=== PATIENT | female | born 1980 | race Caucasian/White ===

== ENCOUNTER 2016-10-17 08:41 | Inpatient (IN) | payer OTHER ==
[~2016-10-17] VITALS: Ht 154.9 cm; Wt 48.0 kg
[2016-10-17] VITALS (9 sets, daily range): BP systolic 113–135; BP diastolic 76–93; PULSE 79–102; RESP 18–24; TEMP 96.3–97.7; O2SAT 96–100
[2016-10-17] MEDS ORDERED: SODIUM CHLORIDE 0.9% FLUSH 10 ML FLUSH IVF PRN (09:15)
[2016-10-17] MEDS ORDERED: SODIUM CHLOR 0.9% 1000 ML INJ 1,000 ML IV ONE (09:15)
[2016-10-17] MEDS ORDERED: APIX5TAB PO (09:26)
[2016-10-17] MEDS ORDERED: DILA4TAB2 PO (09:33)
[2016-10-17 09:50] LABS: AUTOMATED NEUTROPHIL # 1.8 TH/MM3 (1.8-7.7); EOSINOPHIL # 0.1 TH/MM3 (0-0.4); EOSINOPHIL % 1.7 % (0.0-4.0); HEMATOCRIT 31.6 % (35.0-46.0); LYMPH % 35.1 % (9.0-44.0); LYMPHOCYTE # 1.2 TH/MM3 (1.0-4.8); MEAN CELL VOLUME 84.6 FL (80.0-100.0); MEAN CORPUSCULAR HEMOGLOBIN 26.7 PG (27.0-34.0); MEAN CORPUSCULAR HGB CONC 31.6 % (32.0-36.0); MONO % 10.7 % (0.0-8.0); NEUT % 51.5 % (16.0-70.0); PLATELET COUNT 128 TH/MM3 (150-450); RED BLOOD COUNT 3.73 MIL/MM3 (4.00-5.30); RED CELL DISTRIBUTION WIDTH 19.5 % (11.6-17.2); WHITE BLOOD COUNT 3.5 TH/MM3 (4.0-11.0)
[2016-10-17 09:52] LABS: HEMO FLAGS AUTO DIFF
[2016-10-17 10:00] LABS: APTT (PATIENT) 24.8 SEC (24.3-30.1); INTERNATIONAL NORMALIZED RATIO 1.1 RATIO; PROTHROMBIN TIME - PATIENT 12.2 SEC (9.8-11.6)
[2016-10-17 10:09] LABS: ANION GAP 7 MEQ/L (5-15); AST (GOT) 128 U/L (15-37); BICARBONATE 27.7 MEQ/L (21.0-32.0); BLOOD UREA NITROGEN 12 MG/DL (7-18); CHLORIDE 108 MEQ/L (98-107); GLOMERULAR FILTRATION RATE 97 ML/MIN (>89); MAGNESIUM 2.2 MG/DL (1.5-2.5); POTASSIUM 3.5 MEQ/L (3.5-5.1); SODIUM (NA) 143 MEQ/L (136-145)
[2016-10-17 10:13] LABS: ALKALINE PHOSPHATASE 472 U/L (45-117); ALT (GPT) 100 U/L (10-53); TOTAL BILIRUBIN ADULT 0.9 MG/DL (0.2-1.0)
[2016-10-17 10:25] LABS: CREATINE KINASE 28 U/L (26-192)
[2016-10-17 10:31] LABS: SCAN/DIFF AUTO DIFF CONFIRMED
--- NOTE | 2016-10-17 10:38 | RADRPT ---
EXAM DATE/TIME: 10/17/2016 09:51 [facility] COMPARISON: CHEST SINGLE AP, February 19, 2016, 4:44. INDICATIONS : Chest pain and body pain. MEDICAL HISTORY : Blood clots. SURGICAL HISTORY : Valve replacements. ENCOUNTER: Initial ACUITY: 4 - 6 months PAIN SCORE: 7/10 LOCATION: Bilateral chest FINDINGS: Valvular prosthesis is evident. Sternal wires from previous median sternotomy are noted. Minimal bi basilar parenchymal changes are noted. CONCLUSION: Minimal atelectactic changes in both bases, otherwise negative. Oseas Frederick MD FACR on October 17, 2016 at 10:28 Board Certified Radiologist. This report was verified electronically.
[2016-10-17] MEDS ORDERED: HYDROmorphone HCL PF 1 MG/ML VIAL IV PUSH ONE (11:00)
[2016-10-17] MEDS ORDERED: ACETAMINOPHEN/HYDROcodone 325 MG/5 MG TAB PO ONE (11:00)
--- NOTE | 2016-10-17 11:08 | PD ---
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 She was discharged from her extended stay rehabilitation facility 2 days prior. Evidently she has been in and out of hospitals since she was diagnosed with endocarditis including [facility] and [facility]. She reports compliance with Eliquis for a history of septic pulmonary embolism. She also mentioned that she has been compliant with oral Dilaudid. She denies any interim IV drug abuse to me however reports to the triage nurse that she used IV drugs today. She states the pain is constant and severe. She underwent mitral and tricuspid repairs with open chest procedure. PFSH Past Medical History Cardiovascular Problems: Yes (endocarditis) Tetanus Vaccination: < 5 Years Influenza Vaccination: Yes ?: Not LMP: 10/12/16 Past Surgical History Cardiac Surgery: Yes (2 valves placed in heart) Other Surgery: Yes Social History Alcohol Use: No Tobacco Use: No Substance Use: Yes (hx) Allergies-Medications (Allergen,Severity, Reaction): Coded Allergies: Morphine (Verified Allergy, Severe, hives, 10/17/16) Penicillin (Verified Allergy, Unknown, 02/14/16) Reported Meds & Prescriptions Reported Meds & Active Scripts Active Reported Dilaudid (Hydromorphone HCl) 4 Mg Tab 4 Mg PO Q6H PRN Eliquis (Apixaban) 5 Mg Tab 5 Mg PO BID Review of Systems Except as stated in HPI: all other systems reviewed are Neg Physical Exam Narrative GENERAL: 36-year-old female fairly thin pleasant SKIN: Warm and dry. There does appear to be a fresh linear track naresh along the dorsal aspect of the left DRUJ concerning for recent IV drug abuse. HEAD: Atraumatic. Normocephalic. EYES: Pupils equal and round. No scleral icterus. No injection or drainage. ENT: No nasal bleeding or discharge. Mucous membranes pink and moist. NECK: Trachea midline. No JVD. CARDIOVASCULAR: Tachycardia. Regular. RESPIRATORY: No accessory muscle use. Clear to auscultation. Breath sounds equal bilaterally. GASTROINTESTINAL: Abdomen soft, non-tender, nondistended. Hepatic and splenic margins not palpable. MUSCULOSKELETAL: Extremities without clubbing, cyanosis, or edema. No obvious deformities. NEUROLOGICAL: No asymmetry erythema induration about the lower extremities. There is no gross deformity. The patient is ambulatory in the ER with a normal gait. PSYCHIATRIC: Appropriate mood and affect; insight and judgment normal. Data Data Last Documented VS Vital Signs Date Time Temp Pulse Resp B/P Pulse Ox O2 Delivery O2 Flow Rate FiO2 10/17/16 09:25 83 10/17/16 09:21 21 135/93 97 Room Air 10/17/16 08:43 97.7 Vital signs reviewed Orders Electrocardiogram (10/17/16 ) Complete Blood Count With Diff (10/17/16:15) Comprehensive Metabolic Panel (10/17/16:15) B-Type Natriuretic Peptide (10/17/16:15) Act Partial Throm Time (Ptt) (10/17/16:15) Prothrombin Time / Inr (Pt) (10/17/16:15) Magnesium (Mg) (10/17/16:15) Ckmb (Isoenzyme) Profile (10/17/16:15) Troponin I (10/17/16:15) Urinalysis - C+S If Indicated (10/17/16:15) Blood Culture (10/17/16:15) Iv Access Insert/Monitor (10/17/16:15) Electrocardiogram (10/17/16:15) Ecg Monitoring (10/17/16:15) Oximetry (10/17/16:15) Oxygen Administration (10/17/16:15) Chest, Single Ap (10/17/16 09:15) Sodium Chloride 0.9% Flush (Ns Flush) (10/17/16 09:15) Sodium Chlor 0.9% 1000 Ml Inj (Ns 1000 M (10/17/16 09:15) Acetamin-Hydrocod 325-5 Mg ([place] 5-325 (10/17/16 11:00) Hydromorphone Pf Inj (Dilaudid Pf Inj) (10/17/16 11:00) Vancomycin Inj (Vancomycin Inj) (10/17/16 11:30) Rifampin Inj (Rifampin Inj) (10/17/16 11:30) Gentamicin 80 Mg Premix (Gentamicin 80 M (10/17/16 11:30) Labs Laboratory Tests Test 10/17/16 10/17/16 09:18 10:22 White Blood Count 3.5 TH/MM3 Red Blood Count 3.73 MIL/MM3 Hemoglobin 10.0 GM/DL Hematocrit 31.6 % Mean Corpuscular Volume 84.6 FL Mean Corpuscular Hemoglobin 26.7 PG Mean Corpuscular Hemoglobin 31.6 % Concent Red Cell Distribution Width 19.5 % Platelet Count 128 TH/MM3 Mean Platelet Volume 8.3 FL Neutrophils (%) (Auto) 51.5 % Lymphocytes (%) (Auto) 35.1 % Monocytes (%) (Auto) 10.7 % Eosinophils (%) (Auto) 1.7 % Basophils (%) (Auto) 1.0 % Neutrophils # (Auto) 1.8 TH/MM3 Lymphocytes # (Auto) 1.2 TH/MM3 Monocytes # (Auto) 0.4 TH/MM3 Eosinophils # (Auto) 0.1 TH/MM3 Basophils # (Auto) 0.0 TH/MM3 CBC Comment AUTO DIFF Differential Comment AUTO DIFF CONFIRMED Prothrombin Time 12.2 SEC Prothromb Time International 1.1 RATIO Ratio Activated Partial 24.8 SEC Thromboplast Time Sodium Level 143 MEQ/L Potassium Level 3.5 MEQ/L Chloride Level 108 MEQ/L Carbon Dioxide Level 27.7 MEQ/L Anion Gap 7 MEQ/L Blood Urea Nitrogen 12 MG/DL Creatinine 0.69 MG/DL Estimat Glomerular Filtration 97 ML/MIN Rate Random Glucose 95 MG/DL Calcium Level 8.8 MG/DL Magnesium Level 2.2 MG/DL Total Bilirubin 0.9 MG/DL Aspartate Amino Transf 128 U/L (AST/SGOT) Alanine Aminotransferase 100 U/L (ALT/SGPT) Alkaline Phosphatase 472 U/L Total Creatine Kinase 28 U/L Troponin I LESS THAN 0.02 NG/ML B-Type Natriuretic Peptide 144 PG/ML Total Protein 8.5 GM/DL Albumin 3.1 GM/DL Urine Color YELLOW Urine Turbidity HAZY Urine pH 6.5 Urine Specific [place] 1.015 Urine Protein TRACE mg/dL Urine Glucose (UA) NEG mg/dL Urine Ketones NEG mg/dL Urine Occult Blood NEG Urine Nitrite NEG Urine Bilirubin NEG Urine Urobilinogen LESS THAN 2.0 MG/DL Urine Leukocyte Esterase SMALL Urine RBC 2 /hpf Urine WBC 4 /hpf Urine Squamous Epithelial <1 /hpf Cells Urine Amorphous Sediment RARE Urine Mucus FEW /lpf Microscopic Urinalysis Comment CULT NOT INDICATED MDM Medical Decision Making Medical Screen Exam Complete: Yes Emergency Medical Condition: Yes Medical Record Reviewed: Yes Differential Diagnosis CBC & BMP Diagram 10/17/16 09:18 Narrative Course Chest x-ray reveals atelectasis at the bases EKG: Rate 89, sinus, incomplete right bundle branch block pattern CBC & BMP Diagram 10/17/16 09:18 AST 128 ALT 100 Alkaline phosphatase 272 Troponin less than 0.02 BNP 144 Unfortunately this patient carries risk factors for prosthetic valve endocarditis including current IV drug use and history of endocarditis. Empiric antibiotic started: Vancomycin, rifampin and gentamicin. Blood cultures drawn. Discussed with Dr Burger. Diagnosis Primary Impression: Chest pain Qualified Code: R07.9 - Chest pain, unspecified type Additional Impressions: IVDU (intravenous drug user) History of endocarditis Admitting Information Admitting Physician Requests: Admit Tung Daniel MD October 17, 2016 11:08
[2016-10-17 11:12] LABS: BLOOD, URINE NEG (NEG); COMMENT (UR) CULT NOT INDICATED; CULTURE IF INDICATED CULT NOT INDICATED; GLUCOSE,URINE NEG (NEG); KETONE, URINE NEG (NEG); MUCUS URINE FEW /lpf (OCC); NITRITE,URINE NEG (NEG); PH, URINE 6.5 (5.0-8.5); SQUAMOUS EPITHELIAL CELL URINE <1 /hpf (0-5); URINE COLOR YELLOW (YELLW/STRAW)
[2016-10-17] MEDS ORDERED: RIFAMPIN INJ 300 MG in SODIUM CHLORIDE 0.9% INJ 100 ML IV ONE (11:30)
[2016-10-17] MEDS ORDERED: GENTAMICIN 80 MG PREMIX 100 ML IV ONE (11:30)
[2016-10-17] MEDS ORDERED: VANCOMYCIN INJ 1,000 MG in SODIUM CHLOR 0.9% 250 ML INJ 250 ML IV ONE (11:30)
--- NOTE | 2016-10-17 11:54 | HHI.HP ---
HPI Service Family Medicine Primary Care Physician No Primary Care Physician Admission Diagnosis Chest Pain; Hx Endocarditis; Transaminitis; IVDA Diagnoses: International Travel<30 Days: No Contact w/Intl Traveler<30days: No Known Affected Area: No History of Present Illness Patient is a 36 year old female with a history of endocarditis and MV/TV replacement who presents with chest pain, shortness of breath, and right LE pain. Chest pain: started yesterday afternoon, felt sharp, throbbing. The pain is located across the entire upper left chest. She had numbness over the right chest since her surgeries. Non-radiating. It is pleuritic. This morning it worsened and she developed shortness of breath with short distances (e.g from ED room to bathroom). She had MV and TV replaced in May at [facility] in [place]. The shortness of breath is new since this morning. The right leg and foot always hurts. The leg pain is located anterior proximal thigh, 2/10 in severity. Lower down it is located in the ankle and top of foot mostly. 8/10 in severity. New symptoms yesterday was that she couldn't feel her right toes, lasting 10 minutes x 2. She has had difficult to locate pulses in the past in this foot. History: January or February 2016 - diagnosed with endocarditis; she AMA'd after 28 days. She was given IV antibiotics prior to AMA. She was told she needed 60 days of tx. May 2016 - had chest pain, fevers, "felt like I was dying". Went to [facility] then was diagnosed with endocarditis. She was given IV antibiotics and surgery on the valves, bovine valves. She had 60-72 days of IV antibiotics and for management of LE blood clots. Discharged on Coumadin. Discharge to SNF due to continued antibiotics. Two weeks later - chest pain again, bad tooth, resulted in blood infection. [facility], transferred to [facility] for IV antibiotics, had tachycardia and went into coma. Was in coma for 8 days. She was discharged . She was sent to [facility] for continued IV antibiotics. Left -Rocephin, Vancomycin, Cipro PO, Probiotics. Discharged on Eliquis 5mg BID and PO Dilaudid, 4mg q6hr PO PRN, taking them q8 (last dose 1mg IV in ED). PICC d/c'd 10/14/16 prior to discharge from SNF. She had blood clots in L femoral artery --> catheterized, blood clots distally went away with heparin. She still has five clots in the right leg, last US was a month ago at [facility]. She also had multiple complications from central lines while hospitalized, superficial clot in right arm, infection in left arm. Infectious Disease Doctor: Dr. Kelley in [facility] one week ago. Last echo September 2016. She said she had a work-up for coagulopathy in the past at [facility]. (Dennise Burger MD R1) Review of Systems Constitutional: DENIES: Fever, Chills, Change in appetite Eyes: DENIES: Blurred vision, Diplopia, Eye pain Ears, nose, mouth, throat: DENIES: Tinnitus, Hearing loss, Nasal discharge, Oral lesions, Throat pain, Running Nose, Toothache Respiratory: COMPLAINS OF: Shortness of breath, DENIES: Cough, Snoring, Wheezing, Hemoptysis, Sputum production Cardiovascular: COMPLAINS OF: Chest pain, Dyspnea on Exertion, DENIES: Palpitations, Syncope, Lower Extremity Edema Gastrointestinal: DENIES: Abdominal pain, Black stools, Bloody stools, Constipation, Diarrhea, Nausea, Vomiting Genitourinary: DENIES: Abnormal vaginal bleeding, Dysmenorrhea, Dyspareunia, Urinary frequency, Urgency, Hematuria, Dysuria Musculoskeletal: DENIES: Muscle aches, Joint Swelling, Back pain, Neck pain Integumentary: DENIES: Pruritus, Rash Hematologic/lymphatic: DENIES: Bruising Neurologic: DENIES: Localized weakness, Paresthesias, Seizures, Tremor Psychiatric: DENIES: Anxiety, Mood changes (Dennise Burger MD R1) Past Family Social History Past Medical History Artificial MV, 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, 2016 Endocarditis LMP one week ago Past Surgical History Valve surgery Left femoral vein catheterization Tooth infection complicated by bacteremia - extraction at [facility] Reported Medications Reported Meds & Active Scripts Active Reported Dilaudid (Hydromorphone HCl) 4 Mg Tab 4 Mg PO Q6H PRN Eliquis (Apixaban) 5 Mg Tab 5 Mg PO BID (Dennise Burger MD R1) Allergies: Coded Allergies: Morphine (Verified Allergy, Severe, hives, 10/17/16) Penicillin (Verified Allergy, Unknown, 02/14/16) Active Ordered Medications Inpatient Medications Acetaminophen/ Hydrocodone Bitart (Midnight 5-325 Mg) 2 tab ONCE ONCE PO ; Start 10/17/16 at 11:00; Stop 10/17/16 at 11:01; Status DC Gentamicin Sulfate/Sodium Chloride (Gentamicin 80 Mg Premix) 100 ml @ 200 mls/ hr ONCE ONCE IV ; Start 10/17/16 at 11:30; Stop 10/17/16 at 11:59 Hydromorphone HCl 0.5 mg 0.5 mg ONCE ONCE IV PUSH Last administered on 11:05; Start 10/17/16 at 11:00; Stop 10/17/16 at 11:01; Status DC Rifampin 300 mg/ Sodium Chloride 100 ml @ 100 mls/hr ONCE ONCE IV ; Start 05/24 at 11:30; Stop 10/17/16 at 12:29 Sodium Chloride (NS 1000 ml Inj) 1,000 ml @ 999 mls/hr BOLUS ONCE IV Last administered on 10/17/16 09:35; Start 10/17/16 at 09:15; Stop 10/17/16 at 10:15 ; Status DC Sodium Chloride 2 ml 2 ml UNSCH PRN IVF FLUSH AFTER USING IV ACCESS; Start 05/24 at 09:15 Vancomycin HCl 1000 mg/Sodium Chloride 250 ml @ 250 mls/hr ONCE ONCE IV ; Start 10/17/16 at 11:30; Stop 10/17/16 at 12:29 Family History Mother, father, siblings, children all healthy Children: 3; age 12, 7, 4 Social History Cigarettes: none now, occasional in the past Alcohol: denies Illicit: hx IVDU, denies today PCP: none (Dennise Burger MD R1) Physical Exam Vital Signs Vital Signs Date Time Temp Pulse Resp B/P Pulse Ox O2 Delivery O2 Flow Rate FiO2 10/17/16 09:25 83 10/17/16 09:21 86 21 135/93 97 Room Air 10/17/16 09:20 97 Room Air 10/17/16 08:43 97.7 92 24 134/84 96 Room Air Physical Exam GENERAL: Thin female lying in bed, tearful. Poor dentition SKIN: Warm and dry. No obvious rashes or track vidal HEAD: Atraumatic. Normocephalic. EYES: Pupils equal and round. No scleral icterus. No injection or drainage. ENT: No nasal bleeding or discharge. Mucous membranes pink and moist. NECK: Trachea midline. No JVD. CARDIOVASCULAR: Regular rate and rhythm. No obvious murmurs on exam RESPIRATORY: No accessory muscle use. Clear to auscultation. Breath sounds equal bilaterally. GASTROINTESTINAL: Abdomen soft, thin, non-tender, nondistended. Hepatic and splenic margins not palpable. MUSCULOSKELETAL: Extremities without clubbing, cyanosis, or edema. The lower extremities are tender to palpation distally with negative Homans. No obvious deformities. NEUROLOGICAL: Awake and alert. No obvious cranial nerve deficits. Motor grossly within normal limits. Five out of 5 muscle strength in the arms and legs. Normal speech. PSYCHIATRIC: Tearful, frustrated with history taking. States to "ask my mom" about details about medical history but does not offer number. Insight and judgment normal. Laboratory Laboratory Tests Test 10/17/16 10/17/16 09:18 10:22 White Blood Count 3.5 Red Blood Count 3.73 Hemoglobin 10.0 Hematocrit 31.6 Mean Corpuscular Volume 84.6 Mean Corpuscular Hemoglobin 26.7 Mean Corpuscular Hemoglobin 31.6 Concent Red Cell Distribution Width 19.5 Platelet Count 128 Mean Platelet Volume 8.3 Neutrophils (%) (Auto) 51.5 Lymphocytes (%) (Auto) 35.1 Monocytes (%) (Auto) 10.7 Eosinophils (%) (Auto) 1.7 Basophils (%) (Auto) 1.0 Neutrophils # (Auto) 1.8 Lymphocytes # (Auto) 1.2 Monocytes # (Auto) 0.4 Eosinophils # (Auto) 0.1 Basophils # (Auto) 0.0 CBC Comment AUTO DIFF Differential Comment AUTO DIFF CONFIRMED Prothrombin Time 12.2 Prothromb Time International 1.1 Ratio Activated Partial 24.8 Thromboplast Time Sodium Level 143 Potassium Level 3.5 Chloride Level 108 Carbon Dioxide Level 27.7 Anion Gap 7 Blood Urea Nitrogen 12 Creatinine 0.69 Estimat Glomerular Filtration 97 Rate Random Glucose 95 Calcium Level 8.8 Magnesium Level 2.2 Total Bilirubin 0.9 Aspartate Amino Transf 128 (AST/SGOT) Alanine Aminotransferase 100 (ALT/SGPT) Alkaline Phosphatase 472 Total Creatine Kinase 28 Troponin I LESS THAN 0.02 B-Type Natriuretic Peptide 144 Total Protein 8.5 Albumin 3.1 Urine Color YELLOW Urine Turbidity HAZY Urine pH 6.5 Urine Specific [place] 1.015 Urine Protein TRACE Urine Glucose (UA) NEG Urine Ketones NEG Urine Occult Blood NEG Urine Nitrite NEG Urine Bilirubin NEG Urine Urobilinogen LESS THAN 2.0 Urine Leukocyte Esterase SMALL Urine RBC 2 Urine WBC 4 Urine Squamous Epithelial <1 Cells Urine Amorphous Sediment RARE Urine Mucus FEW Microscopic Urinalysis Comment CULT NOT INDICATED Date/Time Procedure Status Source Growth 10/17/16 09:28 Aerobic Blood Culture Received Blood Peripheral Pending 10/17/16 09:28 Anaerobic Blood Culture Received Blood Peripheral Pending (Dennise Burger MD R1) Result Diagram: 10/17/1618 10/17/1618 Imaging Last Impressions Lower Extremity Ultrasound 10/17/16 0000 Signed Impressions: Service Date/Time: Monday, October 17, 2016 13:06 - CONCLUSION: Negative for DVT.. Oseas Frederick MD FACR Abdomen/Pelvis CT 10/17/16 0000 Signed Impressions: Service Date/Time: Monday, October 17, 2016 15:25 - CONCLUSION: 1. Enlarged heterogeneous liver 2. Splenomegaly. 3. Minimal bibasilar patchy densities. 4. No acute inflammatory process. Raad Carreon MD (Dennise Burger MD R1) Assessment and Plan Assessment and Plan 36-year-old female with a history of IVDU and extensive past history of endocarditis and bovine MV/TV replacements who presents with acute onset chest pain and shortness of breath. Code Status Full code Discussed Condition With Seen and discussed with Dr. Joceline Alex (Dennise Burger MD R1) Attending Attestation Patient seen and examined. Case reviewed and discussed with the resident team. Agree with plan of care as discussed with me and documented in the resident note. pt seen on admission in the ED (Akua Rice MD) Problem List: (1) Chest pain Status: Acute Plan: Patient presents with chest pain with shortness of breath. The differential diagnoses includes recurrence of infective endocarditis, PE, pneumonia, ACS, pericarditis, chest wall pain, pancreatitis Plan: * Treat empirically for endocarditis with IV Vanco with vancomycin consult, trough goal 1520, and cefepime 2 g IV every 8 hours per ID recs * Monitor symptoms, pain control with Dilaudid 0.5mg IV pain 15, Dilaudid 1mg IV pain 610, Dilaudid 1 mg IV breakthrough * Trend cardiac enzymes and EKG * We'll order CT angiogram given significant history of clots, reported immobility, and symptoms suggestive of PE * Add lipase to labs (2) 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 She presents with chest pain suggestive of acute pulmonary versus cardiac process. Not meeting septic criteria, however, patient was recently on antibiotics and CBC would not necessarily be indicative of infection/inflammatory response Plan: * Urgent echo * Blood cultures drawn and pending * Consult infectious disease * Dr. Busby consulted, recommended vancomycin and cefepime IV as above * Regular diet and pain control * CRP added to labs (3) IVDU (intravenous drug user) Status: Acute Plan: Patient with a history of IV drug use, denies on history today. Patient states she takes 4 mg Dilaudid PO every 6-8 hours Plan: * UDS ordered (4) DVT of lower extremity, bilateral Status: Acute Plan: Patient with reported persistent blood clots in the left extremity. She states she is on Eliquis 5 mg BID. Plan: * Ultrasound LE bilateral * PE workup as above * Pain management as above (5) Fluids/Electrolytes/Nutrition/Prophylaxis Status: Acute Plan: Fluids: tolerating PO Electrolytes: monitor and replete as needed Nutrition: heart-healthy diet DVT Prophylaxis: On Eliquis 5 mg twice a day GI Prophylaxis: Not indicated (Dennise Burger MD R1) Physician Certification 2 Midnight Certification Type: Admission for Inpatient Services Order for Inpatient Services The services are ordered in accordance with Medicare regulations or non- Medicare payer requirements, as applicable. In the case of services not specified as inpatient-only, they are appropriately provided as inpatient services in accordance with the 2-midnight benchmark. Estimated LOS (days): 3 days is the estimated time the patient will need to remain in the hospital, assuming treatment plan goals are met and no additional complications. Post-Hospital Plan: Not yet determined (Dennise Burger MD R1) Problem Qualifiers (1) Chest pain: Qualified Code: R07.9 - Chest pain, unspecified type (2) DVT of lower extremity, bilateral: Qualified Code: I82.493 - Deep vein thrombosis (DVT) of other vein of both lower extremities, unspecified chronicity Dennise Burger MD R1 October 17, 2016 11:54 Akua Rice MD October 18, 2016 13:56
--- NOTE | 2016-10-17 12:02 | EKG ---
Date Performed: 10/17/2016 Time Performed: 08:56:40 PTAGE: 36 years EKG: Sinus rhythm POSSIBLE LEFT ATRIAL ENLARGEMENT INCOMPLETE RIGHT BUNDLE BRANCH BLOCK POSSIBLE ANTERIOR MYOCARDIAL I NFARCTION ABNORMAL ECG COMPARED TO PRIOR ELECTROCARDIOGRAM, Rate has slowed and incomplete RIGHT bund le branch block is now present. PREVIOUS TRACING : 02/15/2016 07.54 DOCTOR: Duglas Payton Interpretating Date/Time 10/17/2016 12:01:27
[2016-10-17] MEDS ORDERED: VANCOMYCIN INJ 1,000 MG in SODIUM CHLOR 0.9% 250 ML INJ 250 ML IV SCH (12:30)
[2016-10-17] MEDS ORDERED: Vancomycin Consult Pharmacy 1 EA OTHER SCH (12:30)
--- NOTE | 2016-10-17 13:39 | RADRPT ---
EXAM DATE/TIME: 10/17/2016 13:06 [facility] COMPARISON: No previous studies available for comparison. INDICATIONS : Bilateral leg pain. MEDICAL HISTORY : Dyspnea. Endocarditis. Substance abuse. SURGICAL HISTORY : Heart valve replacement. Urethra surgery. ENCOUNTER: Initial ACUITY: 1 day PAIN SCORE: 7/10 LOCATION: Bilateral legs. TECHNIQUE: Venous ultrasound of the left and right leg was performed from the inguinal ligament to the proximal calf. Real-time, color Doppler and spectral tracing, compression and augmentation techniques were us ed. FINDINGS: RIGHT LEG: There is normal compressibility of the deep venous system from the inguinal region to the proximal ca lf. No echogenic clot is seen in the lumen of the common femoral, femoral, popliteal, and posterior tibial veins. There is a normal response of the venous system to proximal and distal augmentation an d respiration. LEFT LEG: There is normal compressibility of the deep venous system from the inguinal region to the proximal ca lf. No echogenic clot is seen in the lumen of the common femoral, femoral, popliteal, and posterior tibial veins. There is a normal response of the venous system to proximal and distal augmentation an d respiration. CONCLUSION: Negative for DVT.. Oseas Frederick MD FACR on October 17, 2016 at 13:36 Board Certified Radiologist. This report was verified electronically.
[2016-10-17] MEDS: DOCUSATE SODIUM 100 MG CAP PO SCH (14:00)
[2016-10-17] MEDS: CEFEPIME INJ 2,000 MG in SODIUM CHLORIDE 0.9% INJ 100 ML IV SCH ×2 (14:14→20:58)
[2016-10-17 15:07] LABS: CREATINE KINASE 26 U/L (26-192)
--- NOTE | 2016-10-17 15:34 | EC ---
Study Study Date:10/17/2016 STUDY CONCLUSIONS SUMMARY - Left ventricle: The cavity size was normal. Wall thickness was normal. Systolic function was normal. The estimated ejection fraction was in the range of 55% to 60%. Wall motion was normal; there were no regional wall motion abnormalities. - Aortic valve: Valve area: 1.94cm^2 (Vmax). - Mitral valve: A bioprosthesis was present. - Tricuspid valve: A bioprosthesis was present. - Pulmonic valve: Mild regurgitation. - Pulmonary arteries: PA peak pressure: 31mm Hg (S). If LV function is below 40, please consider prescribing an ACEI or ARB or document rationale for non-use. PROCEDURE DATA STUDY STATUS: Elective. Procedure: Transthoracic echocardiography. Image quality was good. Scanning was performed from the parasternal, apical, and subcostal acoustic windows. Study completion: The patient tolerated the procedure well. Transthoracic echocardiography. M-mode, complete 2D, complete spectral Doppler, and color Doppler. Height: Height: 61in. Weight: Weight: 104.8lb. Body mass index: BMI: 19.8kg/m^2. Body surface area: BSA: 1.44m^2. Patient status: Inpatient. CARDIAC ANATOMY LEFT VENTRICLE: The cavity size was normal. Wall thickness was normal. Systolic function was normal. The estimated ejection fraction was in the range of 55% to 60%. Wall motion was normal; there were no regional wall motion abnormalities. AORTIC VALVE: Trileaflet; normal thickness leaflets. Doppler: Transvalvular velocity was within the normal range. There was no stenosis. No regurgitation. Valve area: 1.94cm^2 (Vmax). Indexed valve area: 1.35cm^2/m^2 (Vmax). AORTA: Aortic root: The aortic root was normal in size. MITRAL VALVE: A bioprosthesis was present. Doppler: Transvalvular velocity was within the normal range. There was no evidence for stenosis. Trace regurgitation. Mean gradient: 6mm Hg (D). Peak gradient: 13mm Hg (D). LEFT ATRIUM: The atrium was normal in size. RIGHT VENTRICLE: The cavity size was normal. Wall thickness was normal. PULMONIC VALVE: Doppler: Transvalvular velocity was within the normal range. There was no evidence for stenosis. Mild regurgitation. TRICUSPID VALVE: A bioprosthesis was present. Doppler: Transvalvular velocity was within the normal range. Trace regurgitation. PULMONARY ARTERY: The main pulmonary artery was normal-sized. Systolic pressure was within the normal range. RIGHT ATRIUM: The atrium was normal in size. PERICARDIUM: There was no pericardial effusion. SYSTEMIC VEINS: Inferior vena cava: The vessel was normal in size. Patient weight: 104.8lb _Ejection fraction:_ 65-75% _Fractional shortening:_ 32% up to 5Kg 5-11.5Kg 11.6-22.9Kg 23-45Kg 45-57Kg Aortic Root 7-13 <17 13-22 17-27 17-27 LA diam 6-13 <23 24-38 33-47 37-40 RVID 10-17 7-15 7-15 7-18 8-17 LVIDd 12-22 <32 24-38 33-47 37-40 LVPW 2-4 3-6 5-7 6-8 7-8 IVS 2-4 3-6 5-7 6-8 7-8 BASIC MEASUREMENTS ADULT NORMAL Left ventricle LV internal dimension, ED, chordal *40.2 mm 43-52 level, PLAX LV internal dimension, ES, chordal 29.1 mm 23-38 level, PLAX Fractional shortening, chordal level, *28 % >29 PLAX LV posterior wall thickness, ED 9.76 mm IVS/LVPW ratio, ED 1.05 <1.3 Ventricular septum Septal thickness, ED 10.2 mm Aortic valve Leaflet separation 17 mm 15-26 Right ventricle RV internal dimension, ED, PLAX 23.4 mm 19-38 BASIC MEASUREMENTS ADULT NORMAL Aortic valve Leaflet separation 17 mm 15-26 Aorta Root diameter, ED 31 mm 20-37 Left atrium Anterior-posterior dimension, ES 25 mm 19-40 Anterior-posterior dimension index, ES 1.74 cm/m^2 <2.2 LA/aortic root ratio 0.81 DOPPLER MEASUREMENTS ADULT NORMAL Main pulmonary artery Pressure, S *31 mm Hg =30 Pressure, ED 19 mm Hg Aortic valve Peak velocity, S 138 cm/s VTI, S 46.1 cm Valve area, Vmax 1.94 cm^2 Valve area index, Vmax 1.35 cm^2/m^2 Mitral valve Peak E-wave velocity 174 cm/s Peak A-wave velocity 80.2 cm/s Mean velocity, D 113 cm/s Deceleration time 215 ms 150-230 Mean gradient, D 6 mm Hg Peak gradient, D 13 mm Hg Peak E/A ratio 2.2 Maximal regurgitant velocity 308 cm/s Tricuspid valve Regurgitant peak velocity 239 cm/s Peak RV-RA gradient, S 23 mm Hg Maximal regurgitant velocity 239 cm/s Systemic veins Estimated CVP 10 mm Hg Right ventricle RV pressure, S *33 mm Hg <30 Pulmonic valve Peak velocity, S 71.9 cm/s Regurgitant velocity, ED 149 cm/s LEGEND: Mean values are shown as u=mean value. Asterisk (*) vidal values outside specified normal range. Prepared and signed by Chava Huang [id number]
[2016-10-17] MEDS ORDERED: IOHEXOL 350 MG/ML 10 ML VIAL (for RAD DIAG) IV ONE (15:49)
--- NOTE | 2016-10-17 15:55 | RADRPT ---
EXAM DATE/TIME: 10/17/2016 15:25 [facility] COMPARISON: CT ABDOMEN & PELVIS W CONTRAST, February 15, 2016, 3:18. INDICATIONS : Evaluate for emboli to organs. IV CONTRAST: 60 cc Omnipaque 350 (iohexol) IV ORAL CONTRAST: Prescribed oral contrast ingested. RADIATION DOSE: 4.88 CTDIvol (mGy) MEDICAL HISTORY : Endocarditis. SURGICAL HISTORY : Heart valve replacement. ENCOUNTER: Subsequent ACUITY: 1 day PAIN SCALE: 4/10 LOCATION: Bilateral chest TECHNIQUE: Volumetric scanning of the abdomen and pelvis was performed. Using automated exposure control and ad justment of the mA and/or kV according to patient size, radiation dose was kept as low as reasonably achievable to obtain optimal diagnostic quality images. FINDINGS: LOWER LUNGS: Bibasilar patchy densities greater right lower lobe LIVER: Enlarged heterogeneous liver. There is no dilation of the biliary tree. No calcified gallstones. SPLEEN: Splenomegaly. There are some coils in the left upper quadrant. Splenic vein is prominent. There do ap pear to be some varices left upper quadrant. PANCREAS: Within normal limits. KIDNEYS: Normal in size and shape. There is no mass, stone or hydronephrosis. ADRENAL GLANDS: Within normal limits. VASCULAR: There is no aortic aneurysm. BOWEL/MESENTERY: The stomach, small bowel, and colon demonstrate no acute abnormality. There is no free intraperitone al air or fluid. ABDOMINAL WALL: Within normal limits. RETROPERITONEUM: There is no lymphadenopathy. BLADDER: No wall thickening or mass. REPRODUCTIVE: Within normal limits. INGUINAL: There is no lymphadenopathy or hernia. MUSCULOSKELETAL: Within normal limits for patient age. CONCLUSION: 1. Enlarged heterogeneous liver 2. Splenomegaly. 3. Minimal bibasilar patchy densities. 4. No acute inflammatory process. Raad Carreon MD on October 17, 2016 at 15:49 Board Certified Radiologist. This report was verified electronically.
--- NOTE | 2016-10-17 16:11 | RADRPT ---
EXAM DATE/TIME: 10/17/2016 15:25 [facility] COMPARISON: No previous studies available for comparison. INDICATIONS : Chest pain, evaluate embolism. IV CONTRAST: 50 cc Omnipaque 350 (iohexol) IV RADIATION DOSE: 9.96 CTDIvol (mGy) MEDICAL HISTORY : Endocarditis. SURGICAL HISTORY : Heart valve replacement. ENCOUNTER: Subsequent ACUITY: 1 day PAIN SCALE: 6/10 LOCATION: Bilateral chest TECHNIQUE: Volumetric scanning of the chest was performed using a pulmonary embolism protocol MIP images were re constructed. Using automated exposure control and adjustment of the mA and/or kV according to patien t size, radiation dose was kept as low as reasonably achievable to obtain optimal diagnostic quality images. FINDINGS: PULMONARY ARTERIES: No filling defects are seen in the pulmonary arteries through the segmental level. LUNGS: Bibasilar patchy infiltrates. Thin-walled cyst in the left apex is seen measuring 5.6 x 6.4 cm. Small er one in the right upper lobe measuring 2.7 cm. There is no pneumothorax . No concerning pulmonary nodule is visualized. PLEURAE: There is no pleural thickening or pleural effusion. MEDIASTINUM: There is good visualization of the great vessels of the middle mediastinum. No evidence of mediastin al or hilar adenopathy/mass. Mitral and tricuspid valve replacements. MUSCULOSKELETAL: Within normal limits for patient age. MISCELLANEOUS: The visualized upper abdominal organs demonstrate no acute abnormality. CONCLUSION: 1. No evidence for pulmonary embolism. 2. Bibasilar patchy infiltrates. 3. Thin-walled cysts in the upper lobes likely pneumatoceles from previous infection. 4. Status post mitral and tricuspid valve replacements. Raad Carreon MD on October 17, 2016 at 16:03 Board Certified Radiologist. This report was verified electronically.
--- NOTE | 2016-10-17 16:14 | OTSOAPIP ---
TIME SESSION COMPLETED: 1500 TREATMENT TIME: 0 MINS. CHART REVIEWED. ATTEMPTED TO SEE FOR OT EVALUATION, HOWEVER OFF FLOOR FOR PROCEDURE/ RADIOLOGY. WILL FOLLOW NEXT DAY. Therapist: JAZ MONK OT/L Signature on file
[2016-10-17] MEDS ORDERED: NALOXONE HCL 0.4 MG/ML AMP IV PRN (16:15)
[2016-10-17] MEDS ORDERED: ACETAMINOPHEN 325 MG TAB PO PRN (16:15)
[2016-10-17] MEDS ORDERED: HYDROmorphone HCL PF 1 MG/ML VIAL IV PRN ×2 (16:15)
[2016-10-17] MEDS: APIXABAN 5 MG TABLET PO SCH ×2 (16:28→20:57)
--- NOTE | 2016-10-17 17:25 | PD.ID.CON ---
History of Present Illness Service ID Consult Requested By Dr. Dennise Burger resident Reason for Consult Evaluation and management of possible endocarditis in a patient recently treated for prosthetic valve endocarditis. Primary Care Physician No Primary Care Physician Diagnoses: History of Present Illness Ms. 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 Upon inquiring about all the infection stated above she lists multiple facilities from [place] to [facility] this places of her diagnosis. She reports she has not been home until recently. She is an extremely unreliable historian as her story keeps changing as one discusses the case in detail with her. She reports her chest pain started the day prior to admission which she describes as sharp and throbbing. Pain is located entire left upper chest. Patient reports his pain to be nonpleuritic and not radiating. She had numbness of the right chest since her surgeries. She reports she developed shortness of breath at short distances. The only thing that she was consistent about was that her valve surgeries were at [facility] in [place]. Patient reports new onset shortness of breath as well as her right leg and foot pain. Review of resident medical records (pt did not report these consistently to me): February 2016 - diagnosed with MSSA endocarditis; she AMA'd after 28 days. May 2016 - had chest pain, fevers, ent to [facility] then was diagnosed with endocarditis. She was given IV antibiotics and surgery on the valves, bovine valves. She had 60-72 days of IV antibiotics and for management of LE blood clots. Discharged on Coumadin. Discharge to SNF due to continued antibiotics. Two weeks later - chest pain again, bad tooth, resulted in blood infection. Of note the organism was Strep according to her which could be related to IVDA as well. [facility], transferred to [facility] for IV antibiotics, had tachycardia and went into coma. Was in coma for 8 days. She was discharged . She was sent to [facility] for continued IV antibiotics. Left -Rocephin, Vancomycin, Cipro PO, Probiotics. Discharged on Eliquis 5mg BID and PO Dilaudid, 4mg q6hr PO PRN, taking them q8 (last dose 1mg IV in ED). PICC d/c'd 10/14/16 prior to discharge from SNF. She reports her Infectious Disease Doctor is Dr. Kelley in [place]. ID consulted for evaluation and mment of possible recurrent or new Prosthetic valve endocarditis. Review of Systems ROS Limitations: Poor Historian Constitutional: DENIES: Diaphoretic episodes, Fatigue, Fever, Weight gain, Weight loss, Chills, Dizziness, Change in appetite, Night Sweats Endocrine: DENIES: Abnorml menstrual pattern, Heat/cold intolerance, Polydipsia , Polyuria, Polyphagia Eyes: DENIES: Blurred vision, Diplopia, Eye inflammation, Eye pain, Vision loss , Photosensitivity, Double Vision Ears, nose, mouth, throat: DENIES: Tinnitus, Hearing loss, Vertigo, Nasal discharge, Oral lesions, Throat pain, Hoarseness, Ear Pain, Running Nose, Epistaxis, Sinus Pain, Toothache, Odynophagia Respiratory: COMPLAINS OF: Shortness of breath, DENIES: Apneas, Cough, Snoring , Wheezing, Hemoptysis, Sputum production Cardiovascular: COMPLAINS OF: Chest pain, DENIES: Palpitations, Syncope, Dyspnea on Exertion, PND, Lower Extremity Edema, Orthopnea, Claudication Gastrointestinal: DENIES: Abdominal pain, Black stools, Bloody stools, Constipation, Diarrhea, Nausea, Vomiting, Difficulty Swallowing, Anorexia Genitourinary: DENIES: Abnormal vaginal bleeding, Dysmenorrhea, Dyspareunia, Sexual dysfunction, Urinary frequency, Urinary incontinence, Urgency, Hematuria , Dysuria, Nocturia, Vaginal discharge Musculoskeletal: DENIES: Joint pain, Muscle aches, Stiffness, Joint Swelling, Back pain, Neck pain Integumentary: DENIES: Abnormal pigmentation, Pruritus, Rash, Nail changes, Breast masses, Breast skin changes, Nipple discharge Hematologic/lymphatic: DENIES: Bruising, Lymphadenopathy Immunologic/allergic: DENIES: Eczema, Urticaria Neurologic: DENIES: Abnormal gait, Headache, Localized weakness, Paresthesias, Seizures, Speech Problems, Tremor, Poor Balance Psychiatric: DENIES: Anxiety, Confusion, Mood changes, Depression, Hallucinations, Agitation, Suicidal Ideation, Homicidal Ideation, Delusions Except as stated in HPI: all other systems reviewed are Neg Past Family Social History Allergies: Coded Allergies: Morphine (Verified Allergy, Severe, hives, 10/17/16) Penicillin (Verified Allergy, Unknown, 02/14/16) Past Medical History Prosthetic (Bovine per patient) MV, 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, 2016 Endocarditis wainwright valve Endocarditis prosthetic valve Past Surgical History Bovine Prosthetic valve TV and MV Left femoral vein catheterization Tooth infection complicated by bacteremia - extraction at [facility] Reported Medications Reported Meds & Active Scripts Active Reported Dilaudid (Hydromorphone HCl) 4 Mg Tab 4 Mg PO Q6H PRN Eliquis (Apixaban) 5 Mg Tab 5 Mg PO BID Active Ordered Medications Current Medications Medications (Trade) Dose Ordered Sig/Solo Route Start Time Stop Time Status Last Admin (NS Flush) 2 ml UNSCH PRN IV FLUSH 10/17/16 12:15 (NS Flush) 2 ml BID IV FLUSH 10/17/16 21:00 (Zofran Inj) 4 mg Q6H PRN IVP 10/17/16 12:15 Docusate Sodium 100 mg 100 mg Q12H PO 10/17/16 14:00 Cefepime HCl 2000 mg/Sodium Chloride 100 ml @ 200 mls/hr Q8H IV 10/17/16 13:00 10/17/16 14:14 (Vancomycin Consult Pharmacy) 0 ml @ 0 mls/hr UNSCH OTHER 10/17/16 12:30 Apixaban 5 mg 5 mg BID PO 10/17/16 14:00 10/17/16 16:28 (Vancomycin Inj/ NS 250 ml Inj) 257.5 ml @ 250 mls/hr Q12H IV 10/18/16 01:00 Miscellaneous Information SPECIFIC LAB TO BE DRAWN:VANCO TROUGH DATE TO... ONCE ONCE .XX 10/19/16 00:45 10/19/16 00:46 (Dilaudid Pf Inj) 0.5 mg Q3H PRN IV 10/17/16 16:15 (Dilaudid Pf Inj) 1 mg Q3H PRN IV 10/17/16 16:15 10/17/16 17:39 (Dilaudid Pf Inj) 1 mg Q3H PRN IV 10/17/16 16:15 (Narcan Inj) 0.4 mg UNSCH PRN IV 10/17/16 16:15 Family History Mother, father, siblings, children all healthy Children: 3; age 12, 7, 4 Social History Cigarettes: none now, occasional in the past Alcohol: denies Illicit: hx IVDU, denies today Physical Exam Vital Signs Vital Signs Date Time Temp Pulse Resp B/P Pulse Ox O2 Delivery O2 Flow Rate FiO2 10/17/16 16:25 85 19 130/92 98 Room Air 10/17/16 12:20 79 21 128/91 100 Room Air 10/17/16 12:19 16 10/17/16 12:15 97 21 10/17/16 11:00 87 21 121/89 98 Room Air 10/17/16 09:25 83 10/17/16 09:21 86 21 135/93 97 Room Air 10/17/16 09:20 97 Room Air 10/17/16 08:43 97.7 92 24 134/84 96 Room Air Physical Exam GENERAL: This is a well-nourished, well-developed patient, in no apparent distress. SKIN: No rashes, ecchymoses or lesions. Cool and dry. HEAD: Atraumatic. Normocephalic. No temporal or scalp tenderness. EYES: Pupils equal round and reactive. Extraocular motions intact. No scleral icterus. No injection or drainage. ENT: Nose without bleeding, purulent drainage or septal hematoma. Throat without erythema, tonsillar hypertrophy or exudate. Uvula midline. Airway patent. NECK: Trachea midline. Supple, nontender, no meningeal signs. CARDIOVASCULAR: RRR, ? murmur. RESPIRATORY: Clear to auscultation. Breath sounds equal bilaterally. No wheezes , rales, or rhonchi. GASTROINTESTINAL: Abdomen soft, non-tender, nondistended. MUSCULOSKELETAL: Extremities without clubbing, cyanosis, or edema. No joint tenderness, effusion, or edema noted. No calf tenderness. Negative Homans sign bilaterally. NEUROLOGICAL: Awake and alert. Grossly non focal Psych: cooperative IV line sites with no e.o infection. Laboratory Laboratory Tests Test 10/17/16 10/17/16 10/17/16 10/17/16 09:18 10:22 13:34 14:17 White Blood Count 3.5 Red Blood Count 3.73 Hemoglobin 10.0 Hematocrit 31.6 Mean Corpuscular Volume 84.6 Mean Corpuscular Hemoglobin 26.7 Mean Corpuscular Hemoglobin 31.6 Concent Red Cell Distribution Width 19.5 Platelet Count 128 Mean Platelet Volume 8.3 Neutrophils (%) (Auto) 51.5 Lymphocytes (%) (Auto) 35.1 Monocytes (%) (Auto) 10.7 Eosinophils (%) (Auto) 1.7 Basophils (%) (Auto) 1.0 Neutrophils # (Auto) 1.8 Lymphocytes # (Auto) 1.2 Monocytes # (Auto) 0.4 Eosinophils # (Auto) 0.1 Basophils # (Auto) 0.0 CBC Comment AUTO DIFF Differential Comment AUTO DIFF CONFIRMED Prothrombin Time 12.2 Prothromb Time International 1.1 Ratio Activated Partial 24.8 Thromboplast Time Sodium Level 143 Potassium Level 3.5 Chloride Level 108 Carbon Dioxide Level 27.7 Anion Gap 7 Blood Urea Nitrogen 12 Creatinine 0.69 Estimat Glomerular Filtration 97 Rate Random Glucose 95 Calcium Level 8.8 Magnesium Level 2.2 Total Bilirubin 0.9 Aspartate Amino Transf 128 (AST/SGOT) Alanine Aminotransferase 100 (ALT/SGPT) Alkaline Phosphatase 472 Total Creatine Kinase 28 26 Troponin I LESS THAN 0.02 LESS THAN 0.02 B-Type Natriuretic Peptide 144 Total Protein 8.5 Albumin 3.1 Urine Color YELLOW Urine Turbidity HAZY Urine pH 6.5 Urine Specific [place] 1.015 Urine Protein TRACE Urine Glucose (UA) NEG Urine Ketones NEG Urine Occult Blood NEG Urine Nitrite NEG Urine Bilirubin NEG Urine Urobilinogen LESS THAN 2.0 Urine Leukocyte Esterase SMALL Urine RBC 2 Urine WBC 4 Urine Squamous Epithelial <1 Cells Urine Amorphous Sediment RARE Urine Mucus FEW Microscopic Urinalysis Comment CULT NOT INDICATED Lipase 160 Date/Time Procedure Status Source Growth 10/17/16 09:28 Aerobic Blood Culture Received Blood Peripheral Pending 10/17/16 09:28 Anaerobic Blood Culture Received Blood Peripheral Pending Result Diagram: 10/17/1691710/17/16917 Imaging Last Impressions Chest X-Ray 10/17/16914 Signed Impressions: Service Date/Time: Monday, October 17, 2016 09:51 - CONCLUSION: Minimal atelectactic changes in both bases, otherwise negative. Oseas Frederick MD FACR Lower Extremity Ultrasound 10/17/16 0000 Signed Impressions: Service Date/Time: Monday, October 17, 2016 13:06 - CONCLUSION: Negative for DVT.. Oseas Frederick MD FACR CT Angiography 10/17/16 0000 Signed Impressions: Service Date/Time: Monday, October 17, 2016 15:25 - CONCLUSION: 1. No evidence for pulmonary embolism. 2. Bibasilar patchy infiltrates. 3. Thin-walled cysts in the upper lobes likely pneumatoceles from previous infection. 4. Status post mitral and tricuspid valve replacements. Raad Carreon MD Abdomen/Pelvis CT 10/17/16 0000 Signed Impressions: Service Date/Time: Thursday, October 17, 2016 15:25 - CONCLUSION: 1. Enlarged heterogeneous liver 2. Splenomegaly. 3. Minimal bibasilar patchy densities. 4. No acute inflammatory process. Raad Carreon MD Assessment and Plan Assessment and Plan Chest pain in a patient with recent prosthetic valve endocarditis Leukopenia: ? Infection, HIV, recent antibiotic treatment for prosthetic valve endocarditis ? Medication induced Thrombocytopenia: Hepatitis C or recent antibiotic related as well Hepatitis C antibody positive Abnormal LFTs: Medication induced was on IV antibiotics prior to admission, hepatitis C IV drug abuse history Pain medicine seeking behavior Recs: Follow blood cultures Case discussed with Dr. Burger recommended CTA to rule out PE in view of her history of DVT, recent endocarditis Also recommended CT abdomen pelvis to rule out distant organ abscesses related to her recent history of endocarditis I would recommend very cautious use of narcotics especially given her pain medicine seeking behavior. If repeat blood cultures are positive she will need further workup as well as medical records from all the facilities that she states. If repeat blood cultures are negative and 2-D echo negative likely discharge her to follow up with her infectious disease physician Discussed with Dr. Burger to start cefepime IV as well as vancomycin IV with target trough of 15-20 for presumed endocarditis pending cultures. Dr. Ramos covering for me this weekend. Please call him sooner if any blood cultures positive or change in clinical condition. Aundrea Busby MD October 17, 2016 17:25
[2016-10-17] MEDS: HYDROmorphone HCL PF 1 MG/ML VIAL IV PRN ×2 (17:39→20:58)
[2016-10-17 20:13] LABS: AMPHETAMINE, URINE NEG (NEG); BARBITURATES, URINE NEG (NEG); COCAINE, URINE NEG (NEG)
[2016-10-17] MEDS: SODIUM CHLORIDE 0.9% FLUSH 10 ML FLUSH IV FLUSH SCH (20:58)
[2016-10-17 21:10] LABS: CREATINE KINASE 17 U/L (26-192)
[2016-10-18] VITALS (7 sets, daily range): BP systolic 99–119; BP diastolic 71–78; PULSE 78–100; RESP 16–20; TEMP 96.6–98.1; O2SAT 95–99
[2016-10-18] MEDS: HYDROmorphone HCL PF 1 MG/ML VIAL IV PRN ×8 (00:13→22:12)
[2016-10-18] MEDS: VANCOMYCIN INJ 750 MG in SODIUM CHLOR 0.9% 250 ML INJ 250 ML IV SCH ×2 (00:34→12:51)
[2016-10-18] MEDS: DOCUSATE SODIUM 100 MG CAP PO SCH ×2 (00:34→12:51)
[2016-10-18] MEDS: CEFEPIME INJ 2,000 MG in SODIUM CHLORIDE 0.9% INJ 100 ML IV SCH ×3 (04:29→21:01)
[2016-10-18 06:58] LABS: AUTOMATED NEUTROPHIL # 1.7 TH/MM3 (1.8-7.7); BASOPHIL % 1.4 % (0.0-2.0); EOSINOPHIL # 0.1 TH/MM3 (0-0.4); EOSINOPHIL % 2.5 % (0.0-4.0); HEMATOCRIT 29.2 % (35.0-46.0); HEMO FLAGS DIFF FINAL; LYMPH % 34.7 % (9.0-44.0); LYMPHOCYTE # 1.2 TH/MM3 (1.0-4.8); MEAN CELL VOLUME 84.9 FL (80.0-100.0); MEAN CORPUSCULAR HEMOGLOBIN 27.2 PG (27.0-34.0); MONO % 12.3 % (0.0-8.0); NEUT % 49.1 % (16.0-70.0); PLATELET COUNT 114 TH/MM3 (150-450); RED BLOOD COUNT 3.44 MIL/MM3 (4.00-5.30); RED CELL DISTRIBUTION WIDTH 19.6 % (11.6-17.2); WHITE BLOOD COUNT 3.4 TH/MM3 (4.0-11.0)
[2016-10-18 07:45] LABS: ALKALINE PHOSPHATASE 362 U/L (45-117); ALT (GPT) 74 U/L (10-53); ANION GAP 7 MEQ/L (5-15); AST (GOT) 93 U/L (15-37); BICARBONATE 25.3 MEQ/L (21.0-32.0); BLOOD UREA NITROGEN 13 MG/DL (7-18); CHLORIDE 109 MEQ/L (98-107); GLOMERULAR FILTRATION RATE 103 ML/MIN (>89); POTASSIUM 3.5 MEQ/L (3.5-5.1); SODIUM (NA) 141 MEQ/L (136-145); TOTAL BILIRUBIN ADULT 0.6 MG/DL (0.2-1.0)
[2016-10-18] MEDS: APIXABAN 5 MG TABLET PO SCH ×2 (08:15→21:02)
[2016-10-18] MEDS: SODIUM CHLORIDE 0.9% FLUSH 10 ML FLUSH IV FLUSH SCH ×2 (08:15→21:02)
[2016-10-18] MEDS: SODIUM CHLORIDE 0.9% FLUSH 10 ML FLUSH IV FLUSH PRN ×4 (09:38→18:45)
[2016-10-18] MEDS ORDERED: RESP: ALBUTEROL 2.5 MG/IPRATROPIUM 0.5 MG NEB (PRN) NEB (11:30)
--- NOTE | 2016-10-18 12:14 | HHI.HP ---
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 Chest pain: started yesterday afternoon, felt sharp, throbbing. The pain is located across the entire upper left chest. She had numbness over the right chest since her surgeries. Non-radiating. It is pleuritic. This morning it worsened and she developed shortness of breath with short distances (e.g from ED room to bathroom). She had MV and TV replaced in May at [facility] in [place]. The shortness of breath is new since this morning. The right leg and foot always hurts. The leg pain is located anterior proximal thigh, 2/10 in severity. Lower down it is located in the ankle and top of foot mostly. 8/10 in severity. New symptoms yesterday was that she couldn't feel her right toes, lasting 10 minutes x 2. She has had difficult to locate pulses in the past in this foot. She started gabapentin just a few days before this hospitalization and is unsure if it helps at this point. History: January or February 2016 - diagnosed with endocarditis; she left AMA after 28 days. She was given IV antibiotics prior to AMA. She was told she needed 60 days of tx but left for her own reasons May 2016 - had chest pain, fevers, "felt like I was dying". Went to [facility] then was diagnosed with endocarditis. She was given IV antibiotics and surgery on the valves, bovine valves. She had 60-72 days of IV antibiotics and for management of LE blood clots. Discharged on Coumadin. Discharge to SNF due to continued antibiotics. Two weeks later - chest pain again, bad tooth, resulted in blood infection. [facility], transferred to [facility] for IV antibiotics, had tachycardia and went into coma. Was in coma for 8 days. She was discharged . She was sent to [facility] for continued IV antibiotics. Left -Rocephin, Vancomycin, Cipro PO, Probiotics. Discharged on Eliquis 5mg BID and PO Dilaudid, 4mg q6hr PO PRN, taking them q8 (last dose 1mg IV in ED). PICC d/c'd 10/14/16 prior to discharge from SNF. She had blood clots in L femoral artery --> catheterized, blood clots distally went away with heparin. She still has five clots in the right leg per her report , last US was a month ago at [facility]. She also had multiple complications from central lines while hospitalized, superficial clot in right arm, infection in left arm. Infectious Disease Doctor: Dr. Kelley in [facility] one week ago. Last echo September 2016. She said she had a work-up for coagulopathy in the past at [facility]. Her hospital and other records are not available at this time. Review of Systems Other Constitutional: DENIES: Fever, Chills, Change in appetite Eyes: DENIES: Blurred vision, Diplopia, Eye pain Ears, nose, mouth, throat: DENIES: Tinnitus, Hearing loss, Nasal discharge, Oral lesions, Throat pain, Running Nose, Toothache Respiratory: COMPLAINS OF: Shortness of breath, DENIES: Cough, Snoring, Wheezing, Hemoptysis, Sputum production Cardiovascular: COMPLAINS OF: Chest pain, Dyspnea on Exertion, DENIES: Palpitations, Syncope, Lower Extremity Edema Gastrointestinal: DENIES: Abdominal pain, Black stools, Bloody stools, Constipation, Diarrhea, Nausea, Vomiting Genitourinary: DENIES: Abnormal vaginal bleeding, Dysmenorrhea, Dyspareunia, Urinary frequency, Urgency, Hematuria, Dysuria Musculoskeletal: DENIES: Muscle aches, Joint Swelling, Back pain, Neck pain Integumentary: DENIES: Pruritus, Rash Hematologic/lymphatic: DENIES: Bruising Neurologic: DENIES: Localized weakness, Paresthesias, Seizures, Tremor Psychiatric: DENIES: Anxiety, Mood changes Past Family Social History Past Medical History Artificial MV, 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, 2016 Endocarditis LMP one week ago Past Surgical History Valve surgery x mitral and tricuspid Left femoral vein catheterization Tooth infection complicated by bacteremia - extraction at [facility] Allergies: Coded Allergies: Morphine (Verified Allergy, Severe, hives, 10/17/16) Penicillin (Verified Allergy, Unknown, 02/14/16) Family History Mother, father, siblings, children all healthy Children: 3; age 12, 7, 4 Social History Cigarettes: none now, occasional in the past Alcohol: denies Illicit: hx IVDU, denies today PCP: none Physical Exam Vital Signs Vital Signs Date Time Temp Pulse Resp B/P Pulse Ox O2 Delivery O2 Flow Rate FiO2 10/18/16 12:00 97.8 86 16 116/78 98 10/18/16 08:00 98.1 82 16 109/74 95 10/18/16 04:00 97.6 79 20 99/71 97 10/18/16 01:24 97 10/18/16 00:00 96.6 93 20 111/74 98 10/17/16 20:00 99 10/17/16 20:00 97.7 100 20 113/82 96 10/17/16 16:25 85 19 130/92 98 Room Air 10/17/16 16:00 96.3 102 18 115/76 100 10/17/16 12:20 79 21 128/91 100 Room Air 10/17/16 12:19 16 10/17/16 12:15 97 21 Physical Exam GENERAL: Thin female lying in bed, tearful at times. Poor dentition. appears chronically ill and somewhat cachectic SKIN: Warm and dry. No obvious rashes or track vidal HEAD: Atraumatic. Normocephalic. EYES: Pupils equal and round. No scleral icterus. No injection or drainage. ENT: No nasal bleeding or discharge. Mucous membranes pink and moist. NECK: Trachea midline. No JVD. CARDIOVASCULAR: Regular rate and rhythm. No obvious murmurs on exam RESPIRATORY: No accessory muscle use. Clear to auscultation. Breath sounds equal bilaterally. GASTROINTESTINAL: Abdomen soft, thin, non-tender, nondistended. Hepatic and splenic margins not palpable. MUSCULOSKELETAL: Extremities without clubbing, cyanosis, or edema. The lower extremities are tender to palpation distally with negative Homans. No obvious deformities. NEUROLOGICAL: Awake and alert. No obvious cranial nerve deficits. Motor grossly within normal limits. Five out of 5 muscle strength in the arms and legs. Normal speech. PSYCHIATRIC: Tearful, frustrated with history taking. States to "ask my mom" about details about medical history but does not offer number. Insight and judgment normal. She reports problems with memory after her 2 near experiences and the resultant comas from severe endocarditis in the past Laboratory Laboratory Tests Test 10/17/16 10/17/16 10/17/16 10/18/16 13:34 14:17 20:30 04:25 Lipase 160 Total Creatine Kinase 26 17 Troponin I LESS THAN 0.02 LESS THAN 0.02 C-Reactive Protein 0.74 Procalcitonin 0.07 White Blood Count 3.4 Red Blood Count 3.44 Hemoglobin 9.3 Hematocrit 29.2 Mean Corpuscular Volume 84.9 Mean Corpuscular Hemoglobin 27.2 Mean Corpuscular Hemoglobin 32.0 Concent Red Cell Distribution Width 19.6 Platelet Count 114 Mean Platelet Volume 8.2 Neutrophils (%) (Auto) 49.1 Lymphocytes (%) (Auto) 34.7 Monocytes (%) (Auto) 12.3 Eosinophils (%) (Auto) 2.5 Basophils (%) (Auto) 1.4 Neutrophils # (Auto) 1.7 Lymphocytes # (Auto) 1.2 Monocytes # (Auto) 0.4 Eosinophils # (Auto) 0.1 Basophils # (Auto) 0.0 CBC Comment DIFF FINAL Differential Comment Sodium Level 141 Potassium Level 3.5 Chloride Level 109 Carbon Dioxide Level 25.3 Anion Gap 7 Blood Urea Nitrogen 13 Creatinine 0.66 Estimat Glomerular Filtration 103 Rate Random Glucose 77 Calcium Level 7.8 Total Bilirubin 0.6 Aspartate Amino Transf 93 (AST/SGOT) Alanine Aminotransferase 74 (ALT/SGPT) Alkaline Phosphatase 362 Total Protein 7.2 Albumin 2.5 Date/Time Procedure Status Source Growth 10/17/16 09:28 Aerobic Blood Culture - Preliminary Resulted Blood Peripheral NO GROWTH IN 1 DAY 10/17/16 09:28 Anaerobic Blood Culture - Preliminary Resulted Blood Peripheral NO GROWTH IN 1 DAY Result Diagram: 10/18/16 0425 10/18/16 0425 Imaging Last Impressions Lower Extremity Ultrasound 10/17/16 0000 Signed Impressions: Service Date/Time: Monday, October 17, 2016 13:06 - CONCLUSION: Negative for DVT.. Oseas Frederick MD FACR Abdomen/Pelvis CT 10/17/16 0000 Signed Impressions: Service Date/Time: Monday, October 17, 2016 15:25 - CONCLUSION: 1. Enlarged heterogeneous liver 2. Splenomegaly. 3. Minimal bibasilar patchy densities. 4. No acute inflammatory process. Raad Carreon MD Assessment and Plan Assessment and Plan 36-year-old female with a history of IVDU and extensive past history of endocarditis and bovine MV/TV replacements who presents with acute onset chest pain and shortness of breath. Problem List: (1) Chest pain Status: Acute Plan: Patient presents with chest pain with shortness of breath. The differential diagnoses includes recurrence of infective endocarditis, PE, pneumonia, ACS, pericarditis, chest wall pain, pancreatitis Plan: * Treat empirically for endocarditis with IV Vanco with vancomycin consult, trough goal 1520, and cefepime 2 g IV every 8 hours per ID recs * Monitor symptoms, pain control with Dilaudid 0.5mg IV pain 15, Dilaudid 1mg IV pain 610, Dilaudid 1 mg IV breakthrough * Trended cardiac enzymes and EKG * CT angiogram given significant history of clots, reported immobility, and symptoms suggestive of PE was fine with no clots and only evidence old septic emboli and some atelectasis * Added lipase to labs (2) 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 She presents with chest pain suggestive of acute pulmonary versus cardiac process. Not meeting septic criteria, however, patient was recently on antibiotics and CBC would not necessarily be indicative of infection/inflammatory response Plan: * Urgent echo done, thankfully no vegetation seen * Blood cultures drawn and pending so far negative * Consulted infectious disease * Dr. Busby consulted, recommended vancomycin and cefepime IV as above and abdominal CT * Regular diet and pain control * CRP added to labs (3) IVDU (intravenous drug user) Status: Acute Plan: Patient with a history of IV drug use, denies on history today. Patient states she takes 4 mg Dilaudid PO every 6-8 hours Plan: * UDS negative. She was tearful yesterday and reports being sorry for past poor decisions and drug use. (4) DVT of lower extremity, bilateral Status: Acute Plan: Patient with reported persistent blood clots in the left extremity. She states she is on Eliquis 5 mg BID. Plan: * Ultrasound LE bilateral was fine * PE workup as above was negative * Pain management as above (5) Fluids/Electrolytes/Nutrition/Prophylaxis Status: Acute Plan: Fluids: tolerating PO Electrolytes: monitor and replete as needed Nutrition: heart-healthy diet, declines ensure DVT Prophylaxis: On Eliquis 5 mg twice a day GI Prophylaxis: Not indicated Physician Certification 2 Midnight Certification Type: Admission for Inpatient Services Order for Inpatient Services The services are ordered in accordance with Medicare regulations or non- Medicare payer requirements, as applicable. In the case of services not specified as inpatient-only, they are appropriately provided as inpatient services in accordance with the 2-midnight benchmark. Estimated LOS (days): 3 3 days is the estimated time the patient will need to remain in the hospital, assuming treatment plan goals are met and no additional complications. Post-Hospital Plan: Home Problem Qualifiers (1) Chest pain: Qualified Code: R07.9 - Chest pain, unspecified type (2) DVT of lower extremity, bilateral: Qualified Code: I82.493 - Deep vein thrombosis (DVT) of other vein of both lower extremities, unspecified chronicity Akua Rice MD October 18, 2016 12:13
[2016-10-18] MEDS: GABAPENTIN 300 MG CAP PO SCH ×2 (12:50→18:44)
--- NOTE | 2016-10-18 13:40 | EKG ---
Date Performed: 10/17/2016 Time Performed: 20:17:44 PTAGE: 36 years EKG: Sinus rhythm INCOMPLETE RIGHT BUNDLE BRANCH BLOCK POSSIBLE ANTERIOR MYOCARDIAL INFARCTION , OF INDETERMINATE AGE Since previous tracing, no significant change noted ABNORMAL ECG PREVIOUS TRACING : 10/17/2016 14.24 DOCTOR: Tiara Short Interpretating Date/Time 10/18/2016 13:38:49
--- NOTE | 2016-10-18 14:00 | EKG ---
Date Performed: 10/17/2016 Time Performed: 14:24:27 PTAGE: 36 years EKG: Sinus rhythm INCOMPLETE RIGHT BUNDLE BRANCH BLOCK MODERATE T-WAVE ABNORMALITY, CONSIDER ANTERIOR ISCHEMIA POSSIBL E PRIOR ANTEROSEPTAL INFARCT OF INDETERMINATE AGE Compared to previous tracing, there has been no sig nificant serial change. ABNORMAL ECG PREVIOUS TRACING : 10/17/2016 08.56 DOCTOR: Tiara Short Interpretating Date/Time 10/18/2016 14:00:15
[2016-10-19] VITALS (8 sets, daily range): BP systolic 101–115; BP diastolic 69–76; PULSE 82–97; RESP 20–24; TEMP 97.2–98.1; O2SAT 95–99
[2016-10-19] MEDS ORDERED: PHARMACY ORDERED LAB ONE (00:45)
[2016-10-19] MEDS: HYDROmorphone HCL PF 1 MG/ML VIAL IV PRN ×8 (01:05→22:54)
[2016-10-19] MEDS: DOCUSATE SODIUM 100 MG CAP PO SCH ×2 (01:06→14:00)
[2016-10-19] MEDS: VANCOMYCIN INJ 750 MG in SODIUM CHLOR 0.9% 250 ML INJ 250 ML IV SCH (01:56)
[2016-10-19] MEDS: CEFEPIME INJ 2,000 MG in SODIUM CHLORIDE 0.9% INJ 100 ML IV SCH ×3 (04:17→20:29)
[2016-10-19] MEDS: APIXABAN 5 MG TABLET PO SCH ×2 (07:25→19:56)
[2016-10-19] MEDS: GABAPENTIN 300 MG CAP PO SCH ×3 (07:25→16:55)
[2016-10-19] MEDS: SODIUM CHLORIDE 0.9% FLUSH 10 ML FLUSH IV FLUSH SCH ×2 (07:28→20:30)
--- NOTE | 2016-10-19 07:35 | HHI.FPPN ---
Subjective Remarks Patient was seen and examined this morning. No overnight events reported. She continues to have chest pain and tightness with deep breathing and moving, only the chest wall. She asserts that only Dilaudid helps her pain. Cultures so far negative. Eating and voiding without difficulty. Denying fevers, chills, nausea , vomiting, diarrhea, chest pain, shortness of breath. She does not want to go home due to the chest pain. (Dennise Burger MD R1) Objective Vitals Vital Signs Date Time Temp Pulse Resp B/P Pulse Ox O2 Delivery O2 Flow Rate FiO2 10/19/16 04:00 97.6 82 20 107/74 96 10/19/16 00:00 97.3 97 20 115/76 96 10/18/16 20:00 97.1 100 20 102/72 96 10/18/16 16:00 97.8 78 18 119/78 99 10/18/16 12:00 97.8 86 16 116/78 98 10/18/16 08:00 98.1 82 16 109/74 95 I/O 10/18/16 10/18/16 10/18/16 10/19/16 10/19/16 10/19/16 07:00 15:00 23:00 07:00 15:00 23:00 Intake Total 482 ml 180 ml 240 ml 930 ml Balance 482 ml 180 ml 240 ml 930 ml Intake Oral 120 ml 180 ml 240 ml 480 ml IV Total 362 ml 0 ml 450 ml # Voids 1 3 2 3 # Bowel Movements 1 (Dennise Burger MD R1) Result Diagram: 10/18/16 0425 10/18/16 0425 Imaging Last Impressions Chest X-Ray 10/17/1615 Signed Impressions: Service Date/Time: Monday, October 17, 2016 09:51 - CONCLUSION: Minimal atelectactic changes in both bases, otherwise negative. Oseas Frederick MD FACR Lower Extremity Ultrasound 10/17/16 0000 Signed Impressions: Service Date/Time: Monday, October 17, 2016 13:06 - CONCLUSION: Negative for DVT.. Oseas Frederick MD FACR CT Angiography 10/17/16 0000 Signed Impressions: Service Date/Time: Monday, October 17, 2016 15:25 - CONCLUSION: 1. No evidence for pulmonary embolism. 2. Bibasilar patchy infiltrates. 3. Thin-walled cysts in the upper lobes likely pneumatoceles from previous infection. 4. Status post mitral and tricuspid valve replacements. Raad Carreon MD Abdomen/Pelvis CT 10/17/16 0000 Signed Impressions: Service Date/Time: Monday, October 17, 2016 15:25 - CONCLUSION: 1. Enlarged heterogeneous liver 2. Splenomegaly. 3. Minimal bibasilar patchy densities. 4. No acute inflammatory process. Raad Carreon MD Objective Remarks GENERAL: Thin female lying in bed in no apparent distress. Poor dentition. SKIN: Warm and dry. No obvious rashes or track vidal. HEAD: Atraumatic. Normocephalic. EYES: Pupils equal and round. No scleral icterus. No injection or drainage. ENT: No nasal bleeding or discharge. Mucous membranes pink and moist. NECK: Trachea midline. No JVD. CARDIOVASCULAR: Regular rate and rhythm. No obvious murmurs on exam. Reproducible chest wall tenderness across entire left chest, above and below breast. No breast tenderness RESPIRATORY: No accessory muscle use. Clear to auscultation. Breath sounds equal bilaterally. GASTROINTESTINAL: Abdomen soft, thin, non-tender, nondistended. Hepatic and splenic margins not palpable. MUSCULOSKELETAL: Extremities without clubbing, cyanosis, or edema. The lower extremities are tender to palpation distally with negative Homans. No obvious deformities. NEUROLOGICAL: Awake and alert. No obvious cranial nerve deficits. Motor grossly within normal limits. Five out of 5 muscle strength in the arms and legs. Normal speech. PSYCHIATRIC: Appropriate mood and affect; insight and judgment normal. Medications and IVs Inpatient Medications Acetaminophen (Tylenol) 650 mg ONCE ONCE PO Last administered on 10/19/16t 10: 29; Start 10/19/16 at 08:15; Stop 10/19/16 at 08:16; Status DC Acetaminophen/ Hydrocodone Bitart (Widen 5-325 Mg) 2 tab ONCE ONCE PO ; Start 10/17/16 at 11:00; Stop 10/17/16 at 11:01; Status DC Albuterol/ Ipratropium (Duoneb Neb) 1 ampule Q6HR NEB PRN NEB SOB/WHEEZING; Start 10/18/16 at 11:30 Albuterol/ Ipratropium 1 ampule 1 ampule ONCE ONCE NEB ; Start 10/19/16 at 08: 15; Stop 10/19/16 at 08:16; Status DC Apixaban (Eliquis) 5 mg BID PO Last administered on 10/19/16 07:25; Start 05/24 at 14:00 Cefepime HCl 2000 mg/Sodium Chloride 100 ml @ 200 mls/hr Q8H IV Last administered on 10/19/16 04:17; Start 10/17/16 at 13:00 Docusate Sodium 100 mg 100 mg Q12H PO ; Start 10/17/16 at 14:00 Gabapentin (Neurontin) 300 mg TID PO Last administered on 10/19/16 07:25; Start 10/18/16 at 13:00 Gentamicin Sulfate/Sodium Chloride (Gentamicin 80 Mg Premix) 100 ml @ 200 mls/ hr ONCE ONCE IV ; Start 10/17/16 at 11:30; Stop 10/17/16 at 11:59; Status DC Hydromorphone HCl (Dilaudid Pf Inj) 1 mg Q3H PRN IV BREAKTHROUGH PAIN; Start at 16:15 Hydromorphone HCl 0.5 mg 0.5 mg ONCE ONCE IV PUSH Last administered on 11:05; Start 10/17/16 at 11:00; Stop 10/17/16 at 11:01; Status DC Miscellaneous Information SPECIFIC LAB TO BE DRAWN:VANCOMYCIN TROUGH DATE TO... ONCE ONCE .XX ; Start 10/21/16 at 10:45; Stop 10/21/16 at 10:46 Naloxone HCl (Narcan Inj) 0.4 mg UNSCH PRN IV SEE LABEL COMMENTS; Start at 16:15 Ondansetron HCl (Zofran Inj) 4 mg Q6H PRN IVP NAUSEA OR VOMITING; Start at 12:15 Pharmacy Profile Note (Vancomycin Consult Pharmacy) 0 ml @ 0 mls/hr UNSCH OTHER ; Start 10/17/16 at 12:30 Rifampin 300 mg/ Sodium Chloride 100 ml @ 100 mls/hr ONCE ONCE IV ; Start 05/24 at 11:30; Stop 10/17/16 at 12:29; Status DC Sodium Chloride (NS 1000 ml Inj) 1,000 ml @ 999 mls/hr BOLUS ONCE IV Last administered on 10/17/16 09:35; Start 10/17/16 at 09:15; Stop 10/17/16 at 10:15 ; Status DC Sodium Chloride (NS Flush) 2 ml BID IV FLUSH Last administered on 10/19/16 07: 28; Start 10/17/16 at 21:00 Sodium Chloride 2 ml 2 ml UNSCH PRN IVF FLUSH AFTER USING IV ACCESS; Start 05/24 at 09:15; Stop 10/17/16 at 12:42; Status DC Vancomycin HCl 1000 mg/Sodium Chloride 250 ml @ 250 mls/hr ONCE ONCE IV Last administered on 10/17/16 12:33; Start 10/17/16 at 11:30; Stop 10/17/16 at 12:29 ; Status DC Vancomycin HCl/ Sodium Chloride (Vancomycin Inj/ NS 250 ml Inj) 250 ml @ 250 mls/hr Q12H IV Last administered on 10/19/16 10:40; Start 10/19/16 at 11:00 ( Dennise Burger MD R1) Urinary Catheter: No (Dennise Burger MD R1) Vascular Central Line Catheter: No (Dennise Burger MD R1) A/P Assessment and Plan 36-year-old female with a history of IVDU and extensive past history of endocarditis and bovine MV/TV replacements who presents with acute onset chest pain and shortness of breath. Differential diagnosis on admission included endocarditis, ACS, pneumonia, PE, costochondritis. Discharge Planning Discharge to home likely tomorrow, pending ID clearance and following blood cultures (Dennise Burger MD R1) Attending Attestation Patient seen and examined. Case reviewed and discussed with the resident team. Agree with plan of care as discussed with me and documented in the resident note. (Akua Rice MD) Problem List: (1) Chest pain Status: Acute Plan: Patient with persistent chest pain, reportedly pruritic but reproducible at the chest wall. Costochondritis most likely. On Eliquis so NSAIDs contraindicated. Will given Tylenol, scheduled x1, when necessary otherwise Continue Dilaudid Monitor VS Hospital course: * Patient presents with chest pain with shortness of breath. She presented with chest pain suggestive of acute pulmonary versus cardiac process. The differential diagnoses includes recurrence of infective endocarditis, PE, pneumonia, ACS, pericarditis, chest wall pain, pancreatitis * She has a significant history of endocarditis, completed long course of IV antibiotics 3 days ago. * Not meeting septic criteria, however, patient was recently on antibiotics and CBC would not necessarily be indicative of infection/inflammatory response * Dr. Busby consulted with ID consulted, recommended vancomycin and cefepime IV as above and abdominal CT * Treated empirically for endocarditis with IV Vanco with vancomycin consult, trough goal 1520, and cefepime 2 g IV every 8 hours per ID recs * Cardiac enzymes trended and normal; EKGs showing incomplete RBBB, unchanged on trending * BNP mildly elevated at 144 pg/ml * CT angiogram given significant history of clots, reported immobility, and symptoms suggestive of PE was fine with no clots and only evidence old septic emboli and some atelectasis * CT abdomen and pelvis showing only heterogeneous liver and splenomegaly as well as mild bibasilar patchy densities, not evident for acute disease. * Urgent echo done, no vegetation seen * Lipase wnl * CRP added to admission labs was mildly elevated at 0. 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 Patient states she takes 4 mg Dilaudid PO every 6-8 hours Plan: * UDS negative. She was tearful on admission and expressed remorse for past decisions * UDS was negative * Dilaudid given inpatient as above, will not continue discharge as patient states she has PO Dilaudid prescribed by an MD of unknown name (4) DVT of lower extremity, bilateral Status: Resolved Plan: Patient with reported persistent blood clots in the left extremity. She states she is on Eliquis 5 mg BID for these. Plan: * Ultrasound LE bilateral was showed no clots * PE workup as above was negative * Pain management as above * Continue Eliquis (5) Fluids/Electrolytes/Nutrition/Prophylaxis Status: Acute Plan: Fluids: tolerating PO Electrolytes: monitor and replete as needed Nutrition: heart-healthy diet, declines ensure DVT Prophylaxis: On Eliquis 5 mg twice a day GI Prophylaxis: Not indicated (Dennise Burger MD R1) Problem Qualifiers (1) Chest pain: Qualified Code: R07.9 - Chest pain, unspecified type (2) DVT of lower extremity, bilateral: Qualified Code: I82.493 - Deep vein thrombosis (DVT) of other vein of both lower extremities, unspecified chronicity Dennise Burger MD R1 October 19, 2016 07:35 Akua Rice MD October 22, 2016 14:12
[2016-10-19] MEDS ORDERED: ACETAMINOPHEN 325 MG TAB PO ONE (08:15)
[2016-10-19] MEDS ORDERED: ACETAMINOPHEN 325 MG TAB PO PRN (08:15)
[2016-10-19] MEDS ORDERED: RESP: ALBUTEROL 2.5 MG/IPRATROPIUM 0.5 MG NEB (SCH) NEB ONE (08:15)
[2016-10-19] MEDS: VANCOMYCIN 1,000 MG/NS 250 ML IV SCH ×4 (10:40→22:54)
[2016-10-19 14:00] LABS: BACTERIA, URINE RARE /hpf; BLOOD, URINE NEG (NEG); COMMENT (UR) CULT NOT INDICATED; CULTURE IF INDICATED CULT NOT INDICATED; GLUCOSE,URINE NEG (NEG); HYALINE CAST, URINE 1 /lpf (RARE); KETONE, URINE NEG (NEG); MUCUS URINE FEW /lpf (OCC); NITRITE,URINE NEG (NEG); PH, URINE 5.5 (5.0-8.5); SQUAMOUS EPITHELIAL CELL URINE 1 /hpf (0-5); URINE COLOR YELLOW (YELLW/STRAW)
[2016-10-19] MEDS: ONDANSETRON HCL 4 MG/2 ML VIAL IVP PRN (17:36)
[2016-10-20] VITALS: BP 110/68; PULSE 88; RESP 18; TEMP 97.2; O2SAT 95
[2016-10-20] MEDS: DOCUSATE SODIUM 100 MG CAP PO SCH ×2 (00:17→13:43)
[2016-10-20] MEDS: HYDROmorphone HCL PF 1 MG/ML VIAL IV PRN ×5 (02:11→14:58)
[2016-10-20] MEDS: ONDANSETRON HCL 4 MG/2 ML VIAL IVP PRN (02:18)
[2016-10-20 04:00] VITALS: BP 108/70; PULSE 89; RESP 20; TEMP 98; O2SAT 97
[2016-10-20] MEDS: CEFEPIME INJ 2,000 MG in SODIUM CHLORIDE 0.9% INJ 100 ML IV SCH (06:08)
[2016-10-20] MEDS: APIXABAN 5 MG TABLET PO SCH (07:52)
[2016-10-20] MEDS: SODIUM CHLORIDE 0.9% FLUSH 10 ML FLUSH IV FLUSH SCH (07:52)
[2016-10-20] MEDS: GABAPENTIN 300 MG CAP PO SCH ×2 (07:52→12:51)
[2016-10-20 08:00] VITALS: BP 110/57; PULSE 88; RESP 19; TEMP 98.2; O2SAT 96
[2016-10-20] MEDS: SODIUM CHLORIDE 0.9% FLUSH 10 ML FLUSH IV FLUSH PRN (09:04)
[2016-10-20 09:57] VITALS: O2SAT 94
--- NOTE | 2016-10-20 10:51 | HHI.FPPN ---
Subjective Remarks Patient is doing okay this morning. She continues to complain of foot pain which has been chronic. She does have mild cough and had a episode of sweating overnight. Otherwise, denies nausea, vomiting, headache, shortness of breath, fever. (Nitish Mckeon MD R2) Objective Vitals Vital Signs Date Time Temp Pulse Resp B/P Pulse Ox O2 Delivery O2 Flow Rate FiO2 10/20/16 09:29 18 10/20/16 08:00 98.2 88 19 110/57 96 10/20/16 04:00 98.0 89 20 108/70 97 10/20/16 00:00 97.2 88 18 110/68 95 10/19/16 20:28 96 21 10/19/16 20:00 97.7 92 20 105/73 96 10/19/16 18:00 97.2 87 20 107/76 96 10/19/16 12:00 98.1 95 20 104/72 95 I/O 10/19/16 10/19/16 10/19/16 10/20/16 10/20/16 10/20/16 07:00 15:00 23:00 07:00 15:00 23:00 Intake Total 930 ml 480 ml 640 ml 1090 ml 120 ml Output Total 750 ml 800 ml Balance 930 ml 480 ml -110 ml 290 ml 120 ml Intake Oral 480 ml 480 ml 640 ml 640 ml 120 ml IV Total 450 ml 0 ml 450 ml Output Urine Total 750 ml 800 ml # Voids 3 4 # Bowel Movements 1 0 0 (Nitish Mckeon MD R2) Result Diagram: 10/18/16 0425 10/20/16 0410 Objective Remarks GENERAL: Thin female lying in bed in no apparent distress. Poor dentition. SKIN: Warm and dry. No obvious rashes or track vidal. HEAD: Atraumatic. Normocephalic. EYES: Pupils equal and round. No scleral icterus. No injection or drainage. ENT: No nasal bleeding or discharge. Mucous membranes pink and moist. NECK: Trachea midline. No JVD. CARDIOVASCULAR: Regular rate and rhythm. No obvious murmurs on exam. Reproducible chest wall tenderness across entire left chest, above and below breast. No breast tenderness RESPIRATORY: No accessory muscle use. Clear to auscultation. Breath sounds equal bilaterally. GASTROINTESTINAL: Abdomen soft, thin, non-tender, nondistended. Hepatic and splenic margins not palpable. MUSCULOSKELETAL: Extremities without clubbing, cyanosis, or edema. The lower extremities are tender to palpation distally with negative Homans. No obvious deformities. NEUROLOGICAL: Awake and alert. No obvious cranial nerve deficits. Motor grossly within normal limits. Five out of 5 muscle strength in the arms and legs. Normal speech. PSYCHIATRIC: Appropriate mood and affect; insight and judgment normal. 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 Infectious disease consulted. Okay for discharge today without antibiotics. Discharge Planning Today. (Nitish Mckeon MD R2) Attending Attestation Patient seen and examined. Case reviewed and discussed with the resident team. Agree with plan of care as discussed with me and documented in the resident note. (Akua Rice MD) Problem List: (1) Chest pain Status: Acute Plan: Concern for endocarditis given IV drug abuse history and characterization of pain on admission. Infectious disease consult Blood cultures negative since 10/17/16. Empirically treated for endocarditis with IV vancomycin, cefepime. Started . Stopped 10/20 Per ID, okay for discharge. Patients states she takes 4 mg by mouth Dilaudid every 6 hours for pain as needed. We will supply one week's worth of pain medication until she can see her primary doctor. She does have an appointment in 1.5 weeks with her primary doctor. (2) IVDU (intravenous drug user) Status: Acute Plan: Patient with a history of IV drug use, denies on history today. Patient states she takes 4 mg Dilaudid PO every 6-8 hours (3) DVT of lower extremity, bilateral Status: Resolved Plan: Patient with reported persistent blood clots in the left extremity. She states she is on Eliquis 5 mg BID for these. Plan: * Ultrasound LE bilateral was showed no clots * PE workup as above was negative * Pain management as above * Continue Eliquis (4) Fluids/Electrolytes/Nutrition/Prophylaxis Status: Acute Plan: Fluids: tolerating PO Electrolytes: monitor and replete as needed Nutrition: heart-healthy diet, declines ensure DVT Prophylaxis: On Eliquis 5 mg twice a day GI Prophylaxis: Not indicated (Nitish Mckeon MD R2) Problem Qualifiers (1) Chest pain: Qualified Code: R07.9 - Chest pain, unspecified type (2) DVT of lower extremity, bilateral: Qualified Code: I82.493 - Deep vein thrombosis (DVT) of other vein of both lower extremities, unspecified chronicity Nitish Mckeon MD R2 October 20, 2016 10:51 Akua Rice MD October 22, 2016 14:12
[2016-10-20] MEDS ORDERED: DILA4TAB2 PO (10:52)
--- NOTE | 2016-10-20 10:53 | HHI.DCPOC ---
Discharge Care Plan Diagnosis: (1) Chest pain (2) IVDU (intravenous drug user) (3) Probable infective endocarditis Goals to Promote Your Health * To prevent worsening of your condition and complications * To maintain your health at the optimal level Directions to Meet Your Goals Take your medications as prescribed Follow your dietary instruction Follow activity as directed Keep your appointments as scheduled Take your immunizations and boosters as scheduled If your symptoms worsen call your PCP, if no PCP go to Urgent Care Center or Emergency Room Smoking is Dangerous to Your Health. Avoid second hand smoke Call the 24-hour hour crisis hotline for domestic abuse at Nitish Mckeon MD R2 October 20, 2016 10:53
--- NOTE | 2016-10-20 11:19 | HHI.PR ---
Addendum to Inpatient Note Addendum Reason: Additional Documentation Additional Information recd call from FM residents. Patient clinically doing well. Afebrile. BCX negative at 72 hrs ECHO negative WBC ok. DC IV antibiotics. Recommend follow up with patients primary ID doctor in [place]. Will sign off please call back if any change in clinical condition or questions. Aundrea Busby MD October 20, 2016 11:19
[2016-10-20 12:00] VITALS: BP 104/62; PULSE 92; RESP 18; TEMP 96.9; O2SAT 95
--- NOTE | 2016-10-20 12:17 | HHI.DS ---
Discharge Summary Admission Date October 17, 2016 at 11:30 Discharge Date: October 20, 2016 Admitting Diagnosis Chest Pain; Hx Endocarditis; Transaminitis; IVDA (1) Chest pain Diagnosis: Principal Plan: Concern for endocarditis given IV drug abuse history and characterization of pain on admission. Infectious disease consult Blood cultures negative since 10/17/16. Empirically treated for endocarditis with IV vancomycin, cefepime. Started . Stopped 10/20 Per ID, okay for discharge. Patients states she takes 4 mg by mouth Dilaudid every 6 hours for pain as needed. We will supply one week's worth of pain medication until she can see her primary doctor. She does have an appointment in 1.5 weeks with her primary doctor. (2) IVDU (intravenous drug user) Diagnosis: Principal Plan: Patient with a history of IV drug use, denies on history today. Patient states she takes 4 mg Dilaudid PO every 6-8 hours (3) DVT of lower extremity, bilateral Diagnosis: Secondary Plan: Patient with reported persistent blood clots in the left extremity. She states she is on Eliquis 5 mg BID for these. Plan: * Ultrasound LE bilateral was showed no clots * PE workup as above was negative * Pain management as above * Continue Eliquis (4) Fluids/Electrolytes/Nutrition/Prophylaxis Diagnosis: Secondary Plan: Fluids: tolerating PO Electrolytes: monitor and replete as needed Nutrition: heart-healthy diet, declines ensure DVT Prophylaxis: On Eliquis 5 mg twice a day GI Prophylaxis: Not indicated Consultants Infectious disease Procedures None Brief History Ms Romero is a 36 year old female with a history of endocarditis and MV/TV replacement who presents with chest pain, shortness of breath, and right LE pain. Chest pain: started yesterday afternoon, felt sharp, throbbing. The pain is located across the entire upper left chest. She had numbness over the right chest since her surgeries. Non-radiating. It is pleuritic. This morning it worsened and she developed shortness of breath with short distances (e.g from ED room to bathroom). She had MV and TV replaced in May at [facility] in [place]. The shortness of breath is new since this morning. The right leg and foot always hurts. The leg pain is located anterior proximal thigh, 2/10 in severity. Lower down it is located in the ankle and top of foot mostly. 8/10 in severity. New symptoms yesterday was that she couldn't feel her right toes, lasting 10 minutes x 2. She has had difficult to locate pulses in the past in this foot. She started gabapentin just a few days before this hospitalization and is unsure if it helps at this point. History: January or February 2016 - diagnosed with endocarditis; she left [facility] after 28 days. She was given IV antibiotics prior to [facility]. She was told she needed 60 days of tx but left for her own reasons May 2016 - had chest pain, fevers, "felt like I was dying". Went to [facility] then was diagnosed with endocarditis. She was given IV antibiotics and surgery on the valves, bovine valves. She had 60-72 days of IV antibiotics and for management of LE blood clots. Discharged on Coumadin. Discharge to SNF due to continued antibiotics. Two weeks later - chest pain again, bad tooth, resulted in blood infection. [facility], transferred to [facility] for IV antibiotics, had tachycardia and went into coma. Was in coma for 8 days. She was discharged . She was sent to [facility] for continued IV antibiotics. Left -Rocephin, Vancomycin, Cipro PO, Probiotics. Discharged on Eliquis 5mg BID and PO Dilaudid, 4mg q6hr PO PRN, taking them q8 (last dose 1mg IV in ED). PICC d/c'd 10/14/16 prior to discharge from SNF. She had blood clots in L femoral artery --> catheterized, blood clots distally went away with heparin. She still has five clots in the right leg per her report , last US was a month ago at [facility]. She also had multiple complications from central lines while hospitalized, superficial clot in right arm, infection in left arm. Infectious Disease Doctor: [facility] one week ago. Last echo September 2016. She said she had a work-up for coagulopathy in the past at [facility]. Her hospital and other records are not available at this time. CBC/BMP: 10/18/16 0425 10/20/16 0410 Significant Findings Laboratory Tests Test 10/17/16 10/17/16 10/17/16 10/18/16 13:34 14:17 20:30 04:25 Hepatitis C Antibody REACTIVE (NEGATIVE) Troponin I LESS THAN 0.02 LESS THAN 0.02 NG/ML NG/ML (0.02-0.05) (0.02-0.05) Total Creatine Kinase 17 U/L (26-192) C-Reactive Protein 0.74 MG/DL (0.00-0.30) White Blood Count 3.4 TH/MM3 (4.0-11.0) Red Blood Count 3.44 MIL/MM3 (4.00-5.30) Hemoglobin 9.3 GM/DL (11.6-15.3) Hematocrit 29.2 % (35.0-46.0) Red Cell Distribution Width 19.6 % (11.6-17.2) Platelet Count 114 TH/MM3 (150-450) Monocytes (%) (Auto) 12.3 % (0.0-8.0) Neutrophils # (Auto) 1.7 TH/MM3 (1.8-7.7) Chloride Level 109 MEQ/L (98-107) Calcium Level 7.8 MG/DL (8.5-10.1) Aspartate Amino Transf 93 U/L (15-37) (AST/SGOT) Alanine Aminotransferase 74 U/L (10-53) (ALT/SGPT) Alkaline Phosphatase 362 U/L (45-117) Albumin 2.5 GM/DL (3.4-5.0) Test 10/19/16 10/19/16 01:37 13:20 Vancomycin Level Trough 10.9 MCG/ML (5.0-10.0) Urine Bacteria RARE /hpf (NONE) Urine Mucus FEW /lpf (OCC) PE at Discharge GENERAL: Thin female lying in bed in no apparent distress. Poor dentition. SKIN: Warm and dry. No obvious rashes or track vidal. HEAD: Atraumatic. Normocephalic. EYES: Pupils equal and round. No scleral icterus. No injection or drainage. ENT: No nasal bleeding or discharge. Mucous membranes pink and moist. NECK: Trachea midline. No JVD. CARDIOVASCULAR: Regular rate and rhythm. No obvious murmurs on exam. Reproducible chest wall tenderness across entire left chest, above and below breast. No breast tenderness RESPIRATORY: No accessory muscle use. Clear to auscultation. Breath sounds equal bilaterally. GASTROINTESTINAL: Abdomen soft, thin, non-tender, nondistended. Hepatic and splenic margins not palpable. MUSCULOSKELETAL: Extremities without clubbing, cyanosis, or edema. The lower extremities are tender to palpation distally with negative Homans. No obvious deformities. NEUROLOGICAL: Awake and alert. No obvious cranial nerve deficits. Motor grossly within normal limits. Five out of 5 muscle strength in the arms and legs. Normal speech. PSYCHIATRIC: Appropriate mood and affect; insight and judgment normal. Hospital Course Patient was started on IV antibiotics, vancomycin and cefepime, prophylactically per infectious disease for possible endocarditis. Echocardiogram did not show endocarditis. Blood cultures showed no growth to date 3 days. Patient with infectious disease, it was determined the patient could be discharged with discontinuation of antibiotics. She was counseled to stop IV drug abuse. There is an element of pain seeking behavior. Her medication list includes Dilaudid 4 mg by mouth every 6 hours when necessary pain. We will give the patient one week's worth of Dilaudid as she states she has an appointment with her primary care physician in approximately 1-1-1/2 week. Pt Condition on Discharge: Stable Discharge Disposition: Discharge Home Discharge Instructions DIET: Follow Instructions for: As Tolerated, No Restrictions Activities you can perform: Regular-No Restrictions Follow up Referrals: PCP Follow-up - 1 Week New Medications: Hydromorphone (Dilaudid) 4 Mg Tab 4 MG PO Q6H PRN Pain Management #28 Ref 0 TAB Continued Medications: Apixaban (Eliquis) 5 Mg Tab 5 MG PO BID Blood Clot Prevention #60 Ref 0 TAB Hydromorphone (Dilaudid) 4 Mg Tab 4 MG PO Q6H PRN Pain Management Ref 0 TAB Nitish Mckeon MD R2 October 20, 2016 12:17
--- NOTE | 2016-10-20 15:36 | HHI.FPPN ---
Addendum to progress note ADDENDUM Reason for addendum: Additonal documentation Additional information Paged by RN stating the patient was complaining of chest pain. This was shortly after being notified she could be discharged today. Patient was seen and examined. Patient stated she had chest pain primarily in central chest upon awakening from a nap. She was given 1mg of IV Dilaudid and stated her pain improved and is currently at a 4/10. She had no shortness of breath, tachycardia , or fever. Her examination was unchanged from this morning and reassuring. Heart sounds were normal without any murmur. Lung sounds were clear and equal bilaterally. Her pain was reproducible with palpation consistent more with costochondritis. Patient was reassured that her workup including blood cultures, echocardiogram, and CTA during this hospitalization have all returned negative and she had no signs of an infection. She was informed that hospitalization was not medically indicated and transportation could be provided to her home. Patient stated that if she were to have any new symptoms that "a lawsuit would be filed." Patient was again reassured about her negative work-up and informed she could be discharged home with follow-up with her primary care physician. She told her RN that she would go right back to the ED if discharged. Patient was informed of symptoms that would prompt a return visit, however at this time patient is stable for discharge, antibiotics have been discontinued per Infectious Disease, and patient will be discharged. Byron Santana MD R1 October 20, 2016 15:35
[2016-10-20 16:17] VITALS: BP 126/85; PULSE 103; RESP 19; TEMP 97.6; O2SAT 95
[2016-10-21] MEDS ORDERED: PNEUMOCOCCAL POLYVALENT INJ 25 MCG/0.5 ML SYR IM ONE (10:00)
[2016-10-21] MEDS ORDERED: PHARMACY ORDERED LAB ONE (10:45)
== END 2016-10-20 17:19 | disposition home or self-care (01) | DRG 290 ==
LOC: NEPC 08:41 → NEDA 11:30 → N07A 17:00
PROVIDERS: ADMIT Family Medicine; ATTEND Family Medicine
DX: I33.0 Acute and subacute infective endocarditis (principal); D69.6 Thrombocytopenia, unspecified; M79.604 Pain in right leg; M79.605 Pain in left leg; Z95.2 Presence of prosthetic heart valve; B18.2 Chronic viral hepatitis C
CPT/HCPCS: 71010; 71275; 74177; 76937; 80053; 80074; 80202; 80307; 81001; 82550; 82565; 83690; 83735; 83880; 84145; 84484; 84703; 85025; 85610; 85730; 86140; 86703; 87040; 93005; 93306; 93970; 94150; 94664; 96374; 96375; J0692; J1170; J2405; J3370; J7030; J7050; Q9967

== ENCOUNTER 2016-12-15 21:24 | Inpatient (IN) | payer OTHER ==
[~2016-12-15] VITALS: Ht 162.6 cm; Wt 52.9 kg
[~2016-12-15 21:24] MED LIST: APIX5TAB PO; DILA4TAB2 PO
[2016-12-15 21:25] VITALS: BP 90/51; PULSE 130; RESP 18; TEMP 99.2; O2SAT 94
[2016-12-15 22:35] VITALS: BP 89/57; PULSE 121; RESP 18; TEMP 98.5; O2SAT 100
--- NOTE | 2016-12-15 22:39 | PD ---
HPI Chief Complaint: Chest Pain Time Seen by Provider: 22:31 Travel History International Travel<30 days: No Contact w/Intl Traveler<30days: No Traveled to known affect area: No History of Present Illness HPI The patient is a 36 year old female who presents to the [facility] emergency department with a history of reportedly last using IV drugs in May 2016. The patient reports that at that time she underwent mitral valve and tricuspid valve replacement at [facility] in [facility]. The patient reports that she has had problems with intermittent chest pain since then. Her most recent admission to [facility] was in October at which time she was evaluated for possible recurrent endocarditis. Her blood cultures were negative and the patient was discharged home after a three-day admission. The patient reports that she's recently had a change in her insurance and no longer has a primary care physician. She reports that she has been attempting to taper herself on her last month's supply of Dilaudid. The patient reports that on December 07 she began to have generalized weakness and started to have a fever. She's had a MAXIMUM TEMPERATURE at home of 102. 2 days ago she began to have severe chest pain in the center of her chest. She reports having dyspnea on exertion. She reports that she's had nausea and vomiting intermittently since December 07. She reports in the last 24 hours she's had 25 episodes of vomiting and innumerable episodes of diarrhea. She denies having any blood in her emesis or blood in her stool. Her stool is reportedly orange in color. She reports that yesterday she went to [facility], however no workup was done as no IV access was able to be obtained. On review of systems, the patient denies any new cough, congestion, neck pain, urinary symptoms, or neurologic symptoms. The patient reports that she has abdominal pain in the right upper quadrant of the abdomen LMP: 2 months ago, she reports her periods are irregular. [facility] Past Medical History Narrative Medical The patient's past medical history is significant for blood clots in her extremities, she took her last dose of Eliquis on December 07. She reports that she has a refill, however she has not picked it up. 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 The patient has a history of hepatitis C. Arthritis: No Autoimmune Disease: No Anxiety: Yes Depression: Yes Cancer: No (HX OF CXR GRANDMOTHER AND MOTHER ) Cardiovascular Problems: No Chemotherapy: No Cerebrovascular Accident: No Diminished Hearing: No Endocrine: No Genitourinary: No Immune Disorder: No Kidney Stones: Yes Musculoskeletal: No Neurologic: No Psychiatric: Yes Reproductive: No Respiratory: No Immunizations Current: Yes Migraines: No Radiation Therapy: No Seizures: No Sickle Cell Disease: No Tetanus Vaccination: < 5 Years Influenza Vaccination: Yes ?: Not LMP: 2 MONTHS AGO Past Surgical History Narrative Surgical The patient's past surgical history is significant for mitral valve, tricuspid valve replacement, left femoral vein catheterization. Abdominal Surgery: No AICD: No Arteriovenous Shunt: No Cardiac Surgery: Yes (VALVE REPLACEMENT) Ear Surgery: No Endocrine Surgery: No Eye Surgery: No Genitourinary Surgery: Yes Gynecologic Surgery: No Insulin Pump: No Joint Replacement: No Oral Surgery: No Pacemaker: No Thoracic Surgery: No Other Surgery: Yes (STENT PLACEMENT LEFT ) Social History Alcohol Use: No Tobacco Use: No Substance Use: No Allergies-Medications (Allergen,Severity, Reaction): Coded Allergies: Morphine (Verified Allergy, Severe, hives, 12/15/16) [place] (Verified Allergy, Unknown, 12/15/16) Penicillin (Verified Allergy, Unknown, 12/15/16) Reported Meds & Prescriptions Reported Meds & Active Scripts Active Reported Dilaudid (Hydromorphone HCl) 4 Mg Tab 4 Mg PO Q6H PRN Eliquis (Apixaban) 5 Mg Tab 5 Mg PO BID Review of Systems Except as stated in HPI: all other systems reviewed are Neg General / Constitutional: Positive: Fever, Chills Eyes: No: Visual changes HENT: No: Headaches Cardiovascular: Positive: Chest Pain or Discomfort, Dyspnea on exertion Respiratory: Positive: Shortness of Breath Gastrointestinal: Positive: Nausea, Vomiting, Diarrhea, Abdominal Pain, Changes in Bowel Habits, No: Hematemesis, Hematochezia, Constipation, Indigestion, Loss of Appetite Genitourinary: No: Dysuria Musculoskeletal: No: Pain Skin: No Rash Neurologic: Positive: Weakness (generalized weakness), No: Focal Abnormalities , Change in Mentation, Slurred Speech, Sensory Disturbance Psychiatric: No: Depression Endocrine: No: Polydipsia Hematologic/Lymphatic: No: Easy Bruising Physical Exam Narrative General: The patient is a well-developed thin appearing female in no acute distress. Head and Neck exam: Head is normocephalic atraumatic. Eyes: EOMI, pupils are equal round and reactive to light. Nose: Midline septum with pink mucous membranes Mouth: Dentition unremarkable. Moist mucus membranes. Posterior oropharynx is not erythematous. No tonsillar hypertrophy. Uvula midline. Airway patent. Neck: No palpable lymphadenopathy. No nuchal rigidity. No thyromegaly. Cardiovascular: Sinus tachycardia in the 1 teens without murmurs, gallops, or rubs. No pulse deficit to the extremities on simultaneous auscultation and palpation of her radial artery. Lungs: Clear to auscultation bilaterally. No wheezes, rhonchi, or rales. Abdomen: Soft, with tenderness reported in the right upper quadrant of the abdomen. No other tenderness on palpation of the other quadrants No guarding, rebound, or rigidity. Normal bowel sounds are audible. No tenderness on palpation of McBurney's point. Negative Bethany sign. Extremities: No clubbing, cyanosis, or edema. 2+ pulses in all 4 extremities. No calf tenderness on palpation. Back: No spinous process tenderness to palpation. The patient reports right-sided CVA tenderness on palpation. Neurologic Exam: Grossly nonfocal. Skin Exam: No rash noted. Intact skin that is warm and dry. Data Data Last Documented VS Vital Signs Date Time Temp Pulse Resp B/P Pulse Ox O2 Delivery O2 Flow Rate FiO2 12/16/16 02:04 104 15 97/55 98 Room Air 12/15/16 22:35 98.5 Orders Electrocardiogram (12/15/16 22:35) Complete Blood Count With Diff (12/15/16 22:35) Comprehensive Metabolic Panel (12/15/16 22:35) Creatine Kinase (Cpk) (12/15/16 22:35) Ckmb (Isoenzyme) Profile (12/15/16 22:35) Troponin I (12/15/16 22:35) B-Type Natriuretic Peptide (12/15/16 22:35) Prothrombin Time / Inr (Pt) (12/15/16 22:35) Act Partial Throm Time (Ptt) (12/15/16 22:35) Blood Culture (12/15/16 22:35) C-Reactive Protein (Crp) (12/15/16 22:35) Lipase (12/15/16 22:35) Urinalysis - C+S If Indicated (12/15/16 22:35) Westergren Sedimentation Rate (12/15/16 22:35) Magnesium (Mg) (12/15/16 22:35) Thyroid Stimulating Hormone (12/15/16 22:35) Chest, Single Ap (12/15/16 22:35) Iv Access Insert/Monitor (12/15/16 22:35) Ecg Monitoring (12/15/16 22:35) Oximetry (12/15/16 22:35) Ed Urine Pregnancytest Poc (12/15/16 22:35) Drug Screen, Random Urine (12/15/16 22:35) Lactic Acid Sepsis Protocol (12/15/16 22:35) Sodium Chlor 0.9% 1000 Ml Inj (Ns 1000 M (12/15/16 22:45) Cefepime Inj (Maxipime Inj) (12/15/16 22:45) Vancomycin Inj (Vancomycin Inj) (12/15/16 22:45) Sodium Chlor 0.9% 1000 Ml Inj (Ns 1000 M (12/16/16 01:00) Ketorolac Inj (Toradol Inj) (12/16/16 01:45) Vancomycin Consult Pharmacy (Vancomycin (12/16/16 02:45) Cefepime Inj (Maxipime Inj) (12/16/16 08:00) Admit Order (Ed Use Only) (12/16/16 02:46) Consult Infectious Disease (12/16/16 ) Echo 2d Comp With Doppler (12/16/16 ) Labs Laboratory Tests Test 12/15/16 23:30 Prothrombin Time 14.7 SEC Prothromb Time International 1.3 RATIO Ratio Activated Partial 30.8 SEC Thromboplast Time Sodium Level 124 MEQ/L Potassium Level 3.4 MEQ/L Chloride Level 92 MEQ/L Carbon Dioxide Level 21.7 MEQ/L Anion Gap 10 MEQ/L Blood Urea Nitrogen 21 MG/DL Creatinine 0.87 MG/DL Estimat Glomerular Filtration 75 ML/MIN Rate Random Glucose 88 MG/DL Lactic Acid Level 1.7 mmol/L Calcium Level 7.8 MG/DL Magnesium Level 1.8 MG/DL Total Bilirubin 1.7 MG/DL Aspartate Amino Transf 45 U/L (AST/SGOT) Alanine Aminotransferase 15 U/L (ALT/SGPT) Alkaline Phosphatase 115 U/L Total Creatine Kinase 36 U/L Troponin I 0.05 NG/ML C-Reactive Protein 13.60 MG/DL B-Type Natriuretic Peptide 112 PG/ML Total Protein 8.1 GM/DL Albumin 2.1 GM/DL Lipase 208 U/L Thyroid Stimulating Hormone 1.750 uIU/ML 3rd Gen [facility] Medical Decision Making Medical Screen Exam Complete: Yes Emergency Medical Condition: Yes Medical Record Reviewed: Yes Interpretation(s) Last Impressions Chest X-Ray 12/15/162234 Signed Impressions: Service Date/Time: Thursday, December 15, 2016 22:42 - CONCLUSION: Aortic valve with cardiomegaly and mild interstitial edema. There is no alveolar consolidation. Oseas Frederick MD FACR Differential Diagnosis Recurrent endocarditis, versus pyelonephritis, septic emboli, versus bacteremia Narrative Course During the course of the patients emergency department visit, the patients history, examination, and differential diagnosis were reviewed with the patient. The patient had IV access obtained and blood work sent for analysis. The patient was placed on a monitor technician with oximetry and blood pressure monitoring. The patient had an ECG on arrival that shows a sinus tachycardia, right bundle branch block. This is compared to a prior EKG done at this facility which showed an incomplete right bundle branch block at that time, similar in appearance. The patient's electronic medical record was reviewed. The patient was initially provided a 30 mL per KG IV fluid bolus. Cefepime 2 g IV, vancomycin 1 g IV. Toradol 15 mg IV for pain. The patients laboratory studies were reviewed and remarkable for a CMP that shows a sodium of 124, potassium 3.4, chloride 92, BUN 21, GFR 75, calcium 7.8, total bilirubin 1.7, AST 45, CPK 36, troponin I 0.05, BNP 112, CRP 13.6. Albumin 2.1, lipase 208, TSH 1.75, PT 14.7, INR 1.3, PTT 30.8 Radiology studies were reviewed and remarkable for a chest x-ray that shows an aortic valve with cardiomegaly and mild interstitial edema, no alveolar consolidation. The patients results were discussed with the patient, including the plan of care. I explained that further testing and/ or monitoring is indicated based on the patients history, examination, and/ or laboratory findings. Therefore, I recommended admission for additional evaluation. The patient expressed understanding and was agreeable with this plan. The patient was admitted to the hospital in guarded condition and sent to a bed under the care of the mental health practitioner service. Critical Care Narrative Aggregate critical care time was 40 minutes. Time to perform other separately billable procedures was not included in the critical care time. My time did not include minutes spent treating any other patients simultaneously or on activities that did not directly contribute to the patient's treatment. The services I provided to this patient were to treat and/or prevent clinically significant deterioration that could result in: Respiratory failure, versus cardiovascular collapse I provided critical care services requiring my management, as noted below: Chart data review, documentation time, medication orders and management, vital sign assessments/reviewing monitor data, ordering and reviewing lab tests, ordering and interpreting/reviewing x-rays and diagnostic studies, care of the patient and discussion of the patient with the admitting physicians. Sepsis Criteria SIRS Criteria (2 or more): Heart rate over 90 Physician Communication Physician Communication The patient's case is discussed with Dr. Koehler who did agree to admit the patient for further evaluation and treatment at this time. Diagnosis Primary Impression: Chest pain Qualified Code: R07.9 - Chest pain, unspecified type Additional Impressions: History of endocarditis Hypotension Qualified Code: I95.89 - Other specified hypotension Admitting Information Admitting Physician Requests: Patricia Perez MD Dec 15, 2016 22:39
[2016-12-15] MEDS ORDERED: SODIUM CHLOR 0.9% 1000 ML INJ 1,000 ML IV ONE (22:45)
[2016-12-15] MEDS ORDERED: CEFEPIME INJ 2,000 MG in SODIUM CHLORIDE 0.9% INJ 100 ML IV ONE (22:45)
[2016-12-15] MEDS ORDERED: VANCOMYCIN INJ 1,000 MG in SODIUM CHLOR 0.9% 250 ML INJ 250 ML IV ONE (22:45)
--- NOTE | 2016-12-15 22:54 | RADRPT ---
EXAM DATE/TIME: 12/15/2016 22:42 [facility] COMPARISON: CHEST SINGLE AP, October 17, 2016, 9:51. INDICATIONS : Cough, chest pain MEDICAL HISTORY : Cardiovascular disease. Blood clots. SURGICAL HISTORY : Valve replacements ENCOUNTER: Initial ACUITY: 3 days PAIN SCORE: 9/10 LOCATION: chest FINDINGS: Aortic valve prosthesis is evident. There is mild interstitial edema. The heart is minimally enlarg ed. There is no evident consolidation, pleural effusion or pneumothorax CONCLUSION: Aortic valve with cardiomegaly and mild interstitial edema. There is no alveolar consolidation. Oseas Frederick MD FACR on December 15, 2016 at 22:52 Board Certified Radiologist. This report was verified electronically.
[2016-12-15 23:53] LABS: APTT (PATIENT) 30.8 SEC (24.3-30.1); INTERNATIONAL NORMALIZED RATIO 1.3 RATIO; PROTHROMBIN TIME - PATIENT 14.7 SEC (9.8-11.6)
[2016-12-16] VITALS (15 sets, daily range): BP systolic 71–110; BP diastolic 47–79; PULSE 70–116; RESP 15–27; TEMP 97.7–98.7; O2SAT 96–99
[2016-12-16 00:12] LABS: ALKALINE PHOSPHATASE 115 U/L (45-117); ALT (GPT) 15 U/L (10-53); ANION GAP 10 MEQ/L (5-15); AST (GOT) 45 U/L (15-37); BICARBONATE 21.7 MEQ/L (21.0-32.0); BLOOD UREA NITROGEN 21 MG/DL (7-18); CHLORIDE 92 MEQ/L (98-107); GLOMERULAR FILTRATION RATE 75 ML/MIN (>89); MAGNESIUM 1.8 MG/DL (1.5-2.5); TOTAL BILIRUBIN ADULT 1.7 MG/DL (0.2-1.0)
[2016-12-16 00:13] LABS: CREATINE KINASE 36 U/L (26-192); POTASSIUM 3.4 MEQ/L (3.5-5.1)
[2016-12-16 00:15] LABS: SODIUM (NA) 124 MEQ/L (136-145)
[2016-12-16] MEDS ORDERED: SODIUM CHLOR 0.9% 1000 ML INJ 1,000 ML IV ONE ×3 (01:00→03:45)
[2016-12-16] MEDS ORDERED: KETOROLAC TROMETHAMINE 30 MG/ML (IVP) VIAL IV PUSH ONE (01:45)
[2016-12-16] MEDS ORDERED: Vancomycin Consult Pharmacy 1 EA OTHER SCH (02:45)
--- NOTE | 2016-12-16 02:55 | HHI.HP ---
HPI Service Critical Care Medicine Primary Care Physician No Primary Care Physician Admission Diagnosis Weakness, n/v/d, cp r/o endocarditis Diagnosis: (1) Sepsis Diagnosis: Principal (2) Rule out infective endocarditis Diagnosis: Principal (3) Chest pain Diagnosis: Principal (4) Hypotension Diagnosis: Principal (5) Hyponatremia Diagnosis: Principal (6) Hypokalemia Diagnosis: Principal (7) Endocarditis due to methicillin susceptible Staphylococcus aureus (MSSA) Diagnosis: Secondary (8) DVT of lower extremity, bilateral Diagnosis: Secondary Chief Complaint: Chest pain nausea vomiting diarrhea Travel History International Travel<30 Days: No Contact w/Intl Traveler <30 Da: No Traveled to Known Affected Are: No Sepsis Criteria SIRS Criteria (2 or more): Heart rate over 90, RR > 20 or PaCO2 < 32 Severe Sepsis (+one): Hypotension Criteria Outcome: Meets sepsis criteria History of Present Illness The patient is a 36 year old female with past medical history significant for endocarditis involving tricuspid and mitral valve status post valve replacement in May 2016, history of DVT bilateral lower extremity, history of IV drug use, history of hepatitis C who presented to the [facility] emergency department with a history of intermittent chest pain, nausea vomiting and diarrhea. Patient had a blood pressure 90/51 heart rate in the 130s and temperature 99.2. Patient was recently admitted to [facility] in October 17- for possible recurrent endocarditis, which was ruled out and patient was discharged home. On December 07 she began to have generalized weakness and started to have a fever. Tmax at home of 102. 2 days ago she began to have severe chest pain in the center of her chest. She also had dyspnea on exertion, also had nausea and vomiting intermittently since December 07. Since last 2 days innumerable episodes of vomiting and diarrhea but no blood in stools or hematemesis. A 2d echo done on 10/17/16 was negative for any vegetation I evaluated the patient in the emergency department. She remains tachycardic and borderline hypotensive. Complaints of chest pain to the right side of the rib, since December 07. She claims it is constant and 9 out of 10. Initial cardiac enzymes and EKG negative. I have ordered CT pulmonary angiogram to rule out PE and septic emboli given history of endocarditis and lower extremity DVT. Patient had also not been taking eliquis for the last few days. Patient also complained about nausea vomiting and diarrhea with diffuse abdominal pain for the last few days. I have also ordered CT abdomen pelvis to rule out any kind of colitis. Patient will be continued on vancomycin and cefepime which was started in the ED, I have added Flagyl Review of Systems ROS Limitations: Other (as per HPI) Past Family Social History Allergies: Coded Allergies: Morphine (Verified Allergy, Severe, hives, 12/15/16) [place] (Verified Allergy, Unknown, 12/15/16) Penicillin (Verified Allergy, Unknown, 12/15/16) Past Medical History Endocarditis Bilateral lower extremity DVT History of IV drug use Hepatitis C Chronic pain Past Surgical History MV, TV valves replacement at [facility] June 04, 2016 Left femoral vein catheterization Tooth infection complicated by bacteremia Reported Medications Eliquis 5 mg twice a day Dilaudid 4 mg every 6 hours when necessary Active Ordered Medications Reviewed Family History Parents and siblings are healthy Social History Quit smoking Past history of IV drug use denies now Physical Exam Vital Signs Vital Signs Date Time Temp Pulse Resp B/P Pulse Ox O2 Delivery O2 Flow Rate FiO2 12/16/16 02:04 104 15 97/55 98 Room Air 12/16/16 00:26 104 19 81/51 99 Room Air 12/15/16 22:35 98.5 121 18 89/57 100 Room Air 12/15/16 22:30 18 Room Air 12/15/16 21:25 99.2 130 18 90/51 94 Room Air Physical Exam GENERAL: Patient is 36 yo critically ill female who appears in moderate distress SKIN: Warm and dry. HEAD: Normocephalic. EYES: No scleral icterus. No injection or drainage. NECK: Supple, trachea midline. No JVD or lymphadenopathy. CARDIOVASCULAR: Tachycardic rate and rhythm, Grade 2 systolic murmur left sternal border, gallops, or rubs. Well-healed sternotomy scar from valve surgeries RESPIRATORY: Breath sounds equal bilaterally. No accessory muscle use. GASTROINTESTINAL: Abdomen soft, non-tender, nondistended. MUSCULOSKELETAL: No cyanosis, edema. BACK: Nontender without obvious deformity. No CVA tenderness. Neuro: Awake oriented, no focal deficits. Laboratory Laboratory Tests Test 12/15/16 23:30 Prothrombin Time 14.7 Prothromb Time International 1.3 Ratio Activated Partial 30.8 Thromboplast Time Sodium Level 124 Potassium Level 3.4 Chloride Level 92 Carbon Dioxide Level 21.7 Anion Gap 10 Blood Urea Nitrogen 21 Creatinine 0.87 Estimat Glomerular Filtration 75 Rate Random Glucose 88 Lactic Acid Level 1.7 Calcium Level 7.8 Magnesium Level 1.8 Total Bilirubin 1.7 Aspartate Amino Transf 45 (AST/SGOT) Alanine Aminotransferase 15 (ALT/SGPT) Alkaline Phosphatase 115 Total Creatine Kinase 36 Troponin I 0.05 C-Reactive Protein 13.60 B-Type Natriuretic Peptide 112 Total Protein 8.1 Albumin 2.1 Lipase 208 Thyroid Stimulating Hormone 1.750 3rd Gen Date/Time Procedure Status Source Growth 12/15/16 23:25 Aerobic Blood Culture Received Blood Peripheral Pending 12/15/16 23:25 Anaerobic Blood Culture Received Blood Peripheral Pending Result Diagram: 12/15/16 1420 Imaging Chest x-ray mild interstitial edema Septic Shock Reassessment Heart: Other (tachycardic) Lungs: Clear Skin: Warm, Dry Peripheral Pulses: Weak Right Radial Weak Left Radial Capillary Refill: Sluggish Assessment and Plan Assessment and Plan Assessment and Plan: NEURO: History of IV drug use - Denies any current illicit IV drug use. On Prescribed Dilaudid for pain - Supplement multivitamin, thiamine RESP: History of septic pulmonary emboli - DuoNeb every 6 hours and when necessary - Aggressive pulmonary toilet - CT pulmonary angiogram to rule out PE and septic pulmonary emboli - Bilateral lower extremity venous Doppler CV: Atypical chest pain Hypotension tachycardia History of tricuspid and mitral valve replacement History of infective endocarditis - Received total 2 L normal saline boluses in the ED. Continue IV fluid at 150 ML per hour - Repeat 2-D echo to rule out infective endocarditis - Serial troponin - If persistent chest pain consult cardiology - Echo 10/17: Setting mitral and tricuspid valve no regurgitation GI: Abdominal pain with nausea and vomiting History of hepatitis C - Nothing by mouth until clinically improved - IV Protonix - Check CT abdomen pelvis /Endo: Dehydration Hyponatremia - Monitor renal function, I/O's, electrolytes replacement per protocol. - Hyponatremia correction 6-8 meq in 24 hours ID: Sepsis, Rule out infective endocarditis History of MSSA endocarditis - Continue cefepime and vancomycin, Add Flagyl - ID service is consulted. F/U On cultures - Check C Diff, stool studies ordered (ova and parasites, leukocytes, Giardia, cryptosporidium) HEME: Anemia History of bilateral lower extremity DVT -Monitor CBC, CMP, INR -Continue Eliquis PROPH: -Bilateral lower extremity SCDs, continue Eloquis 5 mg BID. IV Protonix 40 mg IV daily LINES: -Place central line if needed CCT 55 Code Status Full Discussed Condition With Dr. Huang Problem Qualifiers (1) Sepsis: Qualified Code: O85 - Puerperal sepsis (2) Chest pain: Qualified Code: R07.9 - Chest pain, unspecified type (3) Hypotension: Qualified Code: I95.89 - Other specified hypotension Luis Koehler MD Dec 16, 2016 02:55
[2016-12-16] MEDS ORDERED: SENNOSIDES 8.6 MG TAB PO PRN (03:00)
[2016-12-16] MEDS ORDERED: BISACODYL 10 MG SUPP RECTAL PRN (03:00)
[2016-12-16] MEDS ORDERED: LACTULOSE SYRUP 20 GM/30 ML CUP PO PRN (03:00)
[2016-12-16] MEDS ORDERED: MISCELLANEOUS NURSING INFORMATION XX SCH (03:00)
[2016-12-16] MEDS ORDERED: MAGNESIUM HYDROXIDE SUSP 30 ML CUP PO PRN (03:00)
[2016-12-16] MEDS ORDERED: RESP: ALBUTEROL 2.5 MG/IPRATROPIUM 0.5 MG NEB (PRN) INH (03:00)
[2016-12-16] MEDS ORDERED: CHLORHEXIDINE GLUCONATE 2 % 1 PACK (2 CLOTHS) TOP PRN (03:00)
[2016-12-16] MEDS: SODIUM CHLOR 0.9% 1000 ML INJ 1,000 ML IV SCH ×2 (03:03→09:27)
[2016-12-16] MEDS ORDERED: POTASSIUM CHLOR 20 MEQ PREMIX 100 ML IV PRN (03:45)
[2016-12-16] MEDS ORDERED: MAGNESIUM SULFATE INJ 4 GM in SODIUM CHLORIDE 0.9% INJ 92 ML IV PRN (03:45)
[2016-12-16] MEDS ORDERED: POTASSIUM PHOSPHATE MONOBASIC 500 MG TAB PO PRN (03:45)
[2016-12-16] MEDS ORDERED: MAGNESIUM SULFATE INJ 2 GM in SODIUM CHLORIDE 0.9% INJ 96 ML IV PRN (03:45)
[2016-12-16] MEDS ORDERED: POTASSIUM PHOSPHATE INJ 30 MMOL in SODIUM CHLOR 0.9% 250 ML INJ 250 ML IV PRN (03:45)
[2016-12-16] MEDS ORDERED: SODIUM PHOSPHATE INJ 30 MMOL in SODIUM CHLOR 0.9% 250 ML INJ 240 ML IV PRN (03:45)
[2016-12-16] MEDS ORDERED: POTASSIUM CHLORIDE 25 MEQ EFFERVESCENT TAB PO PRN (03:45)
[2016-12-16] MEDS ORDERED: MAGNESIUM OXIDE 400 MG TAB PO PRN (03:45)
[2016-12-16] MEDS ORDERED: POTASSIUM CHLOR 40 MEQ PREMIX 100 ML IV PRN (03:45)
[2016-12-16] MEDS ORDERED: POTASSIUM PHOSPHATE MONOBASIC 500 MG TAB PO/TUBE PRN (03:45)
[2016-12-16] MEDS: CHLORHEXIDINE GLUCONATE 2 % 1 PACK (2 CLOTHS) TOP SCH (04:00)
[2016-12-16] MEDS: metroNIDAZOLE 500 MG INJ 100 ML IV SCH ×2 (04:52→13:23)
[2016-12-16] MEDS: POTASSIUM CHLOR 20 MEQ PREMIX 100 ML IV PRN ×2 (04:53→09:39)
[2016-12-16] MEDS: HYDROmorphone HCL 4 MG TAB PO PRN ×2 (04:54→21:19)
--- NOTE | 2016-12-16 04:56 | RADRPT ---
EXAM DATE/TIME: 12/16/2016 03:56 [facility] COMPARISON: US LEG BILATERAL VENOUS DOPPLER, October 17, 2016, 13:06. INDICATIONS : Leg pain. MEDICAL HISTORY : Renal calculi. Leg pain. SURGICAL HISTORY : IVC Filter placement. Valve replacement. ENCOUNTER: Initial ACUITY: 2 weeks PAIN SCORE: 5/10 LOCATION: Bilateral legs. TECHNIQUE: Venous ultrasound of the left and right leg was performed from the inguinal ligament to the proximal calf. Real-time, color Doppler and spectral tracing, compression and augmentation techniques were us ed. FINDINGS: RIGHT LEG: There is normal compressibility of the deep venous system from the inguinal region to the proximal ca lf. No echogenic clot is seen in the lumen of the common femoral, femoral, popliteal, and posterior tibial veins. There is a normal response of the venous system to proximal and distal augmentation an d respiration. LEFT LEG: There is normal compressibility of the deep venous system from the inguinal region to the proximal ca lf. No echogenic clot is seen in the lumen of the common femoral, femoral, popliteal, and posterior tibial veins. There is a normal response of the venous system to proximal and distal augmentation an d respiration. CONCLUSION: No DVT of either lower extremity. Rodo Hart MD on December 16, 2016 at 4:54 Board Certified Radiologist. This report was verified electronically.
[2016-12-16 05:43] LABS: C. DIFF EPI 027 PRESUMPTIVE NEGATIVE (NEGATIVE)
[2016-12-16] MEDS ORDERED: IOHEXOL 350 MG/ML 10 ML VIAL (for RAD DIAG) IV ONE (05:51)
--- NOTE | 2016-12-16 06:07 | RADRPT ---
EXAM DATE/TIME: 12/16/2016 05:40 [facility] COMPARISON: CT PULMONARY ANGIOGRAM, October 17, 2016, 15:25. INDICATIONS : Chest pain with nausea, vomiting, and diarrhea. IV CONTRAST: 80 cc Omnipaque 350 (iohexol) IV ; Cumulative dose for multiple exams. RADIATION DOSE: 21.57 CTDIvol (mGy) MEDICAL HISTORY : Cardiovascular disease. Hepatitis C. Deep venous thrombosis.iv drug abuse SURGICAL HISTORY : valve replacement ENCOUNTER: Initial ACUITY: 1 day PAIN SCALE: 7/10 LOCATION: chest TECHNIQUE: Volumetric scanning of the chest was performed using a pulmonary embolism protocol MIP images were re constructed. Using automated exposure control and adjustment of the mA and/or kV according to patien t size, radiation dose was kept as low as reasonably achievable to obtain optimal diagnostic quality images. DICOM format image data is available electronically for review and comparison. FINDINGS: PULMONARY ARTERIES: No filling defects are seen in the pulmonary arteries through the segmental level. LUNGS: Large bleb again seen left apex. Patchy consolidation seen in the right lung, mostly the base. There is mild patchy consolidation of the left lung base as well. PLEURAE: There is no pleural thickening or pleural effusion. MEDIASTINUM: There is good visualization of the great vessels of the middle mediastinum. No evidence of mediastin al or hilar adenopathy/mass. Heart size within normal limits. Patient has had previous median sternot ayaka and mitral valve replacement. MUSCULOSKELETAL: Within normal limits for patient age. MISCELLANEOUS: The visualized upper abdominal organs demonstrate no acute abnormality. CONCLUSION: 1. No pulmonary embolus. 2. Patchy bilateral air space disease, right more so than left and both sides basilar predominant. Rodo Hart MD on December 16, 2016 at 6:01 Board Certified Radiologist. This report was verified electronically.
--- NOTE | 2016-12-16 06:14 | RADRPT ---
EXAM DATE/TIME: 12/16/2016 05:40 [place] COMPARISON: CT ABDOMEN & PELVIS W CONTRAST, October 17, 2016, 15:25. INDICATIONS : Chest pain with nausea, vomiting and diarrhea. IV CONTRAST: 80 cc Omnipaque 350 (iohexol) IV ; Cumulative dose for multiple exams. ORAL CONTRAST: No oral contrast ingested. RADIATION DOSE: 4.64 CTDIvol (mGy) MEDICAL HISTORY : Hepatitis C. Deep venous thrombosis. Cardiovascular diseaseiv drug abuse, renal disease SURGICAL HISTORY : valve replacement ENCOUNTER: Initial ACUITY: 1 day PAIN SCALE: 7/10 LOCATION: abdomen TECHNIQUE: Volumetric scanning of the abdomen and pelvis was performed. Using automated exposure control and ad justment of the mA and/or kV according to patient size, radiation dose was kept as low as reasonably achievable to obtain optimal diagnostic quality images. DICOM format image data is available electro nically for review and comparison. FINDINGS: Enlarged spleen again noted and there is some scarring or potential infarcts inferiorly. Liver measur es 24 cm craniocaudal, otherwise within normal limits. Vascular coils are again seen in the splenic h ilum. Tortuous splenic vessels are again noted. Pancreas, adrenal glands and kidneys are normal. No obstruction or acute inflammatory changes seen in the gastrointestinal tract. There is no lymphade nopathy or free fluid. CONCLUSION: 1. Enlargement and scarring of the spleen. Collateral vessels in the splenic hilum are again noted. 2. Nonspecific hepatomegaly. No focal hepatic lesion. 3. No obstruction or acute inflammatory changes are demonstrated of the gastrointestinal tract. Rodo Hart MD on December 16, 2016 at 6:08 Board Certified Radiologist. This report was verified electronically.
[2016-12-16 07:26] LABS: C. DIFF TOXIN PCR POSITIVE (NEGATIVE)
[2016-12-16] MEDS ORDERED: APIXABAN 5 MG TABLET PO SCH (09:00)
[2016-12-16] MEDS: PANTOPRAZOLE SODIUM 40 MG VIAL IV SCH (09:40)
[2016-12-16] MEDS: DOCUSATE SODIUM 50 MG/SENNA 8.6 MG TAB PO SCH (09:40)
--- NOTE | 2016-12-16 09:53 | EKG ---
Date Performed: 12/15/2016 Time Performed: 22:33:25 PTAGE: 36 years EKG: SINUS TACHYCARDIA RIGHT BUNDLE BRANCH BLOCK POSSIBLE ANTERIOR MYOCARDIAL INFARCTION ABNORMA L ECG Compared to prior tracing no significant change PREVIOUS TRACING : 10/17/2016 20.17 DOCTOR: Chava Huang Interpretating Date/Time 12/16/2016 09:49:23
[2016-12-16] MEDS: CEFEPIME INJ 2,000 MG in SODIUM CHLORIDE 0.9% INJ 100 ML IV SCH ×2 (10:12→16:00)
--- NOTE | 2016-12-16 10:29 | PD.ID.CON ---
History of Present Illness Service ID Consult Requested By Dr.Sinoj Koehler Reason for Consult Evaluation and Mment of Primary Care Physician No Primary Care Physician Diagnoses: History of Present Illness Ms. 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 Upon inquiring about all the infection stated above she lists multiple facilities from [place] to [facility] as places of her diagnosis. She is an extremely unreliable historian as her story keeps changing as one discusses the case in detail with her. She presented to the [facility] emergency department with a history of intermittent chest pain, nausea, vomiting and diarrhea. Patient had a blood pressure 90/51 heart rate in the 130s and temperature 99.2. Patient was recently admitted to [facility] in October 17- for possible recurrent endocarditis, which was ruled out and patient was discharged home. On December 07 she began to have generalized weakness and started to have a fever. Tmax at home of 102. 2 days ago she began to have severe chest pain in the center of her chest. She also had dyspnea on exertion, also had nausea and vomiting intermittently since December 07. For 2 days [employer] patient reports innumerable episodes of vomiting and diarrhea but no blood in stools or hematemesis. A 2D echo done on 10/17/16 was negative for any vegetation. Patient was evaluated by inside outside sales representative and was found to be tachycardic and hypotensive. Due to her chest pain she underwent evaluation for PE and it was ruled out. CT Angiogram with right basilar infiltrate but negative for PE. Doppler LE negative. She reports she has been unable to take her Eliquis and pain meds due to nausea and vomiting. Patient also complained about nausea vomiting and diarrhea with diffuse abdominal pain for the last few days. Stool Cdiff was ordered and patient was positive. CT A/P is negative for embolic lesions in vital organs and negative for Colitis. Patient was empirically started on Cefepime, Vanco IV and Flagyl IV. Per review of my prior note from 10/2016: January/February 2016 - diagnosed with MSSA endocarditis; she AMA'd after 28 days. May 2016 - had chest pain, fevers, went to [facility] then was diagnosed with endocarditis. She was given IV antibiotics and surgery on the valves, bovine valves. She had 60-72 days of IV antibiotics and for management of LE blood clots. Discharged on Coumadin. Discharge to SNF due to continued antibiotics. Two weeks later - chest pain again, bad tooth, resulted in blood infection. Of note the organism was Strep according to her which could be related to IVDA as well. [facility], transferred to [facility] for IV antibiotics, had tachycardia and went into coma. Was in coma for 8 days. She was discharged . She was sent to [facility] for continued IV antibiotics. Left -Rocephin, Vancomycin, Cipro PO, Probiotics. Discharged on Eliquis 5mg BID and PO Dilaudid, 4mg q6hr PO PRN, taking them q8 (last dose 1mg IV in ED). PICC d/c'd 10/14/16 prior to discharge from [facility]. She reports her Infectious Disease Doctor is Dr. Kelley in [place]. ID consulted for evaluation and mment of possible recurrent or new Prosthetic valve endocarditis. Past Family Social History Allergies: Coded Allergies: Morphine (Verified Allergy, Severe, hives, 12/15/16) [place] (Verified Allergy, Unknown, 12/15/16) Penicillin (Verified Allergy, Unknown, 12/15/16) Past Medical History Prosthetic (Bovine per patient) MV, 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, 2016 Endocarditis levelock valve Endocarditis prosthetic valve Past Surgical History Bovine Prosthetic valve TV and MV Left femoral vein catheterization Tooth infection complicated by bacteremia - extraction at [facility] Reported Medications Reported Meds & Active Scripts Active Reported Dilaudid (Hydromorphone HCl) 4 Mg Tab 4 Mg PO Q6H PRN Eliquis (Apixaban) 5 Mg Tab 5 Mg PO BID Active Ordered Medications Current Medications Medications (Trade) Dose Ordered Sig/Solo Route Start Time Stop Time Status Last Admin Pharmacy Profile Note 0 ml @ 0 mls/hr UNSCH OTHER 12/16/16 02:45 Cefepime HCl 2000 mg/Sodium Chloride 100 ml @ 200 mls/hr Q8H IV 12/16/16 08:00 12/16/16 10:12 (NS 1000 ml Inj) 1,000 ml @ 150 mls/hr Q6H40M IV 12/16/16 02:47 12/16/16 03:03 (Tylenol) 650 mg Q6H PRN PO 12/16/16 03:00 (Protonix Inj) 40 mg DAILY IV 12/16/16 09:00 12/16/16 09:40 Miscellaneous Information 1 Q361D XX 12/16/16 03:00 (Chlorhexidine 2% Cloth) 3 pack Taper DAILY@04 TOP 12/16/16 04:00 12/12/17 03:59 (Chlorhexidine 2% Cloth) 3 pack UNSCH PRN TOP 12/16/16 03:00 (Sandy-Colace) 1 tab BID PO 12/16/16 09:00 12/16/16 09:40 (Milk Of Magnesia Liq) 30 ml Q12H PRN PO 12/16/16 03:00 (Senokot) 17.2 mg Q12H PRN PO 12/16/16 03:00 (Dulcolax Supp) 10 mg DAILY PRN RECTAL 12/16/16 03:00 (Lactulose Liq) 30 ml DAILY PRN PO 12/16/16 03:00 (Eliquis) 5 mg BID PO 12/16/16 09:00 12/16/16 09:40 Hydromorphone HCl 4 mg 4 mg Q6H PRN PO 12/16/16 03:00 12/16/16 04:54 Metronidazole 100 ml @ 100 mls/hr Q8H IV 12/16/16 04:00 12/16/16 04:52 Potassium Chloride 100 ml @ 50 mls/hr Q2H PRN IV 12/16/16 03:45 (KCl 20 Meq Premix Inj) 100 ml @ 50 mls/hr Q2H PRN IV 12/16/16 03:45 Potassium Bicarb/ Potassium Chloride 50 meq 50 meq UNSCH PRN PO 12/16/16 03:45 Potassium Chloride 100 ml @ 25 mls/hr UNSCH PRN IV 12/16/16 03:45 Potassium Chloride 100 ml @ 50 mls/hr Q2H PRN IV 12/16/16 03:45 12/16/16 09:39 (Magnesium Sulfate Inj/NS Inj) 100 ml @ 50 mls/hr UNSCH PRN IV 12/16/16 03:45 Magnesium Oxide 800 mg 800 mg UNSCH PRN PO 12/16/16 03:45 (Magnesium Sulfate Inj/NS Inj) 100 ml @ 50 mls/hr UNSCH PRN IV 12/16/16 03:45 Potassium Phosphate 2000 mg 2,000 mg Q4H PRN PO 12/16/16 03:45 (Sodium Phosphate Inj/NS 250 ml Inj) 250 ml @ 42 mls/hr UNSCH PRN IV 12/16/16 03:45 Potassium Phosphate 2000 mg 2,000 mg UNSCH PRN PO/TUBE 12/16/16 03:45 Potassium Phosphate 30 mmol/ Sodium Chloride 260 ml @ 42 mls/hr UNSCH PRN IV 12/16/16 03:45 (Vancomycin Inj/ NS 250 ml Inj) 250 ml @ 250 mls/hr Q12H IV 12/16/16 11:00 Miscellaneous Information SPECIFIC LAB TO BE DRAWN:VANCOMYCIN TROUGH DATE TO... ONCE ONCE .XX 12/17/16 10:45 12/17/16 10:46 Family History Mother, father, siblings, children all healthy Children: 3; age 12, 7, 4 Social History Cigarettes: none now, occasional in the past Alcohol: denies Illicit: hx IVDU, denies today Physical Exam Vital Signs Vital Signs Date Time Temp Pulse Resp B/P Pulse Ox O2 Delivery O2 Flow Rate FiO2 12/16/16 10:00 84 12/16/16 08:00 84 12/16/16 06:10 97.7 85 16 71/47 96 12/16/16 04:51 94 18 88/51 97 Room Air 12/16/16 03:11 111 17 91/53 98 Room Air 12/16/16 02:04 104 15 97/55 98 Room Air 12/16/16 00:26 104 19 81/51 99 Room Air 12/15/16 22:35 98.5 121 18 89/57 100 Room Air 12/15/16 22:30 18 Room Air 12/15/16 21:25 99.2 130 18 90/51 94 Room Air Physical Exam GENERAL: This is a well-nourished, well-developed patient, in no apparent distress. SKIN: No rashes, ecchymoses or lesions. Cool and dry. HEAD: Atraumatic. Normocephalic. No temporal or scalp tenderness. EYES: Pupils equal round and reactive. Extraocular motions intact. No scleral icterus. No injection or drainage. ENT: Nose without bleeding, purulent drainage or septal hematoma. Throat without erythema, tonsillar hypertrophy or exudate. Uvula midline. Airway patent. NECK: Trachea midline. Supple, nontender, no meningeal signs. CARDIOVASCULAR: RRR. RESPIRATORY: Clear to auscultation. Breath sounds equal bilaterally. No wheezes , rales, or rhonchi. GASTROINTESTINAL: Abdomen soft, Mild diffuse tenderness with no rebound or rigidity with a midline reducible hernia. MUSCULOSKELETAL: Extremities without clubbing, cyanosis, or edema. No joint tenderness, effusion, or edema noted. No calf tenderness. Negative Homans sign bilaterally. NEUROLOGICAL: Awake and alert. Grossly non focal Psych: cooperative IV line sites with no e.o infection. Laboratory Laboratory Tests Test 12/15/16 12/16/16 23:30 04:35 Prothrombin Time 14.7 Prothromb Time International 1.3 Ratio Activated Partial 30.8 Thromboplast Time Sodium Level 124 Potassium Level 3.4 Chloride Level 92 Carbon Dioxide Level 21.7 Anion Gap 10 Blood Urea Nitrogen 21 Creatinine 0.87 Estimat Glomerular Filtration 75 Rate Random Glucose 88 Lactic Acid Level 1.7 Calcium Level 7.8 Magnesium Level 1.8 Total Bilirubin 1.7 Aspartate Amino Transf 45 (AST/SGOT) Alanine Aminotransferase 15 (ALT/SGPT) Alkaline Phosphatase 115 Total Creatine Kinase 36 Troponin I 0.05 C-Reactive Protein 13.60 B-Type Natriuretic Peptide 112 Total Protein 8.1 Albumin 2.1 Lipase 208 Thyroid Stimulating Hormone 1.750 3rd Gen Stool C. difficile Toxin (PCR) POSITIVE Stl C. difficile Toxin PRESUMPTIVE Epiderm 027 NEGATIVE Date/Time Procedure Status Source Growth 12/16/16 04:35 Rotavirus Antigen - Final Complete Stool Stool NEGATIVE - ROTAVIRUS ANTIGEN IS ABSEN... 12/16/16 04:35 Cryptosporidium Exam Resulted Stool Stool Pending 12/16/16 04:35 Stool Pus (PREET) - Final Resulted Stool Stool NO WBC'S SEEN 12/16/16 04:35 Giardia Antigen (PREET) Resulted Stool Stool Pending 12/15/16 23:25 Aerobic Blood Culture Received Blood Peripheral Pending 12/15/16 23:25 Anaerobic Blood Culture Received Blood Peripheral Pending Result Diagram: 12/15/16 2950 Imaging Last Impressions Lower Extremity Ultrasound 12/16/16 0000 Signed Impressions: Service Date/Time: Friday, December 16, 2016 03:56 - CONCLUSION: No DVT of either lower extremity. Rodo Hart MD CT Angiography 12/16/16 0000 Signed Impressions: Service Date/Time: Friday, December 16, 2016 05:40 - CONCLUSION: 1. No pulmonary embolus. 2. Patchy bilateral air space disease, right more so than left and both sides basilar predominant. Rodo Hart MD Abdomen/Pelvis CT 12/16/16 0000 Signed Impressions: Service Date/Time: Friday, December 16, 2016 05:40 - CONCLUSION: 1. Enlargement and scarring of the spleen. Collateral vessels in the splenic hilum are again noted. 2. Nonspecific hepatomegaly. No focal hepatic lesion. 3. No obstruction or acute inflammatory changes are demonstrated of the gastrointestinal tract. Rodo Hart MD Chest X-Ray 12/15/162234 Signed Impressions: Service Date/Time: Thursday, December 15, 2016 22:42 - CONCLUSION: Aortic valve with cardiomegaly and mild interstitial edema. There is no alveolar consolidation. Oseas Frederick MD FACR Assessment and Plan Assessment and Plan Sepsis with borderline BP on admission. Aspiration Pneumonia Cdiff colitis. Rule out Endocarditis plus ? prosthetic valve endocarditis. TV and MV bovine valve replacement H/o endocarditis. H/o multiple admissions to hospital with prolonged exposure to antibiotics (at risk for Cdiff for a long time prior to admission) H/o IVDA Hepatitis C Elevated CRP: ongoing new infections vs new or recurrent endocarditis. Pancytopenia Severe leucopenia Severe Thrombocytopenia Recs Continue Cefepime IV (At risk for GNR bacteremia, IVDA history) Continue Vanco IV (h/o Strep infections at risk for GP infections particularly resistant strep; target 15-20 for bacteremia pending r/o endocarditis/bacteremia ) Continue Flagyl IV (anaerobes and Cdiff coverage) Start oral Vanco (Cdiff, at risk for flagyl resistant Cdiff, BNAP negative strain) Follow cultures Follow clinically Follow 2 D ECHO (at risk for prosthetic valve infections due to multiple hospitalizations and h/o IVDA) Chest pain likely from nausea/vomiting related gastritis. Consult GI: it is vital this issue be resolved and source addressed so Eliquis is not interrupted) Consider Cardiology consult for MICHELE if any abnormal findings on MICHELE. Check HIV antibody screen. Patient counseled extensively re: avoiding IVDA, reasons for CDiff and recurrence factors. Patient thankful of care provided. Request records from [facility] and [facility] where patient was admitted in the past. Severe Pancytopenia: ? sepsis ? other etiologies On Eliquis. d/w and RN for patient. Reviewed ECHO: d/w Moderate pericardial effusion: platelets low. Recommend Cardiology evaluation for MICHELE. Aundrea Busby MD Dec 16, 2016 10:29
[2016-12-16] MEDS ORDERED: NOREPINEPHRINE-DEXTROSE DRIP 250 ML IV ONE (11:12)
[2016-12-16 11:48] LABS: HEMATOCRIT 23.4 % (35.0-46.0); MEAN CELL VOLUME 83.6 FL (80.0-100.0); MEAN CORPUSCULAR HEMOGLOBIN 26.5 PG (27.0-34.0); MEAN CORPUSCULAR HGB CONC 31.7 % (32.0-36.0); RED CELL DISTRIBUTION WIDTH 15.9 % (11.6-17.2); WHITE BLOOD COUNT 1.9 TH/MM3 (4.0-11.0)
[2016-12-16 12:02] LABS: HEMO FLAGS AUTO DIFF; PLATELET COUNT 10 TH/MM3 (150-450)
--- NOTE | 2016-12-16 12:20 | ECHRPT ---
Indication: Endocarditis and heart valve disorders in diseases classified elsewhere CONCLUSIONS Normal left ventricular size. Wall thickness is normal. The left ventricular systolic function is normal with an estimated ejection fraction in the range of 60-65%. Normally functioning mitral valve bioprosthesis. The estimated pulmonary arterial pressure is 12 mmHg. A bioprosthesis was present.Mild pulmonary valve regurgitation. A moderate left sided pleural effusion is noted. BP: / HR: Rhythm: Sinus MEASUREMENTS (Male / Female) Normal Values Technical Quality:Good 2D ECHO LV Diastolic Diameter PLAX 3.8 cm 4.2 - 5.9 / 3.9 - 5.3 cm LV Systolic Diameter PLAX 2.5 cm IVS Diastolic Thickness 0.9 cm 0.6 - 1.0 / 0.6 - 0.9 cm LVPW Diastolic Thickness 0.7 cm 0.6 - 1.0 / 0.6 - 0.9 cm LV Relative Wall Thickness 0.4 RV Internal Dim ED PLAX 2.7 cm M-MODE Aortic Root Diameter MM 2.6 cm AV Cusp Separation MM 1.9 cm DOPPLER AV Peak Velocity 176.0 cm/s AV Peak Gradient 12.4 mmHg LVOT Peak Velocity 147.0 cm/s LVOT Peak Gradient 8.6 mmHg MV Peak Velocity 203.0 cm/s MV Peak Gradient 16.5 mmHg MV Mean Velocity 116.0 cm/s MV Mean Gradient 7.0 mmHg Mitral E Point Velocity 111.0 cm/s Mitral A Point Velocity 89.3 cm/s Mitral E to A Ratio 1.2 TR Peak Velocity 133.0 cm/s TR Peak Gradient 7.1 mmHg FINDINGS LEFT VENTRICLE Normal left ventricular size. Wall thickness is normal. The left ventricular systolic function is normal with an estimated ejection fraction in the range of 60-65%. RIGHT VENTRICLE Normal right ventricular size and systolic function. LEFT ATRIUM The left atrial size is normal. RIGHT ATRIUM The right atrial size is normal. ATRIAL SEPTUM Normal atrial septal thickness without atrial level shunting by limited color doppler interrogation. AORTA The aortic root and proximal ascending aorta are normal in size on limited imaging. MITRAL VALVE Normally functioning mitral valve bioprosthesis. AORTIC VALVE Trileaflet aortic valve. No aortic valve stenosis or regurgitation. TRICUSPID VALVE The estimated pulmonary arterial pressure is 12 mmHg. A bioprosthesis was present. PULMONARY VALVE Mild pulmonary valve regurgitation. VESSELS The inferior vena cava is normal in size. PERICARDIUM A moderate left sided pleural effusion is noted. Geo Small-Zuleika MD (Electronically Signed) Final Date:16 December 2016 12:19
[2016-12-16 12:33] LABS: BANDS 7 % (0-6); EOSINOPHILS 1 % (0-4); NEUTROPHIL # MANUAL DIFF 1.6 TH/MM3 (1.8-7.7); POLYS (SEG NEUTROPHILS) 79 % (16-70); WBC DIFF SAMPLE 100
[2016-12-16 12:34] LABS: OVALOCYTES 1+ (NORMAL); PLATELET ESTIMATE SMEAR LOW (NORMAL); PLATELET MORPHOLOGY ENLARGED (NORMAL); SCAN/DIFF FINAL DIFF MANUAL; TOXIC GRANULATION 1+ (NORMAL)
[2016-12-16] MEDS: VANCOMYCIN 1,000 MG/NS 250 ML IV SCH ×2 (13:23)
[2016-12-16] MEDS: VANCOMYCIN 500 MG VIAL (FOR ORAL USE ONLY) PO SCH ×2 (13:26→17:21)
--- NOTE | 2016-12-16 16:08 | PD.CONS ---
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 In the ER she was found to have a low blood pressure with a heart rate in the 130s and a low- grade temp of 99.2. The patient reports that her symptoms began on December 07- with intermittent chest pain which she describes as a sharp intermittent pain across her anterior chest. She denies any relation to food intake. However she does also complain of intermittent nausea and vomiting with bilious material but no hematemesis, diffuse abdominal cramping, and frequent diarrhea consisting of liquid stool whenever she eats or drinks anything. She has not seen any melena or hematochezia. Of note she has had multiple courses of antibiotics over the past several months. She also complained of a fever of 102 at home. She has a history of hepatitis C and is treatment anel. She does not know when she was diagnosed with this. She is on chronic anticoagulation with liquids for bilateral lower extremity DVTs. She last had this today. PFSH Past Medical History History of IV drug abuse History of septic pulmonary emboli History of endocarditis Chronic pain Bilateral lower extremity DVT Past Surgical History MV, TV valves replacement at [facility] June 04, 2016 Left femoral vein catheterization Tooth extraction for tooth infection complicated by bacteremia Coded Allergies: Morphine (Verified Allergy, Severe, hives, 12/15/16) [place] (Verified Allergy, Unknown, 12/15/16) Penicillin (Verified Allergy, Unknown, 12/15/16) Medications Allergies Coded Allergies Type Severity Reaction Last Updated Verified Morphine Allergy Severe hives 12/15/16 Yes [place] Allergy Unknown 12/15/16 Yes Penicillin Allergy Unknown 12/15/16 Yes Active Scripts Medications Dose Route/Sig Days Date Category Dilaudid (Hydromorphone HCl) 4 Mg Tab 4 Mg PO Q6H PRN 10/17/16 Reported Eliquis (Apixaban) 5 Mg Tab 5 Mg PO BID 10/17/16 Reported Family History Denies any pertinent family history Social History Denies any use of tobacco, alcohol, illicit drug use. She does take Dilantin by prescription She does have a history of IV drug abuse but denies any current IV drug abuse Review of Systems Constitutional: COMPLAINS OF: Fatigue, Fever, Chills, Change in appetite Respiratory: COMPLAINS OF: Shortness of breath Cardiovascular: COMPLAINS OF: Chest pain Gastrointestinal: COMPLAINS OF: Abdominal pain, Diarrhea, Nausea, Vomiting, Swelling of Abdomen, DENIES: Black stools, Bloody stools, Constipation, Heartburn, Hematemesis Musculoskeletal: COMPLAINS OF: Back pain Integumentary: DENIES: Rash Neurologic: DENIES: Headache Psychiatric: DENIES: Confusion ROS Poor historian GI Exam Vitals I&O Vital Signs Date Time Temp Pulse Resp B/P Pulse Ox O2 Delivery O2 Flow Rate FiO2 12/16/16 14:00 70 12/16/16 12:00 70 12/16/16 12:00 98.1 85 16 110/79 96 12/16/16 10:00 84 12/16/16 08:00 84 12/16/16 08:00 98.0 108 18 72/49 97 12/16/16 06:10 97.7 85 16 71/47 96 12/16/16 04:51 94 18 88/51 97 Room Air 12/16/16 03:11 111 17 91/53 98 Room Air 12/16/16 02:04 104 15 97/55 98 Room Air 12/16/16 00:26 104 19 81/51 99 Room Air 12/15/16 22:35 98.5 121 18 89/57 100 Room Air 12/15/16 22:30 18 Room Air 12/15/16 21:25 99.2 130 18 90/51 94 Room Air I/O 12/15/16 12/15/16 12/15/16 12/16/16 12/16/16 12/16/16 07:00 15:00 23:00 07:00 15:00 23:00 Intake Total 2885 ml Output Total 850 ml Balance 2035 ml Intake Oral 240 ml IV Total 2645 ml Output Urine Total 850 ml Stool Total 0 ml # Voids 2 Imaging Last Impressions Lower Extremity Ultrasound 12/16/16 0000 Signed Impressions: Service Date/Time: Friday, December 16, 2016 03:56 - CONCLUSION: No DVT of either lower extremity. Rodo Hart MD CT Angiography 12/16/16 0000 Signed Impressions: Service Date/Time: Friday, December 16, 2016 05:40 - CONCLUSION: 1. No pulmonary embolus. 2. Patchy bilateral air space disease, right more so than left and both sides basilar predominant. Rodo Hart MD Abdomen/Pelvis CT 12/16/16 0000 Signed Impressions: Service Date/Time: Friday, December 16, 2016 05:40 - CONCLUSION: 1. Enlargement and scarring of the spleen. Collateral vessels in the splenic hilum are again noted. 2. Nonspecific hepatomegaly. No focal hepatic lesion. 3. No obstruction or acute inflammatory changes are demonstrated of the gastrointestinal tract. Rodo Hart MD Chest X-Ray 12/15/16 2235 Signed Impressions: Service Date/Time: Thursday, December 15, 2016 22:42 - CONCLUSION: Aortic valve with cardiomegaly and mild interstitial edema. There is no alveolar consolidation. Oseas Frederick MD FACR Laboratory Test 12/15/16 12/16/16 12/16/16 12/16/16 23:30 04:35 06:19 06:54 Prothrombin Time 14.7 SEC Prothromb Time International 1.3 RATIO Ratio Activated Partial 30.8 SEC Thromboplast Time Sodium Level 124 MEQ/L Potassium Level 3.4 MEQ/L Chloride Level 92 MEQ/L Carbon Dioxide Level 21.7 MEQ/L Anion Gap 10 MEQ/L Blood Urea Nitrogen 21 MG/DL Creatinine 0.87 MG/DL Estimat Glomerular Filtration 75 ML/MIN Rate Random Glucose 88 MG/DL Lactic Acid Level 1.7 mmol/L Calcium Level 7.8 MG/DL Magnesium Level 1.8 MG/DL Total Bilirubin 1.7 MG/DL Aspartate Amino Transf 45 U/L (AST/SGOT) Alanine Aminotransferase 15 U/L (ALT/SGPT) Alkaline Phosphatase 115 U/L Total Creatine Kinase 36 U/L Troponin I 0.05 NG/ML 0.03 NG/ML C-Reactive Protein 13.60 MG/DL B-Type Natriuretic Peptide 112 PG/ML Total Protein 8.1 GM/DL Albumin 2.1 GM/DL Lipase 208 U/L Thyroid Stimulating Hormone 1.750 uIU/ML 3rd Gen Stool C. difficile Toxin (PCR) POSITIVE Stl C. difficile Toxin PRESUMPTIVE Epiderm 027 NEGATIVE Nasal Screen MRSA (PCR) MRSA NOT DETECTED Phosphorus Level 2.6 MG/DL Test 12/16/16 12/16/16 10:54 12:33 White Blood Count 1.9 TH/MM3 Red Blood Count 2.80 MIL/MM3 Hemoglobin 7.4 GM/DL Hematocrit 23.4 % Mean Corpuscular Volume 83.6 FL Mean Corpuscular Hemoglobin 26.5 PG Mean Corpuscular Hemoglobin 31.7 % Concent Red Cell Distribution Width 15.9 % Platelet Count 10 TH/MM3 Mean Platelet Volume 10.6 FL Neutrophils (%) (Auto) % Lymphocytes (%) (Auto) % Monocytes (%) (Auto) % Eosinophils (%) (Auto) % Basophils (%) (Auto) % Neutrophils # (Auto) TH/MM3 Lymphocytes # (Auto) TH/MM3 Monocytes # (Auto) TH/MM3 Eosinophils # (Auto) TH/MM3 Basophils # (Auto) TH/MM3 CBC Comment AUTO DIFF Differential Total Cells 100 Counted Neutrophils % (Manual) 79 % Band Neutrophils % 7 % Lymphocytes % 11 % Monocytes % 2 % Eosinophils % 1 % Neutrophils # (Manual) 1.6 TH/MM3 Differential Comment FINAL DIFF MANUAL Toxic Granulation 1+ Platelet Estimate LOW Platelet Morphology Comment ENLARGED Ovalocytes 1+ Erythrocyte Sedimentation Rate 55 mm/hr HIV (1&2) Antibody NEGATIVE Date/Time Procedure Status Source Growth 12/16/16 04:35 Rotavirus Antigen - Final Complete Stool Stool NEGATIVE - ROTAVIRUS ANTIGEN IS ABSEN... 12/16/16 04:35 Cryptosporidium Exam Resulted Stool Stool Pending 12/16/16 04:35 Stool Pus (PREET) - Final Resulted Stool Stool NO WBC'S SEEN 12/16/16 04:35 Giardia Antigen (PREET) Resulted Stool Stool Pending 12/15/16 23:25 Aerobic Blood Culture - Preliminary Resulted Blood Peripheral Gram Negative Dominick Gram Positive Cocci 12/15/16 23:25 Anaerobic Blood Culture - Preliminary Resulted Gram Negative Dominick Gram Positive Cocci Physical Examination HEENT: Normocephalic; atraumatic CHEST: Resp even/tachypneic CARDIAC: ST ABDOMEN: Soft, mildly bloated, mild diffuse tenderness; no hepatosplenomegaly; bowel sounds are present in all four quadrants. EXTREMITIES: No clubbing, cyanosis, or edema. SKIN: Generalized pallor TREATMENT SPECIALIST: No focal deficits; alert and oriented times three. Poor historian Assessment and Plan Plan ASSESSMENT: - N/V, Abdominal pain since 7/2. Abdomen/Pelvis CT (12/16/16)----> 1. Enlargement and scarring of the spleen. Collateral vessels in the splenic hilum are again noted. 2. Nonspecific hepatomegaly. No focal hepatic lesion. 3. No obstruction or acute inflammatory changes are demonstrated of the gastrointestinal tract. GI consulted to rule out gastritis/hh. Cont. PPI. Unable to have EGD at this time given severe thrombocytopenia. Will follow and consider once this has improved. 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 Multiple courses of abx over past year. Per patient, 1st episode of Cdiff. Flagyl, Oral Vanco. - Atypical chest pain. CT Angiography (12/16/16)----> 1. No pulmonary embolus. 2. Patchy bilateral air space disease, right more so than left and both sides basilar predominant. Pt with hx of endocarditis, now with sepsis and bacteremia, ? endocarditis. - Severe pancytopenia. WBC 1.9, AST 7.4, ALT 23.4, Plt 10.0. Hematology consulted. - Sepsis, Bacteremia, ? endocarditis. BCx GNR, GPC. 2D echo moderate left sided pleural effusion, ID following, Vanoc, Oral Vanco, Flagyl, Cefepime. - Mild elevation of LFTs. T. Bili 1.7, AST 45, ALT 15, ALk Phopsh 115. CT as above. ? Sepsis. - Hyponatremia, Hypokalemia. Per primary. - Hx BLE DVT, has been on Eliquis. Last dose today. - Hx endocarditis. - Hx HCV, Tx naive. PLAN: - Clear liquids - Cont. Flagyl - Cont. Oral Vanco - Cont. PPI - Monitor CBC, CMP - Abx per ID - Consider EGD once thrombocytopenia improves - Hematology consulted - CCM following - ID following - Supportive care - Further recommendations to follow based on results of above - Pt seen and examined by Dr. Reyes and myself and this note is written on his behalf Rose Echevarria Dec 16, 2016 16:08
[2016-12-16] MEDS ORDERED: SODIUM CHLOR 0.9% 250 ML INJ 250 ML IV ONE (17:15)
--- NOTE | 2016-12-16 17:52 | PD.CONS ---
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 She has been found to be septic. Cardiology evalaution for IE. TTE no evidence of vegetation. Past Family Social History Allergies: Coded Allergies: Morphine (Verified Allergy, Severe, hives, 12/15/16) [place] (Verified Allergy, Unknown, 12/15/16) Penicillin (Verified Allergy, Unknown, 12/15/16) Past Medical History History of IV drug abuse History of septic pulmonary emboli History of endocarditis Chronic pain Bilateral lower extremity DVT Past Surgical History MV, TV valves replacement at [facility] June 04, 2016 Left femoral vein catheterization Tooth extraction for tooth infection complicated by bacteremia Reported Medications Reported Meds & Active Scripts Active Reported Dilaudid (Hydromorphone HCl) 4 Mg Tab 4 Mg PO Q6H PRN Eliquis (Apixaban) 5 Mg Tab 5 Mg PO BID Active Ordered Medications Current Medications Medications (Trade) Dose Ordered Sig/Solo Route Start Time Stop Time Status Last Admin Pharmacy Profile Note 0 ml @ 0 mls/hr UNSCH OTHER 12/16/16 02:45 Cefepime HCl 2000 mg/Sodium Chloride 100 ml @ 200 mls/hr Q8H IV 12/16/16 08:00 12/16/16 16:00 (NS 1000 ml Inj) 1,000 ml @ 150 mls/hr Q6H40M IV 12/16/16 02:47 12/16/16 09:27 (Tylenol) 650 mg Q6H PRN PO 12/16/16 03:00 (Protonix Inj) 40 mg DAILY IV 12/16/16 09:00 12/16/16 09:40 Miscellaneous Information 1 Q361D XX 12/16/16 03:00 (Chlorhexidine 2% Cloth) 3 pack Taper DAILY@04 TOP 12/16/16 04:00 12/12/17 03:59 (Chlorhexidine 2% Cloth) 3 pack UNSCH PRN TOP 12/16/16 03:00 (Sandy-Colace) 1 tab BID PO 12/16/16 09:00 12/16/16 09:40 (Milk Of Magnesia Liq) 30 ml Q12H PRN PO 12/16/16 03:00 (Senokot) 17.2 mg Q12H PRN PO 12/16/16 03:00 (Dulcolax Supp) 10 mg DAILY PRN RECTAL 12/16/16 03:00 (Lactulose Liq) 30 ml DAILY PRN PO 12/16/16 03:00 Hydromorphone HCl 4 mg 4 mg Q6H PRN PO 12/16/16 03:00 12/16/16 04:54 Metronidazole 100 ml @ 100 mls/hr Q8H IV 12/16/16 04:00 12/16/16 13:23 Potassium Chloride 100 ml @ 50 mls/hr Q2H PRN IV 12/16/16 03:45 (KCl 20 Meq Premix Inj) 100 ml @ 50 mls/hr Q2H PRN IV 12/16/16 03:45 Potassium Bicarb/ Potassium Chloride 50 meq 50 meq UNSCH PRN PO 12/16/16 03:45 Potassium Chloride 100 ml @ 25 mls/hr UNSCH PRN IV 12/16/16 03:45 Potassium Chloride 100 ml @ 50 mls/hr Q2H PRN IV 12/16/16 03:45 12/16/16 09:39 (Magnesium Sulfate Inj/NS Inj) 100 ml @ 50 mls/hr UNSCH PRN IV 12/16/16 03:45 Magnesium Oxide 800 mg 800 mg UNSCH PRN PO 12/16/16 03:45 (Magnesium Sulfate Inj/NS Inj) 100 ml @ 50 mls/hr UNSCH PRN IV 12/16/16 03:45 Potassium Phosphate 2000 mg 2,000 mg Q4H PRN PO 12/16/16 03:45 (Sodium Phosphate Inj/NS 250 ml Inj) 250 ml @ 42 mls/hr UNSCH PRN IV 12/16/16 03:45 Potassium Phosphate 2000 mg 2,000 mg UNSCH PRN PO/TUBE 12/16/16 03:45 Potassium Phosphate 30 mmol/ Sodium Chloride 260 ml @ 42 mls/hr UNSCH PRN IV 12/16/16 03:45 (Vancomycin Inj/ NS 250 ml Inj) 250 ml @ 250 mls/hr Q12H IV 12/16/16 11:00 12/16/16 13:23 Miscellaneous Information SPECIFIC LAB TO BE DRAWN:VANCOMYCIN TROUGH DATE TO... ONCE ONCE .XX 12/17/16 10:45 12/17/16 10:46 Vancomycin HCl 125 mg 125 mg QID PO 12/16/16 13:00 12/16/16 17:21 (NS 250 ml Inj) 250 ml @ 15 mls/hr ONCE ONCE IV 12/16/16 17:15 12/17/16 09:54 Physical Exam Vital Signs Vital Signs Date Time Temp Pulse Resp B/P Pulse Ox O2 Delivery O2 Flow Rate FiO2 12/16/16 16:00 98.3 85 16 100/63 96 12/16/16 16:00 74 12/16/16 14:00 70 12/16/16 12:00 70 12/16/16 12:00 98.1 85 16 110/79 96 12/16/16 10:00 84 12/16/16 08:00 84 12/16/16 08:00 98.0 108 18 72/49 97 12/16/16 06:10 97.7 85 16 71/47 96 12/16/16 04:51 94 18 88/51 97 Room Air 12/16/16 03:11 111 17 91/53 98 Room Air 12/16/16 02:04 104 15 97/55 98 Room Air 12/16/16 00:26 104 19 81/51 99 Room Air 12/15/16 22:35 98.5 121 18 89/57 100 Room Air 12/15/16 22:30 18 Room Air 12/15/16 21:25 99.2 130 18 90/51 94 Room Air Laboratory Laboratory Tests Test 12/15/16 12/16/16 12/16/16 12/16/16 23:30 04:35 06:19 06:54 Prothrombin Time 14.7 Prothromb Time International 1.3 Ratio Activated Partial 30.8 Thromboplast Time Sodium Level 124 Potassium Level 3.4 Chloride Level 92 Carbon Dioxide Level 21.7 Anion Gap 10 Blood Urea Nitrogen 21 Creatinine 0.87 Estimat Glomerular Filtration 75 Rate Random Glucose 88 Lactic Acid Level 1.7 Calcium Level 7.8 Magnesium Level 1.8 Total Bilirubin 1.7 Aspartate Amino Transf 45 (AST/SGOT) Alanine Aminotransferase 15 (ALT/SGPT) Alkaline Phosphatase 115 Total Creatine Kinase 36 Troponin I 0.05 0.03 C-Reactive Protein 13.60 B-Type Natriuretic Peptide 112 Total Protein 8.1 Albumin 2.1 Lipase 208 Thyroid Stimulating Hormone 1.750 3rd Gen Stool C. difficile Toxin (PCR) POSITIVE Stl C. difficile Toxin PRESUMPTIVE Epiderm 027 NEGATIVE Nasal Screen MRSA (PCR) MRSA NOT DETECTED Phosphorus Level 2.6 Test 12/16/16 12/16/16 12/16/16 10:54 12:33 17:04 White Blood Count 1.9 Red Blood Count 2.80 Hemoglobin 7.4 Hematocrit 23.4 Mean Corpuscular Volume 83.6 Mean Corpuscular Hemoglobin 26.5 Mean Corpuscular Hemoglobin 31.7 Concent Red Cell Distribution Width 15.9 Platelet Count 10 Mean Platelet Volume 10.6 Neutrophils (%) (Auto) Lymphocytes (%) (Auto) Monocytes (%) (Auto) Eosinophils (%) (Auto) Basophils (%) (Auto) Neutrophils # (Auto) Lymphocytes # (Auto) Monocytes # (Auto) Eosinophils # (Auto) Basophils # (Auto) CBC Comment AUTO DIFF Differential Total Cells 100 Counted Neutrophils % (Manual) 79 Band Neutrophils % 7 Lymphocytes % 11 Monocytes % 2 Eosinophils % 1 Neutrophils # (Manual) 1.6 Differential Comment FINAL DIFF MANUAL Toxic Granulation 1+ Platelet Estimate LOW Platelet Morphology Comment ENLARGED Ovalocytes 1+ Erythrocyte Sedimentation Rate 55 HIV (1&2) Antibody NEGATIVE Blood Bank Comment Date/Time Procedure Status Source Growth 12/16/16 04:35 Rotavirus Antigen - Final Complete Stool Stool NEGATIVE - ROTAVIRUS ANTIGEN IS ABSEN... 12/16/16 04:35 Cryptosporidium Exam Resulted Stool Stool Pending 12/16/16 04:35 Stool Pus (PREET) - Final Resulted Stool Stool NO WBC'S SEEN 12/16/16 04:35 Giardia Antigen (PREET) Resulted Stool Stool Pending 12/15/16 23:25 Aerobic Blood Culture - Preliminary Resulted Blood Peripheral Gram Negative Dominick Gram Positive Cocci 12/15/16 23:25 Anaerobic Blood Culture - Preliminary Resulted Gram Negative Dominick Gram Positive Cocci Result Diagram: 12/16/16 1054 12/15/16 2330 Imaging Last Impressions Lower Extremity Ultrasound 12/16/16 0000 Signed Impressions: Service Date/Time: Friday, December 16, 2016 03:56 - CONCLUSION: No DVT of either lower extremity. Rodo Hart MD CT Angiography 12/16/16 0000 Signed Impressions: Service Date/Time: Friday, December 16, 2016 05:40 - CONCLUSION: 1. No pulmonary embolus. 2. Patchy bilateral air space disease, right more so than left and both sides basilar predominant. Rodo Hart MD Abdomen/Pelvis CT 12/16/16 0000 Signed Impressions: Service Date/Time: Friday, December 16, 2016 05:40 - CONCLUSION: 1. Enlargement and scarring of the spleen. Collateral vessels in the splenic hilum are again noted. 2. Nonspecific hepatomegaly. No focal hepatic lesion. 3. No obstruction or acute inflammatory changes are demonstrated of the gastrointestinal tract. Rodo Hart MD Chest X-Ray 12/15/16 2235 Signed Impressions: Service Date/Time: Thursday, December 15, 2016 22:42 - CONCLUSION: Aortic valve with cardiomegaly and mild interstitial edema. There is no alveolar consolidation. Oseas Frederick MD FACR Assessment and Plan Problem List: (1) Rule out infective endocarditis Assessment and Plan: 36 y/o F with septic shock, anemia, thrombocytopenia and hx of MVR. Unable to determined IE on TTE. Agree with need for MICHELE to better assess TV and MV. Per Dr. Miller no signs of active bleeding. Patient would need to be intubated and given PLT before MICHELE. Recommendations: 1. Keep NPO aftermidnight for MICHELE in AM Case has been discussed with Dr. Miller and Angel. (2) Septic shock (3) Anemia (4) Bloody sputum (5) Elevated LFTs (6) Septic pulmonary embolism (7) DVT of lower extremity, bilateral [place]o To MD Dec 16, 2016 17:52
--- NOTE | 2016-12-16 20:42 | MB ---
cc: JUAN FISHMAN M.D., TANUJA MD DATE OF CONSULTATION: 12/16/[address] Moreira REASON FOR CONSULTATION Hematology consulted to render opinion regarding patient with severe pancytopenia. HISTORY OF PRESENT ILLNESS The patient is a 36-year-old female with very complicated medical history admitted with complaint of nausea, vomiting, chest pain since December 07. She has history of endocarditis, status post tricuspid valve and mitral valve replacement. She was admitted to the hospital in October. At that time recurrent endocarditis was ruled out. She has been having fevers since December 07. The temperature went up to 102. She has increased weakness, increased shortness of breath. Denies cough, denies any melena, hematochezia. Denies any dysuria, hematuria. When she presented her white blood cell count was 1.9, ANC 1.6, hemoglobin down to 7.4. In October her hemoglobin was 9.3, platelet count down to 10,000. In October her platelet count was 114,000. PAST MEDICAL HISTORY: 1. MSSA endocarditis, January 2016. 2. Bilateral lower extremity DVT multiple times. She was on Coumadin for a while and switched to Eliquis. 3. Hepatitis C. 4. History of IV drug use. 5. Chronic pain. PAST SURGICAL HISTORY: 1. Tricuspid valve and mitral valve replacement. 2. Tooth infection. 3. Left femoral vein catheterization. FAMILY HISTORY: Noncontributory. SOCIAL HISTORY: She quit tobacco. History of IV drug use. ALLERGIES: MORPHINE. NORCO PENICILLIN CURRENT MEDICATIONS: 1. Vancomycin. 2. Pantoprazole. 3. Sandy-Colace 4. Cefepime. 5. Metronidazole REVIEW OF SYSTEMS Constitutional: As above. Eyes: Denies any blurry vision, double vision. ENT: No sore or voice changes. Cardiovascular: As above. Respiratory: As above. GI: As above. : Denies dysuria, hematuria. Musculoskeletal: Has chronic pain. Hematology: As above. Endocrine: Negative. Dermatology: Negative. Psychiatric: Negative. Neurologic: Negative. PHYSICAL EXAMINATION VITAL SIGNS: Temperature 98.3, blood pressure 100/63, O2 saturation 96% on room air. General: She is alert and oriented x3. Looks weak and pale. HEENT: Atraumatic, normocephalic. Pupils equal, round, reactive to light. Extraocular muscles intact. No scleral icterus. Oropharynx: Dry mucosa. No lesion. Neck: No thyromegaly. No palpable mass. Lymphatics: No palpable cervical, clavicular, axillary lymph node. Cardiovascular: Regular S1-S2. No murmur. Lungs: Clear to auscultation anteriorly. Abdomen: Soft. No significant tenderness. No rebound, no rigidity. Difficult to palpate her liver and spleen. Extremities: No cyanosis, no clubbing, no edema, no calf tenderness. Back: No paravertebral tenderness. Skin: No significant petechiae. LABORATORY DATA: Reviewed. ASSESSMENT: 1. Severe pancytopenia. I think she likely has pancytopenia due to liver disease and splenomegaly. Her recent CT showed enlarged liver and spleen. I measured her spleen size, and it is about 20 cm craniocaudally. The further drop in blood count is likely a combination of sepsis and consumptive process. Her white blood cell count trended down to 1.9 but her ANC is 1.6. She does not need Neupogen at this time. Hemoglobin had dropped down to 7.4 from 9.3 in October. She possibly had occult bleed. She has been evaluated by gastroenterology. Her platelet count dropped down to 10,000, likely consumptive process and sequestration. Peripheral smear did not show any platelet clumping. I am going to check her iron and vitamin study. Will also check fibrinogen and coagulation study. With her platelet count down to 10,000, I am going to give her platelet transfusion. She has no evidence of TTP noted on peripheral smear. 2. Sepsis/bacteremia. She has a history of endocarditis, status post tricuspid valve and mitral valve replacement. She has had febrile illness. Blood culture grew Gram negative rods and Gram-positive cocci. She is on multiple antibiotics per Infectious Disease. 3. History of endocarditis. 4. Bilateral lower extremity DVT. She has had multiple DVT. She was on Coumadin. 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 She has been on Eliquis. She has not been taking the Eliquis because she is not able to keep her food or medication down. She has no evidence of recurrent clot at this time. I do not appreciate any lower extremity edema. We need to monitor her closely. She cannot start anticoagulation right now due to her severe thrombocytopenia and possibility of GI bleed. 5. History of Hepatitis C. RECOMMENDATIONS 1. Proceed with laboratory evaluation outlined as above. 2. Review peripheral smear. 3. Transfuse one unit of platelets. 4. Monitor for sign of bleeding. 5. Can consider Neupogen if she developed significant neutropenia. Thank you Dr. Busby and Dr. Moreira for asking me to see this patient. MD NORM Webb/PABLO /5:15 PM /8:23 PM KAYCEE
[2016-12-16] MEDS ORDERED: TERBUTALINE INJ 1 MG/ML AMP SQ PRN (21:00)
[2016-12-16 21:13] LABS: RETIC % 0.2 % (0.4-3.0)
[2016-12-16 21:15] LABS: REVIEW FLAG FINAL
[2016-12-16 21:18] LABS: APTT (PATIENT) 36.1 SEC (24.3-30.1); INTERNATIONAL NORMALIZED RATIO 1.3 RATIO; PROTHROMBIN TIME - PATIENT 14.2 SEC (9.8-11.6)
[2016-12-16 21:34] LABS: LDH SERUM 130 U/L (84-246); TRANSFERRIN IRON PROFILE 139 MG/DL (200-360)
[2016-12-16 21:59] LABS: FERRITIN 1487 NG/ML (8-252)
--- NOTE | 2016-12-16 22:03 | PD.PROCEDR ---
Procedure Note Procedure Central Line Procedure Note Right axillary triple lumen catheter Diagnosis: Septic shock Indications: Need for highly potent vasoactive substances Consent: Written consent was obtained Anesthesia: Lidocaine locally Description of the Procedure: The patient was placed in the supine, mild- Trendelenburg position. The area was prepped and draped sterilely. A 4 Swiss micropuncture kit was used for this procedure. A 25g needle was inserted under negative pressure aspiration and dark venous blood was obtained. A guidewire was inserted easily without resistance. A small incision was made using a #11 blade. Using a modified Seldinger technique, the dilator and 7 Swiss, 20 cm catheter were advanced over the guidewire without resistance. All ports were aspirated and flushed, and had brisk blood return. The line was secured at the skin using 2-0 silk interrupted sutures. A Biopatch and Transparent sterile dressing were applied. There were no immediate complications noted. There was minimal EBL. The patient tolerated the procedure well. Ultrasound Guidance: Ultrasound guidance was used to identify the right axillary vein. The vascular anatomy of the right axilla was normal. The vessel was cannulated under direct, real-time ultrasound visualization. After placement of the guidewire, confirmation of the guidewire in the lumen of the vessel was made using ultrasound visualization, before dilation of the tract. A Chest x-ray has been ordered. I personally performed the procedure. Andreas Moreira MD Dec 16, 2016 22:03
--- NOTE | 2016-12-16 22:32 | RADRPT ---
EXAM DATE/TIME: 12/16/2016 21:51 [facility] COMPARISON: CHEST SINGLE AP, December 15, 2016, 22:42. INDICATIONS : Central line placement. MEDICAL HISTORY : Cardiovascular disease. Blood clots. SURGICAL HISTORY : Valve replacements ENCOUNTER: Subsequent ACUITY: 4 - 6 days PAIN SCORE: 0/10 LOCATION: Bilateral chest FINDINGS: A single portable frontal view of the chest shows hypoinflation with bibasilar atelectasis. Heart has a left ventricular prominence. Prosthetic heart valve. Median sternotomy wires. Right subclavian tim tral line with the tip in the innominate vein. No pneumothorax. CONCLUSION: 1. Hypoinflation with bibasilar atelectasis. 2. Right subclavian central line without pneumothorax. Mode Miller Jr., MD on December 16, 2016 at 22:30 Board Certified Radiologist. This report was verified electronically.
[2016-12-16 23:19] LABS: AMPHETAMINE, URINE NEG (NEG); BARBITURATES, URINE NEG (NEG); COCAINE, URINE NEG (NEG)
[2016-12-16 23:20] LABS: BLOOD, URINE MOD (NEG); GLUCOSE,URINE NEG (NEG); KETONE, URINE NEG (NEG); MUCUS URINE FEW /lpf (OCC); NITRITE,URINE NEG (NEG); SQUAMOUS EPITHELIAL CELL URINE 1 /hpf (0-5); URINE COLOR YELLOW (YELLW/STRAW)
[2016-12-16 23:26] LABS: COMMENT (UR) CATH-CULT NOT IND; CULTURE IF INDICATED CATH CULTURE NOT IND
[2016-12-17] VITALS (39 sets, daily range): BP systolic 78–125; BP diastolic 50–88; PULSE 100–142; RESP 0–53; TEMP 97.8–99.8; O2SAT 81–100
[2016-12-17] MEDS: SODIUM CHLOR 0.9% 1000 ML INJ 1,000 ML IV SCH ×2 (00:07→23:38)
[2016-12-17] MEDS: metroNIDAZOLE 500 MG INJ 100 ML IV SCH ×4 (00:08→21:08)
[2016-12-17] MEDS: DOCUSATE SODIUM 50 MG/SENNA 8.6 MG TAB PO SCH ×3 (00:08→21:08)
[2016-12-17] MEDS: VANCOMYCIN 500 MG VIAL (FOR ORAL USE ONLY) PO SCH ×5 (00:09→21:08)
[2016-12-17] MEDS: VANCOMYCIN 1,000 MG/NS 250 ML IV SCH ×6 (00:10→23:40)
[2016-12-17] MEDS: CEFEPIME INJ 2,000 MG in SODIUM CHLORIDE 0.9% INJ 100 ML IV SCH ×4 (02:26→23:44)
[2016-12-17] MEDS: HYDROmorphone HCL 4 MG TAB PO PRN ×4 (03:03→23:57)
[2016-12-17] MEDS: CHLORHEXIDINE GLUCONATE 2 % 1 PACK (2 CLOTHS) TOP SCH (04:00)
[2016-12-17 05:47] LABS: AUTOMATED NEUTROPHIL # 5.3 TH/MM3 (1.8-7.7); BASOPHIL % 0.1 % (0.0-2.0); EOSINOPHIL % 0.4 % (0.0-4.0); HEMATOCRIT 25.5 % (35.0-46.0); LYMPH % 9.7 % (9.0-44.0); LYMPHOCYTE # 0.7 TH/MM3 (1.0-4.8); MEAN CORPUSCULAR HEMOGLOBIN 26.9 PG (27.0-34.0); MONO % 10.6 % (0.0-8.0); NEUT % 79.2 % (16.0-70.0); PLATELET COUNT 31 TH/MM3 (150-450); RED BLOOD COUNT 3.03 MIL/MM3 (4.00-5.30); WHITE BLOOD COUNT 6.7 TH/MM3 (4.0-11.0)
--- NOTE | 2016-12-17 05:49 | RADRPT ---
EXAM DATE/TIME: 12/17/2016 04:55 [facility] COMPARISON: CHEST SINGLE AP, December 16, 2016, 21:51. INDICATIONS : Shortness of breath. MEDICAL HISTORY : Cardiovascular disease. Blood clots. SURGICAL HISTORY : Valve replacements. ENCOUNTER: Subsequent ACUITY: 4 - 6 days PAIN SCORE: 0/10 LOCATION: Bilateral chest FINDINGS: Decreasing bibasilar atelectasis, now very mild on both sides. No effusion demonstrated. No pneumotho rax. Heart size stable, then normal limits. Patient has had previous median sternotomy. Right subclavian central venous catheter again seen, tip in the superior vena cava. CONCLUSION: Decreasing bibasilar atelectasis. Rodo Hart MD on December 17, 2016 at 5:47 Board Certified Radiologist. This report was verified electronically.
[2016-12-17 05:57] LABS: HEMO FLAGS AUTO DIFF
[2016-12-17] MEDS: NOREPINEPHRINE 4 MG/D5W 250 ML IV SCH ×2 (05:57→21:12)
[2016-12-17 06:17] LABS: BICARBONATE 18.4 MEQ/L (21.0-32.0)
[2016-12-17 06:19] LABS: POTASSIUM 2.8 MEQ/L (3.5-5.1)
[2016-12-17 06:23] LABS: CALCIUM-PROTEIN CORRECTED 7.6 MG/DL (8.5-10.1); TOTAL BILIRUBIN ADULT 0.9 MG/DL (0.2-1.0)
[2016-12-17] MEDS: POTASSIUM CHLOR 40 MEQ PREMIX 100 ML IV PRN ×2 (06:24→08:41)
[2016-12-17 06:51] LABS: APTT (PATIENT) 33.2 SEC (24.3-30.1); INTERNATIONAL NORMALIZED RATIO 1.2 RATIO; PROTHROMBIN TIME - PATIENT 13.6 SEC (9.8-11.6)
[2016-12-17 07:47] LABS: PLATELET ESTIMATE SMEAR LOW (NORMAL); PLATELET MORPHOLOGY NORMAL (NORMAL); SCAN/DIFF AUTO DIFF CONFIRMED
--- NOTE | 2016-12-17 08:01 | HHI.CCPN ---
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 Patient had a blood pressure 90/51 heart rate in the 130s and temperature 99.2. [facility] for possible recurrent endocarditis, which was ruled out and patient was discharged home. On December 07 she began to have generalized weakness and started to have a fever. Tmax at home of 102. 2 days ago she began to have severe chest pain in the center of her chest. She also had dyspnea on exertion, also had nausea and vomiting intermittently since December 07. Since last 2 days innumerable episodes of vomiting and diarrhea but no blood in stools or hematemesis. A 2d echo done on 10/17/16 was negative for any vegetation I evaluated the patient in the emergency department. She remains tachycardic and borderline hypotensive. Complaints of chest pain to the right side of the rib, since December 07. She claims it is constant and 9 out of 10. Initial cardiac enzymes and EKG negative. I have ordered CT pulmonary angiogram to rule out PE and septic emboli given history of endocarditis and lower extremity DVT. Patient had also not been taking eliquis for the last few days. Patient also complained about nausea vomiting and diarrhea with diffuse abdominal pain for the last few days. I have also ordered CT abdomen pelvis to rule out any kind of colitis. Patient will be continued on vancomycin and cefepime which was started in the ED, I have added Flagyl subjective: 12/17: remains on levophed for vasopressor support. remains in septic shock. complains of being hungry this morning. NPO for MICHELE today. thrombocytopenia improved slightly after platelet transfusion. no signs of active bleeding. wbc improving. blood cultures / growing both GNRs and GPCs. Objective Vital Signs Date Time Temp Pulse Resp B/P Pulse Ox O2 Delivery O2 Flow Rate FiO2 12/17/16 07:45 100 12/17/16 06:00 111 12/17/16 04:00 99.8 12 88/53 12/16/16 19:54 21 12/16/16 04:51 Room Air Intake and Output 12/16/16 12/16/16 12/17/16 08:00 16:00 00:00 Intake Total 2885 ml 1286 ml Output Total 850 ml 375 ml Balance 2035 ml 911 ml Result Diagram: 12/17/16 0400 12/17/16 0400 Other Results Microbiology Date/Time Procedure Status Source Growth 12/16/16 04:35 Rotavirus Antigen - Final Complete Stool Stool NEGATIVE - ROTAVIRUS ANTIGEN IS ABSEN... Imaging Chest x-ray mild interstitial edema Objective Remarks GENERAL: Patient is 36 yo critically ill female who appears in mild distress SKIN: Warm and dry. HEAD: Normocephalic. EYES: No scleral icterus. No injection or drainage. NECK: trachea midline. No JVD CARDIOVASCULAR: Tachycardic rate and rhythm, Grade 2 systolic murmur left sternal border, gallops, or rubs. Well-healed sternotomy scar from valve surgeries RESPIRATORY: Breath sounds equal bilaterally. No accessory muscle use. GASTROINTESTINAL: Abdomen soft, non-tender, nondistended. MUSCULOSKELETAL: No cyanosis, edema. right axillary CVL site clean dry intact, no evidence of bleeding or hematoma. Neuro: Awake oriented, no focal deficits. 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 remains on vasopressors. although some end-organs are improving, she is still in distributive shock and not improving on pathway. remains critically ill. Plan for MICHELE today to confirm endocarditis. continue antibiotics. appreciate subspecialty assistance. NEURO: History of IV drug use - Denies any current illicit IV drug use. On Prescribed Dilaudid for pain - Supplement multivitamin, thiamine RESP: History of septic pulmonary emboli - DuoNeb every 6 hours and when necessary - Aggressive pulmonary toilet - Bilateral lower extremity venous Doppler CV: Atypical chest pain Hypotension tachycardia History of tricuspid and mitral valve replacement History of infective endocarditis - slivf. - MICHELE today to eval for endocarditis. - Echo 10/17: Setting mitral and tricuspid valve no regurgitation GI: Abdominal pain with nausea and vomiting - improving. History of hepatitis C - slowly advance diet. - IV Protonix - Check CT abdomen pelvis /Endo: Dehydration- resolved. Hyponatremia- improving. - Monitor renal function, I/O's, electrolytes replacement per protocol. - Hyponatremia correction 6-8 meq in 24 hours ID: Sepsis, Rule out infective endocarditis History of MSSA endocarditis C. Difficile Colitis - Continue abx per ID. - ID service is consulted. F/U On cultures - C. Diff + HEME: Anemia History of bilateral lower extremity DVT Pancytopenia Thrombocytopenia -Monitor CBC, CMP, INR -hold eliquis - heme consulted. PROPH: -Bilateral lower extremity SCDs, hold therapeutic anticoagulation given coagulopathy. IV Protonix 40 mg IV daily LINES: -12/16 right axillary CVL Andreas Moreira MD Dec 17, 2016 08:01 Andreas Moreira MD Dec 17, 2016 08:01
[2016-12-17] MEDS: PANTOPRAZOLE SODIUM 40 MG VIAL IV SCH (08:43)
[2016-12-17] MEDS ORDERED: PROPOFOL 500 MG/50 ML BTL IV ONE ×2 (09:43)
[2016-12-17] MEDS ORDERED: PROPOFOL 500 MG/50 ML INJ 50 ML ONE (09:43)
[2016-12-17] MEDS ORDERED: MIDAZOLAM HCL 5 MG/ML VIAL (1 ML) ONE (09:50)
[2016-12-17] MEDS ORDERED: MIDAZOLAM HCL 5 MG/ML VIAL (1 ML) IV ONE (09:50)
[2016-12-17] MEDS ORDERED: ESMOLOL 2500 MG/NS 250 ML PREMIX DRIP IV ONE (09:55)
[2016-12-17] MEDS ORDERED: PHARMACY ORDERED LAB ONE (10:45)
--- NOTE | 2016-12-17 13:24 | HHI.IDPN ---
Subjective Subjective Remarks X cover for Dr Busby chart reviwed 36 F IVDU sp mitral and tricuspid valve replacement She is growing GNBs (x 2? ) in the blood and a GPC in pairs MICHELE today showed large veg's on both prosthetic valves she also has C>diff no diarrhea today afebrile Antibiotics cefepime flagyl vanco iv vanco po Allergies: Coded Allergies: Morphine (Verified Allergy, Severe, hives, 12/15/16) [place] (Verified Allergy, Unknown, 12/15/16) Penicillin (Verified Allergy, Unknown, 12/15/16) Objective . Vital Signs Date Time Temp Pulse Resp B/P Pulse Ox O2 Delivery O2 Flow Rate FiO2 12/17/16 12:06 99.0 120 18 101/67 97 12/17/16 12:00 125 12/17/16 10:20 99 15.00 100 12/17/16 10:00 118 12/17/16 08:00 118 12/17/16 08:00 99.0 118 18 98/56 97 12/17/16 07:45 100 12/17/16 06:00 111 12/17/16 04:00 99.8 109 12 88/53 96 12/17/16 04:00 109 12/17/16 02:00 109 12/17/16 00:00 118 12/17/16 00:00 98.8 118 23 92/54 95 12/16/16 22:00 116 12/16/16 20:00 98.7 109 27 103/66 99 12/16/16 20:00 109 12/16/16 19:54 97 21 12/16/16 18:45 98.1 75 18 100/62 97 12/16/16 18:00 74 12/16/16 16:00 98.3 85 16 100/63 96 12/16/16 16:00 74 12/16/16 14:00 70 12/16/16 12/16/16 12/17/16 15:00 23:00 07:00 Intake Total 2885 ml 1286 ml 1053 ml Output Total 850 ml 375 ml 450 ml Balance 2035 ml 911 ml 603 ml Intake Oral 240 ml 480 ml 240 ml IV Total 2645 ml 806 ml 813 ml Output Urine Total 850 ml 375 ml 450 ml Stool Total 0 ml 0 ml # Voids 2 # Bowel Movements 0 . Laboratory Tests Test 12/16/16 12/16/16 12/17/16 10:54 20:47 04:00 White Blood Count 1.9 TH/MM3 6.7 TH/MM3 Red Blood Count 2.80 MIL/MM3 3.03 MIL/MM3 Hemoglobin 7.4 GM/DL 8.2 GM/DL Hematocrit 23.4 % 25.5 % Mean Corpuscular Volume 83.6 FL 84.0 FL Mean Corpuscular Hemoglobin 26.5 PG 26.9 PG Mean Corpuscular Hemoglobin 31.7 % 32.0 % Concent Red Cell Distribution Width 15.9 % 16.0 % Platelet Count 10 TH/MM3 31 TH/MM3 Mean Platelet Volume 10.6 FL 11.2 FL Neutrophils (%) (Auto) % 79.2 % Lymphocytes (%) (Auto) % 9.7 % Monocytes (%) (Auto) % 10.6 % Eosinophils (%) (Auto) % 0.4 % Basophils (%) (Auto) % 0.1 % Neutrophils # (Auto) TH/MM3 5.3 TH/MM3 Lymphocytes # (Auto) TH/MM3 0.7 TH/MM3 Monocytes # (Auto) TH/MM3 0.7 TH/MM3 Eosinophils # (Auto) TH/MM3 0.0 TH/MM3 Basophils # (Auto) TH/MM3 0.0 TH/MM3 CBC Comment AUTO DIFF AUTO DIFF Differential Total Cells 100 Counted Neutrophils % (Manual) 79 % Band Neutrophils % 7 % Lymphocytes % 11 % Monocytes % 2 % Eosinophils % 1 % Neutrophils # (Manual) 1.6 TH/MM3 Differential Comment FINAL DIFF AUTO DIFF MANUAL CONFIRMED Toxic Granulation 1+ Platelet Estimate LOW LOW Platelet Morphology Comment ENLARGED NORMAL Ovalocytes 1+ Erythrocyte Sedimentation Rate 55 mm/hr Blood Smear Pathologist Review Reticulocyte Count 0.2 % Absolute Reticulocyte Count 5.2 MIL/L Laboratory Tests Test 12/15/16 12/16/16 12/16/16 12/17/16 23:30 06:54 20:49 04:00 Sodium Level 124 MEQ/L 132 MEQ/L Potassium Level 3.4 MEQ/L 2.8 MEQ/L Chloride Level 92 MEQ/L 102 MEQ/L Carbon Dioxide Level 21.7 MEQ/L 18.4 MEQ/L Anion Gap 10 MEQ/L 12 MEQ/L Blood Urea Nitrogen 21 MG/DL 18 MG/DL Creatinine 0.87 MG/DL 0.82 MG/DL Estimat Glomerular Filtration 75 ML/MIN 80 ML/MIN Rate Random Glucose 88 MG/DL 140 MG/DL Lactic Acid Level 1.7 mmol/L Calcium Level 7.8 MG/DL 7.1 MG/DL Magnesium Level 1.8 MG/DL Total Bilirubin 1.7 MG/DL 0.9 MG/DL Aspartate Amino Transf 45 U/L 18 U/L (AST/SGOT) Alanine Aminotransferase 15 U/L 12 U/L (ALT/SGPT) Alkaline Phosphatase 115 U/L 96 U/L Total Creatine Kinase 36 U/L Troponin I 0.05 NG/ML 0.03 NG/ML C-Reactive Protein 13.60 MG/DL B-Type Natriuretic Peptide 112 PG/ML Total Protein 8.1 GM/DL 6.1 GM/DL Albumin 2.1 GM/DL 1.7 GM/DL Lipase 208 U/L Thyroid Stimulating Hormone 1.750 uIU/ML 3rd Gen Phosphorus Level 2.6 MG/DL Iron Level 44 MCG/DL Total Iron Binding Capacity 195 MCG/DL Percent Iron Saturation 22.6 % Ferritin 1487 NG/ML Lactate Dehydrogenase 130 U/L Vitamin B12 Level 346 PG/ML Folate 11.2 NG/ML Protein Corrected Calcium 7.6 MG/DL Microbiology Date/Time Procedure Status Source Growth 12/15/16 22:30 Aerobic Blood Culture - Preliminary Resulted Blood Peripheral Gram Negative Dominick 12/15/16 22:30 Anaerobic Blood Culture - Preliminary Resulted Gram Negative Dominick Gram Positive Cocci 12/15/16 23:25 Aerobic Blood Culture - Preliminary Resulted Blood Peripheral Gram Negative Dominick Gram Positive Cocci 12/15/16 23:25 Anaerobic Blood Culture - Preliminary Resulted Gram Negative Dominick Gram Positive Cocci 12/16/16 04:35 Rotavirus Antigen - Final Complete Stool Stool NEGATIVE - ROTAVIRUS ANTIGEN IS ABSEN... 12/16/16 04:35 Cryptosporidium Exam Resulted Stool Stool Pending 12/16/16 04:35 Stool Pus (PREET) - Final Resulted Stool Stool NO WBC'S SEEN 12/16/16 04:35 Giardia Antigen (PREET) Resulted Stool Stool Pending 12/16/16 22:10 Urine Culture - Preliminary Resulted Urine Catheterized Urine RESULTS PENDING Imaging Last Impressions Chest X-Ray 12/17/16 0000 Signed Impressions: Service Date/Time: Saturday, December 17, 2016 04:55 - CONCLUSION: Decreasing bibasilar atelectasis. Rodo Hart MD Lower Extremity Ultrasound 12/16/16 Signed Impressions: Service Date/Time: Friday, December 16, 2016 03:56 - CONCLUSION: No DVT of either lower extremity. Rodo Hart MD CT Angiography 12/16/16 Signed Impressions: Service Date/Time: Friday, December 16, 2016 05:40 - CONCLUSION: 1. No pulmonary embolus. 2. Patchy bilateral air space disease, right more so than left and both sides basilar predominant. Rodo Hart MD Abdomen/Pelvis CT 12/16/16 Signed Impressions: Service Date/Time: Friday, December 16, 2016 05:40 - CONCLUSION: 1. Enlargement and scarring of the spleen. Collateral vessels in the splenic hilum are again noted. 2. Nonspecific hepatomegaly. No focal hepatic lesion. 3. No obstruction or acute inflammatory changes are demonstrated of the gastrointestinal tract. Rodo Hart MD Physical Exam GENERAL: This is a well-nourished, well-developed patient, in no apparent distress. SKIN: No rashes, ecchymoses or lesions. Cool and dry. EYES: Pupils equal round and reactive. Extraocular motions intact. No scleral icterus. No injection or drainage. ENT: Nose without bleeding, purulent drainage or septal hematoma. Throat without erythema, tonsillar hypertrophy or exudate. Uvula midline. Airway patent. NECK: Trachea midline. Supple, No JVD CARDIOVASCULAR: regular, no murmur s rubs gallops medial sternotopmy scar well healed well perfused perifery RESPIRATORY: Clear to auscultation. Breath sounds equal bilaterally. No wheezes , rales, or rhonchi. GASTROINTESTINAL: Abdomen soft, Mild diffuse tenderness with no rebound or rigidity with a midline reducible hernia. MUSCULOSKELETAL: Extremities without clubbing, cyanosis, or edema. No joint tenderness, effusion, or edema noted. No calf tenderness. Negative Homans sign bilaterally. NEUROLOGICAL: Very lethargic just right after MICHELE at the time I saw the pt. Grossly non focal PSYCH: unable to assess IV line sites with no e.o infection. Assessment & Plan Remarks Aspiration Pneumonia Cdiff colitis. non hypervirulent strain COnfirmen prosthetic valve Endocarditis both mitral and tricuspid valves involveed - large 1.5 cm vegetaiona - I dont think she is a candidatge for surgery given her IVDU - Enterococcal ? - dw microlab, GDent suspected - and also GNB high grade bactermia - h/o TV and MV bovine valve replacement H/o endocarditis. H/o IVDA, opiate + on drug screen, denies active use sepsis remains on levophed Hepatitis C Pancytopenia Severe leucopenia: improved Severe Thrombocytopenia, improved p transfusion Recs Continue Cefepime IV (At risk for GNR bacteremia, IVDA history) Continue Vanco IV ( ; target 15-20 for bacteremia pending r/o endocarditis/ bacteremia) add gentamycin Continue Flagyl IV (anaerobes and Cdiff coverage) cont oral Vanco (Cdiff, BNAP negative strain) Follow cultures untill finl Follow clinically blanca RN d/w DrsCox and Mavis Hart MD Dec 17, 2016 13:24
[2016-12-17] MEDS ORDERED: Gentamicin Consult Pharmacy 1 EA OTHER SCH (13:30)
--- NOTE | 2016-12-17 13:39 | PD.ONC.PN ---
Subjective Subjective Remarks Afebrile overnight. s/p MICHELE at bedside this morning. Patient feeling hot. Tolerated platelet transfusion this morning. Objective Data Date Time Temp Pulse Resp B/P Pulse Ox O2 Delivery O2 Flow Rate FiO2 12/17/16 13:15 124 10 125/75 90 12/17/16 13:00 126 24 109/72 99 12/17/16 12:45 126 4 106/70 98 12/17/16 12:32 128 47 98/81 98 12/17/16 12:30 128 33 81 12/17/16 12:10 99.0 124 16 125/75 97 12/17/16 12:06 99.0 120 18 101/67 97 12/17/16 12:00 125 12/17/16 10:27 123 27 89/54 100 12/17/16 10:24 113 43 78/50 99 12/17/16 10:21 108 43 81/51 100 12/17/16 10:20 99 15.00 100 12/17/16 10:18 100 42 80/53 100 12/17/16 10:15 103 46 83/52 99 12/17/16 10:12 115 48 104/69 100 12/17/16 10:09 135 12 103/64 100 12/17/16 10:06 137 15 103/59 98 12/17/16 10:03 135 0 88/54 97 12/17/16 10:00 135 0 91/57 97 12/17/16 10:00 118 12/17/16 09:57 135 0 97/61 98 12/17/16 09:56 138 0 114/67 97 12/17/16 09:54 138 15 104/56 88 12/17/16 09:51 142 46 96/51 96 12/17/16 09:48 140 43 98/57 95 12/17/16 09:45 136 49 106/58 95 12/17/16 09:30 132 29 95/52 96 12/17/16 09:15 130 48 97/52 96 12/17/16 09:00 133 53 96/54 97 12/17/16 08:00 118 12/17/16 08:00 99.0 118 18 98/56 97 12/17/16 07:45 100 12/17/16 06:00 111 12/17/16 04:00 99.8 109 12 88/53 96 12/17/16 04:00 109 12/17/16 02:00 109 12/17/16 00:00 118 12/17/16 00:00 98.8 118 23 92/54 95 12/16/16 22:00 116 12/16/16 20:00 98.7 109 27 103/66 99 12/16/16 20:00 109 12/16/16 19:54 97 21 12/16/16 18:45 98.1 75 18 100/62 97 12/16/16 18:00 74 12/16/16 16:00 98.3 85 16 100/63 96 12/16/16 16:00 74 12/16/16 14:00 70 12/17/16 12/17/16 12/17/16 07:00 15:00 23:00 Intake Total 1053 ml Output Total 450 ml Balance 603 ml Result Diagram: 12/17/16 0400 12/17/16 0400 Laboratory Results Laboratory Tests Test 12/16/16 12/16/16 12/16/16 12/16/16 17:04 20:47 20:49 22:10 Blood Bank Comment Blood Smear Pathologist Review Reticulocyte Count 0.2 % Absolute Reticulocyte Count 5.2 MIL/L Prothrombin Time 14.2 SEC Prothromb Time International 1.3 RATIO Ratio Activated Partial 36.1 SEC Thromboplast Time Fibrinogen 242 mg/dL Iron Level 44 MCG/DL Total Iron Binding Capacity 195 MCG/DL Percent Iron Saturation 22.6 % Ferritin 1487 NG/ML Lactate Dehydrogenase 130 U/L Vitamin B12 Level 346 PG/ML Folate 11.2 NG/ML Urine Color YELLOW Urine Turbidity HAZY Urine pH 6.0 Urine Specific [place] 1.036 Urine Protein 30 mg/dL Urine Glucose (UA) NEG mg/dL Urine Ketones NEG mg/dL Urine Occult Blood MOD Urine Nitrite NEG Urine Bilirubin NEG Urine Urobilinogen 2.0 MG/DL Urine Leukocyte Esterase NEG Urine RBC 7 /hpf Urine WBC 4 /hpf Urine Squamous Epithelial 1 /hpf Cells Urine Mucus FEW /lpf Microscopic Urinalysis Comment CATH-CULT NOT IND Urine Opiates Screen POS Urine Barbiturates Screen NEG Urine Amphetamines Screen NEG Urine Benzodiazepines Screen NEG Urine Cocaine Screen NEG Urine Cannabinoids Screen NEG Test 12/17/16 12/17/16 12/17/16 04:00 06:00 08:47 White Blood Count 6.7 TH/MM3 Red Blood Count 3.03 MIL/MM3 Hemoglobin 8.2 GM/DL Hematocrit 25.5 % Mean Corpuscular Volume 84.0 FL Mean Corpuscular Hemoglobin 26.9 PG Mean Corpuscular Hemoglobin 32.0 % Concent Red Cell Distribution Width 16.0 % Platelet Count 31 TH/MM3 Mean Platelet Volume 11.2 FL Neutrophils (%) (Auto) 79.2 % Lymphocytes (%) (Auto) 9.7 % Monocytes (%) (Auto) 10.6 % Eosinophils (%) (Auto) 0.4 % Basophils (%) (Auto) 0.1 % Neutrophils # (Auto) 5.3 TH/MM3 Lymphocytes # (Auto) 0.7 TH/MM3 Monocytes # (Auto) 0.7 TH/MM3 Eosinophils # (Auto) 0.0 TH/MM3 Basophils # (Auto) 0.0 TH/MM3 CBC Comment AUTO DIFF Differential Comment AUTO DIFF CONFIRMED Platelet Estimate LOW Platelet Morphology Comment NORMAL Sodium Level 132 MEQ/L Potassium Level 2.8 MEQ/L Chloride Level 102 MEQ/L Carbon Dioxide Level 18.4 MEQ/L Anion Gap 12 MEQ/L Blood Urea Nitrogen 18 MG/DL Creatinine 0.82 MG/DL Estimat Glomerular Filtration 80 ML/MIN Rate Random Glucose 140 MG/DL Calcium Level 7.1 MG/DL Protein Corrected Calcium 7.6 MG/DL Total Bilirubin 0.9 MG/DL Aspartate Amino Transf 18 U/L (AST/SGOT) Alanine Aminotransferase 12 U/L (ALT/SGPT) Alkaline Phosphatase 96 U/L Total Protein 6.1 GM/DL Albumin 1.7 GM/DL Prothrombin Time 13.6 SEC Prothromb Time International 1.2 RATIO Ratio Activated Partial 33.2 SEC Thromboplast Time Blood Bank Comment Culture Results Microbiology Date/Time Procedure Status Source Growth 12/15/16 22:30 Aerobic Blood Culture - Preliminary Resulted Blood Peripheral Gram Negative Dominick 12/15/16 22:30 Anaerobic Blood Culture - Preliminary Resulted Gram Negative Dominick Gram Positive Cocci 12/15/16 23:25 Aerobic Blood Culture - Preliminary Resulted Blood Peripheral Gram Negative Dominick Gram Positive Cocci 12/15/16 23:25 Anaerobic Blood Culture - Preliminary Resulted Gram Negative Dominick Gram Positive Cocci 12/16/16 04:35 Rotavirus Antigen - Final Complete Stool Stool NEGATIVE - ROTAVIRUS ANTIGEN IS ABSEN... 12/16/16 04:35 Cryptosporidium Exam Resulted Stool Stool Pending 12/16/16 04:35 Stool Pus (PREET) - Final Resulted Stool Stool NO WBC'S SEEN 12/16/16 04:35 Giardia Antigen (PREET) Resulted Stool Stool Pending 12/16/16 22:10 Urine Culture - Preliminary Resulted Urine Catheterized Urine RESULTS PENDING Imaging Studies Last 24 hours Impressions Chest X-Ray 12/17/16 0000 Signed Impressions: Service Date/Time: Saturday, December 17, 2016 04:55 - CONCLUSION: Decreasing bibasilar atelectasis. Rodo Hart MD Administered Medications Medications (Trade) Dose Ordered Sig/Solo Route PRN Reason Start Time Stop Time Status Last Admin Dose Admin Cefepime HCl 2000 mg/Sodium Chloride 100 ml @ 200 mls/hr Q8H IV 12/16/16 08:00 12/17/16 08:42 Sodium Chloride (NS 1000 ml Inj) 1,000 ml @ 150 mls/hr Q6H40M IV 12/16/16 02:47 12/17/16 00:07 Pantoprazole Sodium (Protonix Inj) 40 mg DAILY IV 12/16/16 09:00 12/17/16 08:43 Chlorhexidine Gluconate (Chlorhexidine 2% Cloth) 3 pack Taper DAILY@04 TOP 12/16/16 04:00 12/12/17 03:59 12/17/16 04:00 Senna/Docusate Sodium (Sandy-Colace) 1 tab BID PO 12/16/16 09:00 12/17/16 08:43 Hydromorphone HCl 4 mg 4 mg Q6H PRN PO Pain Management 12/16/16 03:00 12/17/16 11:56 Metronidazole 100 ml @ 100 mls/hr Q8H IV 12/16/16 04:00 12/17/16 04:01 Potassium Chloride 100 ml @ 50 mls/hr Q2H PRN IV For Potassium 2.8 - 3.2 mEq/L 12/16/16 03:45 12/17/16 08:41 Potassium Chloride 100 ml @ 50 mls/hr Q2H PRN IV For Potassium 3.3 - 3.5 mEq/L 12/16/16 03:45 12/16/16 09:39 Vancomycin HCl/ Sodium Chloride (Vancomycin Inj/ NS 250 ml Inj) 250 ml @ 250 mls/hr Q12H IV 12/16/16 11:00 12/17/16 00:10 Vancomycin HCl 125 mg 125 mg QID PO 12/16/16 13:00 12/17/16 08:43 Norepinephrine Bitartrate (Levophed-Dextrose Drip) 250 ml @ 0 mls/hr TITRATE IV 12/16/16 21:00 12/17/16 05:57 Terbutaline Sulfate (Brethine Inj) 1 mg UNSCH PRN SQ FOR EXTRAVASATION PROTOCOL 12/16/16 21:00 12/16/16 21:09 Objective Remarks GENERAL: Chronically ill female supine in bed. SKIN: Warm and dry. HEAD: Normocephalic. EYES: No injection or drainage. NECK: Supple, trachea midline. CARDIOVASCULAR: +S1/S2 RESPIRATORY: anterior lerner clear. GASTROINTESTINAL: Abdomen soft, non-tender, nondistended. EXTREMITIES: No cyanosis NEUROLOGICAL: awake and alert, normal speech. Assessment/Plan Problem List: (1) Pancytopenia Status: Acute Plan: --due to liver disease and splenomegaly + sepsis/DIC --CT showed enlarged liver and spleen. spleen is about 20 cm craniocaudally. -- further drop in blood count is likely a combination of sepsis and consumptive process. --no evidence of TTP noted on peripheral smear. --iron studies show high ferritin, no iron deficiency --B12/folate WNL --transfuse platelets/pRBC as needed --will give neupogen if patient has severe neutropenia (2) Sepsis Status: Acute Plan: --Sepsis/bacteremia. --has a history of endocarditis, status post tricuspid valve and mitral valve replacement. She has had febrile illness. --BC +GNR and GPC --on multiple antibiotics per Infectious Disease. (3) DVT of lower extremity, bilateral Status: Resolved Plan: --monitor closely cannot start anticoagulation right now due to her severe thrombocytopenia and possibility of GI bleed. -- has had multiple DVT. --was on Coumadin. --one point she was found to have splenic infarction. --has been on Eliquis. has not been taking the Eliquis because she is not able to keep her food or medication down. --no evidence of recurrent clot at this time. Assessment 36y/[place] [facility] [facility] [place] Hematology consulted for pancytopenia. h/o MSSA endocarditis, January 2016. Bilateral lower extremity DVT multiple times. She was on Coumadin for a while and switched to Eliquis. Hepatitis C. History of IV drug use. Chronic pain. Tricuspid valve and mitral valve replacement. Left femoral vein catheterization Plan 1. monitor CBC, coags 2. hold anticoagulation 3. continue antibiotics 4. continue supportive care Attending Statement The exam, history, and the medical decision-making described in the above note were completed with the assistance of the mid-level provider. I reviewed and agree with the findings presented. I attest that I had a [id number] encounter with the patient on the same day, and personally performed and documented my assessment and findings in the medical record. No report of bleeding. Platelet up to 31K with transfusion. Hgb stable. WBC trended back to normal. Monitor CBC and consider restarting Eliquis when platelet >50K. Problem Qualifiers (1) Sepsis: Qualified Code: O85 - Puerperal sepsis Mel Warren Dec 17, 2016 13:39 Ger Alexander MD Dec 17, 2016 14:16
[2016-12-17 15:29] LABS: POTASSIUM 3.3 MEQ/L (3.5-5.1); VANCOMYCIN TROUGH 8.3 MCG/ML (5.0-10.0)
--- NOTE | 2016-12-17 15:57 | PD.PROCEDR ---
Procedure Note Procedure Endotracheal Intubation Diagnosis: Septic shock Indications: Need for transesophageal echocardiogram the patient with active nausea and vomiting. Patient needs secure airway for sedation during echocardiogram Consent: I consented the patient for the intubation as well as the conscious sedation for the planned echocardiogram. I discussed the risks of bleeding, including a higher risk of bleeding given her coagulopathy, dental injury, temporary or permanent respiratory failure. Patient agreed to proceed Anesthesia: Propofol 120 mg IV, succinylcholine 100 mg IV Description of the Procedure: The patient was positioned in the sniffing position. Pre-oxygenation was performed using a valve mask. Anesthesia was induced via rapid sequence. A Szymanski #2 was used for laryngoscopy and a Grade I view was obtained. A 7.0 cuffed endotracheal tube was inserted atraumatically through the vocal cords. Confirmation of correct endotracheal tube placement was made by equal and bilateral breath sounds and colorimetric CO2 detection. The endotracheal tube was secured at 22 cm at the teeth. There were no immediate complications noted. The patient remained hemodynamically stable throughout the procedure. I personally performed the procedure. Andreas Moreira MD Dec 17, 2016 15:57
--- NOTE | 2016-12-17 16:01 | HHI.GIFU ---
Subjective Remarks Continues to have chest discomfort. Denies n/v at this time. Denies abdominal pain. Had MICHELE earlier today. Objective Vitals I&O Vital Signs Date Time Temp Pulse Resp B/P Pulse Ox O2 Delivery O2 Flow Rate FiO2 12/17/16 14:00 125 12/17/16 13:15 124 10 125/75 90 12/17/16 13:00 126 24 109/72 99 12/17/16 12:45 126 4 106/70 98 12/17/16 12:32 128 47 98/81 98 12/17/16 12:30 128 33 81 12/17/16 12:10 99.0 124 16 125/75 97 12/17/16 12:06 99.0 120 18 101/67 97 12/17/16 12:00 125 12/17/16 10:27 123 27 89/54 100 12/17/16 10:24 113 43 78/50 99 12/17/16 10:21 108 43 81/51 100 12/17/16 10:20 99 15.00 100 12/17/16 10:18 100 42 80/53 100 12/17/16 10:15 103 46 83/52 99 12/17/16 10:12 115 48 104/69 100 12/17/16 10:09 135 12 103/64 100 12/17/16 10:06 137 15 103/59 98 12/17/16 10:03 135 0 88/54 97 12/17/16 10:00 135 0 91/57 97 12/17/16 10:00 118 12/17/16 09:57 135 0 97/61 98 12/17/16 09:56 138 0 114/67 97 12/17/16 09:54 138 15 104/56 88 12/17/16 09:51 142 46 96/51 96 12/17/16 09:48 140 43 98/57 95 12/17/16 09:45 136 49 106/58 95 12/17/16 09:30 132 29 95/52 96 12/17/16 09:15 130 48 97/52 96 12/17/16 09:00 133 53 96/54 97 12/17/16 08:00 118 12/17/16 08:00 99.0 118 18 98/56 97 12/17/16 07:45 100 12/17/16 06:00 111 12/17/16 04:00 99.8 109 12 88/53 96 12/17/16 04:00 109 12/17/16 02:00 109 12/17/16 00:00 118 12/17/16 00:00 98.8 118 23 92/54 95 12/16/16 22:00 116 12/16/16 20:00 98.7 109 27 103/66 99 12/16/16 20:00 109 12/16/16 19:54 97 21 12/16/16 18:45 98.1 75 18 100/62 97 12/16/16 18:00 74 12/16/16 16:00 98.3 85 16 100/63 96 12/16/16 16:00 74 I/O 12/16/16 12/16/16 12/16/16 12/17/16 12/17/16 12/17/16 07:00 15:00 23:00 07:00 15:00 23:00 Intake Total 2885 ml 1286 ml 1053 ml 930 ml Output Total 850 ml 375 ml 450 ml 550 ml Balance 2035 ml 911 ml 603 ml 380 ml Intake Oral 240 ml 480 ml 240 ml 380 ml IV Total 2645 ml 806 ml 813 ml 550 ml TPN/PPN 0 ml Output Urine Total 850 ml 375 ml 450 ml 550 ml Stool Total 0 ml 0 ml # Voids 2 2 # Bowel Movements 0 0 Laboratory Laboratory Tests Test 12/16/16 12/16/16 12/16/16 12/16/16 17:04 20:47 20:49 22:10 Blood Bank Comment Blood Smear Pathologist Review Reticulocyte Count 0.2 Absolute Reticulocyte Count 5.2 Prothrombin Time 14.2 Prothromb Time International 1.3 Ratio Activated Partial 36.1 Thromboplast Time Fibrinogen 242 Iron Level 44 Total Iron Binding Capacity 195 Percent Iron Saturation 22.6 Ferritin 1487 Lactate Dehydrogenase 130 Vitamin B12 Level 346 Folate 11.2 Urine Color YELLOW Urine Turbidity HAZY Urine pH 6.0 Urine Specific [place] 1.036 Urine Protein 30 Urine Glucose (UA) NEG Urine Ketones NEG Urine Occult Blood MOD Urine Nitrite NEG Urine Bilirubin NEG Urine Urobilinogen 2.0 Urine Leukocyte Esterase NEG Urine RBC 7 Urine WBC 4 Urine Squamous Epithelial 1 Cells Urine Mucus FEW Microscopic Urinalysis Comment CATH-CULT NOT IND Urine Opiates Screen POS Urine Barbiturates Screen NEG Urine Amphetamines Screen NEG Urine Benzodiazepines Screen NEG Urine Cocaine Screen NEG Urine Cannabinoids Screen NEG Test 12/17/16 12/17/16 12/17/16 12/17/16 04:00 06:00 08:47 14:30 White Blood Count 6.7 Red Blood Count 3.03 Hemoglobin 8.2 Hematocrit 25.5 Mean Corpuscular Volume 84.0 Mean Corpuscular Hemoglobin 26.9 Mean Corpuscular Hemoglobin 32.0 Concent Red Cell Distribution Width 16.0 Platelet Count 31 Mean Platelet Volume 11.2 Neutrophils (%) (Auto) 79.2 Lymphocytes (%) (Auto) 9.7 Monocytes (%) (Auto) 10.6 Eosinophils (%) (Auto) 0.4 Basophils (%) (Auto) 0.1 Neutrophils # (Auto) 5.3 Lymphocytes # (Auto) 0.7 Monocytes # (Auto) 0.7 Eosinophils # (Auto) 0.0 Basophils # (Auto) 0.0 CBC Comment AUTO DIFF Differential Comment AUTO DIFF CONFIRMED Platelet Estimate LOW Platelet Morphology Comment NORMAL Sodium Level 132 Potassium Level 2.8 3.3 Chloride Level 102 Carbon Dioxide Level 18.4 Anion Gap 12 Blood Urea Nitrogen 18 Creatinine 0.82 Estimat Glomerular Filtration 80 Rate Random Glucose 140 Calcium Level 7.1 Protein Corrected Calcium 7.6 Total Bilirubin 0.9 Aspartate Amino Transf 18 (AST/SGOT) Alanine Aminotransferase 12 (ALT/SGPT) Alkaline Phosphatase 96 Total Protein 6.1 Albumin 1.7 Prothrombin Time 13.6 Prothromb Time International 1.2 Ratio Activated Partial 33.2 Thromboplast Time Blood Bank Comment Vancomycin Level Trough 8.3 Date/Time Procedure Status Source Growth 12/17/16 14:34 Aerobic Blood Culture Received Blood Peripheral Pending 12/17/16 14:34 Anaerobic Blood Culture Received Blood Peripheral Pending 12/16/16 22:10 Urine Culture - Preliminary Resulted Urine Catheterized Urine RESULTS PENDING 12/16/16 04:35 Rotavirus Antigen - Final Complete Stool Stool NEGATIVE - ROTAVIRUS ANTIGEN IS ABSEN... 12/16/16 04:35 Cryptosporidium Exam Resulted Stool Stool Pending 12/16/16 04:35 Stool Pus (PREET) - Final Resulted Stool Stool NO WBC'S SEEN 12/16/16 04:35 Giardia Antigen (PREET) Resulted Stool Stool Pending 12/15/16 23:25 Aerobic Blood Culture - Preliminary Resulted Blood Peripheral Gram Negative Dominick Gram Positive Cocci 12/15/16 23:25 Anaerobic Blood Culture - Preliminary Resulted Gram Negative Dominick Gram Positive Cocci Imaging Last Impressions Chest X-Ray 12/17/16 0000 Signed Impressions: Service Date/Time: Saturday, December 17, 2016 04:55 - CONCLUSION: Decreasing bibasilar atelectasis. Rodo Hart MD Lower Extremity Ultrasound 12/16/16 0000 Signed Impressions: Service Date/Time: Friday, December 16, 2016 03:56 - CONCLUSION: No DVT of either lower extremity. Rodo Hart MD CT Angiography 12/16/16 0000 Signed Impressions: Service Date/Time: Friday, December 16, 2016 05:40 - CONCLUSION: 1. No pulmonary embolus. 2. Patchy bilateral air space disease, right more so than left and both sides basilar predominant. Rodo Hart MD Abdomen/Pelvis CT 12/16/16 0000 Signed Impressions: Service Date/Time: Friday, December 16, 2016 05:40 - CONCLUSION: 1. Enlargement and scarring of the spleen. Collateral vessels in the splenic hilum are again noted. 2. Nonspecific hepatomegaly. No focal hepatic lesion. 3. No obstruction or acute inflammatory changes are demonstrated of the gastrointestinal tract. Rodo Hart MD Physical Exam HEENT: Normocephalic; atraumatic; no jaundice. CHEST: Resp even/unlabored, mildly tachypneic/shallow CARDIAC: ST, hypotensive on vasopressor ABDOMEN: Soft, distended with ascites, nontender; no hepatosplenomegaly; bowel sounds are present in all four quadrants. EXTREMITIES: No clubbing, cyanosis, or edema. SKIN: Generalized pallor COMMUNITY RELATIONS LIAISON: Lethargic oriented times three. Assessment and Plan Plan ASSESSMENT: - N/V, Abdominal pain since 12/07. Abdomen/Pelvis CT (12/16/16)----> 1. Enlargement and scarring of the spleen. Collateral vessels in the splenic hilum are again noted. 2. Nonspecific hepatomegaly. No focal hepatic lesion. 3. No obstruction or acute inflammatory changes are demonstrated of the gastrointestinal tract. GI consulted to rule out gastritis/hh. PPI. She is not having any n/v/abdominal pain at this time. Does continue to have chest pain, but this is most likely related to her endocarditis. She has pancytopenia. Will consider EGD once condition/thrombocytopenia improves. 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 Multiple courses of abx over past year. Per patient, 1st episode of Cdiff. Flagyl, Oral Vanco. 2 bm today. - Atypical chest pain. CT Angiography (12/16/16)----> 1. No pulmonary embolus. 2. Patchy bilateral air space disease, right more so than left and both sides basilar predominant. Likely related to endocarditis. - Severe pancytopenia. Improved, but still with significant thrombocytopenia. WBC 6.7, AST 8.2, ALT 25.5, Plt 31.0. Hematology consulted. - Sepsis, Bacteremia, Endocarditis. BCx GNR, GPC. 2D echo moderate left sided pleural effusion, mild pulmonary valve regurgitation. 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 Abx per ID. - Mild elevation of LFTs. Improved. CT as above. T> BIli 0.9, AST 18, ALT 12 , ALk Phosph 96. - Hyponatremia, Hypokalemia. Per primary. - Hx BLE DVT, has been on Eliquis. Last dose 12/16 - Hx HCV, Tx naive. PLAN: - Okay for MARIELENA per GI standpoint - Cont. Flagyl/Oral Vanco - Cont. PPI - Abx per ID - Hematology consulted - CCM following - ID following - Supportive care - Consider EGD depending on clinical status/once thrombocytopenia improves. - Further recommendations to follow based on results of above - Pt seen and examined by Dr. Reyes and myself and this note is written on his behalf Rose Echevarria Dec 17, 2016 16:01
--- NOTE | 2016-12-17 16:10 | PD.PROCEDR ---
Procedure Note Procedure Moderate Sedation Diagnosis: Septic shock Indications: Septic shock with probable recurrent endocarditis. Patient requires MICHELE to confirm endocarditis. Patient was recently nauseated and vomited 1, unsafe for conscious sedation without secured a rate. Patient was intubated by rapid sequence for the procedure, please see separate procedure note for details. Consent: Written consent was obtained Planned Procedure: Transesophageal echocardiogram Airway Exam: Very poor dentition. Oropharyngeal class I. Normal neck flexion and extension. Reassuring airway. Sedation plan: Propofol IV Total sedation time: 48 minutes Please see sedation record scanned into medical record. The patient's past medical history, allergies, medications, and prior airway records were reviewed. A time-out procedure was performed. The patient underwent the above planned procedure and tolerated it well. They remained hemodynamically stable throughout. At the conclusion of the case, the patient was back to neurologic baseline and their care was turned over to the bedside RN. No immediate complications noted. At the conclusion of procedure an orogastric tube was dropped and the stomach was suctioned. The patient was extubated at the end of the procedure. Patient was back to neurologic baseline on nasal cannula oxygen. I personally performed the sedation. Andreas Moreira MD Dec 17, 2016 16:10
[2016-12-17] MEDS: GENTAMICIN INJ 60 MG in SODIUM CHLORIDE 0.9% INJ 100 ML IV SCH ×2 (17:15→23:48)
[2016-12-18] VITALS (13 sets, daily range): BP systolic 78–111; BP diastolic 47–83; PULSE 101–123; RESP 5–33; TEMP 97.8–98.5; O2SAT 93–100
[2016-12-18] MEDS: SODIUM CHLOR 0.9% 1000 ML INJ 1,000 ML IV SCH ×2 (01:12→10:18)
[2016-12-18] MEDS: CHLORHEXIDINE GLUCONATE 2 % 1 PACK (2 CLOTHS) TOP SCH (04:00)
[2016-12-18] MEDS: metroNIDAZOLE 500 MG INJ 100 ML IV SCH ×2 (04:10→11:58)
[2016-12-18 05:13] LABS: APTT (PATIENT) 32.6 SEC (24.3-30.1); INTERNATIONAL NORMALIZED RATIO 1.3 RATIO
[2016-12-18] MEDS: HYDROmorphone HCL 4 MG TAB PO PRN ×3 (06:14→18:08)
[2016-12-18] MEDS: DOCUSATE SODIUM 50 MG/SENNA 8.6 MG TAB PO SCH ×2 (09:00→20:13)
[2016-12-18 09:51] LABS: AUTOMATED NEUTROPHIL # 6.3 TH/MM3 (1.8-7.7); BASOPHIL % 0.3 % (0.0-2.0); EOSINOPHIL # 0.1 TH/MM3 (0-0.4); EOSINOPHIL % 0.6 % (0.0-4.0); HEMATOCRIT 24.5 % (35.0-46.0); LYMPH % 12.1 % (9.0-44.0); MEAN CELL VOLUME 83.2 FL (80.0-100.0); MEAN CORPUSCULAR HEMOGLOBIN 26.5 PG (27.0-34.0); MEAN CORPUSCULAR HGB CONC 31.8 % (32.0-36.0); MONO % 9.6 % (0.0-8.0); NEUT % 77.4 % (16.0-70.0); PLATELET COUNT 29 TH/MM3 (150-450); RED BLOOD COUNT 2.94 MIL/MM3 (4.00-5.30); WHITE BLOOD COUNT 8.1 TH/MM3 (4.0-11.0)
[2016-12-18 09:54] LABS: HEMO FLAGS AUTO DIFF
[2016-12-18] MEDS: CEFEPIME INJ 2,000 MG in SODIUM CHLORIDE 0.9% INJ 100 ML IV SCH ×2 (10:16→15:55)
[2016-12-18] MEDS: GENTAMICIN INJ 60 MG in SODIUM CHLORIDE 0.9% INJ 100 ML IV SCH ×2 (10:16→15:55)
[2016-12-18] MEDS: PANTOPRAZOLE SODIUM 40 MG VIAL IV SCH (10:17)
[2016-12-18] MEDS: VANCOMYCIN 500 MG VIAL (FOR ORAL USE ONLY) PO SCH ×2 (10:17→11:59)
[2016-12-18 10:35] LABS: TOXIC GRANULATION 1+ (NORMAL); TOXIC VACUOLATION PRESENT (NONE SEEN)
[2016-12-18 10:36] LABS: PLATELET ESTIMATE SMEAR LOW (NORMAL); PLATELET MORPHOLOGY ENLARGED (NORMAL); SCAN/DIFF AUTO DIFF CONFIRMED
--- NOTE | 2016-12-18 10:44 | PD.ONC.PN ---
Subjective Subjective Remarks Afebrile overnight. Patient feeling much better today. She is ambulatory in room. Objective Data Date Time Temp Pulse Resp B/P Pulse Ox O2 Delivery O2 Flow Rate FiO2 12/18/16 08:00 98.3 109 19 89/62 98 12/18/16 08:00 109 12/18/16 06:00 119 12/18/16 04:00 123 12/18/16 04:00 97.9 123 33 105/75 99 12/18/16 02:00 114 12/18/16 00:00 97.8 108 28 110/73 100 12/18/16 00:00 108 12/17/16 22:00 101 12/17/16 20:00 97.8 101 22 99/61 97 12/17/16 20:00 101 12/17/16 18:00 125 12/17/16 16:00 99.1 103 18 124/88 99 12/17/16 16:00 125 12/17/16 14:00 125 12/17/16 13:15 124 10 125/75 90 12/17/16 13:00 126 24 109/72 99 12/17/16 12:45 126 4 106/70 98 12/17/16 12:32 128 47 98/81 98 12/17/16 12:30 128 33 81 12/17/16 12:10 99.0 124 16 125/75 97 12/17/16 12:06 99.0 120 18 101/67 97 12/17/16 12:00 125 12/18/16 12/18/16 12/18/16 07:00 15:00 23:00 Intake Total 1564 ml Output Total 450 ml Balance 1114 ml Result Diagram: 12/18/16 0750 12/18/16 0420 Laboratory Results Laboratory Tests Test 12/17/16 12/18/16 12/18/16 14:30 04:20 07:50 Potassium Level 3.3 MEQ/L Vancomycin Level Trough 8.3 MCG/ML Prothrombin Time 14.0 SEC Prothromb Time International 1.3 RATIO Ratio Activated Partial 32.6 SEC Thromboplast Time Creatinine 0.51 MG/DL Estimat Glomerular Filtration 138 ML/MIN Rate White Blood Count 8.1 TH/MM3 Red Blood Count 2.94 MIL/MM3 Hemoglobin 7.8 GM/DL Hematocrit 24.5 % Mean Corpuscular Volume 83.2 FL Mean Corpuscular Hemoglobin 26.5 PG Mean Corpuscular Hemoglobin 31.8 % Concent Red Cell Distribution Width 16.0 % Platelet Count 29 TH/MM3 Mean Platelet Volume 10.4 FL Neutrophils (%) (Auto) 77.4 % Lymphocytes (%) (Auto) 12.1 % Monocytes (%) (Auto) 9.6 % Eosinophils (%) (Auto) 0.6 % Basophils (%) (Auto) 0.3 % Neutrophils # (Auto) 6.3 TH/MM3 Lymphocytes # (Auto) 1.0 TH/MM3 Monocytes # (Auto) 0.8 TH/MM3 Eosinophils # (Auto) 0.1 TH/MM3 Basophils # (Auto) 0.0 TH/MM3 CBC Comment AUTO DIFF Culture Results Microbiology Date/Time Procedure Status Source Growth 12/15/16 22:30 Aerobic Blood Culture - Preliminary Resulted Blood Peripheral Gram Negative Dominick Group D Enterococcus 12/15/16 22:30 Anaerobic Blood Culture - Preliminary Resulted Gram Negative Dominick Group D Enterococcus 12/15/16 23:25 Aerobic Blood Culture - Preliminary Resulted Blood Peripheral Gram Negative Dominick Gram Positive Cocci 12/15/16 23:25 Anaerobic Blood Culture - Preliminary Resulted Gram Negative Dominick Gram Positive Cocci 12/16/16 04:35 Rotavirus Antigen - Final Complete Stool Stool NEGATIVE - ROTAVIRUS ANTIGEN IS ABSEN... 12/16/16 04:35 Cryptosporidium Exam Resulted Stool Stool Pending 12/16/16 04:35 Stool Pus (PREET) - Final Resulted Stool Stool NO WBC'S SEEN 12/16/16 04:35 Giardia Antigen (PREET) Resulted Stool Stool Pending 12/16/16 22:10 Urine Culture - Final Complete Urine Catheterized Urine NO GROWTH IN 48 HOURS. 12/17/16 14:30 Aerobic Blood Culture Received Blood Peripheral Pending 12/17/16 14:30 Anaerobic Blood Culture Received Blood Peripheral Pending 12/17/16 14:34 Aerobic Blood Culture Received Blood Peripheral Pending 12/17/16 14:34 Anaerobic Blood Culture Received Blood Peripheral Pending Administered Medications Medications (Trade) Dose Ordered Sig/Solo Route PRN Reason Start Time Stop Time Status Last Admin Dose Admin Cefepime HCl 2000 mg/Sodium Chloride 100 ml @ 200 mls/hr Q8H IV 12/16/16 08:00 12/18/16 10:16 Sodium Chloride (NS 1000 ml Inj) 1,000 ml @ 150 mls/hr Q6H40M IV 12/16/16 02:47 12/18/16 10:18 Pantoprazole Sodium (Protonix Inj) 40 mg DAILY IV 12/16/16 09:00 12/18/16 10:17 Chlorhexidine Gluconate (Chlorhexidine 2% Cloth) 3 pack Taper DAILY@04 TOP 12/16/16 04:00 12/12/17 03:59 12/18/16 04:00 Senna/Docusate Sodium (Sandy-Colace) 1 tab BID PO 12/16/16 09:00 12/17/16 21:08 Hydromorphone HCl 4 mg 4 mg Q6H PRN PO Pain Management 12/16/16 03:00 12/18/16 06:14 Metronidazole 100 ml @ 100 mls/hr Q8H IV 12/16/16 04:00 12/18/16 04:10 Potassium Chloride 100 ml @ 50 mls/hr Q2H PRN IV For Potassium 2.8 - 3.2 mEq/L 12/16/16 03:45 12/17/16 08:41 Potassium Chloride 100 ml @ 50 mls/hr Q2H PRN IV For Potassium 3.3 - 3.5 mEq/L 12/16/16 03:45 12/16/16 09:39 Vancomycin HCl/ Sodium Chloride (Vancomycin Inj/ NS 250 ml Inj) 250 ml @ 250 mls/hr Q12H IV 12/16/16 11:00 12/17/16 23:40 Vancomycin HCl 125 mg 125 mg QID PO 12/16/16 13:00 12/18/16 10:17 Norepinephrine Bitartrate (Levophed-Dextrose Drip) 250 ml @ 0 mls/hr TITRATE IV 12/16/16 21:00 12/17/16 21:12 Terbutaline Sulfate 1 mg 1 mg UNSCH PRN SQ FOR EXTRAVASATION PROTOCOL 12/16/16 21:00 12/16/16 21:09 Gentamicin Sulfate/Sodium Chloride (Gentamicin Inj/ NS Inj) 101.5 ml @ 200 mls/hr Q8H IV 12/17/16 16:00 12/18/16 10:16 Objective Remarks GENERAL: Chronically ill female upright in room in [facility]. SKIN: Warm and dry. HEAD: Normocephalic. EYES: No injection or drainage. NECK: Supple, trachea midline. CARDIOVASCULAR: +S1/S2 RESPIRATORY: diminished at bases, anterior lerner clear. GASTROINTESTINAL: Abdomen soft, non-tender, nondistended. EXTREMITIES: No cyanosis NEUROLOGICAL: awake and alert, normal speech. independently ambulatory Assessment/Plan Problem List: (1) Pancytopenia Status: Acute Plan: --due to liver disease and splenomegaly + sepsis/DIC --CT showed enlarged liver and spleen. spleen is about 20 cm cranio-caudally. -- further drop in blood count is likely a combination of sepsis and consumptive process. --no evidence of TTP noted on peripheral smear. --iron studies show high ferritin, no iron deficiency --B12/folate WNL --transfuse platelets/pRBC as needed --will give Neupogen if patient has severe neutropenia (2) Sepsis Status: Acute Plan: --Sepsis/bacteremia. --has a history of endocarditis, status post tricuspid valve and mitral valve replacement. She has had febrile illness. --most recent blood cultures with no growth. --BC +GNR and GPC --on multiple antibiotics per Infectious Disease. (3) DVT of lower extremity, bilateral Status: Resolved Plan: --monitor closely cannot start anticoagulation right now due to her severe thrombocytopenia and possibility of GI bleed. -- has had multiple DVT. --was on Coumadin. --one point she was found to have splenic infarction. --has been on Eliquis. has not been taking the Eliquis because she is not able to keep her food or medication down. --no evidence of recurrent clot at this time. Assessment 36y/o female critically ill [place] [facility] [place] Hematology consulted for pancytopenia. h/o MSSA endocarditis, January 2016. Bilateral lower extremity DVT multiple times. She was on Coumadin for a while and switched to Eliquis. Hepatitis C. History of IV drug use. Chronic pain. Tricuspid valve and mitral valve replacement. Left femoral vein catheterization Plan 1. monitor CBC, coags 2. continue antibiotics. Attending Statement The exam, history, and the medical decision-making described in the above note were completed with the assistance of the mid-level provider. I reviewed and agree with the findings presented. I attest that I had a [id number] encounter with the patient on the same day, and personally performed and documented my assessment and findings in the medical record. Feeling better. Now afebrile. No bleeding noted. Hgb stable. Platelet stable at 29K. Still not able to restart anticoagulation due to severe thrombocytopenia. Continue to monitor CBC. Problem Qualifiers (1) Sepsis: Qualified Code: O85 - Puerperal sepsis Mel Warren Dec 18, 2016 10:44 Ger Alexander MD Dec 18, 2016 10:52
[2016-12-18] MEDS ORDERED: PHARMACY ORDERED LAB ONE ×3 (10:45→17:30)
--- NOTE | 2016-12-18 10:49 | HHI.GIFU ---
Subjective Remarks Sitting on edge of bed eating breakfast- eggs, rodriguez, biscuit with butter. States she continues to have chest pain, but denies any n/v, no abdominal pain. One bm today. Objective Vitals I&O Vital Signs Date Time Temp Pulse Resp B/P Pulse Ox O2 Delivery O2 Flow Rate FiO2 12/18/16 08:00 98.3 109 19 89/62 98 12/18/16 08:00 109 12/18/16 06:00 119 12/18/16 04:00 123 12/18/16 04:00 97.9 123 33 105/75 99 12/18/16 02:00 114 12/18/16 00:00 97.8 108 28 110/73 100 12/18/16 00:00 108 12/17/16 22:00 101 12/17/16 20:00 97.8 101 22 99/61 97 12/17/16 20:00 101 12/17/16 18:00 125 12/17/16 16:00 99.1 103 18 124/88 99 12/17/16 16:00 125 12/17/16 14:00 125 12/17/16 13:15 124 10 125/75 90 12/17/16 13:00 126 24 109/72 99 12/17/16 12:45 126 4 106/70 98 12/17/16 12:32 128 47 98/81 98 12/17/16 12:30 128 33 81 12/17/16 12:10 99.0 124 16 125/75 97 12/17/16 12:06 99.0 120 18 101/67 97 12/17/16 12:00 125 I/O 12/17/16 12/17/16 12/17/16 12/18/16 12/18/16 12/18/16 07:00 15:00 23:00 07:00 15:00 23:00 Intake Total 1053 ml 930 ml 1519 ml 1564 ml Output Total 450 ml 550 ml 350 ml 450 ml Balance 603 ml 380 ml 1169 ml 1114 ml Intake Oral 240 ml 380 ml 480 ml 480 ml IV Total 813 ml 550 ml 1039 ml 1084 ml TPN/PPN 0 ml Output Urine Total 450 ml 550 ml 350 ml 450 ml # Voids 2 # Bowel Movements 0 0 Laboratory Laboratory Tests Test 12/17/16 12/18/1612/18/17 14:30 04:20 07:50 Potassium Level 3.3 Vancomycin Level Trough 8.3 Prothrombin Time 14.0 Prothromb Time International 1.3 Ratio Activated Partial 32.6 Thromboplast Time Creatinine 0.51 Estimat Glomerular Filtration 138 Rate White Blood Count 8.1 Red Blood Count 2.94 Hemoglobin 7.8 Hematocrit 24.5 Mean Corpuscular Volume 83.2 Mean Corpuscular Hemoglobin 26.5 Mean Corpuscular Hemoglobin 31.8 Concent Red Cell Distribution Width 16.0 Platelet Count 29 Mean Platelet Volume 10.4 Neutrophils (%) (Auto) 77.4 Lymphocytes (%) (Auto) 12.1 Monocytes (%) (Auto) 9.6 Eosinophils (%) (Auto) 0.6 Basophils (%) (Auto) 0.3 Neutrophils # (Auto) 6.3 Lymphocytes # (Auto) 1.0 Monocytes # (Auto) 0.8 Eosinophils # (Auto) 0.1 Basophils # (Auto) 0.0 CBC Comment AUTO DIFF Differential Comment AUTO DIFF CONFIRMED Toxic Granulation 1+ Toxic Vacuolation PRESENT Platelet Estimate LOW Platelet Morphology Comment ENLARGED Date/Time Procedure Status Source Growth 12/17/16 14:34 Aerobic Blood Culture Received Blood Peripheral Pending 12/17/16 14:34 Anaerobic Blood Culture Received Blood Peripheral Pending 12/17/16 14:30 Aerobic Blood Culture - Preliminary Resulted Blood Peripheral Gram Positive Cocci 12/17/16 14:30 Anaerobic Blood Culture Resulted Blood Peripheral Pending 12/16/16 22:10 Urine Culture - Final Complete Urine Catheterized Urine NO GROWTH IN 48 HOURS. 12/16/16 04:35 Rotavirus Antigen - Final Complete Stool Stool NEGATIVE - ROTAVIRUS ANTIGEN IS ABSEN... 12/16/16 04:35 Cryptosporidium Exam Resulted Stool Stool Pending 12/16/16 04:35 Stool Pus (PREET) - Final Resulted Stool Stool NO WBC'S SEEN 12/16/16 04:35 Giardia Antigen (PREET) Resulted Stool Stool Pending Imaging Last Impressions Chest X-Ray 12/17/16 0000 Signed Impressions: Service Date/Time: Saturday, December 17, 2016 04:55 - CONCLUSION: Decreasing bibasilar atelectasis. Rodo Hart MD Lower Extremity Ultrasound 12/16/16 0000 Signed Impressions: Service Date/Time: Friday, December 16, 2016 03:56 - CONCLUSION: No DVT of either lower extremity. Rodo Hart MD CT Angiography 12/16/16 0000 Signed Impressions: Service Date/Time: Friday, December 16, 2016 05:40 - CONCLUSION: 1. No pulmonary embolus. 2. Patchy bilateral air space disease, right more so than left and both sides basilar predominant. Rodo Hart MD Abdomen/Pelvis CT 12/16/16 0000 Signed Impressions: Service Date/Time: Friday, December 16, 2016 05:40 - CONCLUSION: 1. Enlargement and scarring of the spleen. Collateral vessels in the splenic hilum are again noted. 2. Nonspecific hepatomegaly. No focal hepatic lesion. 3. No obstruction or acute inflammatory changes are demonstrated of the gastrointestinal tract. Rodo Hart MD Physical Exam HEENT: Normocephalic; atraumatic; no jaundice. CHEST: Resp even/unlabored, shallow, tachypneic CARDIAC: ST, on vasopressors ABDOMEN: Soft, distended with ascites, nontender; no hepatosplenomegaly; bowel sounds are present in all four quadrants. EXTREMITIES: No clubbing, cyanosis, or edema. 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 Assessment and Plan Plan ASSESSMENT: - N/V, Abdominal pain since 12/07. Abdomen/Pelvis CT (12/16/16)----> 1. Enlargement and scarring of the spleen. Collateral vessels in the splenic hilum are again noted. 2. Nonspecific hepatomegaly. No focal hepatic lesion. 3. No obstruction or acute inflammatory changes are demonstrated of the gastrointestinal tract. GI consulted to rule out gastritis/hh. PPI. She is not having any n/v/abdominal pain at this time. Does continue to have chest pain, but this is most likely related to her endocarditis. She has pancytopenia. Will hold on EGD at this time, as she is not longer having any nausea, vomiting, abdominal pain and her chest pain is most likely related to endocarditis. 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 Multiple courses of abx over past year. Per patient, 1st episode of Cdiff. Flagyl, Oral Vanco. 1 bm today. - Atypical chest pain. CT Angiography (12/16/16)----> 1. No pulmonary embolus. 2. Patchy bilateral air space disease, right more so than left and both sides basilar predominant. Likely related to endocarditis. - Severe pancytopenia. Improved, but still with thrombocytopenia. WBC 8.1, AST 7.8, ALT 24.5, Plt 29. Hematology consulted. - Sepsis, Bacteremia, Endocarditis. BCx GNR, GPC. 2D echo moderate left sided pleural effusion, mild pulmonary valve regurgitation. 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 Abx per ID. - Mild elevation of LFTs. Improved. CT as above. T. BIli 0.9, AST 18, ALT 12 , ALk Phosph 96. - Hyponatremia, Hypokalemia. Per primary. - Hx BLE DVT, has been on Eliquis. Last dose 12/16 - Hx HCV, Tx naive. PLAN: - Heart healthy diet - Cont. Flagyl/Oral Vanco - Cont. PPI - Abx per ID - Monitor stool output - Hematology following - CCM following - ID following - Supportive care - Will hold on EGD at this time, as her n/v/abdominal pain has resolved and her chest pain is likely related to endocarditis - Further recommendations to follow based on results of above - Pt seen and examined by Dr. Reyes and myself and this note is written on his behalf Rose Echevarria Dec 18, 2016 10:49
[2016-12-18] MEDS: VANCOMYCIN 1,000 MG/NS 250 ML IV SCH ×4 (11:59→20:12)
--- NOTE | 2016-12-18 13:33 | HHI.IDPN ---
Subjective Subjective Remarks is a 36 F IVDU sp mitral and tricuspid valve replacement, prior h/o Prosthetic endocarditis, Hepatitis C. 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 Overnight events reviewed. No fevers No rash No diarrhea On very low does levophed. UO fair. She is growing GNBs (x 2 types) in the blood and a GPC in pairs MICHELE today showed large veg's on both prosthetic valves per verbal report to me by . Official report pending. Upon questioning about IVDA: Today she admitted to IV drugs after her discharge from [facility] in October 2016. She thinks when she was inebriated she was injected with drugs at a [facility]. Antibiotics cefepime IV Genta IV flagyl oral vanco iv vanco po Lines Line sites with no e/o infections. Past Medical History reviewed Allergies: Coded Allergies: Morphine (Verified Allergy, Severe, hives, 12/15/16) [place] (Verified Allergy, Unknown, 12/15/16) Penicillin (Verified Allergy, Unknown, 12/15/16) Objective . Vital Signs Date Time Temp Pulse Resp B/P Pulse Ox O2 Delivery O2 Flow Rate FiO2 12/18/16 12:00 98.5 101 5 111/83 99 12/18/16 12:00 101 12/18/16 10:00 103 12/18/16 08:00 98.3 109 19 89/62 98 12/18/16 08:00 109 12/18/16 07:00 95 21 12/18/16 06:00 119 12/18/16 04:00 123 12/18/16 04:00 97.9 123 33 105/75 99 12/18/16 02:00 114 12/18/16 00:00 97.8 108 28 110/73 100 12/18/16 00:00 108 12/17/16 22:00 101 12/17/16 20:00 97.8 101 22 99/61 97 12/17/16 20:00 101 12/17/16 18:00 125 12/17/16 16:00 99.1 103 18 124/88 99 12/17/16 16:00 125 12/17/16 14:00 125 12/17/16 12/17/16 12/18/16 15:00 23:00 07:00 Intake Total 930 ml 1519 ml 1564 ml Output Total 550 ml 350 ml 450 ml Balance 380 ml 1169 ml 1114 ml Intake Oral 380 ml 480 ml 480 ml IV Total 550 ml 1039 ml 1084 ml TPN/PPN 0 ml Output Urine Total 550 ml 350 ml 450 ml # Voids 2 # Bowel Movements 0 . Laboratory Tests Test 12/16/16 12/17/16 12/18/16 20:47 04:00 07:50 Blood Smear Pathologist Review Reticulocyte Count 0.2 % Absolute Reticulocyte Count 5.2 MIL/L White Blood Count 6.7 TH/MM3 8.1 TH/MM3 Red Blood Count 3.03 MIL/MM3 2.94 MIL/MM3 Hemoglobin 8.2 GM/DL 7.8 GM/DL Hematocrit 25.5 % 24.5 % Mean Corpuscular Volume 84.0 FL 83.2 FL Mean Corpuscular Hemoglobin 26.9 PG 26.5 PG Mean Corpuscular Hemoglobin 32.0 % 31.8 % Concent Red Cell Distribution Width 16.0 % 16.0 % Platelet Count 31 TH/MM3 29 TH/MM3 Mean Platelet Volume 11.2 FL 10.4 FL Neutrophils (%) (Auto) 79.2 % 77.4 % Lymphocytes (%) (Auto) 9.7 % 12.1 % Monocytes (%) (Auto) 10.6 % 9.6 % Eosinophils (%) (Auto) 0.4 % 0.6 % Basophils (%) (Auto) 0.1 % 0.3 % Neutrophils # (Auto) 5.3 TH/MM3 6.3 TH/MM3 Lymphocytes # (Auto) 0.7 TH/MM3 1.0 TH/MM3 Monocytes # (Auto) 0.7 TH/MM3 0.8 TH/MM3 Eosinophils # (Auto) 0.0 TH/MM3 0.1 TH/MM3 Basophils # (Auto) 0.0 TH/MM3 0.0 TH/MM3 CBC Comment AUTO DIFF AUTO DIFF Differential Comment AUTO DIFF AUTO DIFF CONFIRMED CONFIRMED Platelet Estimate LOW LOW Platelet Morphology Comment NORMAL ENLARGED Toxic Granulation 1+ Toxic Vacuolation PRESENT Laboratory Tests Test 12/16/16 12/17/16 12/17/16 12/18/16 20:49 04:00 14:30 04:20 Iron Level 44 MCG/DL Total Iron Binding Capacity 195 MCG/DL Percent Iron Saturation 22.6 % Ferritin 1487 NG/ML Lactate Dehydrogenase 130 U/L Vitamin B12 Level 346 PG/ML Folate 11.2 NG/ML Sodium Level 132 MEQ/L Potassium Level 2.8 MEQ/L 3.3 MEQ/L Chloride Level 102 MEQ/L Carbon Dioxide Level 18.4 MEQ/L Anion Gap 12 MEQ/L Blood Urea Nitrogen 18 MG/DL Creatinine 0.82 MG/DL 0.51 MG/DL Estimat Glomerular Filtration 80 ML/MIN 138 ML/MIN Rate Random Glucose 140 MG/DL Calcium Level 7.1 MG/DL Protein Corrected Calcium 7.6 MG/DL Total Bilirubin 0.9 MG/DL Aspartate Amino Transf 18 U/L (AST/SGOT) Alanine Aminotransferase 12 U/L (ALT/SGPT) Alkaline Phosphatase 96 U/L Total Protein 6.1 GM/DL Albumin 1.7 GM/DL Microbiology Date/Time Procedure Status Source Growth 12/15/16 22:30 Aerobic Blood Culture - Preliminary Resulted Blood Peripheral Gram Negative Dominick Group D Enterococcus 12/15/16 22:30 Anaerobic Blood Culture - Preliminary Resulted Gram Negative Dominick Group D Enterococcus 12/15/16 23:25 Aerobic Blood Culture - Preliminary Resulted Blood Peripheral Gram Negative Dominick Group D Enterococcus 12/15/16 23:25 Anaerobic Blood Culture - Preliminary Resulted Gram Negative Dominick Group D Enterococcus 12/16/16 04:35 Rotavirus Antigen - Final Complete Stool Stool NEGATIVE - ROTAVIRUS ANTIGEN IS ABSEN... 12/16/16 04:35 Cryptosporidium Exam Resulted Stool Stool Pending 12/16/16 04:35 Stool Pus (PREET) - Final Resulted Stool Stool NO WBC'S SEEN 12/16/16 04:35 Giardia Antigen (PREET) Resulted Stool Stool Pending 12/16/16 22:10 Urine Culture - Final Complete Urine Catheterized Urine NO GROWTH IN 48 HOURS. 12/17/16 14:30 Aerobic Blood Culture - Preliminary Resulted Blood Peripheral Gram Positive Cocci 12/17/16 14:30 Anaerobic Blood Culture - Preliminary Resulted Blood Peripheral NO GROWTH IN 1 DAY 12/17/16 14:34 Aerobic Blood Culture - Preliminary Resulted Blood Peripheral Gram Positive Cocci 12/17/16 14:34 Anaerobic Blood Culture - Preliminary Resulted Blood Peripheral NO GROWTH IN 1 DAY Imaging Last Impressions Chest X-Ray 12/17/16 0000 Signed Impressions: Service Date/Time: Saturday, December 17, 2016 04:55 - CONCLUSION: Decreasing bibasilar atelectasis. Rodo Hart MD Lower Extremity Ultrasound 12/16/16 Signed Impressions: Service Date/Time: Friday, December 16, 2016 03:56 - CONCLUSION: No DVT of either lower extremity. Rodo Hart MD CT Angiography 12/16/16 Signed Impressions: Service Date/Time: Friday, December 16, 2016 05:40 - CONCLUSION: 1. No pulmonary embolus. 2. Patchy bilateral air space disease, right more so than left and both sides basilar predominant. Rodo Hart MD Abdomen/Pelvis CT 12/16/16 Signed Impressions: Service Date/Time: Friday, December 16, 2016 05:40 - CONCLUSION: 1. Enlargement and scarring of the spleen. Collateral vessels in the splenic hilum are again noted. 2. Nonspecific hepatomegaly. No focal hepatic lesion. 3. No obstruction or acute inflammatory changes are demonstrated of the gastrointestinal tract. Rodo Hart MD Physical Exam GENERAL: Thin built, well-developed patient, in no apparent distress. SKIN: No rashes, ecchymoses or lesions. Cool and dry. EYES: Pupils equal round and reactive. Extraocular motions intact. No scleral icterus. No injection or drainage. ENT: Nose without bleeding, purulent drainage or septal hematoma. Throat without erythema, tonsillar hypertrophy or exudate. Uvula midline. Airway patent. NECK: Trachea midline. Supple, No JVD CARDIOVASCULAR: regular, no murmur s rubs gallops medial sternotopmy scar well healed well perfused perifery RESPIRATORY: Clear to auscultation. Breath sounds equal bilaterally. No wheezes , rales, or rhonchi. GASTROINTESTINAL: Abdomen soft, Mild diffuse tenderness with no rebound or rigidity with a midline reducible hernia. MUSCULOSKELETAL: Extremities without clubbing, cyanosis, or edema. No joint tenderness, effusion, or edema noted. No calf tenderness. Negative Homans sign bilaterally. NEUROLOGICAL: Very lethargic just right after MICHELE at the time I saw the pt. Grossly non focal PSYCH: unable to assess IV line sites with no e.o infection. Assessment & Plan Remarks Sepsis with septic shock Bioprosthetic valve acute endocarditis (based on verbal report, MICHELE official report pending, BCX positive) both mitral and tricuspid valves involved - large 1.5 cm vegetaion - and also GNB high grade bacteremia - h/o TV and MV bovine valve replacement Group D Enterococcus bacteremia persistent Gram negative bacteremia H/o endocarditis. Aspiration Pneumonia/septic emboli Cdiff colitis. non hypervirulent strain H/o IVDA, opiate + on drug screen, denies active use sepsis remains on levophed Hepatitis C Pancytopenia Severe leucopenia: improved Severe Thrombocytopenia, improved p transfusion Recs Continue Cefepime IV (At risk for GNR bacteremia, IVDA history) Continue Vanco IV (target 15-20 for endocarditis/bacteremia) Continue Gentamicin (Double GNR coverage pending ID of organisms and endocarditis Rx plan) Continue Flagyl change to oral (anaerobes and Cdiff coverage) DC oral Vanco Follow cultures Repeat blood cultures today. Follow clinically Consult CTS after MICHELE official report in chart: likely wont be selected as a candidate as patient admits to drugs, 2nd episode of PV endocarditis. Consider Palliative Care consult on Thursday after CTS opines. Important to address future goals of therapy given recurrent 2nd episode of PV endocarditis. She is at high risk of further infections and deterioration important to have advance directive in place. blanca RN hectorw patient the ID plan and findings to date. She was thankful of care provided. I will be OOT from 12/19/2016 to 12/28/2016. to cover for me. Aundrea Busby MD Dec 18, 2016 13:33
[2016-12-18] MEDS ORDERED: metroNIDAZOLE 500 MG TAB PO SCH (14:00)
--- NOTE | 2016-12-18 14:09 | HHI.CCPN ---
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 emergency department with a history of intermittent chest pain, nausea vomiting and diarrhea. Patient had a blood pressure 90/51 heart rate in the 130s and temperature 99.2. Patient was recently admitted to [facility] in October 17- for possible recurrent endocarditis, which was ruled out and patient was discharged home. On December 07 she began to have generalized weakness and started to have a fever. Tmax at home of 102. 2 days ago she began to have severe chest pain in the center of her chest. She also had dyspnea on exertion, also had nausea and vomiting intermittently since December 07. Since last 2 days innumerable episodes of vomiting and diarrhea but no blood in stools or hematemesis. A 2d echo done on 10/17/16 was negative for any vegetation I evaluated the patient in the emergency department. She remains tachycardic and borderline hypotensive. Complaints of chest pain to the right side of the rib, since December 07. She claims it is constant and 9 out of 10. Initial cardiac enzymes and EKG negative. I have ordered CT pulmonary angiogram to rule out PE and septic emboli given history of endocarditis and lower extremity DVT. Patient had also not been taking eliquis for the last few days. Patient also complained about nausea vomiting and diarrhea with diffuse abdominal pain for the last few days. I have also ordered CT abdomen pelvis to rule out any kind of colitis. Patient will be continued on vancomycin and cefepime which was started in the ED, I have added Flagyl 12/17: remains on levophed for vasopressor support. remains in septic shock. complains of being hungry this morning. NPO for MICHELE today. thrombocytopenia improved slightly after platelet transfusion. no signs of active bleeding. wbc improving. blood cultures / growing both GNRs and GPCs. subjective: 12/18: vasopressors persist. tolerating diet. repeat blood cultures still growing GPCs. patient without complaints. MICHELE with mitral and tricuspid valve endocarditis. Objective Vital Signs Date Time Temp Pulse Resp B/P Pulse Ox O2 Delivery O2 Flow Rate FiO2 12/18/16 12:00 98.5 101 5 111/83 99 12/18/16 07:00 21 12/17/16 10:20 15.00 12/16/16 04:51 Room Air Intake and Output 12/17/16 12/17/16 12/18/16 08:00 16:00 00:00 Intake Total 1053 ml 930 ml 1519 ml Output Total 450 ml 550 ml 350 ml Balance 603 ml 380 ml 1169 ml Result Diagram: 12/18/16 0750 12/18/16 0420 Other Results Microbiology Date/Time Procedure Status Source Growth 12/16/16 04:35 Rotavirus Antigen - Final Complete Stool Stool NEGATIVE - ROTAVIRUS ANTIGEN IS ABSEN... 12/16/16 22:10 Urine Culture - Final Complete Urine Catheterized Urine NO GROWTH IN 48 HOURS. Imaging Chest x-ray mild interstitial edema Objective Remarks GENERAL: Patient is 36 yo critically ill female who appears in mild distress SKIN: Warm and dry. HEAD: Normocephalic. EYES: No scleral icterus. No injection or drainage. NECK: trachea midline. No JVD CARDIOVASCULAR: Tachycardic rate and rhythm, Grade 2 systolic murmur left sternal border, gallops, or rubs. Well-healed sternotomy scar from valve surgeries RESPIRATORY: Breath sounds equal bilaterally. No accessory muscle use. GASTROINTESTINAL: Abdomen soft, non-tender, nondistended. MUSCULOSKELETAL: No cyanosis, edema. right axillary CVL site clean dry intact, no evidence of bleeding or hematoma. Neuro: Awake oriented, no focal deficits. A/P Assessment and Plan Assessment and Plan: 36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 Difficile Colitis, septic shock. remains on vasopressors. although some end-organs are improving, she is still in distributive shock and not improving on pathway. remains critically ill. continue antibiotics. will start empiric stress dose steroids. appreciate subspecialty assistance. NEURO: History of IV drug use - Denies any current illicit IV drug use. On Prescribed Dilaudid for pain - Supplement multivitamin, thiamine RESP: History of septic pulmonary emboli - DuoNeb every 6 hours and when necessary - Aggressive pulmonary toilet - Bilateral lower extremity venous Doppler CV: Atypical chest pain Septic Shock History of tricuspid and mitral valve replacement History of infective endocarditis Recurrent bioprosthetic tricuspid and mitral valve endocarditis - slivf. - MICHELE 12/17 with evidence of recurrent endocarditis, EF 40%, mild RV dysfunction - Echo 10/17: mitral and tricuspid valve no regurgitation GI: Abdominal pain with nausea and vomiting - resolved Acute protein calorie malnutrition- severe. History of hepatitis C - regular diet as tolerated. - IV Protonix /Endo: Dehydration- resolved. Hyponatremia- improving. - Monitor renal function, I/O's, electrolytes replacement per protocol. - Hyponatremia correction 6-8 meq in 24 hours ID: Septic Shock Enterococcus Bacteremia Recurrent bioprosthetic tricuspid and mitral valve endocarditis Gram positive bacteremia History of MSSA endocarditis C. Difficile Colitis - Continue abx per ID. - ID service is consulted. F/U On cultures - C. Diff + HEME: Anemia History of bilateral lower extremity DVT Pancytopenia Thrombocytopenia -Monitor CBC, CMP, INR -hold eliquis - heme consulted. PROPH: -Bilateral lower extremity SCDs, hold therapeutic anticoagulation given coagulopathy. IV Protonix 40 mg IV daily LINES: -12/16 right axillary CVL Dispo: remain in ICU. remains critically ill in shock on vasopressors. Andreas Moreira MD Dec 18, 2016 14:09
[2016-12-18] MEDS: HYDROCORTISONE SOD SUCCINATE 100 MG VIAL IV PUSH SCH ×2 (15:47→20:13)
[2016-12-18] MEDS: ONDANSETRON HCL 4 MG/2 ML VIAL IV PUSH PRN (15:47)
[2016-12-18 16:38] LABS: CALCIUM-PROTEIN CORRECTED 7.7 MG/DL (8.5-10.1)
[2016-12-18] MEDS: metroNIDAZOLE 500 MG TAB PO SCH (20:13)
[2016-12-18] MEDS ORDERED: metroNIDAZOLE 500 MG INJ 100 ML IV SCH (21:00)
[2016-12-19] VITALS (12 sets, daily range): BP systolic 86–120; BP diastolic 58–80; PULSE 81–100; RESP 20–22; TEMP 97.7–98.3; O2SAT 93–97
[2016-12-19] MEDS: CEFEPIME INJ 2,000 MG in SODIUM CHLORIDE 0.9% INJ 100 ML IV SCH ×3 (00:02→17:04)
[2016-12-19] MEDS: HYDROmorphone HCL 4 MG TAB PO PRN ×4 (00:12→18:24)
[2016-12-19] MEDS: HYDROCORTISONE SOD SUCCINATE 100 MG VIAL IV PUSH SCH ×4 (03:00→21:11)
[2016-12-19] MEDS: metroNIDAZOLE 500 MG TAB PO SCH ×3 (03:19→21:09)
[2016-12-19] MEDS: VANCOMYCIN 1,000 MG/NS 250 ML IV SCH ×4 (03:19→12:19)
[2016-12-19] MEDS: CHLORHEXIDINE GLUCONATE 2 % 1 PACK (2 CLOTHS) TOP SCH (03:19)
[2016-12-19] MEDS: GENTAMICIN INJ 60 MG in SODIUM CHLORIDE 0.9% INJ 100 ML IV SCH ×2 (04:14→17:04)
[2016-12-19 05:32] LABS: AUTOMATED NEUTROPHIL # 7.5 TH/MM3 (1.8-7.7); BASOPHIL % 0.3 % (0.0-2.0); EOSINOPHIL % 0.3 % (0.0-4.0); HEMATOCRIT 23.6 % (35.0-46.0); LYMPHOCYTE # 0.6 TH/MM3 (1.0-4.8); MEAN CELL VOLUME 82.5 FL (80.0-100.0); MEAN CORPUSCULAR HEMOGLOBIN 27.7 PG (27.0-34.0); MEAN CORPUSCULAR HGB CONC 33.5 % (32.0-36.0); MONO % 7.7 % (0.0-8.0); NEUT % 84.7 % (16.0-70.0); PLATELET COUNT 31 TH/MM3 (150-450); RED BLOOD COUNT 2.86 MIL/MM3 (4.00-5.30); RED CELL DISTRIBUTION WIDTH 15.9 % (11.6-17.2); WHITE BLOOD COUNT 8.9 TH/MM3 (4.0-11.0)
[2016-12-19 05:34] LABS: INTERNATIONAL NORMALIZED RATIO 1.3 RATIO; PROTHROMBIN TIME - PATIENT 14.8 SEC (9.8-11.6)
[2016-12-19 05:58] LABS: HEMO FLAGS AUTO DIFF
[2016-12-19 06:17] LABS: POTASSIUM 3.2 MEQ/L (3.5-5.1)
[2016-12-19 06:33] LABS: CALCIUM-PROTEIN CORRECTED 7.6 MG/DL (8.5-10.1)
[2016-12-19 08:48] LABS: PLATELET ESTIMATE SMEAR LOW (NORMAL); PLATELET MORPHOLOGY NORMAL (NORMAL); SCAN/DIFF AUTO DIFF CONFIRMED; TOXIC GRANULATION 1+ (NORMAL); TOXIC VACUOLATION PRESENT (NONE SEEN)
[2016-12-19] MEDS: HEPARIN SODIUM - SQ 10,000 UNITS/ML VIAL SQ SCH ×2 (08:56→21:00)
[2016-12-19] MEDS: DOCUSATE SODIUM 50 MG/SENNA 8.6 MG TAB PO SCH ×2 (08:56→21:11)
[2016-12-19] MEDS: PANTOPRAZOLE SODIUM 40 MG VIAL IV SCH (08:56)
--- NOTE | 2016-12-19 11:40 | PD.ONC.PN ---
Subjective Subjective Remarks Afebrile overnight. patient resting in bed in nad. "I feel hot." she states her room is very hot, making it hard to sleep at night. Objective Data Date Time Temp Pulse Resp B/P Pulse Ox O2 Delivery O2 Flow Rate FiO2 12/19/16 10:22 93 12/19/16 06:00 94 12/19/16 04:00 98.0 94 20 106/68 95 12/19/16 04:00 94 12/19/16 02:00 97 12/19/16 00:00 100 12/19/16 00:00 98.3 100 20 108/67 97 12/18/16 22:00 106 12/18/16 20:00 106 12/18/16 20:00 98.2 106 24 78/47 93 12/18/16 18:00 117 12/18/16 16:00 118 12/18/16 16:00 117 12/18/16 16:00 98.5 120 26 89/59 98 12/18/16 14:00 105 12/18/16 12:00 98.5 101 5 111/83 99 12/18/16 12:00 101 12/19/16 12/19/16 12/19/16 07:00 15:00 23:00 Intake Total 664 ml Output Total 600 ml Balance 64 ml Result Diagram: 12/19/16 0415 12/19/16 0415 Laboratory Results Laboratory Tests Test 12/18/16 12/18/16 12/18/16 12/18/16 14:20 15:45 17:40 19:37 Sodium Level 135 MEQ/L Potassium Level 3.0 MEQ/L Chloride Level 106 MEQ/L Carbon Dioxide Level 22.0 MEQ/L Anion Gap 7 MEQ/L Blood Urea Nitrogen 9 MG/DL Creatinine 0.51 MG/DL Estimat Glomerular Filtration 138 ML/MIN Rate Random Glucose 103 MG/DL Calcium Level 7.2 MG/DL Protein Corrected Calcium 7.7 MG/DL Total Protein 6.1 GM/DL Gentamicin Level Peak 1.2 MCG/ML Gentamicin Level Trough 3.1 MCG/ML Random Cortisol 57.2 MCG/DL Test 12/19/16 04:15 White Blood Count 8.9 TH/MM3 Red Blood Count 2.86 MIL/MM3 Hemoglobin 7.9 GM/DL Hematocrit 23.6 % Mean Corpuscular Volume 82.5 FL Mean Corpuscular Hemoglobin 27.7 PG Mean Corpuscular Hemoglobin 33.5 % Concent Red Cell Distribution Width 15.9 % Platelet Count 31 TH/MM3 Mean Platelet Volume 10.8 FL Neutrophils (%) (Auto) 84.7 % Lymphocytes (%) (Auto) 7.0 % Monocytes (%) (Auto) 7.7 % Eosinophils (%) (Auto) 0.3 % Basophils (%) (Auto) 0.3 % Neutrophils # (Auto) 7.5 TH/MM3 Lymphocytes # (Auto) 0.6 TH/MM3 Monocytes # (Auto) 0.7 TH/MM3 Eosinophils # (Auto) 0.0 TH/MM3 Basophils # (Auto) 0.0 TH/MM3 CBC Comment AUTO DIFF Differential Comment AUTO DIFF CONFIRMED Toxic Granulation 1+ Toxic Vacuolation PRESENT Platelet Estimate LOW Platelet Morphology Comment NORMAL Prothrombin Time 14.8 SEC Prothromb Time International 1.3 RATIO Ratio Activated Partial 35.0 SEC Thromboplast Time Sodium Level 136 MEQ/L Potassium Level 3.2 MEQ/L Chloride Level 105 MEQ/L Carbon Dioxide Level 21.0 MEQ/L Anion Gap 10 MEQ/L Blood Urea Nitrogen 12 MG/DL Creatinine 0.76 MG/DL Estimat Glomerular Filtration 87 ML/MIN Rate Random Glucose 163 MG/DL Calcium Level 7.3 MG/DL Protein Corrected Calcium 7.6 MG/DL Total Protein 6.5 GM/DL Culture Results Microbiology Date/Time Procedure Status Source Growth 12/16/16 22:10 Urine Culture - Final Complete Urine Catheterized Urine NO GROWTH IN 48 HOURS. 12/17/16 14:30 Aerobic Blood Culture - Preliminary Resulted Blood Peripheral Group D Enterococcus 12/17/16 14:30 Anaerobic Blood Culture - Preliminary Resulted Gram Positive Cocci 12/17/16 14:34 Aerobic Blood Culture - Preliminary Resulted Blood Peripheral Group D Enterococcus 12/17/16 14:34 Anaerobic Blood Culture - Preliminary Resulted Blood Peripheral NO GROWTH IN 2 DAYS 12/18/16 15:27 Aerobic Blood Culture - Preliminary Resulted Blood Peripheral NO GROWTH IN 1 DAY 12/18/16 15:27 Anaerobic Blood Culture - Final Resulted Blood Peripheral ONLY AEROBIC CULTURE ORDERED 12/18/16 19:37 Aerobic Blood Culture - Preliminary Resulted Blood Peripheral NO GROWTH IN 1 DAY 12/18/16 19:37 Anaerobic Blood Culture - Preliminary Resulted Blood Peripheral NO GROWTH IN 1 DAY Administered Medications Medications (Trade) Dose Ordered Sig/Solo Route PRN Reason Start Time Stop Time Status Last Admin Dose Admin Cefepime HCl/ Sodium Chloride (Maxipime Inj/NS Inj) 100 ml @ 200 mls/hr Q8H IV 12/16/16 08:00 12/19/16 08:54 Pantoprazole Sodium (Protonix Inj) 40 mg DAILY IV 12/16/16 09:00 12/19/16 08:56 Chlorhexidine Gluconate (Chlorhexidine 2% Cloth) 3 pack Taper DAILY@04 TOP 12/16/16 04:00 12/12/17 03:59 12/19/16 03:19 Senna/Docusate Sodium (Sandy-Colace) 1 tab BID PO 12/16/16 09:00 12/18/16 20:13 Hydromorphone HCl 4 mg 4 mg Q6H PRN PO Pain Management 12/16/16 03:00 12/19/16 06:15 Potassium Chloride 100 ml @ 50 mls/hr Q2H PRN IV For Potassium 2.8 - 3.2 mEq/L 12/16/16 03:45 12/17/16 08:41 Potassium Chloride 100 ml @ 50 mls/hr Q2H PRN IV For Potassium 3.3 - 3.5 mEq/L 12/16/16 03:45 12/16/16 09:39 Norepinephrine Bitartrate (Levophed-Dextrose Drip) 250 ml @ 0 mls/hr TITRATE IV 12/16/16 21:00 12/17/16 21:12 Terbutaline Sulfate 1 mg 1 mg UNSCH PRN SQ FOR EXTRAVASATION PROTOCOL 12/16/16 21:00 12/16/16 21:09 Vancomycin HCl/ Sodium Chloride (Vancomycin Inj/ NS 250 ml Inj) 250 ml @ 250 mls/hr Q8H IV 12/18/16 20:00 12/19/16 03:19 Metronidazole (Flagyl) 500 mg Q8H PO 12/18/16 20:00 12/19/16 03:19 Hydrocortisone Sodium Succinate (SoluCORTEF INJ) 50 mg Q6H IV PUSH 12/18/16 15:00 12/19/16 08:55 Ondansetron HCl 4 mg 4 mg Q6H PRN IV PUSH NAUSEA/VOMITING 12/18/16 15:30 12/18/16 15:47 Gentamicin Sulfate/Sodium Chloride (Gentamicin Inj/ NS Inj) 101.5 ml @ 200 mls/hr Q12H IV 12/19/16 04:00 12/19/16 04:14 Heparin Sodium (Porcine) (Heparin Inj) 5,000 units Q12HR SQ 12/19/16 09:00 12/19/16 08:56 Objective Remarks GENERAL: Fatigued female supine in bed, sweating. SKIN: Warm and dry. HEAD: Normocephalic. EYES: No injection or drainage. NECK: Supple, trachea midline. CARDIOVASCULAR: +S1/S2 RESPIRATORY: diminished at bases, anterior lerner clear. GASTROINTESTINAL: Abdomen soft, non-tender, nondistended. EXTREMITIES: No cyanosis NEUROLOGICAL: aox3. normal speech Assessment/Plan Problem List: (1) Pancytopenia Status: Acute Plan: --due to liver disease and splenomegaly + sepsis/DIC --CT showed enlarged liver and spleen. spleen is about 20 cm cranio-caudally. -- further drop in blood count is likely a combination of sepsis and consumptive process. --no evidence of TTP noted on peripheral smear. --iron studies show high ferritin, no iron deficiency --B12/folate WNL --transfuse platelets/pRBC as needed --will give Neupogen if patient has severe neutropenia (2) Sepsis Status: Acute Plan: --Sepsis/bacteremia. --has a history of endocarditis, status post tricuspid valve and mitral valve replacement. She has had febrile illness. --most recent blood cultures with no growth. --BC +GNR and GPC --on multiple antibiotics per Infectious Disease. (3) DVT of lower extremity, bilateral Status: Resolved Plan: --started on prophylactic dose heparin on 12/19 -- has had multiple DVT. --was on Coumadin. --one point she was found to have splenic infarction. --has been on Eliquis. has not been taking the Eliquis because she is not able to keep her food or medication down. --no evidence of recurrent clot at this time. Assessment 36y/o female critically ill in [facility] [place], [place]. Hematology consulted for pancytopenia. h/o MSSA endocarditis, January 2016. Bilateral lower extremity DVT multiple times. She was on Coumadin for a while and switched to Eliquis. Hepatitis C. History of IV drug use. Chronic pain. Tricuspid valve and mitral valve replacement. Left femoral vein catheterization Plan 1. monitor CBC, coags 2. start prophylactic heparin 3. continue supportive care Attending Statement The exam, history, and the medical decision-making described in the above note were completed with the assistance of the mid-level provider. I reviewed and agree with the findings presented. I attest that I had a [id number] encounter with the patient on the same day, and personally performed and documented my assessment and findings in the medical record. Improving everyday. No bleeding noted. Hgb stable. Platelet up to 31K. Start subQ heparin. When platelet >70K, can start Eliquis. Monitor CBC. Problem Qualifiers (1) Sepsis: Qualified Code: O85 - Puerperal sepsis Mel Warren Dec 19, 2016 11:40 Ger Alexander MD Dec 19, 2016 14:19
[2016-12-19 14:09] LABS: VANCOMYCIN TROUGH 19.5 MCG/ML (5.0-10.0)
[2016-12-19] MEDS ORDERED: FUROSEMIDE 40 MG/4 ML VIAL IV PUSH ONE (14:45)
--- NOTE | 2016-12-19 15:09 | HHI.CCPN ---
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 Patient had a blood pressure 90/51 heart rate in the 130s and temperature 99.2. Patient was recently admitted to [facility] in October 17- for possible recurrent endocarditis, which was ruled out and patient was discharged home. On December 07 she began to have generalized weakness and started to have a fever. Tmax at home of 102. 2 days ago she began to have severe chest pain in the center of her chest. She also had dyspnea on exertion, also had nausea and vomiting intermittently since December 07. Since last 2 days innumerable episodes of vomiting and diarrhea but no blood in stools or hematemesis. A 2d echo done on 10/17/16 was negative for any vegetation I evaluated the patient in the emergency department. She remains tachycardic and borderline hypotensive. Complaints of chest pain to the right side of the rib, since December 07. She claims it is constant and 9 out of 10. Initial cardiac enzymes and EKG negative. I have ordered CT pulmonary angiogram to rule out PE and septic emboli given history of endocarditis and lower extremity DVT. Patient had also not been taking eliquis for the last few days. Patient also complained about nausea vomiting and diarrhea with diffuse abdominal pain for the last few days. I have also ordered CT abdomen pelvis to rule out any kind of colitis. Patient will be continued on vancomycin and cefepime which was started in the ED, I have added Flagyl 12/17: remains on levophed for vasopressor support. remains in septic shock. complains of being hungry this morning. NPO for MICHELE today. thrombocytopenia improved slightly after platelet transfusion. no signs of active bleeding. wbc improving. blood cultures 09/09 growing both GNRs and GPCs. 12/18: vasopressors persist. tolerating diet. repeat blood cultures still growing GPCs. patient without complaints. MICHELE with mitral and tricuspid valve endocarditis. subjective: 12/19: remains on norepinephrine support for low-grade shock. still with persistently positive blood cultures. patient otherwise without complaints. does appear more volume overloaded clinically. Objective Vital Signs Date Time Temp Pulse Resp B/P Pulse Ox O2 Delivery O2 Flow Rate FiO2 12/19/16 10:22 93 12/19/16 06:00 94 12/19/16 04:00 98.0 20 106/68 12/18/16 07:00 21 12/17/16 10:20 15.00 12/16/16 04:51 Room Air Intake and Output 12/18/16 12/18/16 12/18/16 07:59 15:59 23:59 Intake Total 1564 ml 950 ml 606 ml Output Total 450 ml 350 ml 800 ml Balance 1114 ml 600 ml -194 ml Result Diagram: 12/19/16 0415 12/19/16 0415 Other Results Microbiology Date/Time Procedure Status Source Growth 12/16/16 22:10 Urine Culture - Final Complete Urine Catheterized Urine NO GROWTH IN 48 HOURS. Imaging Chest x-ray mild interstitial edema Objective Remarks GENERAL: Patient is 36 yo critically ill female who appears in mild distress SKIN: Warm and dry. HEAD: Normocephalic. EYES: No scleral icterus. No injection or drainage. NECK: trachea midline. + JVD CARDIOVASCULAR: Tachycardic rate and rhythm, Grade 2 systolic murmur left sternal border, gallops, or rubs. Well-healed sternotomy scar from valve surgeries RESPIRATORY: Breath sounds equal bilaterally. No accessory muscle use. GASTROINTESTINAL: Abdomen soft, non-tender, nondistended. MUSCULOSKELETAL: No cyanosis, edema. right axillary CVL site clean dry intact, no evidence of bleeding or hematoma. Neuro: Awake oriented, no focal deficits. A/P Assessment and Plan Assessment and Plan: 36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 Difficile Colitis, septic shock. remains on vasopressors. although some end-organs are improving, she is still in distributive shock and not improving on pathway. remains critically ill. continue antibiotic per ID. random cortisol very high and appropriate. unlikely to be adrenally insufficient. will stop steroids as risk/benefit is in favor of discontinuing. appreciate subspecialty assistance. Also agree with palliative consult. NEURO: History of IV drug use - Denies any current illicit IV drug use. On Prescribed Dilaudid for pain - Supplement multivitamin, thiamine RESP: History of septic pulmonary emboli - DuoNeb every 6 hours and when necessary - Aggressive pulmonary toilet - Bilateral lower extremity venous Doppler CV: Atypical chest pain Septic Shock History of tricuspid and mitral valve replacement History of infective endocarditis Recurrent bioprosthetic tricuspid and mitral valve endocarditis - slivf. - MICHELE 12/17 with evidence of recurrent endocarditis, EF 40%, mild RV dysfunction - Echo 10/17: mitral and tricuspid valve no regurgitation GI: Abdominal pain with nausea and vomiting - resolved Acute protein calorie malnutrition- severe. History of hepatitis C - regular diet as tolerated. - IV Protonix /Endo: Dehydration- resolved. Hyponatremia- improving. - Monitor renal function, I/O's, electrolytes replacement per protocol. - Hyponatremia correction 6-8 meq in 24 hours ID: Septic Shock Bacteremia: Enterococcus faecalis, Enterobacter Cloacae (2 strains), Group D enterococcus, additional Gram negative rods Recurrent bioprosthetic tricuspid and mitral valve endocarditis Gram positive bacteremia History of MSSA endocarditis C. Difficile Colitis - Continue abx per ID. - ID service is consulted. F/U On cultures - C. Diff + Culture data: 12/15 blood cx: 09/09: Enterococcus faecalis, Enterobacter Cloacae (2 strains), Group D enterococcus, additional Gram negative rods 12/15 c. diff pcr + 12/17 blood cx: Group D enterococcus 2/4, GPCs 1/4. 12/18 blood cx: GPCs 06/11 bottles HEME: Anemia History of bilateral lower extremity DVT Pancytopenia Thrombocytopenia -Monitor CBC, CMP, INR -hold eliquis - heme consulted. PROPH: -Bilateral lower extremity SCDs, hold therapeutic anticoagulation given coagulopathy. IV Protonix 40 mg IV daily LINES: -12/16 right axillary CVL Dispo: remain in ICU. remains critically ill in shock on vasopressors. Andreas Moreira MD Dec 19, 2016 15:09
--- NOTE | 2016-12-19 15:23 | PD.CAR.PN ---
CVT Progress Note Subjective/Hospital Course: Pt with known h/o IVDA and endocarditis who is s/p MVR & TVR, now presenting with septic shock necessitating pressor support. MICHELE demonstrating bioprosthetic valve endocarditis. Given her significant h/o IVDA with continued use, she is not a candidate for repeat surgical intervention. Would continue with medical therapy as already doing. Objective: Vital Signs Date Time Temp Pulse Resp B/P Pulse Ox O2 Delivery O2 Flow Rate FiO2 12/19/16 10:22 93 12/19/16 06:00 94 12/19/16 04:00 98.0 94 20 106/68 95 12/19/16 04:00 94 12/19/16 02:00 97 12/19/16 00:00 100 12/19/16 00:00 98.3 100 20 108/67 97 12/18/16 22:00 106 12/18/16 20:00 106 12/18/16 20:00 98.2 106 24 78/47 93 12/18/16 18:00 117 12/18/16 16:00 118 12/18/16 16:00 117 12/18/16 16:00 98.5 120 26 89/59 98 Labs: Laboratory Tests Test 12/19/16 12/19/16 04:15 12:15 White Blood Count 8.9 TH/MM3 (4.0-11.0) Red Blood Count 2.86 MIL/MM3 (4.00-5.30) Hemoglobin 7.9 GM/DL (11.6-15.3) Hematocrit 23.6 % (35.0-46.0) Mean Corpuscular Volume 82.5 FL (80.0-100.0) Mean Corpuscular Hemoglobin 27.7 PG (27.0-34.0) Mean Corpuscular Hemoglobin 33.5 % Concent (32.0-36.0) Red Cell Distribution Width 15.9 % (11.6-17.2) Platelet Count 31 TH/MM3 (150-450) Mean Platelet Volume 10.8 FL (7.0-11.0) Neutrophils (%) (Auto) 84.7 % (16.0-70.0) Lymphocytes (%) (Auto) 7.0 % (9.0-44.0) Monocytes (%) (Auto) 7.7 % (0.0-8.0) Eosinophils (%) (Auto) 0.3 % (0.0-4.0) Basophils (%) (Auto) 0.3 % (0.0-2.0) Neutrophils # (Auto) 7.5 TH/MM3 (1.8-7.7) Lymphocytes # (Auto) 0.6 TH/MM3 (1.0-4.8) Monocytes # (Auto) 0.7 TH/MM3 (0-0.9) Eosinophils # (Auto) 0.0 TH/MM3 (0-0.4) Basophils # (Auto) 0.0 TH/MM3 (0-0.2) CBC Comment AUTO DIFF Differential Comment AUTO DIFF CONFIRMED Toxic Granulation 1+ (NORMAL) Toxic Vacuolation PRESENT (NONE SEEN) Platelet Estimate LOW (NORMAL) Platelet Morphology Comment NORMAL (NORMAL) Prothrombin Time 14.8 SEC (9.8-11.6) Prothromb Time International 1.3 RATIO Ratio Activated Partial 35.0 SEC Thromboplast Time (24.3-30.1) Sodium Level 136 MEQ/L (136-145) Potassium Level 3.2 MEQ/L (3.5-5.1) Chloride Level 105 MEQ/L (98-107) Carbon Dioxide Level 21.0 MEQ/L (21.0-32.0) Anion Gap 10 MEQ/L (5-15) Blood Urea Nitrogen 12 MG/DL (7-18) Creatinine 0.76 MG/DL (0.50-1.00) Estimat Glomerular Filtration 87 ML/MIN (>89) Rate Random Glucose 163 MG/DL (74-106) Calcium Level 7.3 MG/DL (8.5-10.1) Protein Corrected Calcium 7.6 MG/DL (8.5-10.1) Total Protein 6.5 GM/DL (6.4-8.2) Gentamicin Level Trough 1.0 MCG/ML (0.0-2.0) Vancomycin Level Trough 19.5 MCG/ML (5.0-10.0) Result Diagram: 12/19/16 0415 12/19/16 041 (1) Rule out infective endocarditis Plan: 36 y/o F with septic shock, anemia, thrombocytopenia and hx of MVR. Unable to determined IE on TTE. Agree with need for MICHELE to better assess TV and MV. Per Dr. Miller no signs of active bleeding. Patient would need to be intubated and given PLT before MICHELE. Recommendations: 1. Keep NPO aftermidnight for MICHELE in AM Case has been discussed with Dr. Miller and Angel. (2) Septic shock (3) Anemia (4) Bloody sputum (5) Elevated LFTs (6) Septic pulmonary embolism (7) DVT of lower extremity, bilateral Praveen Champion MD Dec 19, 2016 15:23
[2016-12-19] MEDS ORDERED: PHARMACY ORDERED LAB ONE (15:45)
--- NOTE | 2016-12-19 16:16 | HHI.GIFU ---
Subjective Remarks Resting in bed. No n/v. No abdominal pain. Tolerating diet. Objective Vitals I&O Vital Signs Date Time Temp Pulse Resp B/P Pulse Ox O2 Delivery O2 Flow Rate FiO2 12/19/16 14:00 94 12/19/16 12:00 100 12/19/16 10:22 93 12/19/16 08:00 82 12/19/16 06:00 94 12/19/16 04:00 98.0 94 20 106/68 95 12/19/16 04:00 94 12/19/16 02:00 97 12/19/16 00:00 100 12/19/16 00:00 98.3 100 20 108/67 97 12/18/16 22:00 106 12/18/16 20:00 106 12/18/16 20:00 98.2 106 24 78/47 93 12/18/16 18:00 117 12/18/16 16:00 118 12/18/16 16:00 117 12/18/16 16:00 98.5 120 26 89/59 98 I/O 12/18/16 12/18/16 12/18/16 12/19/16 12/19/16 12/19/16 06:59 14:59 22:59 06:59 14:59 22:59 Intake Total 1564 ml 950 ml 606 ml 664 ml Output Total 450 ml 350 ml 800 ml 600 ml Balance 1114 ml 600 ml -194 ml 64 ml Intake Oral 480 ml 500 ml 200 ml 200 ml IV Total 1084 ml 450 ml 406 ml 464 ml Output Urine Total 450 ml 350 ml 800 ml 600 ml # Bowel Movements 0 0 Laboratory Laboratory Tests Test 12/18/16 12/18/16 12/19/16 12/19/16 17:40 19:37 04:15 12:15 Gentamicin Level Trough 3.1 1.0 Random Cortisol 57.2 White Blood Count 8.9 Red Blood Count 2.86 Hemoglobin 7.9 Hematocrit 23.6 Mean Corpuscular Volume 82.5 Mean Corpuscular Hemoglobin 27.7 Mean Corpuscular Hemoglobin 33.5 Concent Red Cell Distribution Width 15.9 Platelet Count 31 Mean Platelet Volume 10.8 Neutrophils (%) (Auto) 84.7 Lymphocytes (%) (Auto) 7.0 Monocytes (%) (Auto) 7.7 Eosinophils (%) (Auto) 0.3 Basophils (%) (Auto) 0.3 Neutrophils # (Auto) 7.5 Lymphocytes # (Auto) 0.6 Monocytes # (Auto) 0.7 Eosinophils # (Auto) 0.0 Basophils # (Auto) 0.0 CBC Comment AUTO DIFF Differential Comment AUTO DIFF CONFIRMED Toxic Granulation 1+ Toxic Vacuolation PRESENT Platelet Estimate LOW Platelet Morphology Comment NORMAL Prothrombin Time 14.8 Prothromb Time International 1.3 Ratio Activated Partial 35.0 Thromboplast Time Sodium Level 136 Potassium Level 3.2 Chloride Level 105 Carbon Dioxide Level 21.0 Anion Gap 10 Blood Urea Nitrogen 12 Creatinine 0.76 Estimat Glomerular Filtration 87 Rate Random Glucose 163 Calcium Level 7.3 Protein Corrected Calcium 7.6 Total Protein 6.5 Vancomycin Level Trough 19.5 Date/Time Procedure Status Source Growth 12/18/16 19:37 Aerobic Blood Culture - Preliminary Resulted Blood Peripheral NO GROWTH IN 1 DAY 12/18/16 19:37 Anaerobic Blood Culture - Preliminary Resulted Blood Peripheral NO GROWTH IN 1 DAY 12/16/16 22:10 Urine Culture - Final Complete Urine Catheterized Urine NO GROWTH IN 48 HOURS. 12/16/16 04:35 Rotavirus Antigen - Final Complete Stool Stool NEGATIVE - ROTAVIRUS ANTIGEN IS ABSEN... 12/16/16 04:35 Cryptosporidium Exam - Final Complete Stool Stool NEGATIVE - NO CRYPTOSPORIDIUM ANTIGEN... 12/16/16 04:35 Stool Pus (PREET) - Final Complete Stool Stool NO WBC'S SEEN 12/16/16 04:35 Giardia Antigen (PREET) - Final Complete Stool Stool NEGATIVE - NO GIARDIA ANTIGEN DETECTE... Imaging Last Impressions Chest X-Ray 12/17/16 0000 Signed Impressions: Service Date/Time: Saturday, December 17, 2016 04:55 - CONCLUSION: Decreasing bibasilar atelectasis. Rodo Hart MD Lower Extremity Ultrasound 12/16/16 0000 Signed Impressions: Service Date/Time: Friday, December 16, 2016 03:56 - CONCLUSION: No DVT of either lower extremity. Rodo Hart MD CT Angiography 12/16/16 0000 Signed Impressions: Service Date/Time: Friday, December 16, 2016 05:40 - CONCLUSION: 1. No pulmonary embolus. 2. Patchy bilateral air space disease, right more so than left and both sides basilar predominant. Rodo Hart MD Abdomen/Pelvis CT 12/16/16 0000 Signed Impressions: Service Date/Time: Friday, December 16, 2016 05:40 - CONCLUSION: 1. Enlargement and scarring of the spleen. Collateral vessels in the splenic hilum are again noted. 2. Nonspecific hepatomegaly. No focal hepatic lesion. 3. No obstruction or acute inflammatory changes are demonstrated of the gastrointestinal tract. Rodo Hart MD Physical Exam HEENT: Normocephalic; atraumatic; no jaundice. CHEST: Resp even/unlabored, shallow, tachypneic CARDIAC: ST, on vasopressors ABDOMEN: Soft, distended with ascites, nontender; no hepatosplenomegaly; bowel sounds are present in all four quadrants. EXTREMITIES: No clubbing, cyanosis, or edema. SKIN: Generalized pallor PETROGRAPHER: Lethargic oriented times three. Assessment and Plan Plan ASSESSMENT: - N/V, Abdominal pain since 12/07. Abdomen/Pelvis CT (12/16/16)----> 1. Enlargement and scarring of the spleen. Collateral vessels in the splenic hilum are again noted. 2. Nonspecific hepatomegaly. No focal hepatic lesion. 3. No obstruction or acute inflammatory changes are demonstrated of the gastrointestinal tract. GI consulted to rule out gastritis/hh. PPI. She is not having any n/v/abdominal pain at this time. Does continue to have chest pain, but this is most likely related to her endocarditis. She has pancytopenia. Will hold on EGD at this time, as she is not longer having any nausea, vomiting, abdominal pain and her chest pain is most likely related to endocarditis. Tolerating diet. 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 Multiple courses of abx over past year. Per patient, 1st episode of Cdiff. Flagyl, Oral Vanco. No BM - Atypical chest pain. CT Angiography (12/16/16)----> 1. No pulmonary embolus. 2. Patchy bilateral air space disease, right more so than left and both sides basilar predominant. Likely related to endocarditis. - Severe pancytopenia. Improved, but still with thrombocytopenia. WBC 8.9, AST 7.9, ALT 23.6, Plt 31. Hematology consulted. - Sepsis, Bacteremia, Endocarditis. BCx GNR, GPC. 2D echo moderate left sided pleural effusion, mild pulmonary valve regurgitation. 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 Abx per ID. - Mild elevation of LFTs. Improved. CT as above. - Hyponatremia, Hypokalemia. Per primary. - Hx BLE DVT, has been on Eliquis. Last dose 12/16 - Hx HCV, Tx naive. PLAN: - Heart healthy diet - Cont. Flagyl/Oral Vanco - Cont. PPI - Abx per ID - Monitor stool output - Hematology following - CCM following - ID following - Supportive care - Will hold on EGD at this time, as her n/v/abdominal pain has resolved and her chest pain is likely related to endocarditis - Further recommendations to follow based on results of above - Pt seen and examined by Dr. Reyes and myself and this note is written on his behalf Rose Echevarria Dec 19, 2016 16:16
--- NOTE | 2016-12-19 16:16 | HHI.HCPN ---
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 Amenable for palliative care to wait and see pt on Thursday. Carlos Pinto MD Dec 19, 2016 16:16
--- NOTE | 2016-12-19 18:41 | PD.CONS ---
Consult Service Palliative Care . Consult Requested By Dr. Moreira . Primary Care Physician No Primary Care Physician . Reason for Consultation a. To assist with evaluation and management of symptoms including: pain, weakness. b. To assist medical decision maker(s) with: better understanding of current medical conditions; weighing benefits/burdens of medical treatment options; making medical treatment decisions. . HPI History of Present Illness Ms. 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 Patient was recently admitted to [facility] in October 17- for possible recurrent endocarditis, which was ruled out and patient was discharged home. Additional pertinent history per ID notes from 10/2016: February 2016 - diagnosed with MSSA endocarditis; she AMA'd after 28 days. May 2016 - had chest pain, fevers, went to [facility] then was diagnosed with endocarditis. She was given IV antibiotics and surgery on the valves, bovine valves. She had 60-72 days of IV antibiotics and for management of LE blood clots. Discharged on Coumadin. Discharge to SNF due to continued antibiotics. Two weeks later - chest pain again, bad tooth, resulted in blood infection. Of note the organism was Strep according to her which could be related to IVDA as well. Located Within [facility], transferred to [facility] for IV antibiotics, had tachycardia and went into coma. Was in coma for 8 days. She was discharged . She was sent to [facility] for continued IV antibiotics. Left -Rocephin, Vancomycin, Cipro PO, Probiotics. Discharged on Eliquis 5mg BID and PO Dilaudid, 4mg q6hr PO PRN, taking them q8 (last dose 1mg IV in ED). PICC d/c'd 10/14/16 prior to discharge from SNF. She reports her Infectious Disease Doctor is Dr. Kelley in [place]. Patient presented to [facility] on 12/16/16 with intermittent chest pain, shortness of breath, nausea, vomiting and diarrhea. Patient had a blood pressure 90/51 heart rate in the 130s and temperature 99.2. On December 07 she began to have generalized weakness and started to have a fever. Tmax at home of 102. A few days prior to presentation she had severe central chest pain in the center. She also had dyspnea on exertion, also had nausea and vomiting intermittently since December 07. She had innumerable episodes of vomiting and diarrhea but no blood in stools or hematemesis. A 2D echo done on 10/17/16 was negative for any vegetation. Patient was evaluated by travel consultant and was found to be tachycardic and hypotensive. Due to her chest pain she underwent evaluation for PE, it was ruled out. CT Angiogram with right basilar infiltrate but negative for PE. Doppler LE negative. She reports she has been unable to take her Eliquis and pain meds due to nausea and vomiting. Patient also complained about nausea vomiting and diarrhea with diffuse abdominal pain for the last few days. Stool for C. diff was positive. CT abdomen and pelvis was negative for embolic lesions in vital organs and negative for Colitis. Patient was empirically started on Cefepime, Vanco IV and Flagyl IV. MICHELE with mitral and tricuspid valve endocarditis. Cardiothoracic surgery, Dr. Ehsan Champion was consulted and deemed not a candidate for surgical intervention and recommendation to continue medical management. Dr. Alexander, hematology was consulted for pancytopenia due to liver disease and splenomegaly. Patient remains in ICU. She developed low grade shock requiring pressor support. At the time of my visit pressors have been weaned off. Afebrile. WBC 8.9. Persistently positive blood cultures. 12/18/16 blood cultures gram + cocci. Hemoglobin 7.9. Platelets 31. She is awake and alert, appears capacitate to make her own decisions. She denies pain or shortness of breath. She is able to get up to BSC independently, reports generalized weakness. Palliative care was consulted to assist with symptom management, support and clarification of treatment goals as needed. . Function/Cognitive Trajectory Recent hospitalization. She is able to get up to [facility]SC independently, reports generalized weakness. . Review of Systems Constitutional: COMPLAINS OF: Fatigue, Change in appetite (decreased), Pain, Generalized weakness Respiratory: COMPLAINS OF: Shortness of breath Cardiovascular: COMPLAINS OF: Chest pain Gastrointestinal: COMPLAINS OF: Abdominal pain, Diarrhea, Nausea, Vomiting Hematologic/Lymphatics: COMPLAINS OF: Bruising Psychiatric: COMPLAINS OF: Anxiety, Depression Past Family Social History Coded Allergies: Morphine (Verified Allergy, Severe, hives, 12/15/16) Energy (Verified Allergy, Unknown, 12/15/16) Penicillin (Verified Allergy, Unknown, 12/15/16) Past Medical History History of IV drug abuse History of septic pulmonary and splenic emboli History of endocarditis Chronic pain Bilateral lower extremity DVT . Past Surgical History Mitral and Tricuspid valve replacements at [facility] June 04, 2016 Left femoral vein catheterization Tooth extraction for tooth infection complicated by bacteremia . Reported Medications Reported Meds & Active Scripts Active Reported Dilaudid (Hydromorphone HCl) 4 Mg Tab 4 Mg PO Q6H PRN Eliquis (Apixaban) 5 Mg Tab 5 Mg PO BID . Current Medications Medications (Trade) Dose Ordered Sig/Solo Route Start Time Stop Time Status Last Admin Pharmacy Profile Note 0 ml @ 0 mls/hr UNSCH OTHER 12/16/16 02:45 (Maxipime Inj/NS Inj) 100 ml @ 200 mls/hr Q8H IV 12/16/16 08:00 12/19/16 17:04 (Tylenol) 650 mg Q6H PRN PO 12/16/16 03:00 (Protonix Inj) 40 mg DAILY IV 12/16/16 09:00 12/19/16 08:56 Miscellaneous Information 1 Q361D XX 12/16/16 03:00 (Chlorhexidine 2% Cloth) 3 pack Taper DAILY@04 TOP 12/16/16 04:00 12/12/17 03:59 12/19/16 03:19 (Chlorhexidine 2% Cloth) 3 pack UNSCH PRN TOP 12/16/16 03:00 (Sandy-Colace) 1 tab BID PO 12/16/16 09:00 12/18/16 20:13 (Milk Of Magnesia Liq) 30 ml Q12H PRN PO 12/16/16 03:00 (Senokot) 17.2 mg Q12H PRN PO 12/16/16 03:00 (Dulcolax Supp) 10 mg DAILY PRN RECTAL 12/16/16 03:00 (Lactulose Liq) 30 ml DAILY PRN PO 12/16/16 03:00 Hydromorphone HCl 4 mg 4 mg Q6H PRN PO 12/16/16 03:00 12/19/16 12:19 Potassium Chloride 100 ml @ 50 mls/hr Q2H PRN IV 12/16/16 03:45 12/17/16 08:41 (KCl 20 Meq Premix Inj) 100 ml @ 50 mls/hr Q2H PRN IV 12/16/16 03:45 Potassium Bicarb/ Potassium Chloride 50 meq 50 meq UNSCH PRN PO 12/16/16 03:45 Potassium Chloride 100 ml @ 25 mls/hr UNSCH PRN IV 12/16/16 03:45 Potassium Chloride 100 ml @ 50 mls/hr Q2H PRN IV 12/16/16 03:45 12/16/16 09:39 (Magnesium Sulfate Inj/NS Inj) 100 ml @ 50 mls/hr UNSCH PRN IV 12/16/16 03:45 Magnesium Oxide 800 mg 800 mg UNSCH PRN PO 12/16/16 03:45 (Magnesium Sulfate Inj/NS Inj) 100 ml @ 50 mls/hr UNSCH PRN IV 12/16/16 03:45 Potassium Phosphate 2000 mg 2,000 mg Q4H PRN PO 12/16/16 03:45 (Sodium Phosphate Inj/NS 250 ml Inj) 250 ml @ 42 mls/hr UNSCH PRN IV 12/16/16 03:45 Potassium Phosphate 2000 mg 2,000 mg UNSCH PRN PO/TUBE 12/16/16 03:45 Potassium Phosphate 30 mmol/ Sodium Chloride 260 ml @ 42 mls/hr UNSCH PRN IV 12/16/16 03:45 (Levophed-Dextrose Drip) 250 ml @ 0 mls/hr TITRATE IV 12/16/16 21:00 12/17/16 21:12 Terbutaline Sulfate 1 mg 1 mg UNSCH PRN SQ 12/16/16 21:00 12/16/16 21:09 (Gentamicin Consult Pharmacy) 0 ml @ 0 mls/hr UNSCH OTHER 12/17/16 13:30 (Flagyl) 500 mg Q8H PO 12/18/16 20:00 12/19/16 12:19 (SoluCORTEF INJ) 50 mg Q6H IV PUSH 12/18/16 15:00 12/19/16 16:57 Ondansetron HCl 4 mg 4 mg Q6H PRN IV PUSH 12/18/16 15:30 12/18/16 15:47 (Gentamicin Inj/ NS Inj) 101.5 ml @ 200 mls/hr Q12H IV 12/19/16 04:00 12/19/16 17:04 Heparin Sodium (Porcine) 5000 units 5,000 units Q12HR SQ 12/19/16 09:00 12/19/16 08:56 (Vancomycin Inj/ NS 250 ml Inj) 257.5 ml @ 257.5 mls/ hr Q8H IV 12/19/16 20:00 Miscellaneous Information SPECIFIC LAB TO BE ... ONCE ONCE .XX 12/20/16 11:45 12/20/16 11:46 . Family History Mother alive with Fibromyalgia and Rheumatoid arthritis. . Substance Use Tobacco: Non current. Occasional tobacco use in past. Alcohol: Denies. Prescription med abuse: Prior Percocet 30 abuse. Illicits: History of IVDU. . Psychosocial History Single. Has 3 children ages 12 (daughter), 7 (son) and 4 (son). They are currently on vacation with their father's expected to return next week. She is supported by her parents and 3 siblings. . Spiritual/Cultural Factors She believes in God, declines hand inserter operator support at this time. . Living Will: Never completed Health Care Surrogate: Never completed Durable Power of Machine Greaser: Never completed Health Care Surrogate(s): Patient is currently capacitated. If patient loses capacity, according to [place] statutes, health care proxy decision making falls to a parent. She indicates she would want her mother to serve as decision maker. She indicates she trusts her mother to make decisions regarding end of life care and wants her to make those decisions as her mother would be the one who would have to care for her 3 children. . Today's verbally stated goals: Goals remain aggressive at this time including FULL CODE. . Family/friends goals: No family at bedside. . Ethical and Legal Issues Patient is currently capacitated. If patient loses capacity, according to [place] statutes, health care proxy decision making falls to a parent. She indicates she would want her mother to serve as decision maker. She indicates she trusts her mother to make decisions regarding end of life care and wants her to make those decisions as her mother would be the one who would have to care for her 3 children. . Physical Exam Vital Signs Date Time Temp Pulse Resp B/P Pulse Ox O2 Delivery O2 Flow Rate FiO2 12/19/16 16:00 100 12/19/16 16:00 98.0 94 20 106/68 95 12/19/16 14:00 94 12/19/16 12:00 100 12/19/16 12:00 98.0 87 20 120/80 95 12/19/16 10:22 93 12/19/16 08:00 82 12/19/16 08:00 98.0 82 20 94/58 95 12/19/16 06:00 94 12/19/16 04:00 98.0 94 20 106/68 95 12/19/16 04:00 94 12/19/16 02:00 97 12/19/16 00:00 100 12/19/16 00:00 98.3 100 20 108/67 97 12/18/16 22:00 106 12/18/16 20:00 106 12/18/16 20:00 98.2 106 24 78/47 93 12/18/16 18:00 117 12/18/16 12/19/16 19:00 07:00 Intake Total 950 ml 1270 ml Output Total 350 ml 1400 ml Balance 600 ml -130 ml Intake Oral 500 ml 400 ml IV Total 450 ml 870 ml Output Urine Total 350 ml 1400 ml # Bowel Movements 0 Exam CONSTITUTIONAL/GENERAL: This is a critically ill patient, in no apparent distress. TUBES/LINES/DRAINS: PIV SKIN: No jaundice, rashes, or lesions. Ecchymoses on upper extremities. No wounds seen anteriorly. Skin temperature appropriate. Not diaphoretic. HEAD: Atraumatic. Normocephalic. EYES: Pupils equal and round and reactive. Extraocular motions intact. No scleral icterus. No injection or drainage. Fundi not examined. ENT: Hearing grossly normal. Nose without bleeding or purulent drainage. Throat without visible erythema, exudates, masses, or lesions. NECK: Trachea midline. Supple, nontender. No palpable thyroid enlargement or nodularity. CARDIOVASCULAR: Tachycardic rate and rhythm, Grade 2 systolic murmur left sternal border, gallops, or rubs. Well-healed sternotomy scar noted. RESPIRATORY/CHEST: Symmetric, unlabored respirations. Clear to auscultation. Breath sounds equal bilaterally. No wheezes, rales, or rhonchi. GASTROINTESTINAL: Abdomen soft, non-tender, nondistended. No guarding. Bowel sounds present. GENITOURINARY: Without palpable bladder distension. MUSCULOSKELETAL: Extremities without clubbing, cyanosis, or edema. No mottling or clubbing. LYMPHATICS: No palpable cervical or supraclavicular adenopathy. NEUROLOGICAL: Awake and alert. Follows commands. Cognitively sharp. Moves all extremities. PSYCHIATRIC: No obvious anxiety/depression. no apparent hallucinations or other psychotic thought process. . Diagnostic Tests Laboratory Laboratory Tests Test 12/16/16 12/16/16 12/16/16 12/17/16 20:47 20:49 22:10 04:00 Blood Smear Pathologist Review Reticulocyte Count 0.2 % (0.4-3.0) Absolute Reticulocyte Count 5.2 MIL/L (20.0-150.0) Prothrombin Time 14.2 SEC (9.8-11.6) Prothromb Time International 1.3 RATIO Ratio Activated Partial 36.1 SEC Thromboplast Time (24.3-30.1) Fibrinogen 242 mg/dL (227-377) Iron Level 44 MCG/DL (50-170) Total Iron Binding Capacity 195 MCG/DL (250-450) Percent Iron Saturation 22.6 % (20-50) Ferritin 1487 NG/ML (8-252) Lactate Dehydrogenase 130 U/L (84-246) Vitamin B12 Level 346 PG/ML (193-986) Folate 11.2 NG/ML (3.1-17.5) Urine Color YELLOW (YELLW/STRAW) Urine Turbidity HAZY (CLEAR) Urine pH 6.0 (5.0-8.5) Urine Specific [place] 1.036 (1.002-1.035) Urine Protein 30 mg/dL (NEG-TRACE) Urine Glucose (UA) NEG mg/dL (NEG) Urine Ketones NEG mg/dL (NEG) Urine Occult Blood MOD (NEG) Urine Nitrite NEG (NEG) Urine Bilirubin NEG (NEG) Urine Urobilinogen 2.0 MG/DL (LESS THAN 2.0) Urine Leukocyte Esterase NEG (NEG) Urine RBC 7 /hpf (0-3) Urine WBC 4 /hpf (0-5) Urine Squamous Epithelial 1 /hpf (0-5) Cells Urine Mucus FEW /lpf (OCC) Microscopic Urinalysis Comment CATH-CULT NOT IND Urine Opiates Screen POS (NEG) Urine Barbiturates Screen NEG (NEG) Urine Amphetamines Screen NEG (NEG) Urine Benzodiazepines Screen NEG (NEG) Urine Cocaine Screen NEG (NEG) Urine Cannabinoids Screen NEG (NEG) White Blood Count 6.7 TH/MM3 (4.0-11.0) Red Blood Count 3.03 MIL/MM3 (4.00-5.30) Hemoglobin 8.2 GM/DL (11.6-15.3) Hematocrit 25.5 % (35.0-46.0) Mean Corpuscular Volume 84.0 FL (80.0-100.0) Mean Corpuscular Hemoglobin 26.9 PG (27.0-34.0) Mean Corpuscular Hemoglobin 32.0 % Concent (32.0-36.0) Red Cell Distribution Width 16.0 % (11.6-17.2) Platelet Count 31 TH/MM3 (150-450) Mean Platelet Volume 11.2 FL (7.0-11.0) Neutrophils (%) (Auto) 79.2 % (16.0-70.0) Lymphocytes (%) (Auto) 9.7 % (9.0-44.0) Monocytes (%) (Auto) 10.6 % (0.0-8.0) Eosinophils (%) (Auto) 0.4 % (0.0-4.0) Basophils (%) (Auto) 0.1 % (0.0-2.0) Neutrophils # (Auto) 5.3 TH/MM3 (1.8-7.7) Lymphocytes # (Auto) 0.7 TH/MM3 (1.0-4.8) Monocytes # (Auto) 0.7 TH/MM3 (0-0.9) Eosinophils # (Auto) 0.0 TH/MM3 (0-0.4) Basophils # (Auto) 0.0 TH/MM3 (0-0.2) CBC Comment AUTO DIFF Differential Comment AUTO DIFF CONFIRMED Platelet Estimate LOW (NORMAL) Platelet Morphology Comment NORMAL (NORMAL) Sodium Level 132 MEQ/L (136-145) Potassium Level 2.8 MEQ/L (3.5-5.1) Chloride Level 102 MEQ/L (98-107) Carbon Dioxide Level 18.4 MEQ/L (21.0-32.0) Anion Gap 12 MEQ/L (5-15) Blood Urea Nitrogen 18 MG/DL (7-18) Creatinine 0.82 MG/DL (0.50-1.00) Estimat Glomerular Filtration 80 ML/MIN (>89) Rate Random Glucose 140 MG/DL (74-106) Calcium Level 7.1 MG/DL (8.5-10.1) Protein Corrected Calcium 7.6 MG/DL (8.5-10.1) Total Bilirubin 0.9 MG/DL (0.2-1.0) Aspartate Amino Transf 18 U/L (15-37) (AST/SGOT) Alanine Aminotransferase 12 U/L (10-53) (ALT/SGPT) Alkaline Phosphatase 96 U/L (45-117) Total Protein 6.1 GM/DL (6.4-8.2) Albumin 1.7 GM/DL (3.4-5.0) Test 12/17/16 12/17/16 12/17/16 12/18/16 06:00 08:47 14:30 04:20 Prothrombin Time 13.6 SEC 14.0 SEC (9.8-11.6) (9.8-11.6) Prothromb Time International 1.2 RATIO 1.3 RATIO Ratio Activated Partial 33.2 SEC 32.6 SEC Thromboplast Time (24.3-30.1) (24.3-30.1) Blood Bank Comment Potassium Level 3.3 MEQ/L (3.5-5.1) Vancomycin Level Trough 8.3 MCG/ML (5.0-10.0) Creatinine 0.51 MG/DL (0.50-1.00) Estimat Glomerular Filtration 138 ML/MIN Rate (>89) Test 12/18/16 12/18/16 12/18/16 12/18/16 07:50 10:45 14:20 15:45 White Blood Count 8.1 TH/MM3 (4.0-11.0) Red Blood Count 2.94 MIL/MM3 (4.00-5.30) Hemoglobin 7.8 GM/DL (11.6-15.3) Hematocrit 24.5 % (35.0-46.0) Mean Corpuscular Volume 83.2 FL (80.0-100.0) Mean Corpuscular Hemoglobin 26.5 PG (27.0-34.0) Mean Corpuscular Hemoglobin 31.8 % Concent (32.0-36.0) Red Cell Distribution Width 16.0 % (11.6-17.2) Platelet Count 29 TH/MM3 (150-450) Mean Platelet Volume 10.4 FL (7.0-11.0) Neutrophils (%) (Auto) 77.4 % (16.0-70.0) Lymphocytes (%) (Auto) 12.1 % (9.0-44.0) Monocytes (%) (Auto) 9.6 % (0.0-8.0) Eosinophils (%) (Auto) 0.6 % (0.0-4.0) Basophils (%) (Auto) 0.3 % (0.0-2.0) Neutrophils # (Auto) 6.3 TH/MM3 (1.8-7.7) Lymphocytes # (Auto) 1.0 TH/MM3 (1.0-4.8) Monocytes # (Auto) 0.8 TH/MM3 (0-0.9) Eosinophils # (Auto) 0.1 TH/MM3 (0-0.4) Basophils # (Auto) 0.0 TH/MM3 (0-0.2) CBC Comment AUTO DIFF Differential Comment AUTO DIFF CONFIRMED Toxic Granulation 1+ (NORMAL) Toxic Vacuolation PRESENT (NONE SEEN) Platelet Estimate LOW (NORMAL) Platelet Morphology Comment ENLARGED (NORMAL) Vancomycin Level Trough 9.3 MCG/ML (5.0-10.0) Sodium Level 135 MEQ/L (136-145) Potassium Level 3.0 MEQ/L (3.5-5.1) Chloride Level 106 MEQ/L (98-107) Carbon Dioxide Level 22.0 MEQ/L (21.0-32.0) Anion Gap 7 MEQ/L (5-15) Blood Urea Nitrogen 9 MG/DL (7-18) Creatinine 0.51 MG/DL (0.50-1.00) Estimat Glomerular Filtration 138 ML/MIN Rate (>89) Random Glucose 103 MG/DL (74-106) Calcium Level 7.2 MG/DL (8.5-10.1) Protein Corrected Calcium 7.7 MG/DL (8.5-10.1) Total Protein 6.1 GM/DL (6.4-8.2) Gentamicin Level Peak 1.2 MCG/ML (4.0-8.0) Test 12/18/16 12/18/16 12/19/16 12/19/16 17:40 19:37 04:15 12:15 Gentamicin Level Trough 3.1 MCG/ML 1.0 MCG/ML (0.0-2.0) (0.0-2.0) Random Cortisol 57.2 MCG/DL White Blood Count 8.9 TH/MM3 (4.0-11.0) Red Blood Count 2.86 MIL/MM3 (4.00-5.30) Hemoglobin 7.9 GM/DL (11.6-15.3) Hematocrit 23.6 % (35.0-46.0) Mean Corpuscular Volume 82.5 FL (80.0-100.0) Mean Corpuscular Hemoglobin 27.7 PG (27.0-34.0) Mean Corpuscular Hemoglobin 33.5 % Concent (32.0-36.0) Red Cell Distribution Width 15.9 % (11.6-17.2) Platelet Count 31 TH/MM3 (150-450) Mean Platelet Volume 10.8 FL (7.0-11.0) Neutrophils (%) (Auto) 84.7 % (16.0-70.0) Lymphocytes (%) (Auto) 7.0 % (9.0-44.0) Monocytes (%) (Auto) 7.7 % (0.0-8.0) Eosinophils (%) (Auto) 0.3 % (0.0-4.0) Basophils (%) (Auto) 0.3 % (0.0-2.0) Neutrophils # (Auto) 7.5 TH/MM3 (1.8-7.7) Lymphocytes # (Auto) 0.6 TH/MM3 (1.0-4.8) Monocytes # (Auto) 0.7 TH/MM3 (0-0.9) Eosinophils # (Auto) 0.0 TH/MM3 (0-0.4) Basophils # (Auto) 0.0 TH/MM3 (0-0.2) CBC Comment AUTO DIFF Differential Comment AUTO DIFF CONFIRMED Toxic Granulation 1+ (NORMAL) Toxic Vacuolation PRESENT (NONE SEEN) Platelet Estimate LOW (NORMAL) Platelet Morphology Comment NORMAL (NORMAL) Prothrombin Time 14.8 SEC (9.8-11.6) Prothromb Time International 1.3 RATIO Ratio Activated Partial 35.0 SEC Thromboplast Time (24.3-30.1) Sodium Level 136 MEQ/L (136-145) Potassium Level 3.2 MEQ/L (3.5-5.1) Chloride Level 105 MEQ/L (98-107) Carbon Dioxide Level 21.0 MEQ/L (21.0-32.0) Anion Gap 10 MEQ/L (5-15) Blood Urea Nitrogen 12 MG/DL (7-18) Creatinine 0.76 MG/DL (0.50-1.00) Estimat Glomerular Filtration 87 ML/MIN (>89) Rate Random Glucose 163 MG/DL (74-106) Calcium Level 7.3 MG/DL (8.5-10.1) Protein Corrected Calcium 7.6 MG/DL (8.5-10.1) Total Protein 6.5 GM/DL (6.4-8.2) Vancomycin Level Trough 19.5 MCG/ML (5.0-10.0) Result Diagram: 12/19/16 0415 12/19/16 0415 Microbiology Microbiology Date/Time Procedure Status Source Growth 12/16/16 22:10 Urine Culture - Final Complete Urine Catheterized Urine NO GROWTH IN 48 HOURS. 12/17/16 14:30 Aerobic Blood Culture - Preliminary Resulted Blood Peripheral Group D Enterococcus 12/17/16 14:30 Anaerobic Blood Culture - Preliminary Resulted Gram Positive Cocci 12/17/16 14:34 Aerobic Blood Culture - Preliminary Resulted Blood Peripheral Group D Enterococcus 12/17/16 14:34 Anaerobic Blood Culture - Preliminary Resulted Blood Peripheral NO GROWTH IN 2 DAYS 12/18/16 15:27 Aerobic Blood Culture - Preliminary Resulted Blood Peripheral Gram Positive Cocci 12/18/16 15:27 Anaerobic Blood Culture - Final Resulted Blood Peripheral ONLY AEROBIC CULTURE ORDERED 12/18/16 19:37 Aerobic Blood Culture - Preliminary Resulted Blood Peripheral NO GROWTH IN 1 DAY 12/18/16 19:37 Anaerobic Blood Culture - Preliminary Resulted Blood Peripheral NO GROWTH IN 1 DAY . Imaging Last Impressions Chest X-Ray 12/17/16 0000 Signed Impressions: Service Date/Time: Saturday, December 17, 2016 04:55 - CONCLUSION: Decreasing bibasilar atelectasis. Rodo Hart MD Lower Extremity Ultrasound 12/16/16 Signed Impressions: Service Date/Time: Friday, December 16, 2016 03:56 - CONCLUSION: No DVT of either lower extremity. Rodo Hart MD CT Angiography 12/16/16 0000 Signed Impressions: Service Date/Time: Friday, December 16, 2016 05:40 - CONCLUSION: 1. No pulmonary embolus. 2. Patchy bilateral air space disease, right more so than left and both sides basilar predominant. Rodo Hart MD Abdomen/Pelvis CT 12/16/16 0000 Signed Impressions: Service Date/Time: Friday, December 16, 2016 05:40 - CONCLUSION: 1. Enlargement and scarring of the spleen. Collateral vessels in the splenic hilum are again noted. 2. Nonspecific hepatomegaly. No focal hepatic lesion. 3. No obstruction or acute inflammatory changes are demonstrated of the gastrointestinal tract. Rodo Hart MD . Patient/Family Conference Present at Family Conference: Met with patient at bedside. Also present Sunshine Miller LCSW. . Family Conference Time (mins): 45 Family Conference Location: Bedside Issues Discussed: * Palliative care role, purpose, approach * Additional medical, psychosocial, and spiritual history * Patients general health, functional status, and cognitive changes in the months leading up to the current hospitalization * Patient understanding of the current medical problems * Patients goals of care as best understood from advance directives and/or conversations and/or values * Current medical treatment options and benefits/burdens of those options * Questions answered to the best of my ability * Palliative care contact information provided Met with patient at bedside. She has a good understanding of her clinical condition and possible setbacks or decline. She understands she is not a candidate for surgical intervention. . Assessment and Plan Disease Oriented Problem List: (1) Endocarditis (2) Bacteremia (3) Pancytopenia (4) Septic shock (5) Septic pulmonary embolism (6) Hypotension (7) IVDU (intravenous drug user) (8) Chest pain Symptom Scale: (1) Chest pain (2) Weakness Pertinent Non-Medical Issues Psychosocial: Single. Has 3 children (12, 7 and 4). Supported by her parents and her siblings. Spiritual: Believes in God, declines hand inserter operator support. Legal: Patient is currently capacitated. If patient loses capacity, according to [place] statutes, health care proxy decision making falls to a parent. She indicates she would want her mother to serve as decision maker. She indicates she trusts her mother to make decisions regarding end of life care and wants her to make those decisions as her mother would be the one who would have to care for her 3 children. Ethical issues impacting care: none. . Important Contacts * Tiara Romero, mother/ HCP: [phone] . Prognosis Patient is not a candidate for 2nd valve surgery, ID feels antibiotics may treat endocarditis. Patient is high risk for further setbacks or decline. Will monitor. . Code Status: Full Code Plan * Patient is currently capacitated. If patient loses capacity, according to [place] statutes, health care proxy decision making falls to a parent. She indicates she would want her mother to serve as decision maker. She indicates she trusts her mother to make decisions regarding end of life care and wants her to make those decisions as her mother would be the one who would have to care for her 3 children. * FULL CODE per pt wishes * Met with patient, she desires FULL CODE and continued aggressive care at this time. She seems to have a good understanding of condition and risks. * SYMPTOMS: Weakness: due to endocarditis and recent hospitalizations. Getting up to [facility], continue PT. Pain: denies during my visit today. Will monitor. No new medication recommendations at this time. * Palliative care number provided. * Palliative care will continue to follow to assist with symptom management, communication, support and clarification of goals as needed. . Thank you for the opportunity to participate in the care of Ms. Romero. Attestation To help prompt me to consider important information that might be impacting today's encounter and assessment, information from prior notes written by myself or my colleagues may have been "brought forward" into today's note. My signature on this note, however, is an attestation that I personally performed the exam, history, and/or decision-making noted today, and, unless otherwise indicated, the interactions with patient, family, and staff as well as the review of records all occurred today. I also attest that the listed assessment and stated plan reflect my best clinical judgment today based on the combination of historical information, prior notes, and today's exam/ interactions. When time spent is documented, it refers only to time spent today by the signer, or if indicated, combined time spent today by collaborating physician/nurse practitioner. Sherry Moreno Dec 19, 2016 18:30
--- NOTE | 2016-12-19 19:09 | HHI.IDPN ---
Subjective Subjective Remarks Off pressors No fevers No rash No diarrhea UO fair. denies diarrhea feels much better She is growing GNBs (x 2 types) in the blood and a maza S enterococcus in the blood MICHELE+ for MV and TV veg's large Upon questioning about IVDA: Today she admitted to IV drugs after her discharge from [facility] in October 2016. She thinks when she was inebriated she was injected with drugs at a house alliance party. Antibiotics cefepime IV Genta IV flagyl oral vanco iv vanco po Lines Line sites with no e/o infections. Past Medical History reviewed Allergies: Coded Allergies: Morphine (Verified Allergy, Severe, hives, 12/15/16) [place] (Verified Allergy, Unknown, 12/15/16) Penicillin (Verified Allergy, Unknown, 12/15/16) Objective . Vital Signs Date Time Temp Pulse Resp B/P Pulse Ox O2 Delivery O2 Flow Rate FiO2 12/19/16 18:00 100 12/19/16 16:00 100 12/19/16 16:00 98.0 94 20 106/68 95 12/19/16 14:00 94 12/19/16 12:00 100 12/19/16 12:00 98.0 87 20 120/80 95 12/19/16 10:22 93 12/19/16 08:00 82 12/19/16 08:00 98.0 82 20 94/58 95 12/19/16 06:00 94 12/19/16 04:00 98.0 94 20 106/68 95 12/19/16 04:00 94 12/19/16 02:00 97 12/19/16 00:00 100 12/19/16 00:00 98.3 100 20 108/67 97 12/18/16 22:00 106 12/18/16 20:00 106 12/18/16 20:00 98.2 106 24 78/47 93 12/18/16 12/18/16 12/19/16 15:00 23:00 07:00 Intake Total 950 ml 606 ml 664 ml Output Total 350 ml 800 ml 600 ml Balance 600 ml -194 ml 64 ml Intake Oral 500 ml 200 ml 200 ml IV Total 450 ml 406 ml 464 ml Output Urine Total 350 ml 800 ml 600 ml # Bowel Movements 0 0 . Laboratory Tests Test 12/18/16 12/19/16 07:50 04:15 White Blood Count 8.1 TH/MM3 8.9 TH/MM3 Red Blood Count 2.94 MIL/MM3 2.86 MIL/MM3 Hemoglobin 7.8 GM/DL 7.9 GM/DL Hematocrit 24.5 % 23.6 % Mean Corpuscular Volume 83.2 FL 82.5 FL Mean Corpuscular Hemoglobin 26.5 PG 27.7 PG Mean Corpuscular Hemoglobin 31.8 % 33.5 % Concent Red Cell Distribution Width 16.0 % 15.9 % Platelet Count 29 TH/MM3 31 TH/MM3 Mean Platelet Volume 10.4 FL 10.8 FL Neutrophils (%) (Auto) 77.4 % 84.7 % Lymphocytes (%) (Auto) 12.1 % 7.0 % Monocytes (%) (Auto) 9.6 % 7.7 % Eosinophils (%) (Auto) 0.6 % 0.3 % Basophils (%) (Auto) 0.3 % 0.3 % Neutrophils # (Auto) 6.3 TH/MM3 7.5 TH/MM3 Lymphocytes # (Auto) 1.0 TH/MM3 0.6 TH/MM3 Monocytes # (Auto) 0.8 TH/MM3 0.7 TH/MM3 Eosinophils # (Auto) 0.1 TH/MM3 0.0 TH/MM3 Basophils # (Auto) 0.0 TH/MM3 0.0 TH/MM3 CBC Comment AUTO DIFF AUTO DIFF Differential Comment AUTO DIFF AUTO DIFF CONFIRMED CONFIRMED Toxic Granulation 1+ 1+ Toxic Vacuolation PRESENT PRESENT Platelet Estimate LOW LOW Platelet Morphology Comment ENLARGED NORMAL Laboratory Tests Test 12/18/16 12/18/16 12/18/16 12/19/16 04:20 14:20 19:37 04:15 Creatinine 0.51 MG/DL 0.51 MG/DL 0.76 MG/DL Estimat Glomerular Filtration 138 ML/MIN 138 ML/MIN 87 ML/MIN Rate Sodium Level 135 MEQ/L 136 MEQ/L Potassium Level 3.0 MEQ/L 3.2 MEQ/L Chloride Level 106 MEQ/L 105 MEQ/L Carbon Dioxide Level 22.0 MEQ/L 21.0 MEQ/L Anion Gap 7 MEQ/L 10 MEQ/L Blood Urea Nitrogen 9 MG/DL 12 MG/DL Random Glucose 103 MG/DL 163 MG/DL Calcium Level 7.2 MG/DL 7.3 MG/DL Protein Corrected Calcium 7.7 MG/DL 7.6 MG/DL Total Protein 6.1 GM/DL 6.5 GM/DL Random Cortisol 57.2 MCG/DL Microbiology Date/Time Procedure Status Source Growth 12/16/16 22:10 Urine Culture - Final Complete Urine Catheterized Urine NO GROWTH IN 48 HOURS. 12/17/16 14:30 Aerobic Blood Culture - Preliminary Resulted Blood Peripheral Group D Enterococcus 12/17/16 14:30 Anaerobic Blood Culture - Preliminary Resulted Gram Positive Cocci 12/17/16 14:34 Aerobic Blood Culture - Preliminary Resulted Blood Peripheral Group D Enterococcus 12/17/16 14:34 Anaerobic Blood Culture - Preliminary Resulted Blood Peripheral NO GROWTH IN 2 DAYS 12/18/16 15:27 Aerobic Blood Culture - Preliminary Resulted Blood Peripheral Gram Positive Cocci 12/18/16 15:27 Anaerobic Blood Culture - Final Resulted Blood Peripheral ONLY AEROBIC CULTURE ORDERED 12/18/16 19:37 Aerobic Blood Culture - Preliminary Resulted Blood Peripheral NO GROWTH IN 1 DAY 12/18/16 19:37 Anaerobic Blood Culture - Preliminary Resulted Blood Peripheral NO GROWTH IN 1 DAY Imaging Last Impressions Chest X-Ray 12/17/16 0000 Signed Impressions: Service Date/Time: Saturday, December 17, 2016 04:55 - CONCLUSION: Decreasing bibasilar atelectasis. Rodo Hart MD Lower Extremity Ultrasound 12/16/16 0000 Signed Impressions: Service Date/Time: Friday, December 16, 2016 03:56 - CONCLUSION: No DVT of either lower extremity. Rodo Hart MD CT Angiography 12/16/16 0000 Signed Impressions: Service Date/Time: Friday, December 16, 2016 05:40 - CONCLUSION: 1. No pulmonary embolus. 2. Patchy bilateral air space disease, right more so than left and both sides basilar predominant. Rodo Hart MD Abdomen/Pelvis CT 12/16/16 0000 Signed Impressions: Service Date/Time: Friday, December 16, 2016 05:40 - CONCLUSION: 1. Enlargement and scarring of the spleen. Collateral vessels in the splenic hilum are again noted. 2. Nonspecific hepatomegaly. No focal hepatic lesion. 3. No obstruction or acute inflammatory changes are demonstrated of the gastrointestinal tract. Rodo Hart MD Physical Exam GENERAL: Thin built, well-developed patient, in no apparent distress. SKIN: No rashes, ecchymoses or lesions. Cool and dry. EYES: Pupils equal round and reactive. Extraocular motions intact. No scleral icterus. No injection or drainage. ENT: Nose without bleeding, purulent drainage or septal hematoma. oral mucosae moist NECK: Trachea midline. Supple, No JVD CARDIOVASCULAR: regular, + 2/6 syustolic murmur no rubs gallops medial sternotopmy scar well healed well perfused perifery RESPIRATORY: Clear to auscultation. Breath sounds equal bilaterally. No wheezes , rales, or rhonchi. GASTROINTESTINAL: Abdomen soft, Mild diffuse tenderness with no rebound or rigidity with a midline reducible hernia. MUSCULOSKELETAL: Extremities without clubbing, cyanosis, or edema. No joint tenderness, effusion, or edema noted. No calf tenderness. Negative Homans sign bilaterally. NEUROLOGICAL: fully awake alert oriented x 3 PSYCH: calm and pleasant IV line sites with no e.o infection. Assessment & Plan Remarks Sepsis with septic shock -s hock resolved Persistent Enterococcu fecali s bacteremia Bioprosthetic valve acute endocarditis (based on verbal report, MICHELE official report pending, BCX positive) both mitral and tricuspid valves involved - large 1.5 cm vegetaion - and also GNB high grade bacteremia - h/o TV and MV bovine valve replacement Gram negative bacteremia H/o endocarditis. Aspiration Pneumonia/septic emboli Cdiff colitis. 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 Follow clinically Pt is not a candidate for new valve 2/2 her IVDU status Mavis Ortiz MD Dec 19, 2016 19:09
[2016-12-19] MEDS: VANCOMYCIN INJ 750 MG in SODIUM CHLOR 0.9% 250 ML INJ 250 ML IV SCH (21:19)
[2016-12-20] VITALS (15 sets, daily range): BP systolic 80–105; BP diastolic 49–66; PULSE 71–90; RESP 13–24; TEMP 97.4–98; O2SAT 93–97
[2016-12-20] MEDS: CEFEPIME INJ 2,000 MG in SODIUM CHLORIDE 0.9% INJ 100 ML IV SCH ×3 (00:04→15:31)
[2016-12-20] MEDS: HYDROmorphone HCL 4 MG TAB PO PRN ×4 (00:05→18:01)
[2016-12-20] MEDS: HYDROCORTISONE SOD SUCCINATE 100 MG VIAL IV PUSH SCH ×3 (02:41→15:30)
[2016-12-20] MEDS: metroNIDAZOLE 500 MG TAB PO SCH ×3 (02:42→20:49)
[2016-12-20] MEDS ORDERED: PHARMACY ORDERED LAB ONE ×2 (03:45→11:45)
[2016-12-20] MEDS: CHLORHEXIDINE GLUCONATE 2 % 1 PACK (2 CLOTHS) TOP SCH (04:00)
[2016-12-20] MEDS: GENTAMICIN INJ 60 MG in SODIUM CHLORIDE 0.9% INJ 100 ML IV SCH ×2 (04:38→17:05)
[2016-12-20] MEDS: VANCOMYCIN INJ 750 MG in SODIUM CHLOR 0.9% 250 ML INJ 250 ML IV SCH ×3 (04:38→20:50)
[2016-12-20 05:59] LABS: AUTOMATED NEUTROPHIL # 2.6 TH/MM3 (1.8-7.7); BASOPHIL % 0.2 % (0.0-2.0); EOSINOPHIL % 0.2 % (0.0-4.0); HEMATOCRIT 21.3 % (35.0-46.0); LYMPH % 11.9 % (9.0-44.0); LYMPHOCYTE # 0.4 TH/MM3 (1.0-4.8); MEAN CELL VOLUME 83.1 FL (80.0-100.0); MEAN CORPUSCULAR HEMOGLOBIN 27.6 PG (27.0-34.0); MEAN CORPUSCULAR HGB CONC 33.2 % (32.0-36.0); MONO % 7.7 % (0.0-8.0); PLATELET COUNT 30 TH/MM3 (150-450); RED BLOOD COUNT 2.57 MIL/MM3 (4.00-5.30); RED CELL DISTRIBUTION WIDTH 15.8 % (11.6-17.2); WHITE BLOOD COUNT 3.2 TH/MM3 (4.0-11.0)
[2016-12-20 06:05] LABS: APTT (PATIENT) 28.9 SEC (24.3-30.1); INTERNATIONAL NORMALIZED RATIO 1.3 RATIO
[2016-12-20 06:41] LABS: HEMO FLAGS AUTO DIFF
[2016-12-20 06:50] LABS: BICARBONATE 21.1 MEQ/L (21.0-32.0); POTASSIUM 4.2 MEQ/L (3.5-5.1)
[2016-12-20 07:29] LABS: CALCIUM-PROTEIN CORRECTED 7.5 MG/DL (8.5-10.1)
--- NOTE | 2016-12-20 07:57 | HHI.CCPN ---
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 Patient had a blood pressure 90/51 heart rate in the 130s and temperature 99.2. Patient was recently admitted to [facility] in October 17 for possible recurrent endocarditis, which was ruled out and patient was discharged home. On December 07 she began to have generalized weakness and started to have a fever. Tmax at home of 102. 2 days ago she began to have severe chest pain in the center of her chest. She also had dyspnea on exertion, also had nausea and vomiting intermittently since December 07. Since last 2 days innumerable episodes of vomiting and diarrhea but no blood in stools or hematemesis. A 2d echo done on 10/17/16 was negative for any vegetation I evaluated the patient in the emergency department. She remains tachycardic and borderline hypotensive. Complaints of chest pain to the right side of the rib, since December 07. She claims it is constant and 9 out of 10. Initial cardiac enzymes and EKG negative. I have ordered CT pulmonary angiogram to rule out PE and septic emboli given history of endocarditis and lower extremity DVT. Patient had also not been taking eliquis for the last few days. Patient also complained about nausea vomiting and diarrhea with diffuse abdominal pain for the last few days. I have also ordered CT abdomen pelvis to rule out any kind of colitis. Patient will be continued on vancomycin and cefepime which was started in the ED, I have added Flagyl 12/17: remains on levophed for vasopressor support. remains in septic shock. complains of being hungry this morning. NPO for MICHELE today. thrombocytopenia improved slightly after platelet transfusion. no signs of active bleeding. wbc improving. blood cultures 09/09 growing both GNRs and GPCs. 12/18: vasopressors persist. tolerating diet. repeat blood cultures still growing GPCs. patient without complaints. MICHELE with mitral and tricuspid valve endocarditis. 12/19: remains on norepinephrine support for low-grade shock. still with persistently positive blood cultures. patient otherwise without complaints. does appear more volume overloaded clinically. Subjective: 12/20 Off levophed since 9 pm last night. Pancytopenic. Hgb with downtrend to 7.1 from 7.9, transfusing 1 unit PRBC. Platelets 30 but no e/o active bleeding. WBC 3.2. Afebrile. Toleraing out of bed to chair today and getting up to bedside commode. Objective Vital Signs Date Time Temp Pulse Resp B/P Pulse Ox O2 Delivery O2 Flow Rate FiO2 12/20/16 06:00 73 12/20/16 04:49 95 21 12/20/16 04:00 98.0 20 89/56 12/17/16 10:20 15.00 Intake and Output 12/19/16 12/19/16 12/20/16 08:00 16:00 00:00 Intake Total 664 ml 900 ml 987 ml Output Total 600 ml Balance 64 ml 900 ml 987 ml Result Diagram: 12/20/1652512/20/16525 Imaging Chest x-ray mild interstitial edema Objective Remarks GENERAL: Patient is 36 yo critically ill female who is sitting up in bed, coversant. SKIN: Warm and dry. HEAD: Normocephalic. EYES: No scleral icterus. No injection or drainage. NECK: trachea midline. + JVD CARDIOVASCULAR: Tachycardic rate and rhythm, Grade 2 systolic murmur left sternal border, no rubs. Well-healed sternotomy scar from valve surgeries RESPIRATORY: Breath sounds equal bilaterally. No accessory muscle use. On RA> GASTROINTESTINAL: Abdomen soft, non-tender, nondistended. MUSCULOSKELETAL: No cyanosis, edema. right PICC site clean dry intact, no evidence of bleeding or hematoma. NEURO: Awake oriented. Moving all extremities spontaneously without focal deficit. A/P Assessment and Plan Assessment and Plan: 36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 Difficile Colitis, septic shock. Now off vasopressors. Continue antibiotic per ID. appreciate subspecialty assistance. Also agree with palliative consult. 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 On Prescribed Dilaudid for pain, UDS positive for opiates. - Supplement multivitamin, thiamine RESP: History of septic pulmonary emboli - DuoNeb every 6 hours and when necessary - Aggressive pulmonary toilet - Bilateral lower extremity venous Doppler negative 12/16/16. 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 -Evaluated by [facility] and she is not operative candidate due to recent IV drug use. - Off vasopressors. Will wean hydrocortisone 50 IV q12. GI: Abdominal pain with nausea and vomiting - resolved Acute protein calorie malnutrition- severe. History of hepatitis C - regular diet as tolerated. - IV Protonix /Endo: Dehydration- resolved. Hyponatremia-resolved - Monitor renal function, I/O's, electrolytes replacement per protocol. 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 Difficile Colitis - Continue abx per ID: Vancomycin. cefepime discontinued today, started rocephin. On gentamicin. - ID service is consulted. Repeat blood cultures from 12/19 pending . - C. Diff + 12/16 -HIV negative Culture data: 12/15 blood cx: 09/09: Enterococcus faecalis, Enterobacter Cloacae (2 strains), Group D enterococcus, additional Gram negative rods 12/15 c. diff pcr + 12/17 blood cx: Group D enterococcus 2/4, GPCs 1. 12/18 blood cx: Enterococcus faecalis 1/4 bottles 12/19 - blood cx x2 sets - pending. HEME: Anemia History of bilateral lower extremity DVT Pancytopenia Thrombocytopenia -Monitor CBC, CMP, INR -hold eliquis until platelets >70 k per hematology recs. Continue prophylactic heparin 5000 subcut q12 per hematology recs. PROPH: -Bilateral lower extremity SCDs, hold therapeutic anticoagulation given coagulopathy, continue heparin subcut as per above. IV Protonix 40 mg IV daily LINES: - right axillary CVL placed by DR. Moreira 12/16/16. Dispo: Remain in ICU and likely transfer out in morning if remains off vasopressors. Level 2 Betsey Olmstead MD Dec 20, 2016 07:57
[2016-12-20] MEDS: PANTOPRAZOLE SODIUM 40 MG VIAL IV SCH (08:24)
[2016-12-20] MEDS: DOCUSATE SODIUM 50 MG/SENNA 8.6 MG TAB PO SCH ×3 (08:29→20:56)
[2016-12-20] MEDS: HEPARIN SODIUM - SQ 10,000 UNITS/ML VIAL SQ SCH ×2 (08:29→20:49)
[2016-12-20 09:07] LABS: BANDS 2 % (0-6); CORRECTED NUCLEATED RBC 1 /100 WBC (0-0); NEUTROPHIL # MANUAL DIFF 2.7 TH/MM3 (1.8-7.7); PLATELET ESTIMATE SMEAR LOW (NORMAL); PLATELET MORPHOLOGY NORMAL (NORMAL); POLYS (SEG NEUTROPHILS) 81 % (16-70); SCAN/DIFF FINAL DIFF MANUAL; WBC DIFF SAMPLE 100
--- NOTE | 2016-12-20 14:14 | HHI.GIFU ---
Subjective Remarks Pt sitting up in bed, eating cake. Denies pain, nausea. (Liana Jones ) Objective Vitals I&O Vital Signs Date Time Temp Pulse Resp B/P Pulse Ox O2 Delivery O2 Flow Rate FiO2 12/20/16 10:00 78 12/20/16 08:00 71 12/20/16 08:00 97.9 71 14 105/66 93 12/20/16 06:00 73 12/20/16 04:49 95 21 12/20/16 04:00 72 12/20/16 04:00 98.0 72 20 89/56 95 12/20/16 02:00 87 12/20/16 00:00 97.9 85 24 80/49 96 12/20/16 00:00 85 12/19/16 22:00 97 12/19/16 20:00 81 12/19/16 20:00 97.7 81 22 86/62 96 12/19/16 18:00 100 12/19/16 16:00 100 12/19/16 16:00 98.0 94 20 106/68 95 I/O 12/19/16 12/19/16 12/19/16 12/20/16 12/20/16 12/20/16 07:00 15:00 23:00 07:00 15:00 23:00 Intake Total 664 ml 900 ml 987 ml 298 ml Output Total 600 ml Balance 64 ml 900 ml 987 ml 298 ml Intake Oral 200 ml 600 ml 300 ml 200 ml IV Total 464 ml 300 ml 687 ml 98 ml Output Urine Total 600 ml # Voids 3 2 2 # Bowel Movements 0 1 1 0 Laboratory Laboratory Tests Test 12/19/16 12/20/16 21:00 05:26 Potassium Level 4.0 4.2 White Blood Count 3.2 Red Blood Count 2.57 Hemoglobin 7.1 Hematocrit 21.3 Mean Corpuscular Volume 83.1 Mean Corpuscular Hemoglobin 27.6 Mean Corpuscular Hemoglobin 33.2 Concent Red Cell Distribution Width 15.8 Platelet Count 30 Mean Platelet Volume 9.9 Neutrophils (%) (Auto) 80.0 Lymphocytes (%) (Auto) 11.9 Monocytes (%) (Auto) 7.7 Eosinophils (%) (Auto) 0.2 Basophils (%) (Auto) 0.2 Neutrophils # (Auto) 2.6 Lymphocytes # (Auto) 0.4 Monocytes # (Auto) 0.2 Eosinophils # (Auto) 0.0 Basophils # (Auto) 0.0 CBC Comment AUTO DIFF Differential Total Cells 100 Counted Neutrophils % (Manual) 81 Band Neutrophils % 2 Lymphocytes % 9 Monocytes % 8 Neutrophils # (Manual) 2.7 Nucleated Red Blood Cells 1 Differential Comment FINAL DIFF MANUAL Platelet Estimate LOW Platelet Morphology Comment NORMAL Prothrombin Time 14.0 Prothromb Time International 1.3 Ratio Activated Partial 28.9 Thromboplast Time Sodium Level 137 Chloride Level 108 Carbon Dioxide Level 21.1 Anion Gap 8 Blood Urea Nitrogen 19 Creatinine 0.60 Estimat Glomerular Filtration 114 Rate Random Glucose 126 Calcium Level 7.1 Protein Corrected Calcium 7.5 Total Protein 6.4 Gentamicin Level Trough 4.3 Date/Time Procedure Status Source Growth 12/19/16 22:59 Aerobic Blood Culture Received Blood Peripheral Pending 12/19/16 22:59 Anaerobic Blood Culture Received Blood Peripheral Pending 12/18/16 19:37 Aerobic Blood Culture - Preliminary Resulted Blood Peripheral NO GROWTH IN 2 DAYS 12/18/16 19:37 Anaerobic Blood Culture - Preliminary Resulted Blood Peripheral NO GROWTH IN 2 DAYS 12/18/16 15:27 Aerobic Blood Culture - Final Complete Blood Peripheral Enterococcus Faecalis 12/18/16 15:27 Anaerobic Blood Culture - Final Complete Blood Peripheral ONLY AEROBIC CULTURE ORDERED 12/16/16 22:10 Urine Culture - Final Complete Urine Catheterized Urine NO GROWTH IN 48 HOURS. 12/16/16 04:35 Rotavirus Antigen - Final Complete Stool Stool NEGATIVE - ROTAVIRUS ANTIGEN IS ABSEN... 12/16/16 04:35 Cryptosporidium Exam - Final Complete Stool Stool NEGATIVE - NO CRYPTOSPORIDIUM ANTIGEN... 12/16/16 04:35 Stool Pus (PREET) - Final Complete Stool Stool NO WBC'S SEEN 12/16/16 04:35 Giardia Antigen (PREET) - Final Complete Stool Stool NEGATIVE - NO GIARDIA ANTIGEN DETECTE... Imaging Last Impressions Chest X-Ray 12/17/16 0000 Signed Impressions: Service Date/Time: Saturday, December 17, 2016 04:55 - CONCLUSION: Decreasing bibasilar atelectasis. Rodo Hart MD Lower Extremity Ultrasound 12/16/16 0000 Signed Impressions: Service Date/Time: Friday, December 16, 2016 03:56 - CONCLUSION: No DVT of either lower extremity. Rodo Hart MD CT Angiography 12/16/16 0000 Signed Impressions: Service Date/Time: Friday, December 16, 2016 05:40 - CONCLUSION: 1. No pulmonary embolus. 2. Patchy bilateral air space disease, right more so than left and both sides basilar predominant. Rodo Hart MD Abdomen/Pelvis CT 12/16/16 0000 Signed Impressions: Service Date/Time: Friday, December 16, 2016 05:40 - CONCLUSION: 1. Enlargement and scarring of the spleen. Collateral vessels in the splenic hilum are again noted. 2. Nonspecific hepatomegaly. No focal hepatic lesion. 3. No obstruction or acute inflammatory changes are demonstrated of the gastrointestinal tract. Rodo Hart MD Physical Exam HEENT: Normocephalic; atraumatic; no jaundice. CHEST: CTA CARDIAC: ST, on vasopressors ABDOMEN: Soft, distended, ventral hernia, nontender; no hepatosplenomegaly; bowel sounds are present in all four quadrants. EXTREMITIES: No clubbing, cyanosis, or edema. 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 Abdomen/Pelvis CT (12/16/16)----> 1. Enlargement and scarring of the spleen. Collateral vessels in the splenic hilum are again noted. 2. Nonspecific hepatomegaly. No focal hepatic lesion. 3. No obstruction or acute inflammatory changes are demonstrated of the gastrointestinal tract. GI consulted to rule out gastritis/hh. PPI. She is not having any n/v/abdominal pain at this time. Does continue to have chest pain, but this is most likely related to her endocarditis. She has pancytopenia. Will hold on EGD at this time, as she is not longer having any nausea, vomiting, abdominal pain and her chest pain is most likely related to endocarditis. Tolerating diet. 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 Multiple courses of abx over past year. Per patient, 1st episode of Cdiff. Flagyl, Oral Vanco. - Atypical chest pain. CT Angiography (12/16/16)----> 1. No pulmonary embolus. 2. Patchy bilateral air space disease, right more so than left and both sides basilar predominant. Likely related to endocarditis. - Severe pancytopenia. Improved, but still with thrombocytopenia. Plt 30 Hematology consulted. - Sepsis, Bacteremia, Endocarditis. BCx GNR, GPC. 2D echo moderate left sided pleural effusion, mild pulmonary valve regurgitation. 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 Abx per ID. - Mild elevation of LFTs. Improved. CT as above. - Hyponatremia, Hypokalemia. Per primary. - Hx BLE DVT, has been on Eliquis. Last dose 12/16 - Hx HCV, Tx naive. PLAN: - Heart healthy diet - Cont. Flagyl/Oral Vanco - Cont. PPI - Abx per ID - Monitor stool output - Hematology following - CCM following - ID following - Supportive care - GI will s/o, please reconsult if needed - Pt seen and examined by Dr. Colón and myself and this note is written on his behalf (Liana Jones) Physician Comments patient was seen and examined, agree with above note and plan, please call if you have any question (Murphy Colón MD) Liana Jones Dec 20, 2016 14:14 Murphy Colón MD Dec 20, 2016 16:06
[2016-12-20] MEDS ORDERED: ACETAMINOPHEN 325 MG TAB PO PRN (14:30)
[2016-12-20] MEDS ORDERED: SODIUM CHLOR 0.9% 250 ML INJ 250 ML IV ONE (14:30)
[2016-12-20] MEDS ORDERED: diphenhydrAMINE HCL 25 MG CAP PO PRN (14:30)
--- NOTE | 2016-12-20 14:40 | PD.ONC.PN ---
Subjective Subjective Remarks Afebrile overnight. Pt sitting up in chair at bedside. Denies any bleeding or SOB. Objective Data Date Time Temp Pulse Resp B/P Pulse Ox O2 Delivery O2 Flow Rate FiO2 12/20/16 12:00 97.7 77 15 102/63 97 12/20/16 12:00 77 12/20/16 10:00 78 12/20/16 08:00 71 12/20/16 08:00 97.9 71 14 105/66 93 12/20/16 06:00 73 12/20/16 04:49 95 21 12/20/16 04:00 72 12/20/16 04:00 98.0 72 20 89/56 95 12/20/16 02:00 87 12/20/16 00:00 97.9 85 24 80/49 96 12/20/16 00:00 85 12/19/16 22:00 97 12/19/16 20:00 81 12/19/16 20:00 97.7 81 22 86/62 96 12/19/16 18:00 100 12/19/16 16:00 100 12/19/16 16:00 98.0 94 20 106/68 95 12/20/16 12/20/16 12/20/16 07:00 15:00 23:00 Intake Total 298 ml 920 ml Output Total 400 ml Balance 298 ml 520 ml Result Diagram: 12/20/16 0526 12/20/16 0526 Laboratory Results Laboratory Tests Test 12/19/16 12/20/16 21:00 05:26 Potassium Level 4.0 MEQ/L 4.2 MEQ/L White Blood Count 3.2 TH/MM3 Red Blood Count 2.57 MIL/MM3 Hemoglobin 7.1 GM/DL Hematocrit 21.3 % Mean Corpuscular Volume 83.1 FL Mean Corpuscular Hemoglobin 27.6 PG Mean Corpuscular Hemoglobin 33.2 % Concent Red Cell Distribution Width 15.8 % Platelet Count 30 TH/MM3 Mean Platelet Volume 9.9 FL Neutrophils (%) (Auto) 80.0 % Lymphocytes (%) (Auto) 11.9 % Monocytes (%) (Auto) 7.7 % Eosinophils (%) (Auto) 0.2 % Basophils (%) (Auto) 0.2 % Neutrophils # (Auto) 2.6 TH/MM3 Lymphocytes # (Auto) 0.4 TH/MM3 Monocytes # (Auto) 0.2 TH/MM3 Eosinophils # (Auto) 0.0 TH/MM3 Basophils # (Auto) 0.0 TH/MM3 CBC Comment AUTO DIFF Differential Total Cells 100 Counted Neutrophils % (Manual) 81 % Band Neutrophils % 2 % Lymphocytes % 9 % Monocytes % 8 % Neutrophils # (Manual) 2.7 TH/MM3 Nucleated Red Blood Cells 1 /100 WBC Differential Comment FINAL DIFF MANUAL Platelet Estimate LOW Platelet Morphology Comment NORMAL Prothrombin Time 14.0 SEC Prothromb Time International 1.3 RATIO Ratio Activated Partial 28.9 SEC Thromboplast Time Sodium Level 137 MEQ/L Chloride Level 108 MEQ/L Carbon Dioxide Level 21.1 MEQ/L Anion Gap 8 MEQ/L Blood Urea Nitrogen 19 MG/DL Creatinine 0.60 MG/DL Estimat Glomerular Filtration 114 ML/MIN Rate Random Glucose 126 MG/DL Calcium Level 7.1 MG/DL Protein Corrected Calcium 7.5 MG/DL Total Protein 6.4 GM/DL Gentamicin Level Trough 4.3 MCG/ML Culture Results Microbiology Date/Time Procedure Status Source Growth 12/18/16 15:27 Aerobic Blood Culture - Final Complete Blood Peripheral Enterococcus Faecalis 12/18/16 15:27 Anaerobic Blood Culture - Final Complete Blood Peripheral ONLY AEROBIC CULTURE ORDERED 12/18/16 19:37 Aerobic Blood Culture - Preliminary Resulted Blood Peripheral NO GROWTH IN 2 DAYS 12/18/16 19:37 Anaerobic Blood Culture - Preliminary Resulted Blood Peripheral NO GROWTH IN 2 DAYS 12/19/16 22:39 Aerobic Blood Culture Received Blood Peripheral Pending 12/19/16 22:39 Anaerobic Blood Culture Received Blood Peripheral Pending 12/19/16 22:59 Aerobic Blood Culture Received Blood Peripheral Pending 12/19/16 22:59 Anaerobic Blood Culture Received Blood Peripheral Pending Administered Medications Medications (Trade) Dose Ordered Sig/Solo Route PRN Reason Start Time Stop Time Status Last Admin Dose Admin Cefepime HCl/ Sodium Chloride (Maxipime Inj/NS Inj) 100 ml @ 200 mls/hr Q8H IV 12/16/16 08:00 12/20/16 08:24 Pantoprazole Sodium (Protonix Inj) 40 mg DAILY IV 12/16/16 09:00 12/20/16 08:24 Chlorhexidine Gluconate (Chlorhexidine 2% Cloth) 3 pack Taper DAILY@04 TOP 12/16/16 04:00 12/12/17 03:59 12/20/16 04:00 Senna/Docusate Sodium (Sandy-Colace) 1 tab BID PO 12/16/16 09:00 12/20/16 08:29 Hydromorphone HCl 4 mg 4 mg Q6H PRN PO Pain Management 12/16/16 03:00 12/20/16 12:21 Potassium Chloride 100 ml @ 50 mls/hr Q2H PRN IV For Potassium 2.8 - 3.2 mEq/L 12/16/16 03:45 12/17/16 08:41 Potassium Chloride 100 ml @ 50 mls/hr Q2H PRN IV For Potassium 3.3 - 3.5 mEq/L 12/16/16 03:45 12/16/16 09:39 Norepinephrine Bitartrate (Levophed-Dextrose Drip) 250 ml @ 0 mls/hr TITRATE IV 12/16/16 21:00 12/17/16 21:12 Terbutaline Sulfate (Brethine Inj) 1 mg UNSCH PRN SQ FOR EXTRAVASATION PROTOCOL 12/16/16 21:00 12/16/16 21:09 Metronidazole (Flagyl) 500 mg Q8H PO 12/18/16 20:00 12/20/16 13:02 Hydrocortisone Sodium Succinate (SoluCORTEF INJ) 50 mg Q6H IV PUSH 12/18/16 15:00 12/20/16 08:29 Ondansetron HCl 4 mg 4 mg Q6H PRN IV PUSH NAUSEA/VOMITING 12/18/16 15:30 12/18/16 15:47 Gentamicin Sulfate/Sodium Chloride (Gentamicin Inj/ NS Inj) 101.5 ml @ 200 mls/hr Q12H IV 12/19/16 04:00 12/20/16 04:38 Heparin Sodium (Porcine) 5000 units 5,000 units Q12HR SQ 12/19/16 09:00 12/19/16 08:56 Vancomycin HCl/ Sodium Chloride (Vancomycin Inj/ NS 250 ml Inj) 257.5 ml @ 257.5 mls/ hr Q8H IV 12/19/16 20:00 12/20/16 13:01 Objective Remarks GENERAL: Disheveled appearing younger female, sitting up in bed in no distress. SKIN: Warm and dry. HEAD: Normocephalic. EYES: No injection or drainage. NECK: Supple, trachea midline. CARDIOVASCULAR: +S1/S2 RESPIRATORY: diminished at bases, anterior lerner clear. GASTROINTESTINAL: Abdomen soft, non-tender, nondistended. EXTREMITIES: No cyanosis. Generalized edema to BLE. NEUROLOGICAL: No obvious focal deficit. A&Ox3. Assessment/Plan Problem List: (1) Pancytopenia Status: Acute Plan: --due to liver disease and splenomegaly + sepsis/DIC --CT showed enlarged liver and spleen. spleen is about 20 cm cranio-caudally. -- further drop in blood count is likely a combination of sepsis and consumptive process. --no evidence of TTP noted on peripheral smear. --iron studies show high ferritin, no iron deficiency --B12/folate WNL --transfuse platelets/pRBC as needed --will give Neupogen if patient has severe neutropenia (2) Sepsis Status: Acute Plan: --Sepsis/bacteremia. --has a history of endocarditis, status post tricuspid valve and mitral valve replacement. She has had febrile illness. --most recent blood cultures with no growth. --BC +GNR and GPC --on multiple antibiotics per Infectious Disease. (3) DVT of lower extremity, bilateral Status: Resolved Plan: --started on prophylactic dose heparin on 12/19 -- has had multiple DVT. --was on Coumadin. --one point she was found to have splenic infarction. --has been on Eliquis. has not been taking the Eliquis because she is not able to keep her food or medication down. --no evidence of recurrent clot at this time. Assessment 36y/o [place] [facility] [place] consulted for pancytopenia. h/o MSSA endocarditis, January 2016. Bilateral lower extremity DVT multiple times. She was on Coumadin for a while and switched to Eliquis. Hepatitis C. History of IV drug use. Chronic pain. Tricuspid valve and mitral valve replacement. Left femoral vein catheterization Plan 1. Monitor for bleeding. Platelets still low at 30K today. 2. Once platelets are greater than 70K, we can transition to Eliquis. Continue heparin SQ for now. 2. Will give 1 unit PRBC's today for Hgb of 7.1. 3. Daily CBC. Attending Statement The exam, history, and the medical decision-making described in the above note were completed with the assistance of the mid-level provider. I reviewed and agree with the findings presented. I attest that I had a [id number] encounter with the patient on the same day, and personally performed and documented my assessment and findings in the medical record. pRBC transfusion today hemolysis panel ordered severe thrombocytopenia-hold full anti-coagulation Heparin sq [address] Olmstead d/w RN Problem Qualifiers (1) Sepsis: Qualified Code: O85 - Puerperal sepsis Abiola Phipps Dec 20, 2016 14:40 Jeremías Barrientos MD Dec 21, 2016 00:02
[2016-12-20] MEDS ORDERED: PHARMACY ORDERED LAB-GENT TROUGH ONE (15:45)
--- NOTE | 2016-12-20 17:45 | HHI.IDPN ---
Subjective Subjective Remarks co worsening edema Off pressor On NC O2 Worsning cytopenias Antibiotics cefepime IV Genta IV flagyl oral vanco iv vanco po Lines Line sites with no e/o infections. Past Medical History reviewed Allergies: Coded Allergies: Morphine (Verified Allergy, Severe, hives, 12/15/16) [place] (Verified Allergy, Unknown, 12/15/16) Penicillin (Verified Allergy, Unknown, 12/15/16) Objective . Vital Signs Date Time Temp Pulse Resp B/P Pulse Ox O2 Delivery O2 Flow Rate FiO2 12/20/16 17:30 97.7 85 16 103/65 97 12/20/16 17:03 97.9 81 16 100/61 94 12/20/16 16:00 90 12/20/16 16:00 97.4 90 20 91/60 96 12/20/16 14:00 76 12/20/16 12:00 97.7 77 15 102/63 97 12/20/16 12:00 77 12/20/16 10:00 78 12/20/16 08:00 71 12/20/16 08:00 97.9 71 14 105/66 93 12/20/16 06:00 73 12/20/16 04:49 95 21 12/20/16 04:00 72 12/20/16 04:00 98.0 72 20 89/56 95 12/20/16 02:00 87 12/20/16 00:00 97.9 85 24 80/49 96 12/20/16 00:00 85 12/19/16 22:00 97 12/19/16 20:00 81 12/19/16 20:00 97.7 81 22 86/62 96 12/19/16 18:00 100 12/19/16 12/19/16 12/20/16 14:59 22:59 06:59 Intake Total 900 ml 987 ml 298 ml Balance 900 ml 987 ml 298 ml Intake Oral 600 ml 300 ml 200 ml IV Total 300 ml 687 ml 98 ml # Voids 3 2 2 # Bowel Movements 1 1 0 . Laboratory Tests Test 12/19/16 12/20/16 12/20/16 04:15 05:26 15:25 White Blood Count 8.9 TH/MM3 3.2 TH/MM3 Red Blood Count 2.86 MIL/MM3 2.57 MIL/MM3 Hemoglobin 7.9 GM/DL 7.1 GM/DL Hematocrit 23.6 % 21.3 % Mean Corpuscular Volume 82.5 FL 83.1 FL Mean Corpuscular Hemoglobin 27.7 PG 27.6 PG Mean Corpuscular Hemoglobin 33.5 % 33.2 % Concent Red Cell Distribution Width 15.9 % 15.8 % Platelet Count 31 TH/MM3 30 TH/MM3 Mean Platelet Volume 10.8 FL 9.9 FL Neutrophils (%) (Auto) 84.7 % 80.0 % Lymphocytes (%) (Auto) 7.0 % 11.9 % Monocytes (%) (Auto) 7.7 % 7.7 % Eosinophils (%) (Auto) 0.3 % 0.2 % Basophils (%) (Auto) 0.3 % 0.2 % Neutrophils # (Auto) 7.5 TH/MM3 2.6 TH/MM3 Lymphocytes # (Auto) 0.6 TH/MM3 0.4 TH/MM3 Monocytes # (Auto) 0.7 TH/MM3 0.2 TH/MM3 Eosinophils # (Auto) 0.0 TH/MM3 0.0 TH/MM3 Basophils # (Auto) 0.0 TH/MM3 0.0 TH/MM3 CBC Comment AUTO DIFF AUTO DIFF Differential Comment AUTO DIFF FINAL DIFF CONFIRMED MANUAL Toxic Granulation 1+ Toxic Vacuolation PRESENT Platelet Estimate LOW LOW Platelet Morphology Comment NORMAL NORMAL Differential Total Cells 100 Counted Neutrophils % (Manual) 81 % Band Neutrophils % 2 % Lymphocytes % 9 % Monocytes % 8 % Neutrophils # (Manual) 2.7 TH/MM3 Nucleated Red Blood Cells 1 /100 WBC Haptoglobin 144 MG/DL Laboratory Tests Test 12/18/16 12/19/16 12/19/16 12/20/16 19:37 04:15 21:00 05:26 Random Cortisol 57.2 MCG/DL Sodium Level 136 MEQ/L 137 MEQ/L Potassium Level 3.2 MEQ/L 4.0 MEQ/L 4.2 MEQ/L Chloride Level 105 MEQ/L 108 MEQ/L Carbon Dioxide Level 21.0 MEQ/L 21.1 MEQ/L Anion Gap 10 MEQ/L 8 MEQ/L Blood Urea Nitrogen 12 MG/DL 19 MG/DL Creatinine 0.76 MG/DL 0.60 MG/DL Estimat Glomerular Filtration 87 ML/MIN 114 ML/MIN Rate Random Glucose 163 MG/DL 126 MG/DL Calcium Level 7.3 MG/DL 7.1 MG/DL Protein Corrected Calcium 7.6 MG/DL 7.5 MG/DL Total Protein 6.5 GM/DL 6.4 GM/DL Test 12/20/16 15:25 Lactate Dehydrogenase 178 U/L Microbiology Date/Time Procedure Status Source Growth 12/18/16 15:27 Aerobic Blood Culture - Final Complete Blood Peripheral Enterococcus Faecalis 12/18/16 15:27 Anaerobic Blood Culture - Final Complete Blood Peripheral ONLY AEROBIC CULTURE ORDERED 12/18/16 19:37 Aerobic Blood Culture - Preliminary Resulted Blood Peripheral NO GROWTH IN 2 DAYS 12/18/16 19:37 Anaerobic Blood Culture - Preliminary Resulted Blood Peripheral NO GROWTH IN 2 DAYS 12/19/16 22:39 Aerobic Blood Culture Received Blood Peripheral Pending 12/19/16 22:39 Anaerobic Blood Culture Received Blood Peripheral Pending 12/19/16 22:59 Aerobic Blood Culture Received Blood Peripheral Pending 12/19/16 22:59 Anaerobic Blood Culture Received Blood Peripheral Pending Imaging Last Impressions Chest X-Ray 12/17/16 0000 Signed Impressions: Service Date/Time: Saturday, December 17, 2016 04:55 - CONCLUSION: Decreasing bibasilar atelectasis. Rodo Hart MD Lower Extremity Ultrasound 12/16/16 0000 Signed Impressions: Service Date/Time: Friday, December 16, 2016 03:56 - CONCLUSION: No DVT of either lower extremity. Rodo Hart MD CT Angiography 12/16/16 0000 Signed Impressions: Service Date/Time: Friday, December 16, 2016 05:40 - CONCLUSION: 1. No pulmonary embolus. 2. Patchy bilateral air space disease, right more so than left and both sides basilar predominant. Rodo Hart MD Abdomen/Pelvis CT 12/16/16 0000 Signed Impressions: Service Date/Time: Friday, December 16, 2016 05:40 - CONCLUSION: 1. Enlargement and scarring of the spleen. Collateral vessels in the splenic hilum are again noted. 2. Nonspecific hepatomegaly. No focal hepatic lesion. 3. No obstruction or acute inflammatory changes are demonstrated of the gastrointestinal tract. Rodo Hart MD Physical Exam GENERAL: Thin built, well-developed patient, in no apparent distress. SKIN: No rashes, ecchymoses or lesions. Cool and dry. EYES: Pupils equal round and reactive. Extraocular motions intact. No scleral icterus. No injection or drainage. ENT: Nose without bleeding, purulent drainage or septal hematoma. oral mucosae moist NECK: Trachea midline. Supple, No JVD CARDIOVASCULAR: regular, + 2/6 syustolic murmur no rubs gallops medial sternotopmy scar well healed well perfused perifery RESPIRATORY: Clear to auscultation. Breath sounds equal bilaterally. No wheezes , rales, or rhonchi. GASTROINTESTINAL: Abdomen soft, No tenderness . Worsning distention of the abdomen MUSCULOSKELETAL: Extremities without clubbing, cyanosis, or edema. No joint tenderness, effusion, generalysed edema noted, including extremeties, abdomen genitalia NEUROLOGICAL: fully awake alert oriented x 3 PSYCH: calm and pleasant IV line sites with no e.o infection. 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 Aspiration Pneumonia/septic emboli Cdiff colitis. 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 Follow clinically Pt is not a candidate for new valve 2/2 her IVDU status Mavis Ortiz MD Dec 20, 2016 17:45
[2016-12-20] MEDS ORDERED: cefTRIAXone INJ 2,000 MG in SODIUM CHLORIDE 0.9% INJ 100 ML IV SCH ×2 (18:00→18:30)
[2016-12-20] MEDS ORDERED: PHARMACY ORDERED LAB-VANCO TROUGH ONE (19:45)
[2016-12-21] VITALS (12 sets, daily range): BP systolic 98–112; BP diastolic 60–83; PULSE 79–111; RESP 13–24; TEMP 97.9–98.6; O2SAT 94–100
[2016-12-21] MEDS ORDERED: cefTRIAXone 2 GM PREMIX INJ 50 ML IV SCH
[2016-12-21] MEDS: HYDROmorphone HCL 4 MG TAB PO PRN ×4 (00:05→17:56)
[2016-12-21] MEDS: cefTRIAXone 2,000 MG/NS 100 ML IV SCH ×2 (00:05)
[2016-12-21] MEDS: VANCOMYCIN INJ 750 MG in SODIUM CHLOR 0.9% 250 ML INJ 250 ML IV SCH ×3 (03:59→20:13)
[2016-12-21] MEDS: CHLORHEXIDINE GLUCONATE 2 % 1 PACK (2 CLOTHS) TOP SCH (03:59)
[2016-12-21] MEDS: metroNIDAZOLE 500 MG TAB PO SCH ×3 (03:59→20:13)
[2016-12-21] MEDS: GENTAMICIN INJ 60 MG in SODIUM CHLORIDE 0.9% INJ 100 ML IV SCH ×2 (03:59→17:56)
[2016-12-21 05:14] LABS: AUTOMATED NEUTROPHIL # 3.9 TH/MM3 (1.8-7.7); BASOPHIL % 0.1 % (0.0-2.0); EOSINOPHIL % 0.4 % (0.0-4.0); HEMATOCRIT 25.7 % (35.0-46.0); LYMPH % 14.8 % (9.0-44.0); LYMPHOCYTE # 0.7 TH/MM3 (1.0-4.8); MEAN CELL VOLUME 84.8 FL (80.0-100.0); MEAN CORPUSCULAR HEMOGLOBIN 27.9 PG (27.0-34.0); MEAN CORPUSCULAR HGB CONC 32.9 % (32.0-36.0); MONO % 7.5 % (0.0-8.0); NEUT % 77.2 % (16.0-70.0); PLATELET COUNT 47 TH/MM3 (150-450); RED BLOOD COUNT 3.03 MIL/MM3 (4.00-5.30); RED CELL DISTRIBUTION WIDTH 15.8 % (11.6-17.2)
[2016-12-21 05:16] LABS: HEMO FLAGS DIFF FINAL
[2016-12-21 05:30] LABS: INTERNATIONAL NORMALIZED RATIO 1.1 RATIO; PROTHROMBIN TIME - PATIENT 12.7 SEC (9.8-11.6)
[2016-12-21 05:37] LABS: BICARBONATE 20.6 MEQ/L (21.0-32.0); POTASSIUM 3.1 MEQ/L (3.5-5.1)
[2016-12-21 05:50] LABS: CALCIUM-PROTEIN CORRECTED 7.7 MG/DL (8.5-10.1)
[2016-12-21] MEDS: POTASSIUM CHLOR 40 MEQ PREMIX 100 ML IV PRN ×2 (06:25→09:16)
[2016-12-21] MEDS: PANTOPRAZOLE SODIUM 40 MG VIAL IV SCH (07:50)
[2016-12-21] MEDS: HEPARIN SODIUM - SQ 10,000 UNITS/ML VIAL SQ SCH ×2 (07:51→17:56)
[2016-12-21] MEDS: DOCUSATE SODIUM 50 MG/SENNA 8.6 MG TAB PO SCH ×2 (07:51→20:13)
[2016-12-21] MEDS: ONDANSETRON HCL 4 MG/2 ML VIAL IV PUSH PRN (07:59)
[2016-12-21] MEDS ORDERED: HYDROCORTISONE SOD SUCCINATE 100 MG VIAL IV PUSH SCH (09:00)
--- NOTE | 2016-12-21 12:15 | PD.ONC.PN ---
Subjective Subjective Remarks Afebrile overnight Complaining of swelling in her vulva Denies easy bruising or bleeding Objective Data Date Time Temp Pulse Resp B/P Pulse Ox O2 Delivery O2 Flow Rate FiO2 12/21/16 10:00 104 12/21/16 08:00 85 12/21/16 08:00 98.0 85 20 104/78 99 12/21/16 06:00 94 12/21/16 04:00 88 12/21/16 04:00 98.3 88 13 111/68 96 12/21/16 02:00 86 12/21/16 00:00 79 12/21/16 00:00 98.0 79 21 112/83 96 12/20/16 22:00 75 12/20/16 20:00 74 12/20/16 20:00 97.9 74 13 102/65 95 12/20/16 18:00 86 12/20/16 17:30 97.7 85 16 103/65 97 12/20/16 17:03 97.9 81 16 100/61 94 12/20/16 16:00 90 12/20/16 16:00 97.4 90 20 91/60 96 12/20/16 14:00 76 12/21/16 12/21/16 12/21/16 07:00 15:00 23:00 Intake Total 1266 ml Balance 1266 ml Result Diagram: 12/21/16 0448 12/21/16 0448 Laboratory Results Laboratory Tests Test 12/20/16 12/20/16 12/20/16 12/20/16 15:04 15:25 15:45 20:35 Blood Type O NEGATIVE Antibody Screen NEGATIVE Crossmatch Leukocyte-Reduced Red Blood Cells Blood Bank Comment Haptoglobin 144 MG/DL Lactate Dehydrogenase 178 U/L Gentamicin Level Trough 1.0 MCG/ML Vancomycin Level Trough 19.7 MCG/ML Test 12/21/16 04:48 White Blood Count 5.0 TH/MM3 Red Blood Count 3.03 MIL/MM3 Hemoglobin 8.5 GM/DL Hematocrit 25.7 % Mean Corpuscular Volume 84.8 FL Mean Corpuscular Hemoglobin 27.9 PG Mean Corpuscular Hemoglobin 32.9 % Concent Red Cell Distribution Width 15.8 % Platelet Count 47 TH/MM3 Mean Platelet Volume 10.2 FL Neutrophils (%) (Auto) 77.2 % Lymphocytes (%) (Auto) 14.8 % Monocytes (%) (Auto) 7.5 % Eosinophils (%) (Auto) 0.4 % Basophils (%) (Auto) 0.1 % Neutrophils # (Auto) 3.9 TH/MM3 Lymphocytes # (Auto) 0.7 TH/MM3 Monocytes # (Auto) 0.4 TH/MM3 Eosinophils # (Auto) 0.0 TH/MM3 Basophils # (Auto) 0.0 TH/MM3 CBC Comment DIFF FINAL Differential Comment Haptoglobin 133 MG/DL Prothrombin Time 12.7 SEC Prothromb Time International 1.1 RATIO Ratio Activated Partial 27.0 SEC Thromboplast Time Fibrinogen 136 mg/dL Sodium Level 139 MEQ/L Potassium Level 3.1 MEQ/L Chloride Level 107 MEQ/L Carbon Dioxide Level 20.6 MEQ/L Anion Gap 11 MEQ/L Blood Urea Nitrogen 19 MG/DL Creatinine 0.68 MG/DL Estimat Glomerular Filtration 99 ML/MIN Rate Random Glucose 146 MG/DL Calcium Level 7.3 MG/DL Protein Corrected Calcium 7.7 MG/DL Lactate Dehydrogenase 129 U/L Total Protein 6.3 GM/DL Culture Results Microbiology Date/Time Procedure Status Source Growth 12/18/16 15:27 Aerobic Blood Culture - Final Complete Blood Peripheral Enterococcus Faecalis 12/18/16 15:27 Anaerobic Blood Culture - Final Complete Blood Peripheral ONLY AEROBIC CULTURE ORDERED 12/18/16 19:37 Aerobic Blood Culture - Preliminary Resulted Blood Peripheral NO GROWTH IN 3 DAYS 12/18/16 19:37 Anaerobic Blood Culture - Preliminary Resulted Blood Peripheral NO GROWTH IN 3 DAYS 12/19/16 22:39 Aerobic Blood Culture - Preliminary Resulted Blood Peripheral NO GROWTH IN 1 DAY 12/19/16 22:39 Anaerobic Blood Culture - Preliminary Resulted Blood Peripheral NO GROWTH IN 1 DAY 12/19/16 22:59 Aerobic Blood Culture - Preliminary Resulted Blood Peripheral NO GROWTH IN 1 DAY 12/19/16 22:59 Anaerobic Blood Culture - Preliminary Resulted Blood Peripheral NO GROWTH IN 1 DAY Administered Medications Medications (Trade) Dose Ordered Sig/Solo Route PRN Reason Start Time Stop Time Status Last Admin Dose Admin Pantoprazole Sodium (Protonix Inj) 40 mg DAILY IV 12/16/16 09:00 12/21/16 07:50 Chlorhexidine Gluconate (Chlorhexidine 2% Cloth) Taper DAILY@04 TOP 12/16/16 04:00 12/12/17 03:59 12/21/16 03:59 Senna/Docusate Sodium (Sandy-Colace) 1 tab BID PO 12/16/16 09:00 12/20/16 08:29 Hydromorphone HCl 4 mg 4 mg Q6H PRN PO Pain Management 12/16/16 03:00 12/21/16 12:06 Potassium Chloride 100 ml @ 50 mls/hr Q2H PRN IV For Potassium 2.8 - 3.2 mEq/L 12/16/16 03:45 12/21/16 09:16 Potassium Chloride (KCl 20 Meq Premix Inj) 100 ml @ 50 mls/hr Q2H PRN IV For Potassium 3.3 - 3.5 mEq/L 12/16/16 03:45 12/16/16 09:39 Terbutaline Sulfate (Brethine Inj) 1 mg UNSCH PRN SQ FOR EXTRAVASATION PROTOCOL 12/16/16 21:00 12/16/16 21:09 Metronidazole (Flagyl) 500 mg Q8H PO 12/18/16 20:00 12/21/16 12:06 Ondansetron HCl 4 mg 4 mg Q6H PRN IV PUSH NAUSEA/VOMITING 12/18/16 15:30 12/21/16 07:59 Gentamicin Sulfate/Sodium Chloride (Gentamicin Inj/ NS Inj) 101.5 ml @ 200 mls/hr Q12H IV 12/19/16 04:00 12/21/16 03:59 Heparin Sodium (Porcine) 5000 units 5,000 units Q12HR SQ 12/19/16 09:00 12/21/16 07:51 Vancomycin HCl 750 mg/Sodium Chloride 257.5 ml @ 257.5 mls/ hr Q8H IV 12/19/16 20:00 12/21/16 12:06 Ceftriaxone Sodium/Sodium Chloride (Rocephin Inj/NS Inj) 100 ml @ 200 mls/hr Q24H IV 12/21/16 00:00 12/21/16 00:05 Hydrocortisone Sodium Succinate (SoluCORTEF INJ) 50 mg Q12H IV PUSH 12/21/16 09:00 12/21/16 07:50 Objective Remarks GENERAL: Young female, resting in bed in no distress. SKIN: Warm and dry. HEAD: Normocephalic. EYES: No injection or drainage. NECK: Supple, trachea midline. GENITOURINARY: Swollen labia CARDIOVASCULAR: +S1/S2 RESPIRATORY: Clear anteriorly. Breathing unlabored. GASTROINTESTINAL: Abdomen soft, non-tender, nondistended. EXTREMITIES: No cyanosis. Generalized edema to BLE. NEUROLOGICAL: No obvious focal deficit. A&Ox3. Assessment/Plan Problem List: (1) Pancytopenia Status: Acute Plan: --due to liver disease and splenomegaly + sepsis/DIC --CT showed enlarged liver and spleen. spleen is about 20 cm cranio-caudally. -- further drop in blood count is likely a combination of sepsis and consumptive process. --no evidence of TTP noted on peripheral smear. --iron studies show high ferritin, no iron deficiency --B12/folate WNL --transfuse platelets/pRBC as needed --will give Neupogen if patient has severe neutropenia (2) Sepsis Status: Acute Plan: --Sepsis/bacteremia. --has a history of endocarditis, status post tricuspid valve and mitral valve replacement. She has had febrile illness. --most recent blood cultures with no growth. --BC +GNR and GPC --on multiple antibiotics per Infectious Disease. (3) DVT of lower extremity, bilateral Status: Resolved Plan: --started on prophylactic dose heparin on 12/19 -- has had multiple DVT. --was on Coumadin. --one point she was found to have splenic infarction. --has been on Eliquis. has not been taking the Eliquis because she is not able to keep her food or medication down. --no evidence of recurrent clot at this time. Assessment 36y/o female critically ill in [facility] [place]. Hematology consulted for pancytopenia. h/o MSSA endocarditis, January 2016. Bilateral lower extremity DVT multiple times. She was on Coumadin for a while and switched to Eliquis. Hepatitis C. History of IV drug use. Chronic pain. Tricuspid valve and mitral valve replacement. Left femoral vein catheterization Plan 1. Platelets improved to 47,000 today. Increase SQ heparin to TID. 2. Transition to Eliquis once platelets greater than 70,000 3. No transfusion today 4. Daily CBC. Attending Statement The exam, history, and the medical decision-making described in the above note were completed with the assistance of the mid-level provider. I reviewed and agree with the findings presented. I attest that I had a [id number] encounter with the patient on the same day, and personally performed and documented my assessment and findings in the medical record. Problem Qualifiers (1) Sepsis: Qualified Code: O85 - Puerperal sepsis Abiola Phipps Dec 21, 2016 12:15 Jeremías Barrientos MD Dec 21, 2016 16:35
--- NOTE | 2016-12-21 19:27 | PD.TRANSFR ---
Transfer Summary Admission Date Dec 16, 2016 at 02:47 Admitting Diagnosis Weakness, n/v/d, cp r/o endocarditis Diagnoses: (1) Sepsis Diagnosis: Principal (2) Chest pain Diagnosis: Principal (3) Hypotension Diagnosis: Principal (4) Hyponatremia Diagnosis: Principal (5) Hypokalemia Diagnosis: Principal (6) Endocarditis due to methicillin susceptible Staphylococcus aureus (MSSA) Diagnosis: Secondary (7) DVT of lower extremity, bilateral Diagnosis: Secondary (8) IVDU (intravenous drug user) (9) Bacteremia (10) Pancytopenia (11) Septic pulmonary embolism (12) Elevated LFTs Transfer Summary/Subjective The patient is a 36 year old female with past medical history significant for 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 Patient had a blood pressure 90/51 heart rate in the 130s and temperature 99.2. Patient was recently admitted to [facility] in October 17- for possible recurrent endocarditis, which was ruled out and patient was discharged home. On December 07 she began to have generalized weakness and started to have a fever. Tmax at home of 102. 2 days ago she began to have severe chest pain in the center of her chest. She also had dyspnea on exertion, also had nausea and vomiting intermittently since December 07. Since last 2 days innumerable episodes of vomiting and diarrhea but no blood in stools or hematemesis. A 2d echo done on 10/17/16 was negative for any vegetation I evaluated the patient in the emergency department. She remains tachycardic and borderline hypotensive. Complaints of chest pain to the right side of the rib, since December 07. She claims it is constant and 9 out of 10. Initial cardiac enzymes and EKG negative. I have ordered CT pulmonary angiogram to rule out PE and septic emboli given history of endocarditis and lower extremity DVT. Patient had also not been taking eliquis for the last few days. Patient also complained about nausea vomiting and diarrhea with diffuse abdominal pain for the last few days. I have also ordered CT abdomen pelvis to rule out any kind of colitis. Patient will be continued on vancomycin and cefepime which was started in the ED, I have added Flagyl 12/17: remains on levophed for vasopressor support. remains in septic shock. complains of being hungry this morning. NPO for MICHELE today. thrombocytopenia improved slightly after platelet transfusion. no signs of active bleeding. wbc improving. blood cultures 09/09 growing both GNRs and GPCs. 12/18: vasopressors persist. tolerating diet. repeat blood cultures still growing GPCs. patient without complaints. MICHELE with mitral and tricuspid valve endocarditis. 12/19: remains on norepinephrine support for low-grade shock. still with persistently positive blood cultures. patient otherwise without complaints. does appear more volume overloaded clinically. 12/20 Off levophed since 9 pm last night. Pancytopenic. Hgb with downtrend to 7.1 from 7.9, transfusing 1 unit PRBC. Platelets 30 but no e/o active bleeding. WBC 3.2. Afebrile. Toleraing out of bed to chair today and getting up to bedside commode. Subjective: 12/21 Remains off pressors since evening of 12/19. Pancytopenic, Hgb 8.5 after transfusion yesterday. Ambulating in room. Complaining of dependent edema groin , ankles. Repeat blood culture negative to date 12/19 Objective Vital Signs Date Time Temp Pulse Resp B/P Pulse Ox O2 Delivery O2 Flow Rate FiO2 12/21/16 18:00 90 12/21/16 16:00 98.6 14 98/64 94 12/20/16 04:49 21 12/17/16 10:20 15.00 Intake and Output 12/20/16 12/20/16 12/21/16 08:00 16:00 00:00 Intake Total 298 ml 920 ml 1552 ml Output Total 400 ml Balance 298 ml 520 ml 1552 ml Result Diagram: 12/21/16 0448 12/21/16 0448 Imaging Chest x-ray mild interstitial edema Objective Remarks GENERAL: Patient is 36 yo female who is sitting up in bed, conversant. SKIN: Warm and dry. HEAD: Normocephalic. EYES: No scleral icterus. No injection or drainage. ORAL: poor dentition. NECK: trachea midline. + JVD CARDIOVASCULAR: Tachycardic rate and rhythm, Grade 2 systolic murmur left sternal border, no rubs. Well-healed sternotomy scar from valve surgeries RESPIRATORY: Breath sounds equal bilaterally. No accessory muscle use. On RA GASTROINTESTINAL: Abdomen soft, non-tender, nondistended. Edema bilateral labia majora, no ulcerations. Dependent edema bilateral ankles. MUSCULOSKELETAL: No cyanosis, edema. right PICC site clean dry intact, no evidence of bleeding or hematoma. NEURO: Awake oriented. Moving all extremities spontaneously without focal deficit. A/P Assessment and Plan Assessment and Plan: 36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 Difficile Colitis, septic shock. Now off vasopressors. Continue antibiotic per ID. appreciate subspecialty assistance. Also agree with palliative consult. 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 On Prescribed Dilaudid for pain, UDS positive for opiates. - Supplement multivitamin, thiamine RESP: History of septic pulmonary emboli - DuoNeb every 6 hours and when necessary - Aggressive pulmonary toilet - Bilateral lower extremity venous Doppler negative 12/16/16. 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 Most recent culture 12/19 NG x 1day. -Evaluated by [facility] and she is not operative candidate due to recent IV drug use. - Off vasopressors. Will wean hydrocortisone to 25 mg IV q12 and then stop order for 12/22. GI: Abdominal pain with nausea and vomiting - resolved Acute protein calorie malnutrition- severe. History of hepatitis C - regular diet as tolerated. - IV Protonix /Endo: Dehydration- resolved. Hyponatremia-resolved - Monitor renal function, I/O's, electrolytes replacement per protocol. -Does have some dependent edema and positive fluid balance. Lasix 20 mg IV and potassium 20 ME with Lasix. 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 Difficile Colitis - Continue abx per ID: On Vancomycin. cefepime discontinued on 12/20 and was rocephin started 12/20. . On gentamicin. - ID service is consulted. Repeat blood cultures from 12/19 pending . - C. Diff + 12/16. On metronidazole 500 po q8 -HIV negative Culture data: 12/15 blood cx: 09/09: Enterococcus faecalis, Enterobacter Cloacae (2 strains), Group D enterococcus, additional Gram negative rods 12/15 c. diff pcr + 12/17 blood cx: Group D enterococcus 07/12, GPCs 06/11. 12/18 blood cx: Enterococcus faecalis 06/11 bottles 12/19 - blood cx x2 sets -NGTD x 24 hours. HEME: Anemia History of bilateral lower extremity DVT Pancytopenia Thrombocytopenia -Monitor CBC, CMP, INR -hold eliquis until platelets >70 k per hematology recs. Continue prophylactic heparin 5000 subcut q12 per hematology recs. PROPH: -Bilateral lower extremity SCDs, hold therapeutic anticoagulation given coagulopathy, continue heparin subcut as per above. IV Protonix 40 mg IV daily LINES: - right axillary CVL placed by DR. Moreira 12/16/16 #6. Out of bed Transfer to [facility]. Consult hospitalist to assume care 12/22 Level 2 Betsey Olmstead MD Dec 21, 2016 19:27
[2016-12-21] MEDS ORDERED: FUROSEMIDE 20 MG/2 ML VIAL IV PUSH ONE (19:45)
[2016-12-21] MEDS ORDERED: POTASSIUM CHLORIDE 20 MEQ CONTROLLED RELEASE TAB PO ONE (19:45)
[2016-12-21] MEDS: HYDROCORTISONE SOD SUCCINATE 100 MG VIAL IV PUSH SCH (20:13)
[2016-12-22] VITALS (18 sets, daily range): BP systolic 86–117; BP diastolic 54–83; PULSE 87–113; RESP 8–27; TEMP 97.8–98.8; O2SAT 93–96
[2016-12-22] MEDS: HYDROmorphone HCL 4 MG TAB PO PRN ×4 (00:03→17:56)
[2016-12-22] MEDS: cefTRIAXone 2,000 MG/NS 100 ML IV SCH ×4 (00:04→23:57)
[2016-12-22] MEDS: metroNIDAZOLE 500 MG TAB PO SCH ×3 (03:59→20:51)
[2016-12-22] MEDS: GENTAMICIN INJ 60 MG in SODIUM CHLORIDE 0.9% INJ 100 ML IV SCH (03:59)
[2016-12-22] MEDS: CHLORHEXIDINE GLUCONATE 2 % 1 PACK (2 CLOTHS) TOP SCH (03:59)
[2016-12-22] MEDS: VANCOMYCIN INJ 750 MG in SODIUM CHLOR 0.9% 250 ML INJ 250 ML IV SCH ×3 (03:59→20:52)
[2016-12-22 05:50] LABS: AUTOMATED NEUTROPHIL # 5.3 TH/MM3 (1.8-7.7); BASOPHIL % 0.3 % (0.0-2.0); EOSINOPHIL % 0.5 % (0.0-4.0); HEMATOCRIT 28.3 % (35.0-46.0); LYMPH % 14.3 % (9.0-44.0); MEAN CELL VOLUME 85.3 FL (80.0-100.0); MEAN CORPUSCULAR HEMOGLOBIN 27.8 PG (27.0-34.0); MEAN CORPUSCULAR HGB CONC 32.6 % (32.0-36.0); MONO % 6.7 % (0.0-8.0); NEUT % 78.2 % (16.0-70.0); PLATELET COUNT 52 TH/MM3 (150-450); RED BLOOD COUNT 3.31 MIL/MM3 (4.00-5.30); RED CELL DISTRIBUTION WIDTH 15.4 % (11.6-17.2); WHITE BLOOD COUNT 6.8 TH/MM3 (4.0-11.0)
[2016-12-22 06:02] LABS: HEMO FLAGS AUTO DIFF; INTERNATIONAL NORMALIZED RATIO 1.1 RATIO
[2016-12-22 06:15] LABS: BICARBONATE 27.4 MEQ/L (21.0-32.0); POTASSIUM 3.8 MEQ/L (3.5-5.1)
[2016-12-22 06:31] LABS: CALCIUM-PROTEIN CORRECTED 7.8 MG/DL (8.5-10.1)
[2016-12-22 06:59] LABS: PLATELET ESTIMATE SMEAR LOW (NORMAL)
[2016-12-22 07:00] LABS: PLATELET MORPHOLOGY ENLARGED (NORMAL); SCAN/DIFF AUTO DIFF CONFIRMED
[2016-12-22] MEDS: DOCUSATE SODIUM 50 MG/SENNA 8.6 MG TAB PO SCH ×2 (09:00→20:54)
[2016-12-22] MEDS: HEPARIN SODIUM - SQ 10,000 UNITS/ML VIAL SQ SCH ×3 (09:09→17:57)
[2016-12-22] MEDS: HYDROCORTISONE SOD SUCCINATE 100 MG VIAL IV PUSH SCH (09:10)
[2016-12-22] MEDS: PANTOPRAZOLE SODIUM 40 MG VIAL IV SCH (09:10)
--- NOTE | 2016-12-22 09:40 | HHI.PR ---
Subjective Remarks Follow-up for endocarditis Patient seen working with physical therapist this morning. She was seen standing up. She had no complaints. Denied any pain. She remained afebrile. No events overnight. Objective Vitals Vital Signs Date Time Temp Pulse Resp B/P Pulse Ox O2 Delivery O2 Flow Rate FiO2 12/22/16 09:01 95 12/22/16 06:00 108 12/22/16 04:00 98.0 107 18 105/70 93 12/22/16 04:00 107 12/22/16 02:00 112 12/22/16 00:00 102 12/22/16 00:00 98.3 102 25 104/72 95 12/21/16 22:00 111 12/21/16 20:00 97.9 107 16 99/60 94 12/21/16 20:00 107 12/21/16 19:48 20 12/21/16 18:00 90 12/21/16 16:00 98.6 95 14 98/64 94 12/21/16 16:00 95 12/21/16 14:00 100 12/21/16 12:00 98.4 100 24 107/71 100 12/21/16 12:00 100 12/21/16 10:00 104 I/O 12/21/16 12/21/16 12/21/16 12/22/16 12/22/16 12/22/16 07:00 15:00 23:00 07:00 15:00 23:00 Intake Total 1266 ml 703 ml 1633 ml 882 ml Output Total 600 ml Balance 1266 ml 103 ml 1633 ml 882 ml Intake Oral 750 ml 240 ml 800 ml 480 ml IV Total 516 ml 463 ml 833 ml 402 ml Output Urine Total 600 ml # Voids 1 3 3 # Bowel Movements 1 2 2 1 Result Diagram: 12/22/16 0540 12/22/16 0540 Imaging Last Impressions Chest X-Ray 12/17/16 0000 Signed Impressions: Service Date/Time: Saturday, December 17, 2016 04:55 - CONCLUSION: Decreasing bibasilar atelectasis. Rodo Hart MD Lower Extremity Ultrasound 12/16/16 0000 Signed Impressions: Service Date/Time: Friday, December 16, 2016 03:56 - CONCLUSION: No DVT of either lower extremity. Rodo Hart MD CT Angiography 12/16/16 0000 Signed Impressions: Service Date/Time: Friday, December 16, 2016 05:40 - CONCLUSION: 1. No pulmonary embolus. 2. Patchy bilateral air space disease, right more so than left and both sides basilar predominant. Rodo Hart MD Abdomen/Pelvis CT 12/16/16 0000 Signed Impressions: Service Date/Time: Friday, December 16, 2016 05:40 - CONCLUSION: 1. Enlargement and scarring of the spleen. Collateral vessels in the splenic hilum are again noted. 2. Nonspecific hepatomegaly. No focal hepatic lesion. 3. No obstruction or acute inflammatory changes are demonstrated of the gastrointestinal tract. Rodo Hart MD Objective Remarks GENERAL: in NAD ORAL: poor dentition. NECK: trachea midline. + JVD CARDIOVASCULAR: Tachycardic rate and rhythm, Grade 2 systolic murmur left sternal border, no rubs. Well-healed sternotomy scar from valve surgeries RESPIRATORY: Breath sounds equal bilaterally. No accessory muscle use. GASTROINTESTINAL: Abdomen soft, non-tender, nondistended. Dependent edema bilateral ankles. MUSCULOSKELETAL: No cyanosis, edema. right PICC site dry clean and intact. NEURO: Awake oriented. Moving all extremities spontaneously without focal deficit. Medications and IVs Current Medications Sodium Chloride 1,000 ml @ 1,000 mls/hr Q1H ONCE IV Last administered on 22:47; Start 12/15/16 at 22:45; Stop 12/15/16 at 23:44; Status DC Cefepime HCl 2000 mg/Sodium Chloride 100 ml @ 200 mls/hr ONCE ONCE IV Last administered on 12/16/16 00:11; Start 12/15/16 at 22:45; Stop 12/15/16 at 23:14 ; Status DC Vancomycin HCl 1000 mg/Sodium Chloride 250 ml @ 250 mls/hr ONCE ONCE IV Last administered on 12/15/16 23:34; Start 12/15/16 at 22:45; Stop 12/15/16 at 23:44 ; Status DC Sodium Chloride (NS 1000 ml Inj) 1,000 ml @ 750 mls/hr Q1H20M ONCE IV Last administered on 12/16/16 01:06; Start 12/16/16 at 01:00; Stop 12/16/16 at 02:19 ; Status DC Ketorolac Tromethamine 15 mg 15 mg ONCE ONCE IV PUSH Last administered on 12/16 02:04; Start 12/16/16 at 01:45; Stop 12/16/16 at 01:46; Status DC Pharmacy Profile Note 0 ml @ 0 mls/hr UNSCH OTHER ; Start 12/16/16 at 02:45 Cefepime HCl 2000 mg/Sodium Chloride 100 ml @ 200 mls/hr Q8H IV Last administered on 12/20/16 15:31; Start 12/16/16 at 08:00; Stop 12/20/16 at 17:14 ; Status DC Sodium Chloride (NS 1000 ml Inj) 1,000 ml @ 150 mls/hr Q6H40M IV Last administered on 12/18/16 10:18; Start 12/16/16 at 02:47; Stop 12/18/16 at 14:04 ; Status DC Acetaminophen (Tylenol) 650 mg Q6H PRN PO PAIN 1-10 AND/OR FEVER >101F; Start 12/16/16 at 03:00 Pantoprazole Sodium (Protonix Inj) 40 mg DAILY IV Last administered on 09:10; Start 12/16/16 at 09:00 Albuterol/ Ipratropium (Duoneb Neb) 1 ampule Q2HR NEB PRN INH WHEEZING; Start 12/16/16 at 03:00 Miscellaneous Information 1 Q361D XX ; Start 12/16/16 at 03:00 Chlorhexidine Gluconate (Chlorhexidine 2% Cloth) Taper DAILY@04 TOP Last administered on 12/21/16 03:59; Start 12/16/16 at 04:00; Stop 12/12/17 at 03:59 Chlorhexidine Gluconate (Chlorhexidine 2% Cloth) 3 pack UNSCH PRN TOP HYGIENIC CARE; Start 12/16/16 at 03:00 Senna/Docusate Sodium (Sandy-Colace) 1 tab BID PO Last administered on 08:29; Start 12/16/16 at 09:00 Magnesium Hydroxide (Milk Of Magnesia Liq) 30 ml Q12H PRN PO MILD - MODERATE CONSTIPATION; Start 12/16/16 at 03:00 Sennosides (Senokot) 17.2 mg Q12H PRN PO MODERATE - SEVERE CONSTIPATION; Start 12/16/16 at 03:00 Bisacodyl (Dulcolax Supp) 10 mg DAILY PRN RECTAL SEVERE CONSITIPATION; Start at 03:00 Lactulose (Lactulose Liq) 30 ml DAILY PRN PO SEVERE CONSITIPATION; Start at 03:00 Apixaban (Eliquis) 5 mg BID PO Last administered on 12/16/16 09:40; Start 04/24 at 09:00; Stop 12/16/16 at 14:22; Status DC Hydromorphone HCl 4 mg 4 mg Q6H PRN PO Pain Management Last administered on 05:35; Start 12/16/16 at 03:00 Sodium Chloride 1,000 ml @ 999 mls/hr BOLUS ONCE IV Last administered on 12/16 03:04; Start 12/16/16 at 03:00; Stop 12/16/16 at 04:00; Status DC Metronidazole 100 ml @ 100 mls/hr Q8H IV Last administered on 12/18/16 11:58 ; Start 12/16/16 at 04:00; Stop 12/18/16 at 13:05; Status DC Potassium Chloride 100 ml @ 50 mls/hr Q2H PRN IV For Potassium 2.8 - 3.2 mEq/ L Last administered on 12/21/16 09:16; Start 12/16/16 at 03:45 Potassium Chloride (KCl 20 Meq Premix Inj) 100 ml @ 50 mls/hr Q2H PRN IV For Potassium 2.8 - 3.2 mEq/L; Start 12/16/16 at 03:45 Potassium Bicarb/ Potassium Chloride 50 meq 50 meq UNSCH PRN PO For Potassium 3.3 - 3.5 mEq/L; Start 12/16/16 at 03:45 Potassium Chloride 100 ml @ 25 mls/hr UNSCH PRN IV For Potassium 3.3 - 3.5 mEq /L; Start 12/16/16 at 03:45 Potassium Chloride 100 ml @ 50 mls/hr Q2H PRN IV For Potassium 3.3 - 3.5 mEq/ L Last administered on 12/16/16 09:39; Start 12/16/16 at 03:45 Magnesium Sulfate/ Sodium Chloride (Magnesium Sulfate Inj/NS Inj) 100 ml @ 50 mls/hr UNSCH PRN IV For Magnesium 0.9 - 1.1 mg/dL; Start 12/16/16 at 03:45 Magnesium Oxide 800 mg 800 mg UNSCH PRN PO For Magnesium 1.2 - 1.6 mg/dL; Start 12/16/16 at 03:45 Magnesium Sulfate/ Sodium Chloride (Magnesium Sulfate Inj/NS Inj) 100 ml @ 50 mls/hr UNSCH PRN IV For Magnesium 1.2 - 1.6 mg/dL; Start 12/16/16 at 03:45 Potassium Phosphate 2000 mg 2,000 mg Q4H PRN PO For Phosphorus < 2.5 mg/dL; Start 12/16/16 at 03:45 Sodium Phosphate/ Sodium Chloride (Sodium Phosphate Inj/NS 250 ml Inj) 250 ml @ 42 mls/hr UNSCH PRN IV For Phosphorus < 2.5 mg/dL; Start 12/16/16 at 03:45 Potassium Phosphate 2000 mg 2,000 mg UNSCH PRN PO/TUBE SEE LABEL COMMENTS; Start 12/16/16 at 03:45 Potassium Phosphate 30 mmol/ Sodium Chloride 260 ml @ 42 mls/hr UNSCH PRN IV SEE LABEL COMMENTS; Start 12/16/16 at 03:45 Sodium Chloride (NS 1000 ml Inj) 1,000 ml @ 999 mls/hr BOLUS ONCE IV ; Start 12/16/16 at 03:45; Stop 12/16/16 at 04:45; Status DC Iohexol 80 ml 80 ml STK-MED ONCE IV Last administered on 12/16/16 05:51; Start 12/16/16 at 05:51; Stop 12/16/16 at 05:52; Status DC Vancomycin HCl/ Sodium Chloride (Vancomycin Inj/ NS 250 ml Inj) 250 ml @ 250 mls/hr Q12H IV Last administered on 12/18/16 11:59; Start 12/16/16 at 11:00; Stop 12/18/16 at 13:02; Status DC Miscellaneous Information SPECIFIC LAB TO BE DRAWN:VANCOMYCIN TROUGH DATE TO... ONCE ONCE .XX ; Start 12/17/16 at 10:45; Stop 12/17/16 at 10:46; Status DC Vancomycin HCl 125 mg 125 mg QID PO Last administered on 12/18/16 11:59; Start 12/16/16 at 13:00; Stop 12/18/16 at 13:24; Status DC Norepinephrine Bitartrate 250 ml @ As Directed STK-MED ONCE IV ; Start at 11:12; Stop 12/16/16 at 11:13; Status DC Sodium Chloride 250 ml @ 15 mls/hr ONCE ONCE IV Last administered on 17:15; Start 12/16/16 at 17:15; Stop 12/17/16 at 09:54; Status DC Norepinephrine Bitartrate (Levophed-Dextrose Drip) 250 ml @ 0 mls/hr TITRATE IV Last administered on 12/17/16 21:12; Start 12/16/16 at 21:00; Stop 12/20/16 at 20:32; Status DC Terbutaline Sulfate 1 mg 1 mg UNSCH PRN SQ FOR EXTRAVASATION PROTOCOL Last administered on 12/16/16 21:09; Start 12/16/16 at 21:00 Propofol (Diprivan 500 Mg/ 50 ml Inj) 50 ml @ As Directed STK-MED ONCE .ROUTE ; Start 12/17/16 at 09:43; Stop 12/17/16 at 09:44; Status DC Midazolam HCl 5 mg 5 mg STK-MED ONCE .ROUTE Last administered on 12/17/16 09: 50; Start 12/17/16 at 09:50; Stop 12/17/16 at 09:51; Status DC Esmolol HCl/ Sodium Chloride (Brevibloc Drip Inj Premix) 250 ml @ 0 mls/hr TITRATE ONCE IV Last administered on 12/17/16 14:42; Start 12/17/16 at 09:55 ; Stop 12/17/16 at 11:22; Status DC Midazolam HCl (Versed Inj) 5 mg NOW ONCE IV Last administered on 12/17/16 09: 50; Start 12/17/16 at 09:50; Stop 12/17/16 at 11:22; Status DC Propofol (Diprivan 500 Mg/ 50 ml Inj) 500 mg ONCE ONCE IV Last administered on 12/17/16 09:43; Start 12/17/16 at 09:43; Stop 12/17/16 at 11:22; Status DC Propofol 500 mg 500 mg ONCE ONCE IV Last administered on 12/17/16 09:43; Start 12/17/16 at 09:43; Stop 12/17/16 at 11:22; Status DC Pharmacy Profile Note 0 ml @ 0 mls/hr UNSCH OTHER ; Start 12/17/16 at 13:30 Gentamicin Sulfate/Sodium Chloride (Gentamicin Inj/ NS Inj) 101.5 ml @ 200 mls/ hr Q8H IV Last administered on 12/18/16 15:55; Start 12/17/16 at 16:00; Stop 12/18/16 at 22:28; Status DC Miscellaneous Information SPECIFIC LAB TO BE DRAWN:GENTAMICIN PEAK DATE TO... ONCE ONCE .XX Last administered on 12/18/16 17:30; Start 12/18/16 at 17:30; Stop 12/18/16 at 17:31; Status DC Miscellaneous Information SPECIFIC LAB TO BE DRAWN:GENTAMICIN TROUGH DATE TO... ONCE ONCE .XX Last administered on 12/18/16 15:45; Start 12/18/16 at 15:45; Stop 12/18/16 at 15:46; Status DC Miscellaneous Information SPECIFIC LAB TO BE DRAWN:VANCOMYCIN TROUGH DATE TO... ONCE ONCE .XX Last administered on 12/18/16 10:45; Start 12/18/16 at 10:45; Stop 12/18/16 at 10:46; Status DC Vancomycin HCl 1000 mg/Sodium Chloride 250 ml @ 250 mls/hr Q8H IV Last administered on 12/19/16 12:19; Start 12/18/16 at 20:00; Stop 12/19/16 at 14:44 ; Status DC Metronidazole (Flagyl 500 Mg Inj) 100 ml @ 100 mls/hr Q8H IV ; Start 12/18/16 at 21:00; Stop 12/18/16 at 21:00; Status Cancel Metronidazole (Flagyl) 500 mg Q8HR PO ; Start 12/18/16 at 14:00; Stop 12/18/16 at 14:00; Status DC Metronidazole (Flagyl) 500 mg Q8H PO Last administered on 12/22/16 03:59; Start 12/18/16 at 20:00 Hydrocortisone Sodium Succinate (SoluCORTEF INJ) 50 mg Q6H IV PUSH Last administered on 12/20/16 15:30; Start 12/18/16 at 15:00; Stop 12/20/16 at 20:31 ; Status DC Ondansetron HCl 4 mg 4 mg Q6H PRN IV PUSH NAUSEA/VOMITING Last administered on 12/21/16 07:59; Start 12/18/16 at 15:30 Gentamicin Sulfate/Sodium Chloride (Gentamicin Inj/ NS Inj) 101.5 ml @ 200 mls/ hr Q12H IV Last administered on 12/22/16 03:59; Start 12/19/16 at 04:00 Miscellaneous Information SPECIFIC LAB TO BE DRAWN:GENTAMICIN TROUGH DATE TO... ONCE ONCE .XX Last administered on 12/19/16 15:45; Start 12/19/16 at 15:45; Stop 12/19/16 at 15:46; Status DC Heparin Sodium (Porcine) (Heparin Inj) 5,000 units Q12HR SQ Last administered on 12/21/16 07:51; Start 12/19/16 at 09:00; Stop 12/21/16 at 13:24; Status DC Furosemide 40 mg 40 mg ONCE ONCE IV PUSH Last administered on 12/19/16 16:54 ; Start 12/19/16 at 14:45; Stop 12/19/16 at 14:48; Status DC Vancomycin HCl/ Sodium Chloride (Vancomycin Inj/ NS 250 ml Inj) 257.5 ml @ 257.5 mls/ hr Q8H IV Last administered on 12/22/16 03:59; Start 12/19/16 at 20 :00 Miscellaneous Information SPECIFIC LAB TO BE ANABELL... ONCE ONCE .XX ; Start 12/20 at 11:45; Stop 12/20/16 at 11:46; Status DC Miscellaneous Information SPECIFIC LAB TO BE ANABELL... ONCE ONCE .XX ; Start 12/20 at 03:45; Stop 12/20/16 at 03:46; Status DC Miscellaneous Information SPECIFIC LAB TO BE ANABELL... ONCE ONCE .XX Last administered on 12/20/16 15:45; Start 12/20/16 at 15:45; Stop 12/20/16 at 15:46 ; Status DC Sodium Chloride (NS 250 ml Inj) 250 ml @ 15 mls/hr ONCE ONCE IV Last administered on 12/20/16 15:29; Start 12/20/16 at 14:30; Stop 12/21/16 at 07:09 ; Status DC Acetaminophen (Tylenol) 650 mg Q4H PRN PO SEE LABEL COMMENTS Last administered on 12/20/16 16:20; Start 12/20/16 at 14:30; Stop 12/20/16 at 18:31; Status DC Diphenhydramine HCl (Benadryl) 25 mg Q4H PRN PO SEE LABEL COMMENTS Last administered on 12/20/16 16:20; Start 12/20/16 at 14:30; Stop 12/20/16 at 18:31 ; Status DC Miscellaneous Information SPECIFIC LAB TO BE ANABELL... ONCE ONCE .XX Last administered on 12/20/16 20:35; Start 12/20/16 at 19:45; Stop 12/20/16 at 19:46 ; Status DC Ceftriaxone Sodium 2000 mg/ Sodium Chloride 100 ml @ 200 mls/hr Q24H IV ; Start 12/20/16 at 18:00; Stop 12/20/16 at 18:26; Status DC Ceftriaxone Sodium 2000 mg/ Sodium Chloride 100 ml @ 200 mls/hr Q24H IV ; Start 12/20/16 at 18:30; Status Cancel Ceftriaxone Sodium/Dextrose 50 ml @ 100 mls/hr Q24H IV ; Start 12/21/16 at 00: 00; Status Cancel Ceftriaxone Sodium/Sodium Chloride (Rocephin Inj/NS Inj) 100 ml @ 200 mls/hr Q24H IV Last administered on 12/22/16 00:04; Start 12/21/16 at 00:00 Hydrocortisone Sodium Succinate (SoluCORTEF INJ) 50 mg Q12H IV PUSH Last administered on 12/21/16 07:50; Start 12/21/16 at 09:00; Stop 12/21/16 at 19:38 ; Status DC Miscellaneous Information SPECIFIC LAB TO BE DRAWN:GENTAMICIN TROUGH DATE TO... ONCE ONCE .XX ; Start 12/22/16 at 15:45; Stop 12/22/16 at 15:46 Miscellaneous Information SPECIFIC LAB TO BE DRAWN:VANCO TROUGH DATE TO... ONCE ONCE .XX ; Start 12/22/16 at 11:45; Stop 12/22/16 at 11:46 Heparin Sodium (Porcine) (Heparin Inj) 5,000 units TID SQ Last administered on 12/22/16 09:09; Start 12/21/16 at 18:00 Furosemide (Lasix Inj) 20 mg ONCE ONCE IV PUSH Last administered on 12/21/16 20:13; Start 12/21/16 at 19:45; Stop 12/21/16 at 19:46; Status DC Potassium Chloride (KCl) 20 meq ONCE ONCE PO Last administered on 12/21/16 20 :13; Start 12/21/16 at 19:45; Stop 12/21/16 at 19:46; Status DC Hydrocortisone Sodium Succinate (SoluCORTEF INJ) 25 mg Q12H IV PUSH Last administered on 12/22/16 09:10; Start 12/21/16 at 21:00; Stop 12/22/16 at 09:04 ; Status DC A/P Problem List: (1) Sepsis ICD Code: A41.9 Status: Acute (2) Chest pain ICD Code: R07.9 Status: Acute (3) Hypotension ICD Code: I95.9 Status: Acute (4) Hyponatremia ICD Code: E87.1 Status: Acute (5) Hypokalemia ICD Code: E87.6 Status: Acute (6) Endocarditis due to methicillin susceptible Staphylococcus aureus (MSSA) ICD Code: I33.0 Status: Acute (7) DVT of lower extremity, bilateral ICD Code: I82.403 Status: Resolved (8) IVDU (intravenous drug user) ICD Code: F19.90 Status: Acute (9) Bacteremia ICD Code: R78.81 Status: Acute (10) Pancytopenia ICD Code: D61.818 Status: Acute (11) Septic pulmonary embolism ICD Code: I26.90 Status: Acute (12) Elevated LFTs ICD Code: R79.89 Status: Acute Assessment and Plan Assessment and Plan: 36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 Difficile Colitis, septic shock. Now off vasopressors. Continue antibiotic per ID. appreciate subspecialty assistance. Also agree with palliative consult. Sepsis with septic shock -Continue to endocarditis/bacteremia. MICHELE 12/17 with evidence of recurrent endocarditis, EF 40%, mild RV dysfunction - Echo 10/17: mitral and tricuspid valve no regurgitation - Serial blood cultures positive have been positive (as per below). Most recent culture 12/19 NG x 1day. -Evaluated by [facility] and she is not operative candidate due to recent IV drug use. - Off vasopressors. Will wean hydrocortisone to 25 mg IV q12 and then stop order for 12/22. Bacteremia: Enterococcus faecalis, Enterobacter Cloacae (2 strains), Group D enterococcus, additional Gram negative rods/ C. 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 cefepime discontinued on 12/20 and was rocephin started 12/20. . On gentamicin. - ID service is consulted. Repeat blood cultures from 12/19 so far negative 1 day. - C. Diff + 12/16. Flagyl DC on 12/21 now on vancomycin by mouth. -HIV negative Culture data: 12/15 blood cx: 09/09: Enterococcus faecalis, Enterobacter Cloacae (2 strains), Group D enterococcus, additional Gram negative rods 12/15 c. diff pcr + 12/17 blood cx: Group D enterococcus 2/, GPCs 06/11. 12/18 blood cx: Enterococcus faecalis 06/11 bottles 12/19 - blood cx x2 sets -NGTD x 24 hours. 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 On Prescribed Dilaudid for pain, UDS positive for opiates. - Supplement multivitamin, thiamine Acute protein calorie malnutrition- severe. History of hepatitis C - regular diet as tolerated. - IV Protonix Dehydration- resolved. Hyponatremia-resolved - Monitor renal function, I/O's, electrolytes replacement per protocol. -Does have some dependent edema and positive fluid balance. Lasix 20 mg IV and potassium 20 ME with Lasix. (already received potassium 40 mEQ IV per protocol for potassium 3.1) Anemia History of bilateral lower extremity DVT Pancytopenia Thrombocytopenia -Monitor CBC, CMP, INR -hold eliquis until platelets >70 k per hematology recs. Continue prophylactic heparin 5000 subcut q12 per hematology recs. PROPH: -Bilateral lower extremity SCDs, hold therapeutic anticoagulation given coagulopathy, continue heparin subcut as per above. IV Protonix 40 mg IV daily Discharge Planning Patient can be transferred to [facility]. She is waiting for bed. Problem Qualifiers (1) Sepsis: Qualified Code: O85 - Puerperal sepsis (2) Chest pain: Qualified Code: R07.9 - Chest pain, unspecified type (3) Hypotension: Qualified Code: I95.89 - Other specified hypotension Afua Turner MD Dec 22, 2016 09:40
--- NOTE | 2016-12-22 10:54 | PD.ONC.PN ---
Subjective Subjective Remarks Afebrile overnight. Patient resting in bed in nad. Tolerating heparin shots. Objective Data Date Time Temp Pulse Resp B/P Pulse Ox O2 Delivery O2 Flow Rate FiO2 12/22/16 10:00 87 19 102/67 94 12/22/16 09:01 95 12/22/16 09:00 97 18 103/69 95 12/22/16 08:00 98.1 98 17 86/54 94 12/22/16 07:00 90 15 110/65 94 12/22/16 06:00 108 12/22/16 06:00 108 23 107/72 94 12/22/16 04:00 98.0 107 18 105/70 93 12/22/16 04:00 107 12/22/16 02:00 112 12/22/16 00:00 102 12/22/16 00:00 98.3 102 25 104/72 95 12/21/16 22:00 111 12/21/16 20:00 97.9 107 16 99/60 94 12/21/16 20:00 107 12/21/16 19:48 20 12/21/16 18:00 90 12/21/16 16:00 98.6 95 14 98/64 94 12/21/16 16:00 95 12/21/16 14:00 100 12/21/16 12:00 98.4 100 24 107/71 100 12/21/16 12:00 100 12/22/16 12/22/16 12/22/16 07:00 15:00 23:00 Intake Total 882 ml Balance 882 ml Result Diagram: 12/22/16 0540 12/22/16 0540 Laboratory Results Laboratory Tests Test 12/22/16 05:40 White Blood Count 6.8 TH/MM3 Red Blood Count 3.31 MIL/MM3 Hemoglobin 9.2 GM/DL Hematocrit 28.3 % Mean Corpuscular Volume 85.3 FL Mean Corpuscular Hemoglobin 27.8 PG Mean Corpuscular Hemoglobin 32.6 % Concent Red Cell Distribution Width 15.4 % Platelet Count 52 TH/MM3 Mean Platelet Volume 10.3 FL Neutrophils (%) (Auto) 78.2 % Lymphocytes (%) (Auto) 14.3 % Monocytes (%) (Auto) 6.7 % Eosinophils (%) (Auto) 0.5 % Basophils (%) (Auto) 0.3 % Neutrophils # (Auto) 5.3 TH/MM3 Lymphocytes # (Auto) 1.0 TH/MM3 Monocytes # (Auto) 0.5 TH/MM3 Eosinophils # (Auto) 0.0 TH/MM3 Basophils # (Auto) 0.0 TH/MM3 CBC Comment AUTO DIFF Differential Comment AUTO DIFF CONFIRMED Platelet Estimate LOW Platelet Morphology Comment ENLARGED Prothrombin Time 12.0 SEC Prothromb Time International 1.1 RATIO Ratio Activated Partial 26.0 SEC Thromboplast Time Sodium Level 137 MEQ/L Potassium Level 3.8 MEQ/L Chloride Level 103 MEQ/L Carbon Dioxide Level 27.4 MEQ/L Anion Gap 7 MEQ/L Blood Urea Nitrogen 14 MG/DL Creatinine 0.59 MG/DL Estimat Glomerular Filtration 117 ML/MIN Rate Random Glucose 103 MG/DL Calcium Level 7.4 MG/DL Protein Corrected Calcium 7.8 MG/DL Total Protein 6.3 GM/DL Culture Results Microbiology Date/Time Procedure Status Source Growth 12/19/16 22:39 Aerobic Blood Culture - Preliminary Resulted Blood Peripheral NO GROWTH IN 1 DAY 12/19/16 22:39 Anaerobic Blood Culture - Preliminary Resulted Blood Peripheral NO GROWTH IN 1 DAY 12/19/16 22:59 Aerobic Blood Culture - Preliminary Resulted Blood Peripheral NO GROWTH IN 1 DAY 12/19/16 22:59 Anaerobic Blood Culture - Preliminary Resulted Blood Peripheral NO GROWTH IN 1 DAY Administered Medications Medications (Trade) Dose Ordered Sig/Solo Route PRN Reason Start Time Stop Time Status Last Admin Dose Admin Pantoprazole Sodium (Protonix Inj) 40 mg DAILY IV 12/16/16 09:00 12/22/16 09:10 Chlorhexidine Gluconate (Chlorhexidine 2% Cloth) Taper DAILY@04 TOP 12/16/16 04:00 12/12/17 03:59 12/21/16 03:59 Senna/Docusate Sodium (Sandy-Colace) 1 tab BID PO 12/16/16 09:00 12/20/16 08:29 Hydromorphone HCl 4 mg 4 mg Q6H PRN PO Pain Management 12/16/16 03:00 12/22/16 05:35 Potassium Chloride 100 ml @ 50 mls/hr Q2H PRN IV For Potassium 2.8 - 3.2 mEq/L 12/16/16 03:45 12/21/16 09:16 Potassium Chloride (KCl 20 Meq Premix Inj) 100 ml @ 50 mls/hr Q2H PRN IV For Potassium 3.3 - 3.5 mEq/L 12/16/16 03:45 12/16/16 09:39 Terbutaline Sulfate (Brethine Inj) 1 mg UNSCH PRN SQ FOR EXTRAVASATION PROTOCOL 12/16/16 21:00 12/16/16 21:09 Metronidazole (Flagyl) 500 mg Q8H PO 12/18/16 20:00 12/22/16 03:59 Ondansetron HCl 4 mg 4 mg Q6H PRN IV PUSH NAUSEA/VOMITING 12/18/16 15:30 12/21/16 07:59 Gentamicin Sulfate 60 mg/ Sodium Chloride 101.5 ml @ 200 mls/hr Q12H IV 12/19/16 04:00 12/22/16 03:59 Vancomycin HCl 750 mg/Sodium Chloride 257.5 ml @ 257.5 mls/ hr Q8H IV 12/19/16 20:00 12/22/16 03:59 Ceftriaxone Sodium/Sodium Chloride (Rocephin Inj/NS Inj) 100 ml @ 200 mls/hr Q24H IV 12/21/16 00:00 12/22/16 00:04 Heparin Sodium (Porcine) (Heparin Inj) 5,000 units TID SQ 12/21/16 18:00 12/22/16 09:09 Objective Remarks GENERAL: Young woman, supine in bed in nad. SKIN: Warm and dry. HEAD: Normocephalic. EYES: No injection or drainage. NECK: Supple, trachea midline. CARDIOVASCULAR: +S1/S2 RESPIRATORY: diminished at bases, anterior lerner clear. GASTROINTESTINAL: Abdomen soft, non-tender, nondistended. EXTREMITIES: No cyanosis NEUROLOGICAL: awake and alert, normal speech. moving all extremities. Assessment/Plan Problem List: (1) Pancytopenia Status: Acute Plan: --due to liver disease and splenomegaly + sepsis/DIC --CT showed enlarged liver and spleen. spleen is about 20 cm cranio-caudally. -- further drop in blood count is likely a combination of sepsis and consumptive process. --iron studies show high ferritin, no iron deficiency --B12/folate WNL --transfuse platelets/pRBC as needed --will give Neupogen if patient has severe neutropenia (2) Sepsis Status: Acute Plan: --Sepsis/bacteremia. --has a history of endocarditis, status post tricuspid valve and mitral valve replacement. She has had febrile illness. --most recent blood cultures with no growth. --BC +GNR and GPC --on multiple antibiotics per Infectious Disease. (3) DVT of lower extremity, bilateral Status: Resolved Plan: --started on prophylactic dose heparin on 12/19 -- has had multiple DVT. --was on Coumadin. --one point she was found to have splenic infarction. --has been on Eliquis. has not been taking the Eliquis because she is not able to keep her food or medication down. --no evidence of recurrent clot at this time. Assessment 36y/o female [place] [facility] [place]ology consulted for pancytopenia. h/o MSSA endocarditis, January 2016. Bilateral lower extremity DVT multiple times. She was on Coumadin for a while and switched to Eliquis. Hepatitis C. History of IV drug use. Chronic pain. Tricuspid valve and mitral valve replacement. Left femoral vein catheterization Plan 1. continue heparin to TID. 2. Transition to Eliquis once platelets greater than 70,000 3. monitor CBC. Attending Statement The exam, history, and the medical decision-making described in the above note were completed with the assistance of the mid-level provider. I reviewed and agree with the findings presented. I attest that I had a [id number] encounter with the patient on the same day, and personally performed and documented my assessment and findings in the medical record. No bleeding noted. Hgb stable. Platelet still low likely due to consumptive process. Continue low dose heparin and start Eliquis when platelet > 70K. Problem Qualifiers (1) Sepsis: Qualified Code: O85 - Puerperal sepsis Mel Warren Dec 22, 2016 10:54 Ger Alexander MD Dec 22, 2016 14:33
[2016-12-22] MEDS ORDERED: PHARMACY ORDERED LAB ONE ×2 (11:45→15:45)
--- NOTE | 2016-12-22 19:48 | HHI.HCPN ---
Reason for visit a. To assist with evaluation and management of symptoms including: pain, weakness. b. To assist medical decision maker(s) with: better understanding of current medical conditions; weighing benefits/burdens of medical treatment options; making medical treatment decisions. . Subjective/Interval History Patient seen and examined in ICU. Also present Sunshine Moreira LCSW. Patient is awake and alert. Sitting in bed, fair appetite. She reports she is getting up to bedside commode and in room without difficulty. Reports intermittent chest pain and right foot peripheral neuropathy pain. She reports pain relieved with PRN oral hydromorphone, one dose in the past 24 hours. She denies shortness of breath. Afebrile. Vital signs stable. WBC 6.8, hemoglobin 9.2, hematocrit 28.3, platelets 52. No bleeding noted. Total protein 6.3. Otherwise labs stable. blood culture enterococcus faecalis. 12/19/16 blood culture no growth 2 days. Remains on ceftriaxone, vancomycin, gentamicin, Flagyl. ID following. No new imaging. . Family/friend interactions No family at bedside. . Advance Directives Living Will: Never completed Health Care Surrogate: Never completed Durable Power of Oil Fire Specialist: Never completed Advance Directive Specifics Health Care Surrogate(s): Patient is currently capacitated. If patient loses capacity, according to [place] statutes, health care proxy decision making falls to a parent. She indicates she would want her mother to serve as decision maker. She indicates she trusts her mother to make decisions regarding end of life care and wants her to make those decisions as her mother would be the one who would have to care for her 3 children. . Significant change in goals: FULL CODE. Patient desires continued aggressive care. Objective Vital Signs Date Time Temp Pulse Resp B/P Pulse Ox O2 Delivery O2 Flow Rate FiO2 12/22/16 16:01 97.8 102 21 110/63 94 12/22/16 16:00 97.8 102 27 94 12/22/16 16:00 102 12/22/16 15:00 100 15 91/55 93 12/22/16 14:00 108 12/22/16 14:00 98 18 90/56 94 12/22/16 13:01 113 16 117/65 94 12/22/16 12:00 93 12/22/16 12:00 98.8 93 16 114/83 96 12/22/16 11:00 93 17 109/74 94 12/22/16 10:00 87 19 102/67 94 12/22/16 10:00 87 12/22/16 09:01 95 12/22/16 09:00 97 18 103/69 95 12/22/16 08:00 98.1 98 17 86/54 94 12/22/16 08:00 98 12/22/16 07:00 90 15 110/65 94 12/22/16 06:00 108 12/22/16 06:00 108 23 107/72 94 12/22/16 04:00 98.0 107 18 105/70 93 12/22/16 04:00 107 12/22/16 02:00 112 12/22/16 00:00 102 12/22/16 00:00 98.3 102 25 104/72 95 12/21/16 22:00 111 12/21/16 20:00 97.9 107 16 99/60 94 12/21/16 20:00 107 12/21/16 19:48 20 Intake & Output 12/22/16 12/22/16 07:00 19:00 Intake Total 2515 ml 805 ml Output Total 600 ml Balance 2515 ml 205 ml Intake Oral 1280 ml 600 ml IV Total 1235 ml 205 ml Output Urine Total 600 ml # Voids 6 # Bowel Movements 3 0 Physical Exam CONSTITUTIONAL/GENERAL: This is a critically ill patient, in no apparent distress. TUBES/LINES/DRAINS: PIV SKIN: No jaundice, rashes, or lesions. Ecchymoses on upper extremities. No wounds seen anteriorly. Skin temperature appropriate. Not diaphoretic. CARDIOVASCULAR: Tachycardic rate and rhythm, Grade 2 systolic murmur left sternal border, gallops, or rubs. Well-healed sternotomy scar noted. RESPIRATORY/CHEST: Symmetric, unlabored respirations. Clear to auscultation. Breath sounds equal bilaterally. No wheezes, rales, or rhonchi. GASTROINTESTINAL: Abdomen soft, non-tender, nondistended. No guarding. Bowel sounds present. GENITOURINARY: Without palpable bladder distension. MUSCULOSKELETAL: Extremities without clubbing, cyanosis, or edema. No mottling or clubbing. NEUROLOGICAL: Awake and alert. Follows commands. Cognitively sharp. Moves all extremities. PSYCHIATRIC: No obvious anxiety/depression. no apparent hallucinations or other psychotic thought process. . Diagnostic Tests Laboratory Laboratory Tests Test 12/19/16 12/20/16 12/20/16 12/20/16 21:00 05:26 15:04 15:25 Potassium Level 4.0 MEQ/L 4.2 MEQ/L (3.5-5.1) (3.5-5.1) White Blood Count 3.2 TH/MM3 (4.0-11.0) Red Blood Count 2.57 MIL/MM3 (4.00-5.30) Hemoglobin 7.1 GM/DL (11.6-15.3) Hematocrit 21.3 % (35.0-46.0) Mean Corpuscular Volume 83.1 FL (80.0-100.0) Mean Corpuscular Hemoglobin 27.6 PG (27.0-34.0) Mean Corpuscular Hemoglobin 33.2 % Concent (32.0-36.0) Red Cell Distribution Width 15.8 % (11.6-17.2) Platelet Count 30 TH/MM3 (150-450) Mean Platelet Volume 9.9 FL (7.0-11.0) Neutrophils (%) (Auto) 80.0 % (16.0-70.0) Lymphocytes (%) (Auto) 11.9 % (9.0-44.0) Monocytes (%) (Auto) 7.7 % (0.0-8.0) Eosinophils (%) (Auto) 0.2 % (0.0-4.0) Basophils (%) (Auto) 0.2 % (0.0-2.0) Neutrophils # (Auto) 2.6 TH/MM3 (1.8-7.7) Lymphocytes # (Auto) 0.4 TH/MM3 (1.0-4.8) Monocytes # (Auto) 0.2 TH/MM3 (0-0.9) Eosinophils # (Auto) 0.0 TH/MM3 (0-0.4) Basophils # (Auto) 0.0 TH/MM3 (0-0.2) CBC Comment AUTO DIFF Differential Total Cells 100 Counted Neutrophils % (Manual) 81 % (16-70) Band Neutrophils % 2 % (0-6) Lymphocytes % 9 % (9-44) Monocytes % 8 % (0-8) Neutrophils # (Manual) 2.7 TH/MM3 (1.8-7.7) Nucleated Red Blood Cells 1 /100 WBC (0-0) Differential Comment FINAL DIFF MANUAL Platelet Estimate LOW (NORMAL) Platelet Morphology Comment NORMAL (NORMAL) Prothrombin Time 14.0 SEC (9.8-11.6) Prothromb Time International 1.3 RATIO Ratio Activated Partial 28.9 SEC Thromboplast Time (24.3-30.1) Sodium Level 137 MEQ/L (136-145) Chloride Level 108 MEQ/L (98-107) Carbon Dioxide Level 21.1 MEQ/L (21.0-32.0) Anion Gap 8 MEQ/L (5-15) Blood Urea Nitrogen 19 MG/DL (7-18) Creatinine 0.60 MG/DL (0.50-1.00) Estimat Glomerular Filtration 114 ML/MIN Rate (>89) Random Glucose 126 MG/DL (74-106) Calcium Level 7.1 MG/DL (8.5-10.1) Protein Corrected Calcium 7.5 MG/DL (8.5-10.1) Total Protein 6.4 GM/DL (6.4-8.2) Gentamicin Level Trough 4.3 MCG/ML (0.0-2.0) Blood Type O NEGATIVE Antibody Screen NEGATIVE Crossmatch Leukocyte-Reduced Red Blood Cells Blood Bank Comment Haptoglobin 144 MG/DL (30-200) Lactate Dehydrogenase 178 U/L (84-246) Test 12/20/16 12/20/16 12/21/16 12/22/16 15:45 20:35 04:48 05:40 Gentamicin Level Trough 1.0 MCG/ML (0.0-2.0) Vancomycin Level Trough 19.7 MCG/ML (5.0-10.0) White Blood Count 5.0 TH/MM3 6.8 TH/MM3 (4.0-11.0) (4.0-11.0) Red Blood Count 3.03 MIL/MM3 3.31 MIL/MM3 (4.00-5.30) (4.00-5.30) Hemoglobin 8.5 GM/DL 9.2 GM/DL (11.6-15.3) (11.6-15.3) Hematocrit 25.7 % 28.3 % (35.0-46.0) (35.0-46.0) Mean Corpuscular Volume 84.8 FL 85.3 FL (80.0-100.0) (80.0-100.0) Mean Corpuscular Hemoglobin 27.9 PG 27.8 PG (27.0-34.0) (27.0-34.0) Mean Corpuscular Hemoglobin 32.9 % 32.6 % Concent (32.0-36.0) (32.0-36.0) Red Cell Distribution Width 15.8 % 15.4 % (11.6-17.2) (11.6-17.2) Platelet Count 47 TH/MM3 52 TH/MM3 (150-450) (150-450) Mean Platelet Volume 10.2 FL 10.3 FL (7.0-11.0) (7.0-11.0) Neutrophils (%) (Auto) 77.2 % 78.2 % (16.0-70.0) (16.0-70.0) Lymphocytes (%) (Auto) 14.8 % 14.3 % (9.0-44.0) (9.0-44.0) Monocytes (%) (Auto) 7.5 % (0.0-8.0) 6.7 % (0.0-8.0) Eosinophils (%) (Auto) 0.4 % (0.0-4.0) 0.5 % (0.0-4.0) Basophils (%) (Auto) 0.1 % (0.0-2.0) 0.3 % (0.0-2.0) Neutrophils # (Auto) 3.9 TH/MM3 5.3 TH/MM3 (1.8-7.7) (1.8-7.7) Lymphocytes # (Auto) 0.7 TH/MM3 1.0 TH/MM3 (1.0-4.8) (1.0-4.8) Monocytes # (Auto) 0.4 TH/MM3 0.5 TH/MM3 (0-0.9) (0-0.9) Eosinophils # (Auto) 0.0 TH/MM3 0.0 TH/MM3 (0-0.4) (0-0.4) Basophils # (Auto) 0.0 TH/MM3 0.0 TH/MM3 (0-0.2) (0-0.2) CBC Comment DIFF FINAL AUTO DIFF Differential Comment AUTO DIFF CONFIRMED Haptoglobin 133 MG/DL (30-200) Prothrombin Time 12.7 SEC 12.0 SEC (9.8-11.6) (9.8-11.6) Prothromb Time International 1.1 RATIO 1.1 RATIO Ratio Activated Partial 27.0 SEC 26.0 SEC Thromboplast Time (24.3-30.1) (24.3-30.1) Fibrinogen 136 mg/dL (227-377) Sodium Level 139 MEQ/L 137 MEQ/L (136-145) (136-145) Potassium Level 3.1 MEQ/L 3.8 MEQ/L (3.5-5.1) (3.5-5.1) Chloride Level 107 MEQ/L 103 MEQ/L (98-107) (98-107) Carbon Dioxide Level 20.6 MEQ/L 27.4 MEQ/L (21.0-32.0) (21.0-32.0) Anion Gap 11 MEQ/L (5-15) 7 MEQ/L (5-15) Blood Urea Nitrogen 19 MG/DL (7-18) 14 MG/DL (7-18) Creatinine 0.68 MG/DL 0.59 MG/DL (0.50-1.00) (0.50-1.00) Estimat Glomerular Filtration 99 ML/MIN (>89) 117 ML/MIN Rate (>89) Random Glucose 146 MG/DL 103 MG/DL (74-106) (74-106) Calcium Level 7.3 MG/DL 7.4 MG/DL (8.5-10.1) (8.5-10.1) Protein Corrected Calcium 7.7 MG/DL 7.8 MG/DL (8.5-10.1) (8.5-10.1) Lactate Dehydrogenase 129 U/L (84-246) Total Protein 6.3 GM/DL 6.3 GM/DL (6.4-8.2) (6.4-8.2) Platelet Estimate LOW (NORMAL) Platelet Morphology Comment ENLARGED (NORMAL) Test 12/22/16 13:50 Vancomycin Level Trough 19.0 MCG/ML (5.0-10.0) Result Diagram: 12/22/16 0540 12/22/16 0540 Microbiology Microbiology Date/Time Procedure Status Source Growth 7/14/17 22:39 Aerobic Blood Culture - Preliminary Resulted Blood Peripheral NO GROWTH IN 2 DAYS 12/19/16 22:39 Anaerobic Blood Culture - Preliminary Resulted Blood Peripheral NO GROWTH IN 2 DAYS 12/19/16 22:59 Aerobic Blood Culture - Preliminary Resulted Blood Peripheral NO GROWTH IN 2 DAYS 12/19/16 22:59 Anaerobic Blood Culture - Preliminary Resulted Blood Peripheral NO GROWTH IN 2 DAYS Imaging Last Impressions Chest X-Ray 12/17/16 0000 Signed Impressions: Service Date/Time: Saturday, December 17, 2016 04:55 - CONCLUSION: Decreasing bibasilar atelectasis. Rodo Hart MD Lower Extremity Ultrasound 12/16/16 0000 Signed Impressions: Service Date/Time: Friday, December 16, 2016 03:56 - CONCLUSION: No DVT of either lower extremity. Rodo Hart MD CT Angiography 12/16/16 0000 Signed Impressions: Service Date/Time: Friday, December 16, 2016 05:40 - CONCLUSION: 1. No pulmonary embolus. 2. Patchy bilateral air space disease, right more so than left and both sides basilar predominant. Rodo Hart MD Abdomen/Pelvis CT 12/16/16 0000 Signed Impressions: Service Date/Time: Friday, December 16, 2016 05:40 - CONCLUSION: 1. Enlargement and scarring of the spleen. Collateral vessels in the splenic hilum are again noted. 2. Nonspecific hepatomegaly. No focal hepatic lesion. 3. No obstruction or acute inflammatory changes are demonstrated of the gastrointestinal tract. Rodo Hart MD Assessment and Plan Disease Oriented Problem List: (1) Endocarditis (2) Bacteremia (3) Pancytopenia (4) Septic shock (5) Septic pulmonary embolism (6) Hypotension (7) IVDU (intravenous drug user) (8) Chest pain Symptom Scale: (1) Chest pain 0-10 Scale: 2 (intermittent chest pain, relieved with current meds) (2) Weakness 0-10 Scale: Unable to quantify Pertinent Non-Medical Issues Psychosocial: Single. Has 3 children (12, 7 and 4). Supported by her parents and her siblings. Spiritual: Believes in God, declines spot facer support. Legal: Patient is currently capacitated. If patient loses capacity, according to [place] statutes, health care proxy decision making falls to a parent. She indicates she would want her mother to serve as decision maker. She indicates she trusts her mother to make decisions regarding end of life care and wants her to make those decisions as her mother would be the one who would have to care for her 3 children. Ethical issues impacting care: none. . Important Contacts * Tiara Romero, mother/ HCP: [phone] . Prognosis Patient is not a candidate for 2nd valve surgery, ID feels antibiotics may treat endocarditis. Patient is high risk for further setbacks or decline. Will monitor. . Code Status: Full Code Plan * Patient is currently capacitated. If patient loses capacity, according to [place] statutes, health care proxy decision making falls to a parent. She indicates she would want her mother to serve as decision maker. She indicates she trusts her mother to make decisions regarding end of life care and wants her to make those decisions as her mother would be the one who would have to care for her 3 children. * FULL CODE per pt wishes * Met with patient, she desires FULL CODE and continued aggressive care at this time. She seems to have a good understanding of condition and risks. * SYMPTOMS: Weakness: due to endocarditis and recent hospitalizations. Getting up to [facility], continue PT. Pain: intermittent chest pain and right foot peripheral neuropathy pain, relieved with PRN hydromorphone, one dose in the past 24 hours. Will monitor. No new medication recommendations at this time. * Palliative care will continue to follow to assist with symptom management, communication, support and clarification of goals as needed. . Attestation To help prompt me to consider important information that might be impacting today's encounter and assessment, information from prior notes written by myself or my colleagues may have been "brought forward" into today's note. My signature on this note, however, is an attestation that I personally performed the exam, history, and/or decision-making noted today, and, unless otherwise indicated, the interactions with patient, family, and staff as well as the review of records all occurred today. I also attest that the listed assessment and stated plan reflect my best clinical judgment today based on the combination of historical information, prior notes, and today's exam/ interactions. When time spent is documented, it refers only to time spent today by the signer, or if indicated, combined time spent today by collaborating physician/nurse practitioner. Sherry Moreno 17, 2017 19:48
[2016-12-22] MEDS ORDERED: ALTEPLASE RECOMBINANT 2 MG VIAL INTRACATH ONE (21:00)
--- NOTE | 2016-12-22 22:26 | HHI.IDPN ---
Subjective Subjective Remarks delayed entry pt was seen earlier today in rm# [phone] around 4 pm She feels better She is afebrile improved hellen improved counts no diarrhea Antibiotics CFTX Genta IV flagyl oral vanco iv Lines Line sites with no e/o infections. Past Medical History reviewed Allergies: Coded Allergies: Morphine (Verified Allergy, Severe, hives, 12/15/16) [place] (Verified Allergy, Unknown, 12/15/16) Penicillin (Verified Allergy, Unknown, 12/15/16) Objective . Vital Signs Date Time Temp Pulse Resp B/P Pulse Ox O2 Delivery O2 Flow Rate FiO2 12/22/16 20:35 98.2 105 18 97/58 95 12/22/16 16:01 97.8 102 21 110/63 94 12/22/16 16:00 97.8 102 27 94 12/22/16 16:00 102 12/22/16 15:00 100 15 91/55 93 12/22/16 14:00 108 12/22/16 14:00 98 18 90/56 94 12/22/16 13:01 113 16 117/65 94 12/22/16 12:00 93 12/22/16 12:00 98.8 93 16 114/83 96 12/22/16 11:00 93 17 109/74 94 12/22/16 10:00 87 19 102/67 94 12/22/16 10:00 87 12/22/16 09:01 95 12/22/16 09:00 97 18 103/69 95 12/22/16 08:00 98.1 98 17 86/54 94 12/22/16 08:00 98 12/22/16 07:00 90 15 110/65 94 12/22/16 06:00 108 12/22/16 06:00 108 23 107/72 94 12/22/16 04:00 98.0 107 18 105/70 93 12/22/16 04:00 107 12/22/16 02:00 112 12/22/16 00:00 102 12/22/16 00:00 98.3 102 25 104/72 95 12/21/16 12/21/16 12/22/16 15:00 23:00 07:00 Intake Total 703 ml 1633 ml 882 ml Output Total 600 ml Balance 103 ml 1633 ml 882 ml Intake Oral 240 ml 800 ml 480 ml IV Total 463 ml 833 ml 402 ml Output Urine Total 600 ml # Voids 3 3 # Bowel Movements 2 2 1 . Laboratory Tests Test 12/21/16 12/22/16 04:48 05:40 White Blood Count 5.0 TH/MM3 6.8 TH/MM3 Red Blood Count 3.03 MIL/MM3 3.31 MIL/MM3 Hemoglobin 8.5 GM/DL 9.2 GM/DL Hematocrit 25.7 % 28.3 % Mean Corpuscular Volume 84.8 FL 85.3 FL Mean Corpuscular Hemoglobin 27.9 PG 27.8 PG Mean Corpuscular Hemoglobin 32.9 % 32.6 % Concent Red Cell Distribution Width 15.8 % 15.4 % Platelet Count 47 TH/MM3 52 TH/MM3 Mean Platelet Volume 10.2 FL 10.3 FL Neutrophils (%) (Auto) 77.2 % 78.2 % Lymphocytes (%) (Auto) 14.8 % 14.3 % Monocytes (%) (Auto) 7.5 % 6.7 % Eosinophils (%) (Auto) 0.4 % 0.5 % Basophils (%) (Auto) 0.1 % 0.3 % Neutrophils # (Auto) 3.9 TH/MM3 5.3 TH/MM3 Lymphocytes # (Auto) 0.7 TH/MM3 1.0 TH/MM3 Monocytes # (Auto) 0.4 TH/MM3 0.5 TH/MM3 Eosinophils # (Auto) 0.0 TH/MM3 0.0 TH/MM3 Basophils # (Auto) 0.0 TH/MM3 0.0 TH/MM3 CBC Comment DIFF FINAL AUTO DIFF Differential Comment AUTO DIFF CONFIRMED Haptoglobin 133 MG/DL Platelet Estimate LOW Platelet Morphology Comment ENLARGED Laboratory Tests Test 12/21/16 12/22/16 04:48 05:40 Sodium Level 139 MEQ/L 137 MEQ/L Potassium Level 3.1 MEQ/L 3.8 MEQ/L Chloride Level 107 MEQ/L 103 MEQ/L Carbon Dioxide Level 20.6 MEQ/L 27.4 MEQ/L Anion Gap 11 MEQ/L 7 MEQ/L Blood Urea Nitrogen 19 MG/DL 14 MG/DL Creatinine 0.68 MG/DL 0.59 MG/DL Estimat Glomerular Filtration 99 ML/MIN 117 ML/MIN Rate Random Glucose 146 MG/DL 103 MG/DL Calcium Level 7.3 MG/DL 7.4 MG/DL Protein Corrected Calcium 7.7 MG/DL 7.8 MG/DL Lactate Dehydrogenase 129 U/L Total Protein 6.3 GM/DL 6.3 GM/DL Microbiology Date/Time Procedure Status Source Growth 12/19/16 22:39 Aerobic Blood Culture - Preliminary Resulted Blood Peripheral NO GROWTH IN 2 DAYS 12/19/16 22:39 Anaerobic Blood Culture - Preliminary Resulted Blood Peripheral NO GROWTH IN 2 DAYS 12/19/16 22:59 Aerobic Blood Culture - Preliminary Resulted Blood Peripheral NO GROWTH IN 2 DAYS 12/19/16 22:59 Anaerobic Blood Culture - Preliminary Resulted Blood Peripheral NO GROWTH IN 2 DAYS Imaging Last Impressions Chest X-Ray 12/17/16 0000 Signed Impressions: Service Date/Time: Saturday, December 17, 2016 04:55 - CONCLUSION: Decreasing bibasilar atelectasis. Rodo Hart MD Lower Extremity Ultrasound 12/16/16 0000 Signed Impressions: Service Date/Time: Friday, December 16, 2016 03:56 - CONCLUSION: No DVT of either lower extremity. Rodo Hart MD CT Angiography 12/16/16 0000 Signed Impressions: Service Date/Time: Friday, December 16, 2016 05:40 - CONCLUSION: 1. No pulmonary embolus. 2. Patchy bilateral air space disease, right more so than left and both sides basilar predominant. Rodo Hart MD Abdomen/Pelvis CT 12/16/16 0000 Signed Impressions: Service Date/Time: Friday, December 16, 2016 05:40 - CONCLUSION: 1. Enlargement and scarring of the spleen. Collateral vessels in the splenic hilum are again noted. 2. Nonspecific hepatomegaly. No focal hepatic lesion. 3. No obstruction or acute inflammatory changes are demonstrated of the gastrointestinal tract. Rodo Hart MD Physical Exam GENERAL: Thin built, well-developed patient, in no apparent distress. SKIN: No rashes, ecchymoses or lesions. Cool and dry. EYES: Pupils equal round and reactive. Extraocular motions intact. No scleral icterus. No injection or drainage. NECK: Trachea midline. Supple, No JVD CARDIOVASCULAR: regular, + 2/6 syustolic murmur no rubs gallops medial sternotopmy scar well healed well perfused perifery RESPIRATORY: Clear to auscultation. Breath sounds equal bilaterally. No wheezes , rales, or rhonchi. GASTROINTESTINAL: Abdomen soft, No tenderness . Markedly improved distention of the abdomen MUSCULOSKELETAL: Extremities without clubbing, cyanosis, No joint tenderness, effusion, Less prominent edema noted, including extremeties, abdomen genitalia NEUROLOGICAL: fully awake alert oriented x 3 PSYCH: calm and pleasant IV line sites with no e.o infection. 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 Aspiration Pneumonia/septic emboli Cdiff colitis. 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
[2016-12-23] VITALS (7 sets, daily range): BP systolic 85–110; BP diastolic 57–73; PULSE 93–126; RESP 18–22; TEMP 97.6–98.2; O2SAT 93–97
[2016-12-23] MEDS: HYDROmorphone HCL 4 MG TAB PO PRN ×5 (00:10→23:58)
[2016-12-23] MEDS: GENTAMICIN INJ 60 MG in SODIUM CHLORIDE 0.9% INJ 100 ML IV SCH ×2 (00:36→12:15)
[2016-12-23] MEDS: ONDANSETRON HCL 4 MG/2 ML VIAL IV PUSH PRN (01:06)
[2016-12-23] MEDS: CHLORHEXIDINE GLUCONATE 2 % 1 PACK (2 CLOTHS) TOP SCH (04:00)
[2016-12-23] MEDS: metroNIDAZOLE 500 MG TAB PO SCH ×3 (04:11→20:41)
[2016-12-23] MEDS: VANCOMYCIN INJ 750 MG in SODIUM CHLOR 0.9% 250 ML INJ 250 ML IV SCH ×3 (04:12→20:41)
[2016-12-23 05:52] LABS: APTT (PATIENT) 25.4 SEC (24.3-30.1); INTERNATIONAL NORMALIZED RATIO 1.1 RATIO
[2016-12-23 06:15] LABS: BICARBONATE 29.6 MEQ/L (21.0-32.0); POTASSIUM 3.4 MEQ/L (3.5-5.1)
[2016-12-23 06:39] LABS: CALCIUM-PROTEIN CORRECTED 7.5 MG/DL (8.5-10.1)
[2016-12-23] MEDS: DOCUSATE SODIUM 50 MG/SENNA 8.6 MG TAB PO SCH ×2 (09:00→20:42)
[2016-12-23] MEDS: HEPARIN SODIUM - SQ 10,000 UNITS/ML VIAL SQ SCH ×3 (09:18→17:53)
[2016-12-23] MEDS: PANTOPRAZOLE SODIUM 40 MG VIAL IV SCH (09:18)
--- NOTE | 2016-12-23 09:47 | PD.ONC.PN ---
Subjective Subjective Remarks Afebrile overnight. Patient resting in bed. Having back pain. She believes its related to the uncomfortable bed. No bleeding. Tolerating heparin injections. Objective Data Date Time Temp Pulse Resp B/P Pulse Ox O2 Delivery O2 Flow Rate FiO2 12/23/16 09:20 100/70 12/23/16 08:00 98.0 93 18 85/57 94 12/23/16 05:27 97.9 95 18 103/70 96 12/23/16 04:00 Room Air 12/23/16 01:12 98.2 100 18 110/73 97 12/23/16 00:00 Room Air 12/22/16 20:35 98.2 105 18 97/58 95 12/22/16 20:18 108 12/22/16 20:00 Room Air 12/22/16 16:01 97.8 102 21 110/63 94 12/22/16 16:00 97.8 102 27 94 12/22/16 16:00 102 12/22/16 15:00 100 15 91/55 93 12/22/16 14:00 108 12/22/16 14:00 98 18 90/56 94 12/22/16 13:01 113 16 117/65 94 12/22/16 12:00 93 12/22/16 12:00 98.8 93 16 114/83 96 12/22/16 11:00 93 17 109/74 94 12/22/16 10:00 87 19 102/67 94 12/22/16 10:00 87 12/23/16 12/23/16 12/23/16 07:00 15:00 23:00 Intake Total 686 ml Balance 686 ml Result Diagram: 12/22/16 0540 12/23/16 0520 Laboratory Results Laboratory Tests Test 12/22/16 12/22/16 12/23/16 13:50 22:15 05:20 Vancomycin Level Trough 19.0 MCG/ML Gentamicin Level Trough 0.5 MCG/ML Prothrombin Time 12.0 SEC Prothromb Time International 1.1 RATIO Ratio Activated Partial 25.4 SEC Thromboplast Time Sodium Level 140 MEQ/L Potassium Level 3.4 MEQ/L Chloride Level 103 MEQ/L Carbon Dioxide Level 29.6 MEQ/L Anion Gap 7 MEQ/L Blood Urea Nitrogen 16 MG/DL Creatinine 0.57 MG/DL Estimat Glomerular Filtration 121 ML/MIN Rate Random Glucose 86 MG/DL Calcium Level 7.1 MG/DL Protein Corrected Calcium 7.5 MG/DL Total Protein 6.3 GM/DL Administered Medications Medications (Trade) Dose Ordered Sig/Solo Route PRN Reason Start Time Stop Time Status Last Admin Dose Admin Pantoprazole Sodium (Protonix Inj) 40 mg DAILY IV 12/16/16 09:00 12/23/16 09:18 Chlorhexidine Gluconate (Chlorhexidine 2% Cloth) Taper DAILY@04 TOP 12/16/16 04:00 12/12/17 03:59 12/21/16 03:59 Senna/Docusate Sodium (Sandy-Colace) 1 tab BID PO 12/16/16 09:00 12/20/16 08:29 Hydromorphone HCl 4 mg 4 mg Q6H PRN PO Pain Management 12/16/16 03:00 12/23/16 05:53 Potassium Chloride 100 ml @ 50 mls/hr Q2H PRN IV For Potassium 2.8 - 3.2 mEq/L 12/16/16 03:45 12/21/16 09:16 Potassium Chloride (KCl 20 Meq Premix Inj) 100 ml @ 50 mls/hr Q2H PRN IV For Potassium 3.3 - 3.5 mEq/L 12/16/16 03:45 12/16/16 09:39 Terbutaline Sulfate (Brethine Inj) 1 mg UNSCH PRN SQ FOR EXTRAVASATION PROTOCOL 12/16/16 21:00 12/16/16 21:09 Metronidazole (Flagyl) 500 mg Q8H PO 12/18/16 20:00 12/23/16 04:11 Ondansetron HCl 4 mg 4 mg Q6H PRN IV PUSH NAUSEA/VOMITING 12/18/16 15:30 12/23/16 01:06 Vancomycin HCl 750 mg/Sodium Chloride 257.5 ml @ 257.5 mls/ hr Q8H IV 12/19/16 20:00 12/23/16 04:12 Ceftriaxone Sodium/Sodium Chloride (Rocephin Inj/NS Inj) 100 ml @ 200 mls/hr Q24H IV 12/21/16 00:00 12/22/16 23:57 Heparin Sodium (Porcine) 5000 units 5,000 units TID SQ 12/21/16 18:00 12/23/16 09:18 Gentamicin Sulfate/Sodium Chloride (Gentamicin Inj/ NS Inj) 101.5 ml @ 200 mls/hr Q12H IV 12/23/16 01:00 12/23/16 00:36 Objective Remarks GENERAL: Young woman, lying in bed appears comfortable SKIN: Warm and dry. HEAD: Normocephalic. EYES: No injection or drainage. NECK: Supple, trachea midline. CARDIOVASCULAR: +S1/S2 RESPIRATORY: anterior lerner clear. GASTROINTESTINAL: Abdomen soft, non-tender, nondistended. EXTREMITIES: No cyanosis NEUROLOGICAL: awake and alert, no obvious focal deficit Assessment/Plan Problem List: (1) Pancytopenia Status: Acute Plan: --due to liver disease and splenomegaly + sepsis/DIC --CT showed enlarged liver and spleen. spleen is about 20 cm cranio-caudally. -- further drop in blood count is likely a combination of sepsis and consumptive process. --iron studies show high ferritin, no iron deficiency --B12/folate WNL --transfuse platelets/pRBC as needed --will give Neupogen if patient has severe neutropenia (2) Sepsis Status: Acute Plan: --Sepsis/bacteremia. --has a history of endocarditis, status post tricuspid valve and mitral valve replacement. She has had febrile illness. --most recent blood cultures with no growth. --BC +GNR and GPC --on multiple antibiotics per Infectious Disease. (3) DVT of lower extremity, bilateral Status: Resolved Plan: --started on prophylactic dose heparin on 12/19 -- has had multiple DVT. --was on Coumadin. --one point she was found to have splenic infarction. --has been on Eliquis. has not been taking the Eliquis because she is not able to keep her food or medication down. --no evidence of recurrent clot at this time. Assessment 36y/o [place] [facility] [place] Hematology consulted for pancytopenia. h/o MSSA endocarditis, January 2016. Bilateral lower extremity DVT multiple times. She was on Coumadin for a while and switched to Eliquis. Hepatitis C. History of IV drug use. Chronic pain. Tricuspid valve and mitral valve replacement. Left femoral vein catheterization Plan 1. continue heparin 2. monitor CBC Attending Statement The exam, history, and the medical decision-making described in the above note were completed with the assistance of the mid-level provider. I reviewed and agree with the findings presented. I attest that I had a [id number] encounter with the patient on the same day, and personally performed and documented my assessment and findings in the medical record. No bleeding noted. Platelet trended up >60k. Continue low dose heparin and start Eliquis when platelet >70k. Problem Qualifiers (1) Sepsis: Qualified Code: O85 - Puerperal sepsis Mel Warren Dec 23, 2016 09:46 Ger Alexander MD Dec 23, 2016 16:50
[2016-12-23 11:36] LABS: AUTOMATED NEUTROPHIL # 6.3 TH/MM3 (1.8-7.7); BASOPHIL % 0.3 % (0.0-2.0); EOSINOPHIL % 0.4 % (0.0-4.0); LYMPH % 9.7 % (9.0-44.0); LYMPHOCYTE # 0.7 TH/MM3 (1.0-4.8); MEAN CELL VOLUME 85.9 FL (80.0-100.0); MEAN CORPUSCULAR HGB CONC 33.7 % (32.0-36.0); MONO % 3.7 % (0.0-8.0); NEUT % 85.9 % (16.0-70.0); PLATELET COUNT 63 TH/MM3 (150-450); RED BLOOD COUNT 2.79 MIL/MM3 (4.00-5.30); RED CELL DISTRIBUTION WIDTH 15.8 % (11.6-17.2); WHITE BLOOD COUNT 7.3 TH/MM3 (4.0-11.0)
[2016-12-23 11:41] LABS: HEMO FLAGS AUTO DIFF
[2016-12-23 12:09] LABS: PLATELET ESTIMATE SMEAR LOW (NORMAL); PLATELET MORPHOLOGY ENLARGED (NORMAL); SCAN/DIFF AUTO DIFF CONFIRMED
--- NOTE | 2016-12-23 12:11 | HHI.PR ---
Subjective Remarks Follow-up for endocarditis Patient no complaints. She stated that she feels better. She stated that her blood pressure can run in the lower 90s to low 100s. She denies any lightheadedness/dizziness, chest pain or palpitation. He feels like she is doing well. She remains afebrile. Objective Vitals Vital Signs Date Time Temp Pulse Resp B/P Pulse Ox O2 Delivery O2 Flow Rate FiO2 12/23/16 09:20 100/70 12/23/16 08:00 98.0 93 18 85/57 94 12/23/16 05:27 97.9 95 18 103/70 96 12/23/16 04:00 Room Air 12/23/16 01:12 98.2 100 18 110/73 97 12/23/16 00:00 Room Air 12/22/16 20:35 98.2 105 18 97/58 95 12/22/16 20:18 108 12/22/16 20:00 Room Air 12/22/16 16:01 97.8 102 21 110/63 94 12/22/16 16:00 97.8 102 27 94 12/22/16 16:00 102 12/22/16 15:00 100 15 91/55 93 12/22/16 14:00 108 12/22/16 14:00 98 18 90/56 94 12/22/16 13:01 113 16 117/65 94 I/O 12/22/16 12/22/16 12/22/16 12/23/16 12/23/16 12/23/16 07:00 15:00 23:00 07:00 15:00 23:00 Intake Total 882 ml 805 ml 250 ml 686 ml Output Total 600 ml Balance 882 ml 205 ml 250 ml 686 ml Intake Oral 480 ml 600 ml 240 ml IV Total 402 ml 205 ml 250 ml 446 ml Output Urine Total 600 ml # Voids 3 # Bowel Movements 1 0 Result Diagram: 12/23/16 1100 12/23/16 0520 Objective Remarks GENERAL: in NAD ORAL: poor dentition. NECK: trachea midline. + JVD CARDIOVASCULAR: Tachycardic rate and rhythm, Grade 2 systolic murmur left sternal border, no rubs. Well-healed sternotomy scar from valve surgeries RESPIRATORY: Breath sounds equal bilaterally. No accessory muscle use. GASTROINTESTINAL: Abdomen soft, non-tender, nondistended. Dependent edema bilateral ankles. MUSCULOSKELETAL: No cyanosis, edema. right PICC site dry clean and intact. NEURO: Awake oriented. Moving all extremities spontaneously without focal deficit. Medications and IVs Current Medications Sodium Chloride 1,000 ml @ 1,000 mls/hr Q1H ONCE IV Last administered on 22:47; Start 12/15/16 at 22:45; Stop 12/15/16 at 23:44; Status DC Cefepime HCl 2000 mg/Sodium Chloride 100 ml @ 200 mls/hr ONCE ONCE IV Last administered on 12/16/16 00:11; Start 12/15/16 at 22:45; Stop 12/15/16 at 23:14 ; Status DC Vancomycin HCl 1000 mg/Sodium Chloride 250 ml @ 250 mls/hr ONCE ONCE IV Last administered on 12/15/16 23:34; Start 12/15/16 at 22:45; Stop 12/15/16 at 23:44 ; Status DC Sodium Chloride (NS 1000 ml Inj) 1,000 ml @ 750 mls/hr Q1H20M ONCE IV Last administered on 12/16/16 01:06; Start 12/16/16 at 01:00; Stop 12/16/16 at 02:19 ; Status DC Ketorolac Tromethamine 15 mg 15 mg ONCE ONCE IV PUSH Last administered on 12/16 02:04; Start 12/16/16 at 01:45; Stop 12/16/16 at 01:46; Status DC Pharmacy Profile Note 0 ml @ 0 mls/hr UNSCH OTHER ; Start 12/16/16 at 02:45 Cefepime HCl 2000 mg/Sodium Chloride 100 ml @ 200 mls/hr Q8H IV Last administered on 12/20/16 15:31; Start 12/16/16 at 08:00; Stop 12/20/16 at 17:14 ; Status DC Sodium Chloride (NS 1000 ml Inj) 1,000 ml @ 150 mls/hr Q6H40M IV Last administered on 12/18/16 10:18; Start 12/16/16 at 02:47; Stop 12/18/16 at 14:04 ; Status DC Acetaminophen (Tylenol) 650 mg Q6H PRN PO PAIN 1-10 AND/OR FEVER >101F; Start 12/16/16 at 03:00 Pantoprazole Sodium (Protonix Inj) 40 mg DAILY IV Last administered on 09:18; Start 12/16/16 at 09:00 Albuterol/ Ipratropium (Duoneb Neb) 1 ampule Q2HR NEB PRN INH WHEEZING; Start 12/16/16 at 03:00 Miscellaneous Information 1 Q361D XX ; Start 12/16/16 at 03:00 Chlorhexidine Gluconate (Chlorhexidine 2% Cloth) Taper DAILY@04 TOP Last administered on 12/21/16 03:59; Start 12/16/16 at 04:00; Stop 12/12/17 at 03:59 Chlorhexidine Gluconate (Chlorhexidine 2% Cloth) 3 pack UNSCH PRN TOP HYGIENIC CARE; Start 12/16/16 at 03:00 Senna/Docusate Sodium (Sandy-Colace) 1 tab BID PO Last administered on 08:29; Start 12/16/16 at 09:00 Magnesium Hydroxide (Milk Of Magnesia Liq) 30 ml Q12H PRN PO MILD - MODERATE CONSTIPATION; Start 12/16/16 at 03:00 Sennosides (Senokot) 17.2 mg Q12H PRN PO MODERATE - SEVERE CONSTIPATION; Start 12/16/16 at 03:00 Bisacodyl (Dulcolax Supp) 10 mg DAILY PRN RECTAL SEVERE CONSITIPATION; Start at 03:00 Lactulose (Lactulose Liq) 30 ml DAILY PRN PO SEVERE CONSITIPATION; Start at 03:00 Apixaban (Eliquis) 5 mg BID PO Last administered on 12/16/16 09:40; Start 04/24 at 09:00; Stop 12/16/16 at 14:22; Status DC Hydromorphone HCl 4 mg 4 mg Q6H PRN PO Pain Management Last administered on 05:53; Start 12/16/16 at 03:00 Sodium Chloride 1,000 ml @ 999 mls/hr BOLUS ONCE IV Last administered on 12/16 03:04; Start 12/16/16 at 03:00; Stop 12/16/16 at 04:00; Status DC Metronidazole 100 ml @ 100 mls/hr Q8H IV Last administered on 12/18/16 11:58 ; Start 12/16/16 at 04:00; Stop 12/18/16 at 13:05; Status DC Potassium Chloride 100 ml @ 50 mls/hr Q2H PRN IV For Potassium 2.8 - 3.2 mEq/ L Last administered on 12/21/16 09:16; Start 12/16/16 at 03:45; Stop 12/23/16 at 11:10; Status DC Potassium Chloride (KCl 20 Meq Premix Inj) 100 ml @ 50 mls/hr Q2H PRN IV For Potassium 2.8 - 3.2 mEq/L; Start 12/16/16 at 03:45; Stop 12/23/16 at 11:10; Status DC Potassium Bicarb/ Potassium Chloride 50 meq 50 meq UNSCH PRN PO For Potassium 3.3 - 3.5 mEq/L; Start 12/16/16 at 03:45; Stop 12/23/16 at 11:10; Status DC Potassium Chloride 100 ml @ 25 mls/hr UNSCH PRN IV For Potassium 3.3 - 3.5 mEq /L; Start 12/16/16 at 03:45; Stop 12/23/16 at 11:10; Status DC Potassium Chloride 100 ml @ 50 mls/hr Q2H PRN IV For Potassium 3.3 - 3.5 mEq/ L Last administered on 12/16/16 09:39; Start 12/16/16 at 03:45; Stop 12/23/16 at 11:10; Status DC Magnesium Sulfate/ Sodium Chloride (Magnesium Sulfate Inj/NS Inj) 100 ml @ 50 mls/hr UNSCH PRN IV For Magnesium 0.9 - 1.1 mg/dL; Start 12/16/16 at 03:45; Stop 12/23/16 at 11:10; Status DC Magnesium Oxide 800 mg 800 mg UNSCH PRN PO For Magnesium 1.2 - 1.6 mg/dL; Start 12/16/16 at 03:45; Stop 12/23/16 at 11:10; Status DC Magnesium Sulfate/ Sodium Chloride (Magnesium Sulfate Inj/NS Inj) 100 ml @ 50 mls/hr UNSCH PRN IV For Magnesium 1.2 - 1.6 mg/dL; Start 12/16/16 at 03:45; Stop 12/23/16 at 11:10; Status DC Potassium Phosphate 2000 mg 2,000 mg Q4H PRN PO For Phosphorus < 2.5 mg/dL; Start 12/16/16 at 03:45; Stop 12/23/16 at 11:10; Status DC Sodium Phosphate/ Sodium Chloride (Sodium Phosphate Inj/NS 250 ml Inj) 250 ml @ 42 mls/hr UNSCH PRN IV For Phosphorus < 2.5 mg/dL; Start 12/16/16 at 03:45; Stop 12/23/16 at 11:10; Status DC Potassium Phosphate 2000 mg 2,000 mg UNSCH PRN PO/TUBE SEE LABEL COMMENTS; Start 12/16/16 at 03:45; Stop 12/23/16 at 11:10; Status DC Potassium Phosphate 30 mmol/ Sodium Chloride 260 ml @ 42 mls/hr UNSCH PRN IV SEE LABEL COMMENTS; Start 12/16/16 at 03:45; Stop 12/23/16 at 11:10; Status DC Sodium Chloride (NS 1000 ml Inj) 1,000 ml @ 999 mls/hr BOLUS ONCE IV ; Start 12/16/16 at 03:45; Stop 12/16/16 at 04:45; Status DC Iohexol 80 ml 80 ml STK-MED ONCE IV Last administered on 12/16/16 05:51; Start 12/16/16 at 05:51; Stop 12/16/16 at 05:52; Status DC Vancomycin HCl/ Sodium Chloride (Vancomycin Inj/ NS 250 ml Inj) 250 ml @ 250 mls/hr Q12H IV Last administered on 12/18/16 11:59; Start 12/16/16 at 11:00; Stop 12/18/16 at 13:02; Status DC Miscellaneous Information SPECIFIC LAB TO BE DRAWN:VANCOMYCIN TROUGH DATE TO... ONCE ONCE .XX ; Start 12/17/16 at 10:45; Stop 12/17/16 at 10:46; Status DC Vancomycin HCl 125 mg 125 mg QID PO Last administered on 12/18/16 11:59; Start 12/16/16 at 13:00; Stop 12/18/16 at 13:24; Status DC Norepinephrine Bitartrate 250 ml @ As Directed STK-MED ONCE IV ; Start at 11:12; Stop 12/16/16 at 11:13; Status DC Sodium Chloride 250 ml @ 15 mls/hr ONCE ONCE IV Last administered on 17:15; Start 12/16/16 at 17:15; Stop 12/17/16 at 09:54; Status DC Norepinephrine Bitartrate (Levophed-Dextrose Drip) 250 ml @ 0 mls/hr TITRATE IV Last administered on 12/17/16 21:12; Start 12/16/16 at 21:00; Stop 12/20/16 at 20:32; Status DC Terbutaline Sulfate 1 mg 1 mg UNSCH PRN SQ FOR EXTRAVASATION PROTOCOL Last administered on 12/16/16 21:09; Start 12/16/16 at 21:00 Propofol (Diprivan 500 Mg/ 50 ml Inj) 50 ml @ As Directed STK-MED ONCE .ROUTE ; Start 12/17/16 at 09:43; Stop 12/17/16 at 09:44; Status DC Midazolam HCl 5 mg 5 mg STK-MED ONCE .ROUTE Last administered on 12/17/16 09: 50; Start 12/17/16 at 09:50; Stop 12/17/16 at 09:51; Status DC Esmolol HCl/ Sodium Chloride (Brevibloc Drip Inj Premix) 250 ml @ 0 mls/hr TITRATE ONCE IV Last administered on 12/17/16 14:42; Start 12/17/16 at 09:55 ; Stop 12/17/16 at 11:22; Status DC Midazolam HCl (Versed Inj) 5 mg NOW ONCE IV Last administered on 12/17/16 09: 50; Start 12/17/16 at 09:50; Stop 12/17/16 at 11:22; Status DC Propofol (Diprivan 500 Mg/ 50 ml Inj) 500 mg ONCE ONCE IV Last administered on 12/17/16 09:43; Start 12/17/16 at 09:43; Stop 12/17/16 at 11:22; Status DC Propofol 500 mg 500 mg ONCE ONCE IV Last administered on 12/17/16 09:43; Start 12/17/16 at 09:43; Stop 12/17/16 at 11:22; Status DC Pharmacy Profile Note 0 ml @ 0 mls/hr UNSCH OTHER ; Start 12/17/16 at 13:30 Gentamicin Sulfate/Sodium Chloride (Gentamicin Inj/ NS Inj) 101.5 ml @ 200 mls/ hr Q8H IV Last administered on 12/18/16 15:55; Start 12/17/16 at 16:00; Stop 12/18/16 at 22:28; Status DC Miscellaneous Information SPECIFIC LAB TO BE DRAWN:GENTAMICIN PEAK DATE TO... ONCE ONCE .XX Last administered on 12/18/16 17:30; Start 12/18/16 at 17:30; Stop 12/18/16 at 17:31; Status DC Miscellaneous Information SPECIFIC LAB TO BE DRAWN:GENTAMICIN TROUGH DATE TO... ONCE ONCE .XX Last administered on 12/18/16 15:45; Start 12/18/16 at 15:45; Stop 12/18/16 at 15:46; Status DC Miscellaneous Information SPECIFIC LAB TO BE DRAWN:VANCOMYCIN TROUGH DATE TO... ONCE ONCE .XX Last administered on 12/18/16 10:45; Start 12/18/16 at 10:45; Stop 12/18/16 at 10:46; Status DC Vancomycin HCl 1000 mg/Sodium Chloride 250 ml @ 250 mls/hr Q8H IV Last administered on 12/19/16 12:19; Start 12/18/16 at 20:00; Stop 12/19/16 at 14:44 ; Status DC Metronidazole (Flagyl 500 Mg Inj) 100 ml @ 100 mls/hr Q8H IV ; Start 12/18/16 at 21:00; Stop 12/18/16 at 21:00; Status Cancel Metronidazole (Flagyl) 500 mg Q8HR PO ; Start 12/18/16 at 14:00; Stop 12/18/16 at 14:00; Status DC Metronidazole (Flagyl) 500 mg Q8H PO Last administered on 12/23/16 04:11; Start 12/18/16 at 20:00 Hydrocortisone Sodium Succinate (SoluCORTEF INJ) 50 mg Q6H IV PUSH Last administered on 12/20/16 15:30; Start 12/18/16 at 15:00; Stop 12/20/16 at 20:31 ; Status DC Ondansetron HCl 4 mg 4 mg Q6H PRN IV PUSH NAUSEA/VOMITING Last administered on 12/23/16 01:06; Start 12/18/16 at 15:30 Gentamicin Sulfate/Sodium Chloride (Gentamicin Inj/ NS Inj) 101.5 ml @ 200 mls/ hr Q12H IV Last administered on 12/22/16 03:59; Start 12/19/16 at 04:00; Stop 12/23/16 at 00:06; Status DC Miscellaneous Information SPECIFIC LAB TO BE DRAWN:GENTAMICIN TROUGH DATE TO... ONCE ONCE .XX Last administered on 12/19/16 15:45; Start 12/19/16 at 15:45; Stop 12/19/16 at 15:46; Status DC Heparin Sodium (Porcine) (Heparin Inj) 5,000 units Q12HR SQ Last administered on 12/21/16 07:51; Start 12/19/16 at 09:00; Stop 12/21/16 at 13:24; Status DC Furosemide 40 mg 40 mg ONCE ONCE IV PUSH Last administered on 12/19/16 16:54 ; Start 12/19/16 at 14:45; Stop 12/19/16 at 14:48; Status DC Vancomycin HCl/ Sodium Chloride (Vancomycin Inj/ NS 250 ml Inj) 257.5 ml @ 257.5 mls/ hr Q8H IV Last administered on 12/23/16 04:12; Start 12/19/16 at 20 :00 Miscellaneous Information SPECIFIC LAB TO BE ANABELL... ONCE ONCE .XX ; Start 12/20 at 11:45; Stop 12/20/16 at 11:46; Status DC Miscellaneous Information SPECIFIC LAB TO BE ANABELL... ONCE ONCE .XX ; Start 12/20 at 03:45; Stop 12/20/16 at 03:46; Status DC Miscellaneous Information SPECIFIC LAB TO BE ANABELL... ONCE ONCE .XX Last administered on 12/20/16 15:45; Start 12/20/16 at 15:45; Stop 12/20/16 at 15:46 ; Status DC Sodium Chloride (NS 250 ml Inj) 250 ml @ 15 mls/hr ONCE ONCE IV Last administered on 12/20/16 15:29; Start 12/20/16 at 14:30; Stop 12/21/16 at 07:09 ; Status DC Acetaminophen (Tylenol) 650 mg Q4H PRN PO SEE LABEL COMMENTS Last administered on 12/20/16 16:20; Start 12/20/16 at 14:30; Stop 12/20/16 at 18:31; Status DC Diphenhydramine HCl (Benadryl) 25 mg Q4H PRN PO SEE LABEL COMMENTS Last administered on 12/20/16 16:20; Start 12/20/16 at 14:30; Stop 12/20/16 at 18:31 ; Status DC Miscellaneous Information SPECIFIC LAB TO BE ANABELL... ONCE ONCE .XX Last administered on 12/20/16 20:35; Start 12/20/16 at 19:45; Stop 12/20/16 at 19:46 ; Status DC Ceftriaxone Sodium 2000 mg/ Sodium Chloride 100 ml @ 200 mls/hr Q24H IV ; Start 12/20/16 at 18:00; Stop 12/20/16 at 18:26; Status DC Ceftriaxone Sodium 2000 mg/ Sodium Chloride 100 ml @ 200 mls/hr Q24H IV ; Start 12/20/16 at 18:30; Status Cancel Ceftriaxone Sodium/Dextrose 50 ml @ 100 mls/hr Q24H IV ; Start 12/21/16 at 00: 00; Status Cancel Ceftriaxone Sodium/Sodium Chloride (Rocephin Inj/NS Inj) 100 ml @ 200 mls/hr Q24H IV Last administered on 12/22/16 23:57; Start 12/21/16 at 00:00 Hydrocortisone Sodium Succinate (SoluCORTEF INJ) 50 mg Q12H IV PUSH Last administered on 12/21/16 07:50; Start 12/21/16 at 09:00; Stop 12/21/16 at 19:38 ; Status DC Miscellaneous Information SPECIFIC LAB TO BE DRAWN:GENTAMICIN TROUGH DATE TO... ONCE ONCE .XX ; Start 12/22/16 at 15:45; Stop 12/22/16 at 15:46; Status DC Miscellaneous Information SPECIFIC LAB TO BE DRAWN:VANCO TROUGH DATE TO... ONCE ONCE .XX ; Start 12/22/16 at 11:45; Stop 12/22/16 at 11:46; Status DC Heparin Sodium (Porcine) (Heparin Inj) 5,000 units TID SQ Last administered on 12/23/16 09:18; Start 12/21/16 at 18:00 Furosemide (Lasix Inj) 20 mg ONCE ONCE IV PUSH Last administered on 12/21/16 20:13; Start 12/21/16 at 19:45; Stop 12/21/16 at 19:46; Status DC Potassium Chloride (KCl) 20 meq ONCE ONCE PO Last administered on 12/21/16 20 :13; Start 12/21/16 at 19:45; Stop 12/21/16 at 19:46; Status DC Hydrocortisone Sodium Succinate (SoluCORTEF INJ) 25 mg Q12H IV PUSH Last administered on 12/22/16 09:10; Start 12/21/16 at 21:00; Stop 12/22/16 at 09:04 ; Status DC Alteplase, Recombinant (Cathflo Activase Inj) 2 mg ONCE ONCE INTRACATH Last administered on 12/22/16 20:52; Start 12/22/16 at 21:00; Stop 12/22/16 at 21:01 ; Status DC Miscellaneous Information SPECIFIC LAB TO BE DRAWN:VANCO TROUGH DATE TO BE DR... ONCE ONCE .XX ; Start 12/24/16 at 11:45; Stop 12/24/16 at 11:46; Status Cancel Gentamicin Sulfate/Sodium Chloride (Gentamicin Inj/ NS Inj) 101.5 ml @ 200 mls/ hr Q12H IV Last administered on 12/23/16 00:36; Start 12/23/16 at 01:00 A/P Problem List: (1) Sepsis ICD Code: A41.9 Status: Acute (2) Chest pain ICD Code: R07.9 Status: Acute (3) Hypotension ICD Code: I95.9 Status: Acute (4) Hyponatremia ICD Code: E87.1 Status: Acute (5) Hypokalemia ICD Code: E87.6 Status: Acute (6) Endocarditis due to methicillin susceptible Staphylococcus aureus (MSSA) ICD Code: I33.0 Status: Acute (7) DVT of lower extremity, bilateral ICD Code: I82.403 Status: Resolved (8) IVDU (intravenous drug user) ICD Code: F19.90 Status: Acute (9) Bacteremia ICD Code: R78.81 Status: Acute (10) Pancytopenia ICD Code: D61.818 Status: Acute (11) Septic pulmonary embolism ICD Code: I26.90 Status: Acute (12) Elevated LFTs ICD Code: R79.89 Status: Acute Assessment and Plan 36yF with recurrent mitral valve bioprosthetic endocarditis, Enterococcus bacteremia, C. Difficile Colitis, septic shock. Now off vasopressors. Continue antibiotic per ID. appreciate subspecialty assistance. Also agree with palliative consult. Sepsis with septic shock -Continue to endocarditis/bacteremia. MICHELE 12/17 with evidence of recurrent endocarditis, EF 40%, mild RV dysfunction - Echo 10/17: mitral and tricuspid valve no regurgitation - Serial blood cultures positive have been positive (as per below). Most recent culture 12/19 NG x 3 days. -Evaluated by [facility] and she is not operative candidate due to recent IV drug use. - Off vasopressors. Will wean hydrocortisone to 25 mg IV q12 and then stop order for 12/22. Bacteremia: Enterococcus faecalis, Enterobacter Cloacae (2 strains), Group D enterococcus, additional Gram negative rods/ C. 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 cefepime discontinued on 12/20 and was rocephin started 12/20. . On gentamicin. - ID service is consulted. Repeat blood cultures from 12/19 so far negative 3 days. - C. Diff + 12/16. Flagyl DC on 12/21 now on vancomycin by mouth. -HIV negative Culture data: 12/15 blood cx: 09/09: Enterococcus faecalis, Enterobacter Cloacae (2 strains), Group D enterococcus 12/15 c. diff pcr + 12/17 blood cx: Group D enterococcus 2/4, GPCs 06/11. 12/18 blood cx: Enterococcus faecalis 1/4 bottles 12/19 - blood cx x2 sets -NGTD x 3 days. 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 On Prescribed Dilaudid for pain, UDS positive for opiates. - Supplement multivitamin, thiamine Acute protein calorie malnutrition- severe. History of hepatitis C - regular diet as tolerated. - IV Protonix Dehydration- resolved. Hyponatremia-resolved - Monitor renal function, I/O's, electrolytes replacement per protocol. -Does have some dependent edema and positive fluid balance. Lasix 20 mg IV and potassium 20 ME with Lasix. (already received potassium 40 mEQ IV per protocol for potassium 3.1) Anemia History of bilateral lower extremity DVT Pancytopenia Thrombocytopenia -Monitor CBC, CMP, INR -hold eliquis until platelets >70 k per hematology recs. Continue prophylactic heparin 5000 subcut q12 per hematology recs. PROPH: -Bilateral lower extremity SCDs, hold therapeutic anticoagulation given coagulopathy, continue heparin subcut as per above. IV Protonix 40 mg IV daily Problem Qualifiers (1) Sepsis: Qualified Code: O85 - Puerperal sepsis (2) Chest pain: Qualified Code: R07.9 - Chest pain, unspecified type (3) Hypotension: Qualified Code: I95.89 - Other specified hypotension Afua Turner MD Dec 23, 2016 12:11
[2016-12-23] MEDS ORDERED: ALTEPLASE RECOMBINANT 2 MG VIAL INTRACATH ONE (12:15)
[2016-12-23] MEDS: ACETAMINOPHEN 325 MG TAB PO PRN (18:53)
[2016-12-24] VITALS (9 sets, daily range): BP systolic 91–100; BP diastolic 53–64; PULSE 63–117; RESP 16–20; TEMP 97.9–100.1; O2SAT 92–95
[2016-12-24] MEDS: cefTRIAXone 2,000 MG/NS 100 ML IV SCH ×2
[2016-12-24] MEDS: GENTAMICIN INJ 60 MG in SODIUM CHLORIDE 0.9% INJ 100 ML IV SCH ×2 (00:01→12:10)
[2016-12-24] MEDS: ACETAMINOPHEN 325 MG TAB PO PRN ×3 (01:10→23:28)
[2016-12-24] MEDS: metroNIDAZOLE 500 MG TAB PO SCH ×3 (03:29→19:50)
[2016-12-24] MEDS: VANCOMYCIN INJ 750 MG in SODIUM CHLOR 0.9% 250 ML INJ 250 ML IV SCH ×3 (03:30→19:52)
[2016-12-24] MEDS: CHLORHEXIDINE GLUCONATE 2 % 1 PACK (2 CLOTHS) TOP SCH (03:48)
[2016-12-24 05:12] LABS: AUTOMATED NEUTROPHIL # 5.3 TH/MM3 (1.8-7.7); BASOPHIL % 0.5 % (0.0-2.0); EOSINOPHIL % 0.7 % (0.0-4.0); HEMATOCRIT 22.2 % (35.0-46.0); HEMO FLAGS AUTO DIFF; LYMPH % 13.1 % (9.0-44.0); LYMPHOCYTE # 0.9 TH/MM3 (1.0-4.8); MEAN CORPUSCULAR HEMOGLOBIN 28.6 PG (27.0-34.0); MEAN CORPUSCULAR HGB CONC 32.8 % (32.0-36.0); MONO % 4.6 % (0.0-8.0); NEUT % 81.1 % (16.0-70.0); PLATELET COUNT 55 TH/MM3 (150-450); RED BLOOD COUNT 2.54 MIL/MM3 (4.00-5.30); RED CELL DISTRIBUTION WIDTH 15.9 % (11.6-17.2); WHITE BLOOD COUNT 6.6 TH/MM3 (4.0-11.0)
[2016-12-24 05:44] LABS: BICARBONATE 30.3 MEQ/L (21.0-32.0); POTASSIUM 3.3 MEQ/L (3.5-5.1)
[2016-12-24] MEDS: HYDROmorphone HCL 4 MG TAB PO PRN ×3 (05:50→18:09)
[2016-12-24 05:59] LABS: CALCIUM-PROTEIN CORRECTED 7.9 MG/DL (8.5-10.1)
[2016-12-24 08:41] LABS: PLATELET ESTIMATE SMEAR LOW (NORMAL); PLATELET MORPHOLOGY NORMAL (NORMAL); SCAN/DIFF AUTO DIFF CONFIRMED
[2016-12-24] MEDS: DOCUSATE SODIUM 50 MG/SENNA 8.6 MG TAB PO SCH ×2 (09:00→19:51)
[2016-12-24] MEDS: HEPARIN SODIUM - SQ 10,000 UNITS/ML VIAL SQ SCH ×3 (09:46→18:00)
[2016-12-24] MEDS: PANTOPRAZOLE SODIUM 40 MG VIAL IV SCH (09:46)
[2016-12-24] MEDS ORDERED: PHARMACY ORDERED LAB ONE ×2 (11:45→12:45)
--- NOTE | 2016-12-24 11:57 | PD.ONC.PN ---
Subjective Subjective Remarks No bleeding. No CP/SOB. Objective Data Date Time Temp Pulse Resp B/P Pulse Ox O2 Delivery O2 Flow Rate FiO2 12/24/16 11:19 Room Air 12/24/16 10:30 116 12/24/16 08:07 100.1 111 16 91/53 94 12/24/16 06:40 18 12/24/16 04:00 97.9 102 20 96/64 92 12/24/16 02:49 18 12/24/16 00:00 Room Air 12/23/16 20:45 Room Air 12/23/16 20:00 97.9 116 22 93 12/23/16 20:00 126 12/23/16 16:00 97.7 118 18 103/67 97 12/23/16 12:00 97.6 106 18 95/63 95 12/24/16 12/24/16 12/24/16 07:00 15:00 23:00 Intake Total 608 ml Balance 608 ml Result Diagram: 12/24/16 0505 12/24/16 0505 Laboratory Results Laboratory Tests Test 12/24/16 05:05 White Blood Count 6.6 TH/MM3 Red Blood Count 2.54 MIL/MM3 Hemoglobin 7.3 GM/DL Hematocrit 22.2 % Mean Corpuscular Volume 87.0 FL Mean Corpuscular Hemoglobin 28.6 PG Mean Corpuscular Hemoglobin 32.8 % Concent Red Cell Distribution Width 15.9 % Platelet Count 55 TH/MM3 Mean Platelet Volume 9.2 FL Neutrophils (%) (Auto) 81.1 % Lymphocytes (%) (Auto) 13.1 % Monocytes (%) (Auto) 4.6 % Eosinophils (%) (Auto) 0.7 % Basophils (%) (Auto) 0.5 % Neutrophils # (Auto) 5.3 TH/MM3 Lymphocytes # (Auto) 0.9 TH/MM3 Monocytes # (Auto) 0.3 TH/MM3 Eosinophils # (Auto) 0.0 TH/MM3 Basophils # (Auto) 0.0 TH/MM3 CBC Comment AUTO DIFF Differential Comment AUTO DIFF CONFIRMED Platelet Estimate LOW Platelet Morphology Comment NORMAL Sodium Level 135 MEQ/L Potassium Level 3.3 MEQ/L Chloride Level 99 MEQ/L Carbon Dioxide Level 30.3 MEQ/L Anion Gap 6 MEQ/L Blood Urea Nitrogen 13 MG/DL Creatinine 0.62 MG/DL Estimat Glomerular Filtration 110 ML/MIN Rate Random Glucose 85 MG/DL Calcium Level 7.1 MG/DL Protein Corrected Calcium 7.9 MG/DL Total Protein 5.5 GM/DL Administered Medications Medications (Trade) Dose Ordered Sig/Solo Route PRN Reason Start Time Stop Time Status Last Admin Dose Admin Acetaminophen (Tylenol) 650 mg Q6H PRN PO PAIN 1-10 AND/OR FEVER >101F 12/16/16 03:00 12/24/16 09:46 Pantoprazole Sodium (Protonix Inj) 40 mg DAILY IV 12/16/16 09:00 12/24/16 09:46 Chlorhexidine Gluconate (Chlorhexidine 2% Cloth) Taper DAILY@04 TOP 12/16/16 04:00 12/12/17 03:59 12/21/16 03:59 Senna/Docusate Sodium (Sandy-Colace) 1 tab BID PO 12/16/16 09:00 12/20/16 08:29 Hydromorphone HCl (Dilaudid) 4 mg Q6H PRN PO Pain Management 12/16/16 03:00 12/24/16 05:50 Terbutaline Sulfate (Brethine Inj) 1 mg UNSCH PRN SQ FOR EXTRAVASATION PROTOCOL 12/16/16 21:00 12/16/16 21:09 Metronidazole (Flagyl) 500 mg Q8H PO 12/18/16 20:00 12/24/16 03:29 Ondansetron HCl 4 mg 4 mg Q6H PRN IV PUSH NAUSEA/VOMITING 12/18/16 15:30 12/23/16 01:06 Vancomycin HCl 750 mg/Sodium Chloride 257.5 ml @ 257.5 mls/ hr Q8H IV 12/19/16 20:00 12/24/16 03:30 Ceftriaxone Sodium/Sodium Chloride (Rocephin Inj/NS Inj) 100 ml @ 200 mls/hr Q24H IV 12/21/16 00:00 12/24/16 00:00 Heparin Sodium (Porcine) 5000 units 5,000 units TID SQ 12/21/16 18:00 12/24/16 09:46 Gentamicin Sulfate/Sodium Chloride (Gentamicin Inj/ NS Inj) 101.5 ml @ 200 mls/hr Q12H IV 12/23/16 01:00 12/24/16 00:01 Objective Remarks GENERAL: Well-nourished, well-developed patient. SKIN: Warm and dry. HEAD: Normocephalic. EYES: No scleral icterus. No injection or drainage. NECK: Supple, trachea midline. No JVD or lymphadenopathy. LYMPHATIC: No adenopathy. CARDIOVASCULAR: Regular rate and rhythm without murmurs. RESPIRATORY: Breath sounds equal bilaterally. No accessory muscle use. GASTROINTESTINAL: Abdomen soft, non-tender, nondistended. EXTREMITIES: No cyanosis, BLE 1+ edema. MUSCULOSKELETAL: Adequate muscle tone. NEUROLOGICAL: No obvious focal deficit. Awake, alert, and oriented x3. PSYCHIATRIC: Appropriate mood and affect; insight and judgment normal. Assessment/Plan Problem List: (1) Pancytopenia Status: Acute Plan: --Platelet is still low, likely consumptive process and abx. No bleeding. --due to liver disease and splenomegaly + sepsis/DIC --CT showed enlarged liver and spleen. spleen is about 20 cm cranio-caudally. -- further drop in blood count is likely a combination of sepsis and consumptive process. --iron studies show high ferritin, no iron deficiency --B12/folate WNL --transfuse platelets/pRBC as needed --will give Neupogen if patient has severe neutropenia (2) Sepsis Status: Acute Plan: --Sepsis/bacteremia. --has a history of endocarditis, status post tricuspid valve and mitral valve replacement. She has had febrile illness. --most recent blood cultures with no growth. --BC +GNR and GPC --on multiple antibiotics per Infectious Disease. (3) DVT of lower extremity, bilateral Status: Resolved Plan: --started on prophylactic dose heparin on 12/19, tolerated well and no bleeding noted. -- has had multiple DVT. --was on Coumadin. --one point she was found to have splenic infarction. --has been on Eliquis. has not been taking the Eliquis because she is not able to keep her food or medication down. --no evidence of recurrent clot at this time. Assessment 36y/o female critically ill in [facility]. Hematology consulted for pancytopenia. h/o MSSA endocarditis, January 2016. Bilateral lower extremity DVT multiple times. She was on Coumadin for a while and switched to Eliquis. Hepatitis C. History of IV drug use. Chronic pain. Tricuspid valve and mitral valve replacement. Left femoral vein catheterization Plan 1. continue low dose heparin 2. monitor CBC 3. Start Eliquis when Platelet >70k. 4. Transfuse PRBC if Hgb <7 or if she is symptomatic. Problem Qualifiers (1) Sepsis: Qualified Code: O85 - Puerperal sepsis Ger Alexander MD Dec 24, 2016 11:57
[2016-12-24] MEDS ORDERED: POTASSIUM CHLORIDE 10 MEQ CONTROLLED RELEASE TAB PO ONE (12:00)
[2016-12-24] MEDS: CALCIUM CARBONATE 1.25 GM (CA 500 MG) TAB PO SCH ×2 (12:10→19:50)
--- NOTE | 2016-12-24 12:19 | HHI.PR ---
Subjective Remarks Follow-up for endocarditis Patient had no complaints. She denies any fevers or chills but did have a low- grade of 100.1 today. She stated that she does walk around the hallways. Deny any diarrhea. Objective Vitals Vital Signs Date Time Temp Pulse Resp B/P Pulse Ox O2 Delivery O2 Flow Rate FiO2 12/24/16 11:19 Room Air 12/24/16 10:30 116 12/24/16 08:07 100.1 111 16 91/53 94 12/24/16 06:40 18 12/24/16 04:00 97.9 102 20 96/64 92 12/24/16 02:49 18 12/24/16 00:00 Room Air 12/23/16 20:45 Room Air 12/23/16 20:00 97.9 116 22 93 12/23/16 20:00 126 12/23/16 16:00 97.7 118 18 103/67 97 I/O 12/23/16 12/23/16 12/23/16 12/24/16 12/24/16 12/24/16 07:00 15:00 23:00 07:00 15:00 23:00 Intake Total 686 ml 600 ml 608 ml Balance 686 ml 600 ml 608 ml Intake Oral 240 ml 600 ml IV Total 446 ml 608 ml # Voids 5 1 # Bowel Movements 2 1 Result Diagram: 12/24/16 0505 12/24/16 0505 Objective Remarks GENERAL: in NAD ORAL: poor dentition. NECK: trachea midline. + JVD CARDIOVASCULAR: Tachycardic rate and rhythm, Grade 2 systolic murmur left sternal border, no rubs. Well-healed sternotomy scar from valve surgeries RESPIRATORY: Breath sounds equal bilaterally. No accessory muscle use. GASTROINTESTINAL: Abdomen soft, non-tender, nondistended. Dependent edema bilateral ankles. MUSCULOSKELETAL: No cyanosis, edema. right PICC site dry clean and intact. NEURO: Awake oriented. Moving all extremities spontaneously without focal deficit. Medications and IVs Current Medications Sodium Chloride 1,000 ml @ 1,000 mls/hr Q1H ONCE IV Last administered on t 22:47; Start 12/15/16 at 22:45; Stop 12/15/16 at 23:44; Status DC Cefepime HCl 2000 mg/Sodium Chloride 100 ml @ 200 mls/hr ONCE ONCE IV Last administered on 12/16/16 00:11; Start 12/15/16 at 22:45; Stop 12/15/16 at 23:14 ; Status DC Vancomycin HCl 1000 mg/Sodium Chloride 250 ml @ 250 mls/hr ONCE ONCE IV Last administered on 12/15/16 23:34; Start 12/15/16 at 22:45; Stop 12/15/16 at 23:44 ; Status DC Sodium Chloride (NS 1000 ml Inj) 1,000 ml @ 750 mls/hr Q1H20M ONCE IV Last administered on 12/16/16 01:06; Start 12/16/16 at 01:00; Stop 12/16/16 at 02:19 ; Status DC Ketorolac Tromethamine 15 mg 15 mg ONCE ONCE IV PUSH Last administered on 12/16 02:04; Start 12/16/16 at 01:45; Stop 12/16/16 at 01:46; Status DC Pharmacy Profile Note 0 ml @ 0 mls/hr UNSCH OTHER ; Start 12/16/16 at 02:45 Cefepime HCl 2000 mg/Sodium Chloride 100 ml @ 200 mls/hr Q8H IV Last administered on 12/20/16 15:31; Start 12/16/16 at 08:00; Stop 12/20/16 at 17:14 ; Status DC Sodium Chloride (NS 1000 ml Inj) 1,000 ml @ 150 mls/hr Q6H40M IV Last administered on 12/18/16 10:18; Start 12/16/16 at 02:47; Stop 12/18/16 at 14:04 ; Status DC Acetaminophen (Tylenol) 650 mg Q6H PRN PO PAIN 1-10 AND/OR FEVER >101F Last administered on 12/24/16 09:46; Start 12/16/16 at 03:00 Pantoprazole Sodium (Protonix Inj) 40 mg DAILY IV Last administered on 09:46; Start 12/16/16 at 09:00 Albuterol/ Ipratropium (Duoneb Neb) 1 ampule Q2HR NEB PRN INH WHEEZING; Start 12/16/16 at 03:00 Miscellaneous Information 1 Q361D XX ; Start 12/16/16 at 03:00 Chlorhexidine Gluconate (Chlorhexidine 2% Cloth) Taper DAILY@04 TOP Last administered on 12/21/16 03:59; Start 12/16/16 at 04:00; Stop 12/12/17 at 03:59 Chlorhexidine Gluconate (Chlorhexidine 2% Cloth) 3 pack UNSCH PRN TOP HYGIENIC CARE; Start 12/16/16 at 03:00 Senna/Docusate Sodium (Sandy-Colace) 1 tab BID PO Last administered on 08:29; Start 12/16/16 at 09:00 Magnesium Hydroxide (Milk Of Magnesia Liq) 30 ml Q12H PRN PO MILD - MODERATE CONSTIPATION; Start 12/16/16 at 03:00 Sennosides (Senokot) 17.2 mg Q12H PRN PO MODERATE - SEVERE CONSTIPATION; Start 12/16/16 at 03:00 Bisacodyl (Dulcolax Supp) 10 mg DAILY PRN RECTAL SEVERE CONSITIPATION; Start at 03:00 Lactulose (Lactulose Liq) 30 ml DAILY PRN PO SEVERE CONSITIPATION; Start at 03:00 Apixaban (Eliquis) 5 mg BID PO Last administered on 12/16/16 09:40; Start 04/24 at 09:00; Stop 12/16/16 at 14:22; Status DC Hydromorphone HCl 4 mg 4 mg Q6H PRN PO Pain Management Last administered on 12:10; Start 12/16/16 at 03:00 Sodium Chloride 1,000 ml @ 999 mls/hr BOLUS ONCE IV Last administered on 12/16 03:04; Start 12/16/16 at 03:00; Stop 12/16/16 at 04:00; Status DC Metronidazole 100 ml @ 100 mls/hr Q8H IV Last administered on 12/18/16 11:58 ; Start 12/16/16 at 04:00; Stop 12/18/16 at 13:05; Status DC Potassium Chloride 100 ml @ 50 mls/hr Q2H PRN IV For Potassium 2.8 - 3.2 mEq/ L Last administered on 12/21/16 09:16; Start 12/16/16 at 03:45; Stop 12/23/16 at 11:10; Status DC Potassium Chloride (KCl 20 Meq Premix Inj) 100 ml @ 50 mls/hr Q2H PRN IV For Potassium 2.8 - 3.2 mEq/L; Start 12/16/16 at 03:45; Stop 12/23/16 at 11:10; Status DC Potassium Bicarb/ Potassium Chloride 50 meq 50 meq UNSCH PRN PO For Potassium 3.3 - 3.5 mEq/L; Start 12/16/16 at 03:45; Stop 12/23/16 at 11:10; Status DC Potassium Chloride 100 ml @ 25 mls/hr UNSCH PRN IV For Potassium 3.3 - 3.5 mEq /L; Start 12/16/16 at 03:45; Stop 12/23/16 at 11:10; Status DC Potassium Chloride 100 ml @ 50 mls/hr Q2H PRN IV For Potassium 3.3 - 3.5 mEq/ L Last administered on 12/16/16t 09:39; Start 12/16/16 at 03:45; Stop 12/23/16 at 11:10; Status DC Magnesium Sulfate/ Sodium Chloride (Magnesium Sulfate Inj/NS Inj) 100 ml @ 50 mls/hr UNSCH PRN IV For Magnesium 0.9 - 1.1 mg/dL; Start 12/16/16 at 03:45; Stop 12/23/16 at 11:10; Status DC Magnesium Oxide 800 mg 800 mg UNSCH PRN PO For Magnesium 1.2 - 1.6 mg/dL; Start 12/16/16 at 03:45; Stop 12/23/16 at 11:10; Status DC Magnesium Sulfate/ Sodium Chloride (Magnesium Sulfate Inj/NS Inj) 100 ml @ 50 mls/hr UNSCH PRN IV For Magnesium 1.2 - 1.6 mg/dL; Start 12/16/16 at 03:45; Stop 12/23/16 at 11:10; Status DC Potassium Phosphate 2000 mg 2,000 mg Q4H PRN PO For Phosphorus < 2.5 mg/dL; Start 12/16/16 at 03:45; Stop 12/23/16 at 11:10; Status DC Sodium Phosphate/ Sodium Chloride (Sodium Phosphate Inj/NS 250 ml Inj) 250 ml @ 42 mls/hr UNSCH PRN IV For Phosphorus < 2.5 mg/dL; Start 12/16/16 at 03:45; Stop 12/23/16 at 11:10; Status DC Potassium Phosphate 2000 mg 2,000 mg UNSCH PRN PO/TUBE SEE LABEL COMMENTS; Start 12/16/16 at 03:45; Stop 12/23/16 at 11:10; Status DC Potassium Phosphate 30 mmol/ Sodium Chloride 260 ml @ 42 mls/hr UNSCH PRN IV SEE LABEL COMMENTS; Start 12/16/16 at 03:45; Stop 12/23/16 at 11:10; Status DC Sodium Chloride (NS 1000 ml Inj) 1,000 ml @ 999 mls/hr BOLUS ONCE IV ; Start 12/16/16 at 03:45; Stop 12/16/16 at 04:45; Status DC Iohexol 80 ml 80 ml STK-MED ONCE IV Last administered on 12/16/16 05:51; Start 12/16/16 at 05:51; Stop 12/16/16 at 05:52; Status DC Vancomycin HCl/ Sodium Chloride (Vancomycin Inj/ NS 250 ml Inj) 250 ml @ 250 mls/hr Q12H IV Last administered on 12/18/16 11:59; Start 12/16/16 at 11:00; Stop 12/18/16 at 13:02; Status DC Miscellaneous Information SPECIFIC LAB TO BE DRAWN:VANCOMYCIN TROUGH DATE TO... ONCE ONCE .XX ; Start 12/17/16 at 10:45; Stop 12/17/16 at 10:46; Status DC Vancomycin HCl 125 mg 125 mg QID PO Last administered on 12/18/16 11:59; Start 12/16/16 at 13:00; Stop 12/18/16 at 13:24; Status DC Norepinephrine Bitartrate 250 ml @ As Directed STK-MED ONCE IV ; Start at 11:12; Stop 12/16/16 at 11:13; Status DC Sodium Chloride 250 ml @ 15 mls/hr ONCE ONCE IV Last administered on 17:15; Start 12/16/16 at 17:15; Stop 12/17/16 at 09:54; Status DC Norepinephrine Bitartrate (Levophed-Dextrose Drip) 250 ml @ 0 mls/hr TITRATE IV Last administered on 12/17/16 21:12; Start 12/16/16 at 21:00; Stop 12/20/16 at 20:32; Status DC Terbutaline Sulfate 1 mg 1 mg UNSCH PRN SQ FOR EXTRAVASATION PROTOCOL Last administered on 12/16/16 21:09; Start 12/16/16 at 21:00 Propofol (Diprivan 500 Mg/ 50 ml Inj) 50 ml @ As Directed STK-MED ONCE .ROUTE ; Start 12/17/16 at 09:43; Stop 12/17/16 at 09:44; Status DC Midazolam HCl 5 mg 5 mg STK-MED ONCE .ROUTE Last administered on 12/17/16 09: 50; Start 12/17/16 at 09:50; Stop 12/17/16 at 09:51; Status DC Esmolol HCl/ Sodium Chloride (Brevibloc Drip Inj Premix) 250 ml @ 0 mls/hr TITRATE ONCE IV Last administered on 12/17/16 14:42; Start 12/17/16 at 09:55 ; Stop 12/17/16 at 11:22; Status DC Midazolam HCl (Versed Inj) 5 mg NOW ONCE IV Last administered on 12/17/16 09: 50; Start 12/17/16 at 09:50; Stop 12/17/16 at 11:22; Status DC Propofol (Diprivan 500 Mg/ 50 ml Inj) 500 mg ONCE ONCE IV Last administered on 12/17/16 09:43; Start 12/17/16 at 09:43; Stop 12/17/16 at 11:22; Status DC Propofol 500 mg 500 mg ONCE ONCE IV Last administered on 12/17/16 09:43; Start 12/17/16 at 09:43; Stop 12/17/16 at 11:22; Status DC Pharmacy Profile Note 0 ml @ 0 mls/hr UNSCH OTHER ; Start 12/17/16 at 13:30 Gentamicin Sulfate/Sodium Chloride (Gentamicin Inj/ NS Inj) 101.5 ml @ 200 mls/ hr Q8H IV Last administered on 12/18/16 15:55; Start 12/17/16 at 16:00; Stop 12/18/16 at 22:28; Status DC Miscellaneous Information SPECIFIC LAB TO BE DRAWN:GENTAMICIN PEAK DATE TO... ONCE ONCE .XX Last administered on 12/18/16 17:30; Start 12/18/16 at 17:30; Stop 12/18/16 at 17:31; Status DC Miscellaneous Information SPECIFIC LAB TO BE DRAWN:GENTAMICIN TROUGH DATE TO... ONCE ONCE .XX Last administered on 12/18/16 15:45; Start 12/18/16 at 15:45; Stop 12/18/16 at 15:46; Status DC Miscellaneous Information SPECIFIC LAB TO BE DRAWN:VANCOMYCIN TROUGH DATE TO... ONCE ONCE .XX Last administered on 12/18/16 10:45; Start 12/18/16 at 10:45; Stop 12/18/16 at 10:46; Status DC Vancomycin HCl 1000 mg/Sodium Chloride 250 ml @ 250 mls/hr Q8H IV Last administered on 12/19/16 12:19; Start 12/18/16 at 20:00; Stop 12/19/16 at 14:44 ; Status DC Metronidazole (Flagyl 500 Mg Inj) 100 ml @ 100 mls/hr Q8H IV ; Start 12/18/16 at 21:00; Stop 12/18/16 at 21:00; Status Cancel Metronidazole (Flagyl) 500 mg Q8HR PO ; Start 12/18/16 at 14:00; Stop 12/18/16 at 14:00; Status DC Metronidazole (Flagyl) 500 mg Q8H PO Last administered on 12/24/16 12:10; Start 12/18/16 at 20:00 Hydrocortisone Sodium Succinate (SoluCORTEF INJ) 50 mg Q6H IV PUSH Last administered on 12/20/16 15:30; Start 12/18/16 at 15:00; Stop 12/20/16 at 20:31 ; Status DC Ondansetron HCl 4 mg 4 mg Q6H PRN IV PUSH NAUSEA/VOMITING Last administered on 12/23/16 01:06; Start 12/18/16 at 15:30 Gentamicin Sulfate/Sodium Chloride (Gentamicin Inj/ NS Inj) 101.5 ml @ 200 mls/ hr Q12H IV Last administered on 12/22/16 03:59; Start 12/19/16 at 04:00; Stop 12/23/16 at 00:06; Status DC Miscellaneous Information SPECIFIC LAB TO BE DRAWN:GENTAMICIN TROUGH DATE TO... ONCE ONCE .XX Last administered on 12/19/16 15:45; Start 12/19/16 at 15:45; Stop 12/19/16 at 15:46; Status DC Heparin Sodium (Porcine) (Heparin Inj) 5,000 units Q12HR SQ Last administered on 12/21/16 07:51; Start 12/19/16 at 09:00; Stop 12/21/16 at 13:24; Status DC Furosemide 40 mg 40 mg ONCE ONCE IV PUSH Last administered on 12/19/16 16:54 ; Start 12/19/16 at 14:45; Stop 12/19/16 at 14:48; Status DC Vancomycin HCl/ Sodium Chloride (Vancomycin Inj/ NS 250 ml Inj) 257.5 ml @ 257.5 mls/ hr Q8H IV Last administered on 12/24/16 12:10; Start 12/19/16 at 20 :00 Miscellaneous Information SPECIFIC LAB TO BE ANABELL... ONCE ONCE .XX ; Start 12/20 at 11:45; Stop 12/20/16 at 11:46; Status DC Miscellaneous Information SPECIFIC LAB TO BE ANABELL... ONCE ONCE .XX ; Start 12/20 at 03:45; Stop 12/20/16 at 03:46; Status DC Miscellaneous Information SPECIFIC LAB TO BE ANABELL... ONCE ONCE .XX Last administered on 12/20/16 15:45; Start 12/20/16 at 15:45; Stop 12/20/16 at 15:46 ; Status DC Sodium Chloride (NS 250 ml Inj) 250 ml @ 15 mls/hr ONCE ONCE IV Last administered on 12/20/16 15:29; Start 12/20/16 at 14:30; Stop 12/21/16 at 07:09 ; Status DC Acetaminophen (Tylenol) 650 mg Q4H PRN PO SEE LABEL COMMENTS Last administered on 12/20/16 16:20; Start 12/20/16 at 14:30; Stop 12/20/16 at 18:31; Status DC Diphenhydramine HCl (Benadryl) 25 mg Q4H PRN PO SEE LABEL COMMENTS Last administered on 12/20/16 16:20; Start 12/20/16 at 14:30; Stop 12/20/16 at 18:31 ; Status DC Miscellaneous Information SPECIFIC LAB TO BE ANABELL... ONCE ONCE .XX Last administered on 12/20/16 20:35; Start 12/20/16 at 19:45; Stop 12/20/16 at 19:46 ; Status DC Ceftriaxone Sodium 2000 mg/ Sodium Chloride 100 ml @ 200 mls/hr Q24H IV ; Start 12/20/16 at 18:00; Stop 12/20/16 at 18:26; Status DC Ceftriaxone Sodium 2000 mg/ Sodium Chloride 100 ml @ 200 mls/hr Q24H IV ; Start 12/20/16 at 18:30; Status Cancel Ceftriaxone Sodium/Dextrose 50 ml @ 100 mls/hr Q24H IV ; Start 12/21/16 at 00: 00; Status Cancel Ceftriaxone Sodium/Sodium Chloride (Rocephin Inj/NS Inj) 100 ml @ 200 mls/hr Q24H IV Last administered on 12/24/16 00:00; Start 12/21/16 at 00:00 Hydrocortisone Sodium Succinate (SoluCORTEF INJ) 50 mg Q12H IV PUSH Last administered on 12/21/16 07:50; Start 12/21/16 at 09:00; Stop 12/21/16 at 19:38 ; Status DC Miscellaneous Information SPECIFIC LAB TO BE DRAWN:GENTAMICIN TROUGH DATE TO... ONCE ONCE .XX ; Start 12/22/16 at 15:45; Stop 12/22/16 at 15:46; Status DC Miscellaneous Information SPECIFIC LAB TO BE DRAWN:VANCO TROUGH DATE TO... ONCE ONCE .XX ; Start 12/22/16 at 11:45; Stop 12/22/16 at 11:46; Status DC Heparin Sodium (Porcine) (Heparin Inj) 5,000 units TID SQ Last administered on 12/24/16 12:14; Start 12/21/16 at 18:00 Furosemide (Lasix Inj) 20 mg ONCE ONCE IV PUSH Last administered on 12/21/16 20:13; Start 12/21/16 at 19:45; Stop 12/21/16 at 19:46; Status DC Potassium Chloride (KCl) 20 meq ONCE ONCE PO Last administered on 12/21/16 20 :13; Start 12/21/16 at 19:45; Stop 12/21/16 at 19:46; Status DC Hydrocortisone Sodium Succinate (SoluCORTEF INJ) 25 mg Q12H IV PUSH Last administered on 12/22/16 09:10; Start 12/21/16 at 21:00; Stop 12/22/16 at 09:04 ; Status DC Alteplase, Recombinant (Cathflo Activase Inj) 2 mg ONCE ONCE INTRACATH Last administered on 12/22/16 20:52; Start 12/22/16 at 21:00; Stop 12/22/16 at 21:01 ; Status DC Miscellaneous Information SPECIFIC LAB TO BE DRAWN:VANCO TROUGH DATE TO BE DR... ONCE ONCE .XX ; Start 12/24/16 at 11:45; Stop 12/24/16 at 11:46; Status Cancel Gentamicin Sulfate/Sodium Chloride (Gentamicin Inj/ NS Inj) 101.5 ml @ 200 mls/ hr Q12H IV Last administered on 12/24/16 12:10; Start 12/23/16 at 01:00 Alteplase, Recombinant (Cathflo Activase Inj) 2 mg ONCE ONCE INTRACATH Last administered on 12/23/16 13:13; Start 12/23/16 at 12:15; Stop 12/23/16 at 12:33 ; Status DC Miscellaneous Information SPECIFIC LAB TO BE DRAWN:GENTAMICIN TROUGH DATE TO... ONCE ONCE .XX ; Start 12/24/16 at 12:45; Stop 12/24/16 at 12:46; Status Cancel Calcium Carbonate (Oscal) 500 mg Q12HR PO Last administered on 12/24/16 12:10 ; Start 12/24/16 at 11:30 Potassium Chloride (KCl) 30 meq ONCE ONCE PO Last administered on 12/24/16 12 :10; Start 12/24/16 at 12:00; Stop 12/24/16 at 12:01; Status DC A/P Problem List: (1) Sepsis ICD Code: A41.9 Status: Acute (2) Chest pain ICD Code: R07.9 Status: Acute (3) Hypotension ICD Code: I95.9 Status: Acute (4) Hyponatremia ICD Code: E87.1 Status: Acute (5) Hypokalemia ICD Code: E87.6 Status: Acute (6) Endocarditis due to methicillin susceptible Staphylococcus aureus (MSSA) ICD Code: I33.0 Status: Acute (7) DVT of lower extremity, bilateral ICD Code: I82.403 Status: Resolved (8) IVDU (intravenous drug user) ICD Code: F19.90 Status: Acute (9) Bacteremia ICD Code: R78.81 Status: Acute (10) Pancytopenia ICD Code: D61.818 Status: Acute (11) Septic pulmonary embolism ICD Code: I26.90 Status: Acute (12) Elevated LFTs ICD Code: R79.89 Status: Acute Assessment and Plan 36yF with recurrent mitral valve bioprosthetic endocarditis, Enterococcus bacteremia, C. Difficile Colitis, septic shock. Now off vasopressors. Continue antibiotic per ID. appreciate subspecialty assistance. Also agree with palliative consult. Sepsis with septic shock -Continue to endocarditis/bacteremia. MICHELE 12/17 with evidence of recurrent endocarditis, EF 40%, mild RV dysfunction - Echo 10/17: mitral and tricuspid valve no regurgitation - Serial blood cultures positive have been positive (as per below). Most recent culture 12/19 NG x 3 days. -Evaluated by [facility] and she is not operative candidate due to recent IV drug use. - Off vasopressors. weaning hydrocortisone to 25 mg IV q12 and then stop order for 12/22. Bacteremia: Enterococcus faecalis, Enterobacter Cloacae (2 strains), Group D enterococcus, additional Gram negative rods/ C. 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 cefepime discontinued on 12/20 and was rocephin started 12/20. . On gentamicin. - ID service is consulted. Repeat blood cultures from 12/19 so far negative 3 days. - C. Diff + 12/16. Flagyl DC on 12/21 now on vancomycin by mouth. -HIV negative Culture data: 12/15 blood cx: 09/09: Enterococcus faecalis, Enterobacter Cloacae (2 strains), Group D enterococcus 12/15 c. diff pcr + 12/17 blood cx: Group D enterococcus 2/4, GPCs 06/11. 12/18 blood cx: Enterococcus faecalis 06/11 bottles 12/19 - blood cx x2 sets -NGTD x 3 days. History of IV drug use - Admitted to recent use of IV drugs to ID regional engagement consultant . On Prescribed Dilaudid for pain, UDS positive for opiates. - Supplement multivitamin, thiamine Acute protein calorie malnutrition- severe. History of hepatitis C - regular diet as tolerated. - IV Protonix Dehydration- resolved. Hyponatremia-resolved - Monitor renal function, I/O's, electrolytes replacement per protocol. -Does have some dependent edema and positive fluid balance. Lasix 20 mg IV and potassium 20 ME with Lasix. (already received potassium 40 mEQ IV per protocol for potassium 3.1) Anemia History of bilateral lower extremity DVT Pancytopenia Thrombocytopenia -Monitor CBC, CMP, INR -hold eliquis until platelets >70 k per hematology recs. Continue prophylactic heparin 5000 subcut q12 per hematology recs. PROPH: -Bilateral lower extremity SCDs, hold therapeutic anticoagulation given coagulopathy, continue heparin subcut as per above. IV Protonix 40 mg IV daily Problem Qualifiers (1) Sepsis: Qualified Code: O85 - Puerperal sepsis (2) Chest pain: Qualified Code: R07.9 - Chest pain, unspecified type (3) Hypotension: Qualified Code: I95.89 - Other specified hypotension Afua Turner MD Dec 24, 2016 12:19
[2016-12-24 17:10] LABS: BICARBONATE 31.9 MEQ/L (21.0-32.0); POTASSIUM 3.6 MEQ/L (3.5-5.1)
[2016-12-24 17:33] LABS: CALCIUM-PROTEIN CORRECTED 7.7 MG/DL (8.5-10.1)
[2016-12-25] VITALS: BP 99/58; PULSE 104; RESP 20; TEMP 99.1; O2SAT 94
[2016-12-25] MEDS: HYDROmorphone HCL 4 MG TAB PO PRN ×4 (00:16→23:51)
[2016-12-25] MEDS: cefTRIAXone 2,000 MG/NS 100 ML IV SCH ×4 (00:17→22:59)
[2016-12-25] MEDS: GENTAMICIN INJ 60 MG in SODIUM CHLORIDE 0.9% INJ 100 ML IV SCH ×3 (00:19→23:52)
[2016-12-25] MEDS: CHLORHEXIDINE GLUCONATE 2 % 1 PACK (2 CLOTHS) TOP SCH ×2 (03:06→23:44)
[2016-12-25] MEDS: metroNIDAZOLE 500 MG TAB PO SCH ×3 (03:21→19:49)
[2016-12-25] MEDS: VANCOMYCIN INJ 750 MG in SODIUM CHLOR 0.9% 250 ML INJ 250 ML IV SCH ×3 (03:21→19:52)
[2016-12-25 04:00] VITALS: BP 94/59; PULSE 99; RESP 22; TEMP 99.8; O2SAT 84
[2016-12-25 05:28] LABS: AUTOMATED NEUTROPHIL # 4.6 TH/MM3 (1.8-7.7); BASOPHIL % 0.5 % (0.0-2.0); EOSINOPHIL % 0.6 % (0.0-4.0); HEMATOCRIT 21.3 % (35.0-46.0); LYMPH % 13.1 % (9.0-44.0); LYMPHOCYTE # 0.7 TH/MM3 (1.0-4.8); MEAN CELL VOLUME 86.6 FL (80.0-100.0); MEAN CORPUSCULAR HEMOGLOBIN 28.7 PG (27.0-34.0); MEAN CORPUSCULAR HGB CONC 33.2 % (32.0-36.0); MONO % 4.4 % (0.0-8.0); NEUT % 81.4 % (16.0-70.0); PLATELET COUNT 53 TH/MM3 (150-450); RED BLOOD COUNT 2.46 MIL/MM3 (4.00-5.30); WHITE BLOOD COUNT 5.6 TH/MM3 (4.0-11.0)
[2016-12-25 05:45] LABS: HEMO FLAGS AUTO DIFF
[2016-12-25 06:05] LABS: BICARBONATE 30.4 MEQ/L (21.0-32.0); POTASSIUM 3.4 MEQ/L (3.5-5.1)
[2016-12-25 06:51] LABS: CALCIUM-PROTEIN CORRECTED 7.9 MG/DL (8.5-10.1)
[2016-12-25 08:00] VITALS: BP 114/59; PULSE 104; PULSE 114; RESP 20; TEMP 99.2; O2SAT 93
[2016-12-25 08:34] LABS: PLATELET ESTIMATE SMEAR LOW (NORMAL); PLATELET MORPHOLOGY NORMAL (NORMAL); SCAN/DIFF AUTO DIFF CONFIRMED
[2016-12-25] MEDS: DOCUSATE SODIUM 50 MG/SENNA 8.6 MG TAB PO SCH ×2 (08:49→19:50)
[2016-12-25] MEDS: ACETAMINOPHEN 325 MG TAB PO PRN ×2 (08:54→20:48)
[2016-12-25] MEDS: CALCIUM CARBONATE 1.25 GM (CA 500 MG) TAB PO SCH ×2 (08:54→19:51)
[2016-12-25] MEDS: HEPARIN SODIUM - SQ 10,000 UNITS/ML VIAL SQ SCH ×3 (08:55→17:42)
[2016-12-25] MEDS: ONDANSETRON HCL 4 MG/2 ML VIAL IV PUSH PRN (08:55)
[2016-12-25] MEDS: PANTOPRAZOLE SODIUM 40 MG VIAL IV SCH (08:55)
[2016-12-25 12:00] VITALS: BP 97/62; PULSE 110; RESP 20; TEMP 98.3; O2SAT 94
--- NOTE | 2016-12-25 13:03 | PD.ONC.PN ---
Subjective Subjective Remarks Feels better. No bleeding. No CP/SOB. Objective Data Date Time Temp Pulse Resp B/P Pulse Ox O2 Delivery O2 Flow Rate FiO2 12/25/16 08:00 Room Air 12/25/16 08:00 104 12/25/16 08:00 99.2 114 20 114/59 93 12/25/16 04:00 Room Air 12/25/16 04:00 99.8 99 22 94/59 84 12/25/16 02:03 18 12/25/16 00:00 99.1 104 20 99/58 94 12/25/16 00:00 Room Air 12/24/16 20:42 114 12/24/16 20:06 98.9 108 18 100/62 93 12/24/16 20:01 Room Air 12/24/16 16:07 98.9 112 16 98/60 95 12/25/16 12/25/16 12/25/16 06:59 14:59 22:59 Intake Total 1029 ml Balance 1029 ml Result Diagram: 12/25/16 0505 12/25/16 0505 Laboratory Results Laboratory Tests Test 12/24/16 12/25/16 16:15 05:05 Sodium Level 134 MEQ/L 137 MEQ/L Potassium Level 3.6 MEQ/L 3.4 MEQ/L Chloride Level 96 MEQ/L 98 MEQ/L Carbon Dioxide Level 31.9 MEQ/L 30.4 MEQ/L Anion Gap 6 MEQ/L 9 MEQ/L Blood Urea Nitrogen 10 MG/DL 12 MG/DL Creatinine 0.63 MG/DL 0.62 MG/DL Estimat Glomerular Filtration 108 ML/MIN 110 ML/MIN Rate Random Glucose 87 MG/DL 94 MG/DL Calcium Level 7.2 MG/DL 7.3 MG/DL Protein Corrected Calcium 7.7 MG/DL 7.9 MG/DL Total Protein 6.2 GM/DL 5.9 GM/DL White Blood Count 5.6 TH/MM3 Red Blood Count 2.46 MIL/MM3 Hemoglobin 7.1 GM/DL Hematocrit 21.3 % Mean Corpuscular Volume 86.6 FL Mean Corpuscular Hemoglobin 28.7 PG Mean Corpuscular Hemoglobin 33.2 % Concent Red Cell Distribution Width 16.0 % Platelet Count 53 TH/MM3 Mean Platelet Volume 9.6 FL Neutrophils (%) (Auto) 81.4 % Lymphocytes (%) (Auto) 13.1 % Monocytes (%) (Auto) 4.4 % Eosinophils (%) (Auto) 0.6 % Basophils (%) (Auto) 0.5 % Neutrophils # (Auto) 4.6 TH/MM3 Lymphocytes # (Auto) 0.7 TH/MM3 Monocytes # (Auto) 0.2 TH/MM3 Eosinophils # (Auto) 0.0 TH/MM3 Basophils # (Auto) 0.0 TH/MM3 CBC Comment AUTO DIFF Differential Comment AUTO DIFF CONFIRMED Platelet Estimate LOW Platelet Morphology Comment NORMAL Administered Medications Medications (Trade) Dose Ordered Sig/Solo Route PRN Reason Start Time Stop Time Status Last Admin Dose Admin Acetaminophen (Tylenol) 650 mg Q6H PRN PO FEVER >101F 12/16/16 03:00 12/25/16 08:54 Pantoprazole Sodium (Protonix Inj) 40 mg DAILY IV 12/16/16 09:00 12/25/16 08:55 Chlorhexidine Gluconate (Chlorhexidine 2% Cloth) Taper DAILY@04 TOP 12/16/16 04:00 12/12/17 03:59 12/21/16 03:59 Senna/Docusate Sodium (Sandy-Colace) 1 tab BID PO 12/16/16 09:00 12/20/16 08:29 Hydromorphone HCl (Dilaudid) 4 mg Q6H PRN PO Pain Management 12/16/16 03:00 12/25/16 11:58 Terbutaline Sulfate (Brethine Inj) 1 mg UNSCH PRN SQ FOR EXTRAVASATION PROTOCOL 12/16/16 21:00 12/16/16 21:09 Metronidazole (Flagyl) 500 mg Q8H PO 12/18/16 20:00 12/25/16 11:57 Ondansetron HCl 4 mg 4 mg Q6H PRN IV PUSH NAUSEA/VOMITING 12/18/16 15:30 12/25/16 08:55 Vancomycin HCl 750 mg/Sodium Chloride 257.5 ml @ 257.5 mls/ hr Q8H IV 12/19/16 20:00 12/25/16 11:58 Ceftriaxone Sodium/Sodium Chloride (Rocephin Inj/NS Inj) 100 ml @ 200 mls/hr Q24H IV 12/21/16 00:00 12/25/16 00:17 Heparin Sodium (Porcine) 5000 units 5,000 units TID SQ 12/21/16 18:00 12/24/16 12:14 Gentamicin Sulfate/Sodium Chloride (Gentamicin Inj/ NS Inj) 101.5 ml @ 200 mls/hr Q12H IV 12/23/16 01:00 12/25/16 11:58 Calcium Carbonate (Oscal) 500 mg Q12HR PO 12/24/16 11:30 12/25/16 08:54 Objective Remarks GENERAL: Well-nourished, well-developed patient. SKIN: Warm and dry. HEAD: Normocephalic. EYES: No scleral icterus. No injection or drainage. NECK: Supple, trachea midline. No JVD or lymphadenopathy. LYMPHATIC: No adenopathy. CARDIOVASCULAR: Regular rate and rhythm without murmurs. RESPIRATORY: Breath sounds equal bilaterally. No accessory muscle use. GASTROINTESTINAL: Abdomen soft, non-tender, nondistended. EXTREMITIES: No cyanosis, 1+BLE edema. No calves tenderness MUSCULOSKELETAL: Adequate muscle tone. NEUROLOGICAL: No obvious focal deficit. Awake, alert, and oriented x3. PSYCHIATRIC: Appropriate mood and affect; insight and judgment normal. Assessment/Plan Problem List: (1) Pancytopenia Status: Acute Plan: --Hgb relatively stable, no significant symptoms at this time --Platelet is still low 53k, likely consumptive process and abx. No bleeding. --due to liver disease and splenomegaly + sepsis/DIC --CT showed enlarged liver and spleen. spleen is about 20 cm cranio-caudally. -- further drop in blood count is likely a combination of sepsis and consumptive process. --iron studies show high ferritin, no iron deficiency --B12/folate WNL --transfuse platelets/pRBC as needed --will give Neupogen if patient has severe neutropenia (2) Sepsis Status: Acute Plan: --Sepsis/bacteremia. --has a history of endocarditis, status post tricuspid valve and mitral valve replacement. She has had febrile illness. --most recent blood cultures with no growth. --BC +GNR and GPC --on multiple antibiotics per Infectious Disease. (3) DVT of lower extremity, bilateral Status: Resolved Plan: --started on prophylactic dose heparin on 12/19, tolerated well and no bleeding noted. -- has had multiple DVT. --was on Coumadin. --one point she was found to have splenic infarction. --has been on Eliquis. has not been taking the Eliquis because she is not able to keep her food or medication down. --no evidence of recurrent clot at this time. Assessment 36y/o [place] [facility] [place]ology consulted for pancytopenia. h/o MSSA endocarditis, January 2016. Bilateral lower extremity DVT multiple times. She was on Coumadin for a while and switched to Eliquis. Hepatitis C. History of IV drug use. Chronic pain. Tricuspid valve and mitral valve replacement. Left femoral vein catheterization Plan 1. continue low dose heparin 2. monitor CBC 3. Start Eliquis when Platelet >70k. 4. Transfuse PRBC if Hgb <7 or if she is symptomatic. Problem Qualifiers (1) Sepsis: Qualified Code: O85 - Puerperal sepsis Ger Alexander MD Dec 25, 2016 13:03
--- NOTE | 2016-12-25 14:05 | HHI.PR ---
Subjective Remarks Follow-up for endocarditis Patient has no complaints. She remains afebrile. No acute events. Objective Vitals Vital Signs Date Time Temp Pulse Resp B/P Pulse Ox O2 Delivery O2 Flow Rate FiO2 12/25/16 08:00 Room Air 12/25/16 08:00 104 12/25/16 08:00 99.2 114 20 114/59 93 12/25/16 04:00 Room Air 12/25/16 04:00 99.8 99 22 94/59 84 12/25/16 02:03 18 12/25/16 00:00 99.1 104 20 99/58 94 12/25/16 00:00 Room Air 12/24/16 20:42 114 12/24/16 20:06 98.9 108 18 100/62 93 12/24/16 20:01 Room Air 12/24/16 16:07 98.9 112 16 98/60 95 I/O 12/24/16 12/24/16 12/24/16 12/25/16 12/25/16 12/25/16 07:00 15:00 23:00 07:00 15:00 23:00 Intake Total 608 ml 480 ml 420 ml 1029 ml Balance 608 ml 480 ml 420 ml 1029 ml Intake Oral 480 ml 420 ml 320 ml IV Total 608 ml 709 ml # Voids 4 3 # Bowel Movements 1 0 1 Result Diagram: 12/25/16 0505 12/25/16 0505 Objective Remarks GENERAL: in NAD ORAL: poor dentition. NECK: trachea midline. + JVD CARDIOVASCULAR: Tachycardic rate and rhythm, Grade 2 systolic murmur left sternal border, no rubs. Well-healed sternotomy scar from valve surgeries RESPIRATORY: Breath sounds equal bilaterally. No accessory muscle use. GASTROINTESTINAL: Abdomen soft, non-tender, nondistended. Dependent edema bilateral ankles. MUSCULOSKELETAL: No cyanosis, edema. right PICC site dry clean and intact. NEURO: Awake oriented. Moving all extremities spontaneously without focal deficit. Medications and IVs Current Medications Sodium Chloride 1,000 ml @ 1,000 mls/hr Q1H ONCE IV Last administered on t 22:47; Start 12/15/16 at 22:45; Stop 12/15/16 at 23:44; Status DC Cefepime HCl 2000 mg/Sodium Chloride 100 ml @ 200 mls/hr ONCE ONCE IV Last administered on 12/16/16 00:11; Start 12/15/16 at 22:45; Stop 12/15/16 at 23:14 ; Status DC Vancomycin HCl 1000 mg/Sodium Chloride 250 ml @ 250 mls/hr ONCE ONCE IV Last administered on 12/15/16 23:34; Start 12/15/16 at 22:45; Stop 12/15/16 at 23:44 ; Status DC Sodium Chloride (NS 1000 ml Inj) 1,000 ml @ 750 mls/hr Q1H20M ONCE IV Last administered on 12/16/16 01:06; Start 12/16/16 at 01:00; Stop 12/16/16 at 02:19 ; Status DC Ketorolac Tromethamine 15 mg 15 mg ONCE ONCE IV PUSH Last administered on 12/16 02:04; Start 12/16/16 at 01:45; Stop 12/16/16 at 01:46; Status DC Pharmacy Profile Note 0 ml @ 0 mls/hr UNSCH OTHER ; Start 12/16/16 at 02:45 Cefepime HCl 2000 mg/Sodium Chloride 100 ml @ 200 mls/hr Q8H IV Last administered on 12/20/16 15:31; Start 12/16/16 at 08:00; Stop 12/20/16 at 17:14 ; Status DC Sodium Chloride (NS 1000 ml Inj) 1,000 ml @ 150 mls/hr Q6H40M IV Last administered on 12/18/16 10:18; Start 12/16/16 at 02:47; Stop 12/18/16 at 14:04 ; Status DC Acetaminophen (Tylenol) 650 mg Q6H PRN PO FEVER >101F Last administered on 12/25 08:54; Start 12/16/16 at 03:00 Pantoprazole Sodium (Protonix Inj) 40 mg DAILY IV Last administered on 08:55; Start 12/16/16 at 09:00 Albuterol/ Ipratropium (Duoneb Neb) 1 ampule Q2HR NEB PRN INH WHEEZING; Start 12/16/16 at 03:00 Miscellaneous Information 1 Q361D XX ; Start 12/16/16 at 03:00 Chlorhexidine Gluconate (Chlorhexidine 2% Cloth) Taper DAILY@04 TOP Last administered on 12/21/16 03:59; Start 12/16/16 at 04:00; Stop 12/12/17 at 03:59 Chlorhexidine Gluconate (Chlorhexidine 2% Cloth) 3 pack UNSCH PRN TOP HYGIENIC CARE; Start 12/16/16 at 03:00 Senna/Docusate Sodium (Sandy-Colace) 1 tab BID PO Last administered on 08:29; Start 12/16/16 at 09:00 Magnesium Hydroxide (Milk Of Magnesia Liq) 30 ml Q12H PRN PO MILD - MODERATE CONSTIPATION; Start 12/16/16 at 03:00 Sennosides (Senokot) 17.2 mg Q12H PRN PO MODERATE - SEVERE CONSTIPATION; Start 12/16/16 at 03:00 Bisacodyl (Dulcolax Supp) 10 mg DAILY PRN RECTAL SEVERE CONSITIPATION; Start at 03:00 Lactulose (Lactulose Liq) 30 ml DAILY PRN PO SEVERE CONSITIPATION; Start at 03:00 Apixaban (Eliquis) 5 mg BID PO Last administered on 12/16/16 09:40; Start 04/24 at 09:00; Stop 12/16/16 at 14:22; Status DC Hydromorphone HCl 4 mg 4 mg Q6H PRN PO Pain Management Last administered on 11:58; Start 12/16/16 at 03:00 Sodium Chloride 1,000 ml @ 999 mls/hr BOLUS ONCE IV Last administered on 12/16 03:04; Start 12/16/16 at 03:00; Stop 12/16/16 at 04:00; Status DC Metronidazole 100 ml @ 100 mls/hr Q8H IV Last administered on 12/18/16 11:58 ; Start 12/16/16 at 04:00; Stop 12/18/16 at 13:05; Status DC Potassium Chloride 100 ml @ 50 mls/hr Q2H PRN IV For Potassium 2.8 - 3.2 mEq/ L Last administered on 12/21/16 09:16; Start 12/16/16 at 03:45; Stop 12/23/16 at 11:10; Status DC Potassium Chloride (KCl 20 Meq Premix Inj) 100 ml @ 50 mls/hr Q2H PRN IV For Potassium 2.8 - 3.2 mEq/L; Start 12/16/16 at 03:45; Stop 12/23/16 at 11:10; Status DC Potassium Bicarb/ Potassium Chloride 50 meq 50 meq UNSCH PRN PO For Potassium 3.3 - 3.5 mEq/L; Start 12/16/16 at 03:45; Stop 12/23/16 at 11:10; Status DC Potassium Chloride 100 ml @ 25 mls/hr UNSCH PRN IV For Potassium 3.3 - 3.5 mEq /L; Start 12/16/16 at 03:45; Stop 12/23/16 at 11:10; Status DC Potassium Chloride 100 ml @ 50 mls/hr Q2H PRN IV For Potassium 3.3 - 3.5 mEq/ L Last administered on 12/16/16t 09:39; Start 12/16/16 at 03:45; Stop 12/23/16 at 11:10; Status DC Magnesium Sulfate/ Sodium Chloride (Magnesium Sulfate Inj/NS Inj) 100 ml @ 50 mls/hr UNSCH PRN IV For Magnesium 0.9 - 1.1 mg/dL; Start 12/16/16 at 03:45; Stop 12/23/16 at 11:10; Status DC Magnesium Oxide 800 mg 800 mg UNSCH PRN PO For Magnesium 1.2 - 1.6 mg/dL; Start 12/16/16 at 03:45; Stop 12/23/16 at 11:10; Status DC Magnesium Sulfate/ Sodium Chloride (Magnesium Sulfate Inj/NS Inj) 100 ml @ 50 mls/hr UNSCH PRN IV For Magnesium 1.2 - 1.6 mg/dL; Start 12/16/16 at 03:45; Stop 12/23/16 at 11:10; Status DC Potassium Phosphate 2000 mg 2,000 mg Q4H PRN PO For Phosphorus < 2.5 mg/dL; Start 12/16/16 at 03:45; Stop 12/23/16 at 11:10; Status DC Sodium Phosphate/ Sodium Chloride (Sodium Phosphate Inj/NS 250 ml Inj) 250 ml @ 42 mls/hr UNSCH PRN IV For Phosphorus < 2.5 mg/dL; Start 12/16/16 at 03:45; Stop 12/23/16 at 11:10; Status DC Potassium Phosphate 2000 mg 2,000 mg UNSCH PRN PO/TUBE SEE LABEL COMMENTS; Start 12/16/16 at 03:45; Stop 12/23/16 at 11:10; Status DC Potassium Phosphate 30 mmol/ Sodium Chloride 260 ml @ 42 mls/hr UNSCH PRN IV SEE LABEL COMMENTS; Start 12/16/16 at 03:45; Stop 12/23/16 at 11:10; Status DC Sodium Chloride (NS 1000 ml Inj) 1,000 ml @ 999 mls/hr BOLUS ONCE IV ; Start 12/16/16 at 03:45; Stop 12/16/16 at 04:45; Status DC Iohexol 80 ml 80 ml STK-MED ONCE IV Last administered on 12/16/16 05:51; Start 12/16/16 at 05:51; Stop 12/16/16 at 05:52; Status DC Vancomycin HCl/ Sodium Chloride (Vancomycin Inj/ NS 250 ml Inj) 250 ml @ 250 mls/hr Q12H IV Last administered on 12/18/16 11:59; Start 12/16/16 at 11:00; Stop 12/18/16 at 13:02; Status DC Miscellaneous Information SPECIFIC LAB TO BE DRAWN:VANCOMYCIN TROUGH DATE TO... ONCE ONCE .XX ; Start 12/17/16 at 10:45; Stop 12/17/16 at 10:46; Status DC Vancomycin HCl 125 mg 125 mg QID PO Last administered on 12/18/16 11:59; Start 12/16/16 at 13:00; Stop 12/18/16 at 13:24; Status DC Norepinephrine Bitartrate 250 ml @ As Directed STK-MED ONCE IV ; Start at 11:12; Stop 12/16/16 at 11:13; Status DC Sodium Chloride 250 ml @ 15 mls/hr ONCE ONCE IV Last administered on 17:15; Start 12/16/16 at 17:15; Stop 12/17/16 at 09:54; Status DC Norepinephrine Bitartrate (Levophed-Dextrose Drip) 250 ml @ 0 mls/hr TITRATE IV Last administered on 12/17/16 21:12; Start 12/16/16 at 21:00; Stop 12/20/16 at 20:32; Status DC Terbutaline Sulfate 1 mg 1 mg UNSCH PRN SQ FOR EXTRAVASATION PROTOCOL Last administered on 12/16/16 21:09; Start 12/16/16 at 21:00 Propofol (Diprivan 500 Mg/ 50 ml Inj) 50 ml @ As Directed STK-MED ONCE .ROUTE ; Start 12/17/16 at 09:43; Stop 12/17/16 at 09:44; Status DC Midazolam HCl 5 mg 5 mg STK-MED ONCE .ROUTE Last administered on 12/17/16 09: 50; Start 12/17/16 at 09:50; Stop 12/17/16 at 09:51; Status DC Esmolol HCl/ Sodium Chloride (Brevibloc Drip Inj Premix) 250 ml @ 0 mls/hr TITRATE ONCE IV Last administered on 12/17/16 14:42; Start 12/17/16 at 09:55 ; Stop 12/17/16 at 11:22; Status DC Midazolam HCl (Versed Inj) 5 mg NOW ONCE IV Last administered on 12/17/16 09: 50; Start 12/17/16 at 09:50; Stop 12/17/16 at 11:22; Status DC Propofol (Diprivan 500 Mg/ 50 ml Inj) 500 mg ONCE ONCE IV Last administered on 12/17/16 09:43; Start 12/17/16 at 09:43; Stop 12/17/16 at 11:22; Status DC Propofol 500 mg 500 mg ONCE ONCE IV Last administered on 12/17/16 09:43; Start 12/17/16 at 09:43; Stop 12/17/16 at 11:22; Status DC Pharmacy Profile Note 0 ml @ 0 mls/hr UNSCH OTHER ; Start 12/17/16 at 13:30 Gentamicin Sulfate/Sodium Chloride (Gentamicin Inj/ NS Inj) 101.5 ml @ 200 mls/ hr Q8H IV Last administered on 12/18/16 15:55; Start 12/17/16 at 16:00; Stop 12/18/16 at 22:28; Status DC Miscellaneous Information SPECIFIC LAB TO BE DRAWN:GENTAMICIN PEAK DATE TO... ONCE ONCE .XX Last administered on 12/18/16 17:30; Start 12/18/16 at 17:30; Stop 12/18/16 at 17:31; Status DC Miscellaneous Information SPECIFIC LAB TO BE DRAWN:GENTAMICIN TROUGH DATE TO... ONCE ONCE .XX Last administered on 12/18/16 15:45; Start 12/18/16 at 15:45; Stop 12/18/16 at 15:46; Status DC Miscellaneous Information SPECIFIC LAB TO BE DRAWN:VANCOMYCIN TROUGH DATE TO... ONCE ONCE .XX Last administered on 12/18/16 10:45; Start 12/18/16 at 10:45; Stop 12/18/16 at 10:46; Status DC Vancomycin HCl 1000 mg/Sodium Chloride 250 ml @ 250 mls/hr Q8H IV Last administered on 12/19/16 12:19; Start 12/18/16 at 20:00; Stop 12/19/16 at 14:44 ; Status DC Metronidazole (Flagyl 500 Mg Inj) 100 ml @ 100 mls/hr Q8H IV ; Start 12/18/16 at 21:00; Stop 12/18/16 at 21:00; Status Cancel Metronidazole (Flagyl) 500 mg Q8HR PO ; Start 12/18/16 at 14:00; Stop 12/18/16 at 14:00; Status DC Metronidazole (Flagyl) 500 mg Q8H PO Last administered on 12/25/16 11:57; Start 12/18/16 at 20:00 Hydrocortisone Sodium Succinate (SoluCORTEF INJ) 50 mg Q6H IV PUSH Last administered on 12/20/16 15:30; Start 12/18/16 at 15:00; Stop 12/20/16 at 20:31 ; Status DC Ondansetron HCl 4 mg 4 mg Q6H PRN IV PUSH NAUSEA/VOMITING Last administered on 12/25/16 08:55; Start 12/18/16 at 15:30 Gentamicin Sulfate/Sodium Chloride (Gentamicin Inj/ NS Inj) 101.5 ml @ 200 mls/ hr Q12H IV Last administered on 12/22/16 03:59; Start 12/19/16 at 04:00; Stop 12/23/16 at 00:06; Status DC Miscellaneous Information SPECIFIC LAB TO BE DRAWN:GENTAMICIN TROUGH DATE TO... ONCE ONCE .XX Last administered on 12/19/16 15:45; Start 12/19/16 at 15:45; Stop 12/19/16 at 15:46; Status DC Heparin Sodium (Porcine) (Heparin Inj) 5,000 units Q12HR SQ Last administered on 12/21/16 07:51; Start 12/19/16 at 09:00; Stop 12/21/16 at 13:24; Status DC Furosemide 40 mg 40 mg ONCE ONCE IV PUSH Last administered on 12/19/16 16:54 ; Start 12/19/16 at 14:45; Stop 12/19/16 at 14:48; Status DC Vancomycin HCl/ Sodium Chloride (Vancomycin Inj/ NS 250 ml Inj) 257.5 ml @ 257.5 mls/ hr Q8H IV Last administered on 12/25/16 11:58; Start 12/19/16 at 20 :00 Miscellaneous Information SPECIFIC LAB TO BE ANABELL... ONCE ONCE .XX ; Start 12/20 at 11:45; Stop 12/20/16 at 11:46; Status DC Miscellaneous Information SPECIFIC LAB TO BE ANABELL... ONCE ONCE .XX ; Start 12/20 at 03:45; Stop 12/20/16 at 03:46; Status DC Miscellaneous Information SPECIFIC LAB TO BE ANABELL... ONCE ONCE .XX Last administered on 12/20/16 15:45; Start 12/20/16 at 15:45; Stop 12/20/16 at 15:46 ; Status DC Sodium Chloride (NS 250 ml Inj) 250 ml @ 15 mls/hr ONCE ONCE IV Last administered on 12/20/16 15:29; Start 12/20/16 at 14:30; Stop 12/21/16 at 07:09 ; Status DC Acetaminophen (Tylenol) 650 mg Q4H PRN PO SEE LABEL COMMENTS Last administered on 12/20/16 16:20; Start 12/20/16 at 14:30; Stop 12/20/16 at 18:31; Status DC Diphenhydramine HCl (Benadryl) 25 mg Q4H PRN PO SEE LABEL COMMENTS Last administered on 12/20/16 16:20; Start 12/20/16 at 14:30; Stop 12/20/16 at 18:31 ; Status DC Miscellaneous Information SPECIFIC LAB TO BE ANABELL... ONCE ONCE .XX Last administered on 12/20/16 20:35; Start 12/20/16 at 19:45; Stop 12/20/16 at 19:46 ; Status DC Ceftriaxone Sodium 2000 mg/ Sodium Chloride 100 ml @ 200 mls/hr Q24H IV ; Start 12/20/16 at 18:00; Stop 12/20/16 at 18:26; Status DC Ceftriaxone Sodium 2000 mg/ Sodium Chloride 100 ml @ 200 mls/hr Q24H IV ; Start 12/20/16 at 18:30; Status Cancel Ceftriaxone Sodium/Dextrose 50 ml @ 100 mls/hr Q24H IV ; Start 12/21/16 at 00: 00; Status Cancel Ceftriaxone Sodium/Sodium Chloride (Rocephin Inj/NS Inj) 100 ml @ 200 mls/hr Q24H IV Last administered on 12/25/16 00:17; Start 12/21/16 at 00:00 Hydrocortisone Sodium Succinate (SoluCORTEF INJ) 50 mg Q12H IV PUSH Last administered on 12/21/16 07:50; Start 12/21/16 at 09:00; Stop 12/21/16 at 19:38 ; Status DC Miscellaneous Information SPECIFIC LAB TO BE DRAWN:GENTAMICIN TROUGH DATE TO... ONCE ONCE .XX ; Start 12/22/16 at 15:45; Stop 12/22/16 at 15:46; Status DC Miscellaneous Information SPECIFIC LAB TO BE DRAWN:VANCO TROUGH DATE TO... ONCE ONCE .XX ; Start 12/22/16 at 11:45; Stop 12/22/16 at 11:46; Status DC Heparin Sodium (Porcine) (Heparin Inj) 5,000 units TID SQ Last administered on 12/24/16 12:14; Start 12/21/16 at 18:00 Furosemide (Lasix Inj) 20 mg ONCE ONCE IV PUSH Last administered on 12/21/16 20:13; Start 12/21/16 at 19:45; Stop 12/21/16 at 19:46; Status DC Potassium Chloride (KCl) 20 meq ONCE ONCE PO Last administered on 12/21/16 20 :13; Start 12/21/16 at 19:45; Stop 12/21/16 at 19:46; Status DC Hydrocortisone Sodium Succinate (SoluCORTEF INJ) 25 mg Q12H IV PUSH Last administered on 12/22/16 09:10; Start 12/21/16 at 21:00; Stop 12/22/16 at 09:04 ; Status DC Alteplase, Recombinant (Cathflo Activase Inj) 2 mg ONCE ONCE INTRACATH Last administered on 12/22/16 20:52; Start 12/22/16 at 21:00; Stop 12/22/16 at 21:01 ; Status DC Miscellaneous Information SPECIFIC LAB TO BE DRAWN:VANCO TROUGH DATE TO BE DR... ONCE ONCE .XX ; Start 12/24/16 at 11:45; Stop 12/24/16 at 11:46; Status Cancel Gentamicin Sulfate/Sodium Chloride (Gentamicin Inj/ NS Inj) 101.5 ml @ 200 mls/ hr Q12H IV Last administered on 12/25/16 11:58; Start 12/23/16 at 01:00 Alteplase, Recombinant (Cathflo Activase Inj) 2 mg ONCE ONCE INTRACATH Last administered on 12/23/16 13:13; Start 12/23/16 at 12:15; Stop 12/23/16 at 12:33 ; Status DC Miscellaneous Information SPECIFIC LAB TO BE DRAWN:GENTAMICIN TROUGH DATE TO... ONCE ONCE .XX ; Start 12/24/16 at 12:45; Stop 12/24/16 at 12:46; Status Cancel Calcium Carbonate (Oscal) 500 mg Q12HR PO Last administered on 12/25/16 08:54 ; Start 12/24/16 at 11:30 Potassium Chloride (KCl) 30 meq ONCE ONCE PO Last administered on 12/24/16 12 :10; Start 12/24/16 at 12:00; Stop 12/24/16 at 12:01; Status DC A/P Problem List: (1) Sepsis ICD Code: A41.9 Status: Acute (2) Chest pain ICD Code: R07.9 Status: Acute (3) Hypotension ICD Code: I95.9 Status: Acute (4) Hyponatremia ICD Code: E87.1 Status: Acute (5) Hypokalemia ICD Code: E87.6 Status: Acute (6) Endocarditis due to methicillin susceptible Staphylococcus aureus (MSSA) ICD Code: I33.0 Status: Acute (7) DVT of lower extremity, bilateral ICD Code: I82.403 Status: Resolved (8) IVDU (intravenous drug user) ICD Code: F19.90 Status: Acute (9) Bacteremia ICD Code: R78.81 Status: Acute (10) Pancytopenia ICD Code: D61.818 Status: Acute (11) Septic pulmonary embolism ICD Code: I26.90 Status: Acute (12) Elevated LFTs ICD Code: R79.89 Status: Acute Assessment and Plan 36yF with recurrent mitral valve bioprosthetic endocarditis, Enterococcus bacteremia, C. Difficile Colitis, septic shock. Now off vasopressors. Continue antibiotic per ID. appreciate subspecialty assistance. Also agree with palliative consult. Sepsis with septic shock -Continue to endocarditis/bacteremia. MICHELE 12/17 with evidence of recurrent endocarditis, EF 40%, mild RV dysfunction - Echo 10/17: mitral and tricuspid valve no regurgitation - Serial blood cultures positive have been positive (as per below). Most recent culture 12/19 NG x 3 days. -Evaluated by [facility] and she is not operative candidate due to recent IV drug use. - Off vasopressors. weaning hydrocortisone to 25 mg IV q12 and then stop order for 12/22. Bacteremia: Enterococcus faecalis, Enterobacter Cloacae (2 strains), Group D enterococcus, additional Gram negative rods/ C. 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 cefepime discontinued on 12/20 and was rocephin started 12/20. . On gentamicin. - ID service is consulted. Repeat blood cultures from 12/19 so far negative 3 days. - C. Diff + 12/16. Flagyl DC on 12/21 now on vancomycin by mouth. -HIV negative Culture data: 12/15 blood cx: 09/09: Enterococcus faecalis, Enterobacter Cloacae (2 strains), Group D enterococcus 12/15 c. diff pcr + 12/17 blood cx: Group D enterococcus 2/4, GPCs 06/11. 12/18 blood cx: Enterococcus faecalis / bottles 12/19 - blood cx x2 sets -NGTD x 3 days. 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 On Prescribed Dilaudid for pain, UDS positive for opiates. - Supplement multivitamin, thiamine Acute protein calorie malnutrition- severe. History of hepatitis C - regular diet as tolerated. - IV Protonix Dehydration- resolved. Hyponatremia-resolved - Monitor renal function, I/O's, electrolytes replacement per protocol. -Does have some dependent edema and positive fluid balance. Lasix 20 mg IV and potassium 20 ME with Lasix. (already received potassium 40 mEQ IV per protocol for potassium 3.1) Anemia History of bilateral lower extremity DVT Pancytopenia Thrombocytopenia -Monitor CBC, CMP, INR -hold eliquis until platelets >70 k per hematology recs. Continue prophylactic heparin 5000 subcut q12 per hematology recs. PROPH: -Bilateral lower extremity SCDs, hold therapeutic anticoagulation given coagulopathy, continue heparin subcut as per above. IV Protonix 40 mg IV daily Problem Qualifiers (1) Sepsis: Qualified Code: O85 - Puerperal sepsis (2) Chest pain: Qualified Code: R07.9 - Chest pain, unspecified type (3) Hypotension: Qualified Code: I95.89 - Other specified hypotension Afua Turner MD Dec 25, 2016 14:05
--- NOTE | 2016-12-25 14:54 | HHI.HCPN ---
Met with Ms. Romero in room 1426. She is currently lying in bed, awake, able to make needs known. No friends/family at bedside. She is appropriate in conversation but starts to get lethargic after some time. Reports "just having a bad day". Verbalizes some pain but states "it will always be this way". Lunch tray at bedside. Tells me she has a fairly good appetite. No concerns or questions at this time. Mother has been coming periodically to visit. Verbalizes she is missing her children. Offered emotional support through active listening. Appreciative of visit and ongoing palliative care support. Palliative care will continue to follow throughout hospitalization. Sunshine Miller, [employer] SUPERVISOR Dec 25, 2016 14:54
[2016-12-25 16:00] VITALS: BP 110/71; PULSE 122; RESP 20; TEMP 99.5; O2SAT 94
[2016-12-25 20:00] VITALS: BP 96/59; PULSE 119; RESP 20; TEMP 101.1; O2SAT 91
[2016-12-26] VITALS (7 sets, daily range): BP systolic 89–111; BP diastolic 53–71; PULSE 104–125; RESP 18–20; TEMP 98–100.5; O2SAT 92–100
[2016-12-26] MEDS: VANCOMYCIN INJ 750 MG in SODIUM CHLOR 0.9% 250 ML INJ 250 ML IV SCH ×3 (03:13→21:34)
[2016-12-26] MEDS: metroNIDAZOLE 500 MG TAB PO SCH ×3 (03:13→21:34)
[2016-12-26] MEDS: ACETAMINOPHEN 325 MG TAB PO PRN ×2 (05:04→21:44)
[2016-12-26 05:38] LABS: AUTOMATED NEUTROPHIL # 4.7 TH/MM3 (1.8-7.7); BASOPHIL % 0.3 % (0.0-2.0); EOSINOPHIL % 0.3 % (0.0-4.0); HEMATOCRIT 21.4 % (35.0-46.0); LYMPH % 10.6 % (9.0-44.0); LYMPHOCYTE # 0.6 TH/MM3 (1.0-4.8); MEAN CELL VOLUME 86.7 FL (80.0-100.0); MEAN CORPUSCULAR HGB CONC 33.4 % (32.0-36.0); MONO % 5.3 % (0.0-8.0); NEUT % 83.5 % (16.0-70.0); PLATELET COUNT 55 TH/MM3 (150-450); RED BLOOD COUNT 2.47 MIL/MM3 (4.00-5.30); RED CELL DISTRIBUTION WIDTH 16.3 % (11.6-17.2); WHITE BLOOD COUNT 5.6 TH/MM3 (4.0-11.0)
[2016-12-26 05:48] LABS: HEMO FLAGS AUTO DIFF
[2016-12-26] MEDS: HYDROmorphone HCL 4 MG TAB PO PRN ×4 (06:04→23:51)
[2016-12-26] MEDS: PANTOPRAZOLE SODIUM 40 MG VIAL IV SCH (08:42)
[2016-12-26] MEDS: CALCIUM CARBONATE 1.25 GM (CA 500 MG) TAB PO SCH ×2 (08:43→21:34)
[2016-12-26] MEDS: DOCUSATE SODIUM 50 MG/SENNA 8.6 MG TAB PO SCH ×2 (08:43→21:34)
[2016-12-26] MEDS: HEPARIN SODIUM - SQ 10,000 UNITS/ML VIAL SQ SCH ×3 (08:43→17:39)
[2016-12-26 09:08] LABS: BANDS 5 % (0-6); POLYS (SEG NEUTROPHILS) 85 % (16-70); SCAN/DIFF FINAL DIFF MANUAL; WBC DIFF SAMPLE 100
[2016-12-26 09:09] LABS: ACANTHOCYTES OCC (NORMAL); KERATOCYTES OCC (NORMAL); OVALOCYTES 1+ (NORMAL); PLATELET ESTIMATE SMEAR LOW (NORMAL); PLATELET MORPHOLOGY NORMAL (NORMAL); TOXIC VACUOLATION PRESENT (NONE SEEN)
[2016-12-26] MEDS: ONDANSETRON HCL 4 MG/2 ML VIAL IV PUSH PRN (09:40)
--- NOTE | 2016-12-26 11:13 | PD.ONC.PN ---
Subjective Subjective Remarks Tmax 101.1 overnight. Patient feeling nauseated. Also with chills. No bleeding. Tolerating heparin injections. Objective Data Date Time Temp Pulse Resp B/P Pulse Ox O2 Delivery O2 Flow Rate FiO2 12/26/16 04:00 98.9 107 20 110/71 99 12/26/16 00:00 98.0 104 18 111/71 100 12/25/16 20:00 Nasal Cannula 3.00 12/25/16 20:00 119 12/25/16 20:00 101.1 119 20 96/59 91 12/25/16 18:29 94 3.00 12/25/16 16:00 99.5 122 20 110/71 94 12/25/16 12:00 98.3 110 20 97/62 94 12/26/16 12/26/16 12/26/16 06:59 14:59 22:59 Intake Total 480 ml Balance 480 ml Result Diagram: 12/26/16 0511 12/26/16 0453 Laboratory Results Laboratory Tests Test 12/26/16 12/26/16 04:53 05:11 Creatinine 0.69 MG/DL Estimat Glomerular Filtration 97 ML/MIN Rate White Blood Count 5.6 TH/MM3 Red Blood Count 2.47 MIL/MM3 Hemoglobin 7.2 GM/DL Hematocrit 21.4 % Mean Corpuscular Volume 86.7 FL Mean Corpuscular Hemoglobin 29.0 PG Mean Corpuscular Hemoglobin 33.4 % Concent Red Cell Distribution Width 16.3 % Platelet Count 55 TH/MM3 Mean Platelet Volume 9.9 FL Neutrophils (%) (Auto) 83.5 % Lymphocytes (%) (Auto) 10.6 % Monocytes (%) (Auto) 5.3 % Eosinophils (%) (Auto) 0.3 % Basophils (%) (Auto) 0.3 % Neutrophils # (Auto) 4.7 TH/MM3 Lymphocytes # (Auto) 0.6 TH/MM3 Monocytes # (Auto) 0.3 TH/MM3 Eosinophils # (Auto) 0.0 TH/MM3 Basophils # (Auto) 0.0 TH/MM3 CBC Comment AUTO DIFF Differential Total Cells 100 Counted Neutrophils % (Manual) 85 % Band Neutrophils % 5 % Lymphocytes % 7 % Monocytes % 3 % Neutrophils # (Manual) 5.0 TH/MM3 Differential Comment FINAL DIFF MANUAL Toxic Vacuolation PRESENT Platelet Estimate LOW Platelet Morphology Comment NORMAL Ovalocytes 1+ Acanthocytes OCC Keratocytes OCC Administered Medications Medications (Trade) Dose Ordered Sig/Solo Route PRN Reason Start Time Stop Time Status Last Admin Dose Admin Acetaminophen (Tylenol) 650 mg Q6H PRN PO FEVER >101F 12/16/16 03:00 12/26/16 05:04 Pantoprazole Sodium (Protonix Inj) 40 mg DAILY IV 12/16/16 09:00 12/26/16 08:42 Chlorhexidine Gluconate (Chlorhexidine 2% Cloth) Taper DAILY@04 TOP 12/16/16 04:00 12/12/17 03:59 12/21/16 03:59 Senna/Docusate Sodium (Sandy-Colace) 1 tab BID PO 12/16/16 09:00 12/20/16 08:29 Hydromorphone HCl (Dilaudid) 4 mg Q6H PRN PO Pain Management 12/16/16 03:00 12/26/16 06:04 Terbutaline Sulfate (Brethine Inj) 1 mg UNSCH PRN SQ FOR EXTRAVASATION PROTOCOL 12/16/16 21:00 12/16/16 21:09 Metronidazole (Flagyl) 500 mg Q8H PO 12/18/16 20:00 12/26/16 03:13 Ondansetron HCl 4 mg 4 mg Q6H PRN IV PUSH NAUSEA/VOMITING 12/18/16 15:30 12/26/16 09:40 Vancomycin HCl 750 mg/Sodium Chloride 257.5 ml @ 257.5 mls/ hr Q8H IV 12/19/16 20:00 12/26/16 03:13 Ceftriaxone Sodium/Sodium Chloride (Rocephin Inj/NS Inj) 100 ml @ 200 mls/hr Q24H IV 12/21/16 00:00 12/25/16 22:59 Heparin Sodium (Porcine) 5000 units 5,000 units TID SQ 12/21/16 18:00 12/26/16 08:43 Gentamicin Sulfate/Sodium Chloride (Gentamicin Inj/ NS Inj) 101.5 ml @ 200 mls/hr Q12H IV 12/23/16 01:00 12/25/16 23:52 Calcium Carbonate (Oscal) 500 mg Q12HR PO 12/24/16 11:30 12/26/16 08:43 Objective Remarks GENERAL: Young woman, supine in bed, fatigued. SKIN: Warm and dry. HEAD: Normocephalic. EYES: No injection or drainage. NECK: Supple, trachea midline. CARDIOVASCULAR: +S1/S2 RESPIRATORY: anterior lerner clear. GASTROINTESTINAL: Abdomen soft, non-tender, nondistended. EXTREMITIES: No cyanosis NEUROLOGICAL: awake and alert, normal speech. moving all extremities. Assessment/Plan Problem List: (1) Pancytopenia Status: Acute Plan: --due to liver disease and splenomegaly + sepsis/DIC --CT showed enlarged liver and spleen. spleen is about 20 cm cranio-caudally. --transfuse pRBC when symptomatic or less than 7. --will give Neupogen if patient has severe neutropenia (2) Sepsis Status: Acute Plan: --Sepsis/bacteremia. --has a history of endocarditis, status post tricuspid valve and mitral valve replacement. She has had febrile illness. --most recent blood cultures with no growth. --BC +Enterococcus faecalis --on multiple antibiotics per Infectious Disease. (3) DVT of lower extremity, bilateral Status: Resolved Plan: --started on prophylactic dose heparin on 12/19, tolerated well and no bleeding noted. will change to Eliquis when platelets are greater than 70K -- has had multiple DVT. --one point she was found to have splenic infarction. --has been on Eliquis. was not taking the Eliquis on admission as she was not able to keep her food or medication down. --no evidence of recurrent clot at this time. Assessment 36y/o female critically ill in [facility] [place] Hematology consulted for pancytopenia. h/o MSSA endocarditis, January 2016. Bilateral lower extremity DVT multiple times. She was on Coumadin for a while and switched to Eliquis. Hepatitis C. History of IV drug use. Chronic pain. Tricuspid valve and mitral valve replacement. Left femoral vein catheterization Plan 1. continue low dose heparin 2. monitor CBC 3. no transfusion at present. Attending Statement The exam, history, and the medical decision-making described in the above note were completed with the assistance of the mid-level provider. I reviewed and agree with the findings presented. I attest that I had a [id number] encounter with the patient on the same day, and personally performed and documented my assessment and findings in the medical record. No evidence of bleeding. Hgb stable. Platelet stable 55k. Continue heparin. Transfuse if Hgb <7. Problem Qualifiers (1) Sepsis: Qualified Code: O85 - Puerperal sepsis Mel Warren Dec 26, 2016 11:13 Ger Alexander MD Dec 26, 2016 14:39
[2016-12-26] MEDS ORDERED: PILL SPLITTER OTHER PRN (11:30)
[2016-12-26] MEDS ORDERED: PROMETHAZINE HCL 25 MG TAB PO PRN (11:30)
[2016-12-26] MEDS ORDERED: SODIUM CHLOR 0.9% 250 ML INJ 250 ML IV ONE (11:45)
--- NOTE | 2016-12-26 11:48 | HHI.PR ---
Subjective Remarks Follow for endocarditis Patient had a fever 101 last night. She also started to feel nauseous and is dry heaving. Patient was given Zofran with no improvement. Denies any shortness of breathing or any pain. Patient is having regular bowel movements. Discussed with patient's nurse. Objective Vitals Vital Signs Date Time Temp Pulse Resp B/P Pulse Ox O2 Delivery O2 Flow Rate FiO2 12/26/16 08:00 98.3 118 20 89/53 92 12/26/16 04:00 98.9 107 20 110/71 99 12/26/16 00:00 98.0 104 18 111/71 100 12/25/16 20:00 Nasal Cannula 3.00 12/25/16 20:00 119 12/25/16 20:00 101.1 119 20 96/59 91 12/25/16 18:29 94 3.00 12/25/16 16:00 99.5 122 20 110/71 94 12/25/16 12:00 98.3 110 20 97/62 94 I/O 12/25/16 12/25/16 12/25/16 12/26/16 12/26/16 12/26/16 07:00 15:00 23:00 07:00 15:00 23:00 Intake Total 1029 ml 720 ml 480 ml 480 ml Balance 1029 ml 720 ml 480 ml 480 ml Intake Oral 320 ml 720 ml 480 ml 480 ml IV Total 709 ml # Voids 4 3 2 # Bowel Movements 1 2 3 1 Result Diagram: 12/26/16 0511 12/26/16 0453 Imaging Last Impressions Chest X-Ray 12/17/16 0000 Signed Impressions: Service Date/Time: Saturday, December 17, 2016 04:55 - CONCLUSION: Decreasing bibasilar atelectasis. Rodo Hart MD Lower Extremity Ultrasound 12/16/16 0000 Signed Impressions: Service Date/Time: Friday, December 16, 2016 03:56 - CONCLUSION: No DVT of either lower extremity. Rodo Hart MD CT Angiography 12/16/16 0000 Signed Impressions: Service Date/Time: Friday, December 16, 2016 05:40 - CONCLUSION: 1. No pulmonary embolus. 2. Patchy bilateral air space disease, right more so than left and both sides basilar predominant. Rodo Hart MD Abdomen/Pelvis CT 12/16/16 0000 Signed Impressions: Service Date/Time: Friday, December 16, 2016 05:40 - CONCLUSION: 1. Enlargement and scarring of the spleen. Collateral vessels in the splenic hilum are again noted. 2. Nonspecific hepatomegaly. No focal hepatic lesion. 3. No obstruction or acute inflammatory changes are demonstrated of the gastrointestinal tract. Rodo Hart MD Objective Remarks GENERAL: in NAD but is dry heaving. ORAL: poor dentition. NECK: trachea midline. + JVD CARDIOVASCULAR: Tachycardic rate and rhythm, Grade 2 systolic murmur left sternal border, no rubs. Well-healed sternotomy scar from valve surgeries RESPIRATORY: Breath sounds equal bilaterally. No accessory muscle use. GASTROINTESTINAL: Abdomen soft, non-tender, nondistended. Dependent edema bilateral ankles. MUSCULOSKELETAL: No cyanosis, edema. right PICC site dry clean and intact. NEURO: Awake oriented. Moving all extremities spontaneously without focal deficit. Medications and IVs Current Medications Sodium Chloride 1,000 ml @ 1,000 mls/hr Q1H ONCE IV Last administered on 22:47; Start 12/15/16 at 22:45; Stop 12/15/16 at 23:44; Status DC Cefepime HCl 2000 mg/Sodium Chloride 100 ml @ 200 mls/hr ONCE ONCE IV Last administered on 12/16/16 00:11; Start 12/15/16 at 22:45; Stop 12/15/16 at 23:14 ; Status DC Vancomycin HCl 1000 mg/Sodium Chloride 250 ml @ 250 mls/hr ONCE ONCE IV Last administered on 12/15/16 23:34; Start 12/15/16 at 22:45; Stop 12/15/16 at 23:44 ; Status DC Sodium Chloride (NS 1000 ml Inj) 1,000 ml @ 750 mls/hr Q1H20M ONCE IV Last administered on 12/16/16 01:06; Start 12/16/16 at 01:00; Stop 12/16/16 at 02:19 ; Status DC Ketorolac Tromethamine 15 mg 15 mg ONCE ONCE IV PUSH Last administered on 12/16 02:04; Start 12/16/16 at 01:45; Stop 12/16/16 at 01:46; Status DC Pharmacy Profile Note 0 ml @ 0 mls/hr UNSCH OTHER ; Start 12/16/16 at 02:45 Cefepime HCl 2000 mg/Sodium Chloride 100 ml @ 200 mls/hr Q8H IV Last administered on 12/20/16 15:31; Start 12/16/16 at 08:00; Stop 12/20/16 at 17:14 ; Status DC Sodium Chloride (NS 1000 ml Inj) 1,000 ml @ 150 mls/hr Q6H40M IV Last administered on 12/18/16 10:18; Start 12/16/16 at 02:47; Stop 12/18/16 at 14:04 ; Status DC Acetaminophen (Tylenol) 650 mg Q6H PRN PO FEVER >101F Last administered on 12/26 05:04; Start 12/16/16 at 03:00 Pantoprazole Sodium (Protonix Inj) 40 mg DAILY IV Last administered on 08:42; Start 12/16/16 at 09:00 Albuterol/ Ipratropium (Duoneb Neb) 1 ampule Q2HR NEB PRN INH WHEEZING; Start 12/16/16 at 03:00 Miscellaneous Information 1 Q361D XX ; Start 12/16/16 at 03:00 Chlorhexidine Gluconate (Chlorhexidine 2% Cloth) Taper DAILY@04 TOP Last administered on 12/21/16 03:59; Start 12/16/16 at 04:00; Stop 12/12/17 at 03:59 Chlorhexidine Gluconate (Chlorhexidine 2% Cloth) 3 pack UNSCH PRN TOP HYGIENIC CARE; Start 12/16/16 at 03:00 Senna/Docusate Sodium (Sandy-Colace) 1 tab BID PO Last administered on 08:29; Start 12/16/16 at 09:00 Magnesium Hydroxide (Milk Of Magnesia Liq) 30 ml Q12H PRN PO MILD - MODERATE CONSTIPATION; Start 12/16/16 at 03:00 Sennosides (Senokot) 17.2 mg Q12H PRN PO MODERATE - SEVERE CONSTIPATION; Start 12/16/16 at 03:00 Bisacodyl (Dulcolax Supp) 10 mg DAILY PRN RECTAL SEVERE CONSITIPATION; Start at 03:00 Lactulose (Lactulose Liq) 30 ml DAILY PRN PO SEVERE CONSITIPATION; Start at 03:00 Apixaban (Eliquis) 5 mg BID PO Last administered on 12/16/16 09:40; Start 04/24 at 09:00; Stop 12/16/16 at 14:22; Status DC Hydromorphone HCl 4 mg 4 mg Q6H PRN PO Pain Management Last administered on 06:04; Start 12/16/16 at 03:00 Sodium Chloride 1,000 ml @ 999 mls/hr BOLUS ONCE IV Last administered on 12/16 03:04; Start 12/16/16 at 03:00; Stop 12/16/16 at 04:00; Status DC Metronidazole 100 ml @ 100 mls/hr Q8H IV Last administered on 12/18/16 11:58 ; Start 12/16/16 at 04:00; Stop 12/18/16 at 13:05; Status DC Potassium Chloride 100 ml @ 50 mls/hr Q2H PRN IV For Potassium 2.8 - 3.2 mEq/ L Last administered on 12/21/16 09:16; Start 12/16/16 at 03:45; Stop 12/23/16 at 11:10; Status DC Potassium Chloride (KCl 20 Meq Premix Inj) 100 ml @ 50 mls/hr Q2H PRN IV For Potassium 2.8 - 3.2 mEq/L; Start 12/16/16 at 03:45; Stop 12/23/16 at 11:10; Status DC Potassium Bicarb/ Potassium Chloride 50 meq 50 meq UNSCH PRN PO For Potassium 3.3 - 3.5 mEq/L; Start 12/16/16 at 03:45; Stop 12/23/16 at 11:10; Status DC Potassium Chloride 100 ml @ 25 mls/hr UNSCH PRN IV For Potassium 3.3 - 3.5 mEq /L; Start 12/16/16 at 03:45; Stop 12/23/16 at 11:10; Status DC Potassium Chloride 100 ml @ 50 mls/hr Q2H PRN IV For Potassium 3.3 - 3.5 mEq/ L Last administered on 12/16/16 09:39; Start 12/16/16 at 03:45; Stop 12/23/16 at 11:10; Status DC Magnesium Sulfate/ Sodium Chloride (Magnesium Sulfate Inj/NS Inj) 100 ml @ 50 mls/hr UNSCH PRN IV For Magnesium 0.9 - 1.1 mg/dL; Start 12/16/16 at 03:45; Stop 12/23/16 at 11:10; Status DC Magnesium Oxide 800 mg 800 mg UNSCH PRN PO For Magnesium 1.2 - 1.6 mg/dL; Start 12/16/16 at 03:45; Stop 12/23/16 at 11:10; Status DC Magnesium Sulfate/ Sodium Chloride (Magnesium Sulfate Inj/NS Inj) 100 ml @ 50 mls/hr UNSCH PRN IV For Magnesium 1.2 - 1.6 mg/dL; Start 12/16/16 at 03:45; Stop 12/23/16 at 11:10; Status DC Potassium Phosphate 2000 mg 2,000 mg Q4H PRN PO For Phosphorus < 2.5 mg/dL; Start 12/16/16 at 03:45; Stop 12/23/16 at 11:10; Status DC Sodium Phosphate/ Sodium Chloride (Sodium Phosphate Inj/NS 250 ml Inj) 250 ml @ 42 mls/hr UNSCH PRN IV For Phosphorus < 2.5 mg/dL; Start 12/16/16 at 03:45; Stop 12/23/16 at 11:10; Status DC Potassium Phosphate 2000 mg 2,000 mg UNSCH PRN PO/TUBE SEE LABEL COMMENTS; Start 12/16/16 at 03:45; Stop 12/23/16 at 11:10; Status DC Potassium Phosphate 30 mmol/ Sodium Chloride 260 ml @ 42 mls/hr UNSCH PRN IV SEE LABEL COMMENTS; Start 12/16/16 at 03:45; Stop 12/23/16 at 11:10; Status DC Sodium Chloride (NS 1000 ml Inj) 1,000 ml @ 999 mls/hr BOLUS ONCE IV ; Start 12/16/16 at 03:45; Stop 12/16/16 at 04:45; Status DC Iohexol 80 ml 80 ml STK-MED ONCE IV Last administered on 12/16/16t 05:51; Start 12/16/16 at 05:51; Stop 12/16/16 at 05:52; Status DC Vancomycin HCl/ Sodium Chloride (Vancomycin Inj/ NS 250 ml Inj) 250 ml @ 250 mls/hr Q12H IV Last administered on 12/18/16 11:59; Start 12/16/16 at 11:00; Stop 12/18/16 at 13:02; Status DC Miscellaneous Information SPECIFIC LAB TO BE DRAWN:VANCOMYCIN TROUGH DATE TO... ONCE ONCE .XX ; Start 12/17/16 at 10:45; Stop 12/17/16 at 10:46; Status DC Vancomycin HCl 125 mg 125 mg QID PO Last administered on 12/18/16 11:59; Start 12/16/16 at 13:00; Stop 12/18/16 at 13:24; Status DC Norepinephrine Bitartrate 250 ml @ As Directed STK-MED ONCE IV ; Start at 11:12; Stop 12/16/16 at 11:13; Status DC Sodium Chloride 250 ml @ 15 mls/hr ONCE ONCE IV Last administered on 17:15; Start 12/16/16 at 17:15; Stop 12/17/16 at 09:54; Status DC Norepinephrine Bitartrate (Levophed-Dextrose Drip) 250 ml @ 0 mls/hr TITRATE IV Last administered on 12/17/16 21:12; Start 12/16/16 at 21:00; Stop 12/20/16 at 20:32; Status DC Terbutaline Sulfate 1 mg 1 mg UNSCH PRN SQ FOR EXTRAVASATION PROTOCOL Last administered on 12/16/16 21:09; Start 12/16/16 at 21:00 Propofol (Diprivan 500 Mg/ 50 ml Inj) 50 ml @ As Directed STK-MED ONCE .ROUTE ; Start 12/17/16 at 09:43; Stop 12/17/16 at 09:44; Status DC Midazolam HCl 5 mg 5 mg STK-MED ONCE .ROUTE Last administered on 12/17/16 09: 50; Start 12/17/16 at 09:50; Stop 12/17/16 at 09:51; Status DC Esmolol HCl/ Sodium Chloride (Brevibloc Drip Inj Premix) 250 ml @ 0 mls/hr TITRATE ONCE IV Last administered on 12/17/16 14:42; Start 12/17/16 at 09:55 ; Stop 12/17/16 at 11:22; Status DC Midazolam HCl (Versed Inj) 5 mg NOW ONCE IV Last administered on 12/17/16 09: 50; Start 12/17/16 at 09:50; Stop 12/17/16 at 11:22; Status DC Propofol (Diprivan 500 Mg/ 50 ml Inj) 500 mg ONCE ONCE IV Last administered on 12/17/16 09:43; Start 12/17/16 at 09:43; Stop 12/17/16 at 11:22; Status DC Propofol 500 mg 500 mg ONCE ONCE IV Last administered on 12/17/16 09:43; Start 12/17/16 at 09:43; Stop 12/17/16 at 11:22; Status DC Pharmacy Profile Note 0 ml @ 0 mls/hr UNSCH OTHER ; Start 12/17/16 at 13:30 Gentamicin Sulfate/Sodium Chloride (Gentamicin Inj/ NS Inj) 101.5 ml @ 200 mls/ hr Q8H IV Last administered on 12/18/16 15:55; Start 12/17/16 at 16:00; Stop 12/18/16 at 22:28; Status DC Miscellaneous Information SPECIFIC LAB TO BE DRAWN:GENTAMICIN PEAK DATE TO... ONCE ONCE .XX Last administered on 12/18/16 17:30; Start 12/18/16 at 17:30; Stop 12/18/16 at 17:31; Status DC Miscellaneous Information SPECIFIC LAB TO BE DRAWN:GENTAMICIN TROUGH DATE TO... ONCE ONCE .XX Last administered on 12/18/16 15:45; Start 12/18/16 at 15:45; Stop 12/18/16 at 15:46; Status DC Miscellaneous Information SPECIFIC LAB TO BE DRAWN:VANCOMYCIN TROUGH DATE TO... ONCE ONCE .XX Last administered on 12/18/16 10:45; Start 12/18/16 at 10:45; Stop 12/18/16 at 10:46; Status DC Vancomycin HCl 1000 mg/Sodium Chloride 250 ml @ 250 mls/hr Q8H IV Last administered on 12/19/16 12:19; Start 12/18/16 at 20:00; Stop 12/19/16 at 14:44 ; Status DC Metronidazole (Flagyl 500 Mg Inj) 100 ml @ 100 mls/hr Q8H IV ; Start 12/18/16 at 21:00; Stop 12/18/16 at 21:00; Status Cancel Metronidazole (Flagyl) 500 mg Q8HR PO ; Start 12/18/16 at 14:00; Stop 12/18/16 at 14:00; Status DC Metronidazole (Flagyl) 500 mg Q8H PO Last administered on 12/26/16 03:13; Start 12/18/16 at 20:00 Hydrocortisone Sodium Succinate (SoluCORTEF INJ) 50 mg Q6H IV PUSH Last administered on 12/20/16 15:30; Start 12/18/16 at 15:00; Stop 12/20/16 at 20:31 ; Status DC Ondansetron HCl 4 mg 4 mg Q6H PRN IV PUSH NAUSEA/VOMITING Last administered on 12/26/16 09:40; Start 12/18/16 at 15:30 Gentamicin Sulfate/Sodium Chloride (Gentamicin Inj/ NS Inj) 101.5 ml @ 200 mls/ hr Q12H IV Last administered on 12/22/16 03:59; Start 12/19/16 at 04:00; Stop 12/23/16 at 00:06; Status DC Miscellaneous Information SPECIFIC LAB TO BE DRAWN:GENTAMICIN TROUGH DATE TO... ONCE ONCE .XX Last administered on 12/19/16 15:45; Start 12/19/16 at 15:45; Stop 12/19/16 at 15:46; Status DC Heparin Sodium (Porcine) (Heparin Inj) 5,000 units Q12HR SQ Last administered on 12/21/16 07:51; Start 12/19/16 at 09:00; Stop 12/21/16 at 13:24; Status DC Furosemide 40 mg 40 mg ONCE ONCE IV PUSH Last administered on 12/19/16 16:54 ; Start 12/19/16 at 14:45; Stop 12/19/16 at 14:48; Status DC Vancomycin HCl/ Sodium Chloride (Vancomycin Inj/ NS 250 ml Inj) 257.5 ml @ 257.5 mls/ hr Q8H IV Last administered on 12/26/16 03:13; Start 12/19/16 at 20 :00 Miscellaneous Information SPECIFIC LAB TO BE ANABELL... ONCE ONCE .XX ; Start 12/20 at 11:45; Stop 12/20/16 at 11:46; Status DC Miscellaneous Information SPECIFIC LAB TO BE ANABELL... ONCE ONCE .XX ; Start 12/20 at 03:45; Stop 12/20/16 at 03:46; Status DC Miscellaneous Information SPECIFIC LAB TO BE ANABELL... ONCE ONCE .XX Last administered on 12/20/16 15:45; Start 12/20/16 at 15:45; Stop 12/20/16 at 15:46 ; Status DC Sodium Chloride (NS 250 ml Inj) 250 ml @ 15 mls/hr ONCE ONCE IV Last administered on 12/20/16 15:29; Start 12/20/16 at 14:30; Stop 12/21/16 at 07:09 ; Status DC Acetaminophen (Tylenol) 650 mg Q4H PRN PO SEE LABEL COMMENTS Last administered on 12/20/16 16:20; Start 12/20/16 at 14:30; Stop 12/20/16 at 18:31; Status DC Diphenhydramine HCl (Benadryl) 25 mg Q4H PRN PO SEE LABEL COMMENTS Last administered on 12/20/16 16:20; Start 12/20/16 at 14:30; Stop 12/20/16 at 18:31 ; Status DC Miscellaneous Information SPECIFIC LAB TO BE ANABELL... ONCE ONCE .XX Last administered on 12/20/16 20:35; Start 12/20/16 at 19:45; Stop 12/20/16 at 19:46 ; Status DC Ceftriaxone Sodium 2000 mg/ Sodium Chloride 100 ml @ 200 mls/hr Q24H IV ; Start 12/20/16 at 18:00; Stop 12/20/16 at 18:26; Status DC Ceftriaxone Sodium 2000 mg/ Sodium Chloride 100 ml @ 200 mls/hr Q24H IV ; Start 12/20/16 at 18:30; Status Cancel Ceftriaxone Sodium/Dextrose 50 ml @ 100 mls/hr Q24H IV ; Start 12/21/16 at 00: 00; Status Cancel Ceftriaxone Sodium/Sodium Chloride (Rocephin Inj/NS Inj) 100 ml @ 200 mls/hr Q24H IV Last administered on 12/25/16 22:59; Start 12/21/16 at 00:00 Hydrocortisone Sodium Succinate (SoluCORTEF INJ) 50 mg Q12H IV PUSH Last administered on 12/21/16 07:50; Start 12/21/16 at 09:00; Stop 12/21/16 at 19:38 ; Status DC Miscellaneous Information SPECIFIC LAB TO BE DRAWN:GENTAMICIN TROUGH DATE TO... ONCE ONCE .XX ; Start 12/22/16 at 15:45; Stop 12/22/16 at 15:46; Status DC Miscellaneous Information SPECIFIC LAB TO BE DRAWN:VANCO TROUGH DATE TO... ONCE ONCE .XX ; Start 12/22/16 at 11:45; Stop 12/22/16 at 11:46; Status DC Heparin Sodium (Porcine) (Heparin Inj) 5,000 units TID SQ Last administered on 12/26/16 08:43; Start 12/21/16 at 18:00 Furosemide (Lasix Inj) 20 mg ONCE ONCE IV PUSH Last administered on 12/21/16 20:13; Start 12/21/16 at 19:45; Stop 12/21/16 at 19:46; Status DC Potassium Chloride (KCl) 20 meq ONCE ONCE PO Last administered on 12/21/16 20 :13; Start 12/21/16 at 19:45; Stop 12/21/16 at 19:46; Status DC Hydrocortisone Sodium Succinate (SoluCORTEF INJ) 25 mg Q12H IV PUSH Last administered on 12/22/16 09:10; Start 12/21/16 at 21:00; Stop 12/22/16 at 09:04 ; Status DC Alteplase, Recombinant (Cathflo Activase Inj) 2 mg ONCE ONCE INTRACATH Last administered on 12/22/16 20:52; Start 12/22/16 at 21:00; Stop 12/22/16 at 21:01 ; Status DC Miscellaneous Information SPECIFIC LAB TO BE DRAWN:VANCO TROUGH DATE TO BE DR... ONCE ONCE .XX ; Start 12/24/16 at 11:45; Stop 12/24/16 at 11:46; Status Cancel Gentamicin Sulfate/Sodium Chloride (Gentamicin Inj/ NS Inj) 101.5 ml @ 200 mls/ hr Q12H IV Last administered on 12/25/16 23:52; Start 12/23/16 at 01:00 Alteplase, Recombinant (Cathflo Activase Inj) 2 mg ONCE ONCE INTRACATH Last administered on 12/23/16 13:13; Start 12/23/16 at 12:15; Stop 12/23/16 at 12:33 ; Status DC Miscellaneous Information SPECIFIC LAB TO BE DRAWN:GENTAMICIN TROUGH DATE TO... ONCE ONCE .XX ; Start 12/24/16 at 12:45; Stop 12/24/16 at 12:46; Status Cancel Calcium Carbonate (Oscal) 500 mg Q12HR PO Last administered on 12/26/16 08:43 ; Start 12/24/16 at 11:30 Potassium Chloride (KCl) 30 meq ONCE ONCE PO Last administered on 12/24/16 12 :10; Start 12/24/16 at 12:00; Stop 12/24/16 at 12:01; Status DC Promethazine HCl (Phenergan) 12.5 mg Q4H PRN PO NAUSEA OR VOMITING; Start 12/26 at 11:30 Miscellaneous (Pill Splitter) 1 ea UNSCH PRN OTHER SEE LABEL COMMENTS; Start at 11:30 A/P Problem List: (1) Sepsis ICD Code: A41.9 Status: Acute (2) Chest pain ICD Code: R07.9 Status: Acute (3) Hypotension ICD Code: I95.9 Status: Acute (4) Hyponatremia ICD Code: E87.1 Status: Acute (5) Hypokalemia ICD Code: E87.6 Status: Acute (6) Endocarditis due to methicillin susceptible Staphylococcus aureus (MSSA) ICD Code: I33.0 Status: Acute (7) DVT of lower extremity, bilateral ICD Code: I82.403 Status: Resolved (8) IVDU (intravenous drug user) ICD Code: F19.90 Status: Acute (9) Bacteremia ICD Code: R78.81 Status: Acute (10) Pancytopenia ICD Code: D61.818 Status: Acute (11) Septic pulmonary embolism ICD Code: I26.90 Status: Acute (12) Elevated LFTs ICD Code: R79.89 Status: Acute Assessment and Plan 36yF with recurrent mitral valve bioprosthetic endocarditis, Enterococcus bacteremia, C. Difficile Colitis, septic shock. Now off vasopressors. Continue antibiotic per ID. appreciate subspecialty assistance. Also agree with palliative consult. Sepsis with septic shock -due to endocarditis/bacteremia. - MICHELE 12/17 with evidence of recurrent endocarditis, EF 40%, mild RV dysfunction - Echo 10/17: mitral and tricuspid valve no regurgitation - Serial blood cultures positive have been positive (as per below). Most recent culture 12/19 NG x 3 days. -Evaluated by [facility] and she is not operative candidate due to recent IV drug use. - Off vasopressors. weaning hydrocortisone to 25 mg IV q12 and then stop order for 12/22. Bacteremia: Enterococcus faecalis, Enterobacter Cloacae (2 strains), Group D enterococcus, additional Gram negative rods/ C. 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 cefepime discontinued on 12/20 and was rocephin started 12/20. . On gentamicin. - ID service is consulted. Repeat blood cultures from 12/19 so far negative 3 days. Due to fevers last night we'll need to repeat blood cultures. - C. Diff + 12/16. Flagyl DC on 12/21 now on vancomycin by mouth. -HIV negative Culture data: 12/15 blood cx: 09/09: Enterococcus faecalis, Enterobacter Cloacae (2 strains), Group D enterococcus 12/15 c. diff pcr + 12/17 blood cx: Group D enterococcus 2/, GPCs 06/11. 12/18 blood cx: Enterococcus faecalis 06/11 bottles 12/19 - blood cx x2 sets -NGTD x 3 days. History of IV drug use - Admitted to recent use of IV drugs to ID testing consultant . On Prescribed Dilaudid for pain, UDS positive for opiates. - Supplement multivitamin, thiamine Acute protein calorie malnutrition- severe. History of hepatitis C - regular diet as tolerated. - IV Protonix Dehydration- resolved. Hyponatremia-resolved Nausea-active - Monitor renal function, I/O's, electrolytes replacement per protocol. -Does have some dependent edema and positive fluid balance. s/p Lasix 20 mg IV and potassium 20 ME with Lasix. (already received potassium 40 mEQ IV per protocol for potassium 3.1) -Will try Phenergan. Will also get CMP. Anemia History of bilateral lower extremity DVT Pancytopenia Thrombocytopenia -Monitor CBC, CMP, INR -hold eliquis until platelets >70 k per hematology recs. Continue prophylactic heparin 5000 subcut q12 per hematology recs. PROPH: -Bilateral lower extremity SCDs, hold therapeutic anticoagulation given coagulopathy, continue heparin subcut as per above. IV Protonix 40 mg IV daily Discharge Planning Patient requires multiple IV antibiotics which will require hospitalization for the duration of her treatment. Problem Qualifiers (1) Sepsis: Qualified Code: O85 - Puerperal sepsis (2) Chest pain: Qualified Code: R07.9 - Chest pain, unspecified type (3) Hypotension: Qualified Code: I95.89 - Other specified hypotension Afua Turner MD Dec 26, 2016 11:48
[2016-12-26] MEDS: GENTAMICIN INJ 60 MG in SODIUM CHLORIDE 0.9% INJ 100 ML IV SCH (13:34)
[2016-12-26 20:03] LABS: ANION GAP 5 MEQ/L (5-15); AST (GOT) 17 U/L (15-37); BICARBONATE 28.1 MEQ/L (21.0-32.0); BLOOD UREA NITROGEN 8 MG/DL (7-18); CHLORIDE 95 MEQ/L (98-107); GLOMERULAR FILTRATION RATE 117 ML/MIN (>89); SODIUM (NA) 128 MEQ/L (136-145)
[2016-12-26 20:04] LABS: ALT (GPT) LESS THAN 6 U/L (10-53)
[2016-12-26 20:06] LABS: ALKALINE PHOSPHATASE 242 U/L (45-117); TOTAL BILIRUBIN ADULT 0.7 MG/DL (0.2-1.0)
--- NOTE | 2016-12-26 21:17 | HHI.PR ---
Subjective Remarks DRAFT. Pt not seen Follow for endocarditis Patient had a fever 101 last night. She also started to feel nauseous and is dry heaving. Patient was given Zofran with no improvement. Denies any shortness of breathing or any pain. Patient is having regular bowel movements. Discussed with patient's nurse. Objective Vitals Vital Signs Date Time Temp Pulse Resp B/P Pulse Ox O2 Delivery O2 Flow Rate FiO2 12/26/16 16:00 98.4 104 20 97/62 96 12/26/16 12:00 100.5 125 20 101/63 97 12/26/16 08:00 Nasal Cannula 3.00 12/26/16 08:00 98.3 118 20 89/53 92 12/26/16 04:00 98.9 107 20 110/71 99 12/26/16 00:00 98.0 104 18 111/71 100 I/O 12/25/16 12/25/16 12/25/16 12/26/16 12/26/16 12/26/16 06:59 14:59 22:59 06:59 14:59 22:59 Intake Total 1029 ml 720 ml 480 ml 480 ml 1191 ml Output Total 575 ml Balance 1029 ml 720 ml 480 ml 480 ml 616 ml Intake Oral 320 ml 720 ml 480 ml 480 ml 840 ml IV Total 709 ml 351 ml Output Urine Total 575 ml # Voids 4 3 2 3 # Bowel Movements 1 2 3 1 2 Result Diagram: 12/26/16 0511 12/26/16 1845 Objective Remarks GENERAL: in NAD but is dry heaving. ORAL: poor dentition. NECK: trachea midline. + JVD CARDIOVASCULAR: Tachycardic rate and rhythm, Grade 2 systolic murmur left sternal border, no rubs. Well-healed sternotomy scar from valve surgeries RESPIRATORY: Breath sounds equal bilaterally. No accessory muscle use. GASTROINTESTINAL: Abdomen soft, non-tender, nondistended. Dependent edema bilateral ankles. MUSCULOSKELETAL: No cyanosis, edema. right PICC site dry clean and intact. NEURO: Awake oriented. Moving all extremities spontaneously without focal deficit. A/P Problem List: (1) Sepsis ICD Code: A41.9 Status: Acute (2) Chest pain ICD Code: R07.9 Status: Acute (3) Hypotension ICD Code: I95.9 Status: Acute (4) Hyponatremia ICD Code: E87.1 Status: Acute (5) Hypokalemia ICD Code: E87.6 Status: Acute (6) Endocarditis due to methicillin susceptible Staphylococcus aureus (MSSA) ICD Code: I33.0 Status: Acute (7) DVT of lower extremity, bilateral ICD Code: I82.403 Status: Resolved (8) IVDU (intravenous drug user) ICD Code: F19.90 Status: Acute (9) Bacteremia ICD Code: R78.81 Status: Acute (10) Pancytopenia ICD Code: D61.818 Status: Acute (11) Septic pulmonary embolism ICD Code: I26.90 Status: Acute (12) Elevated LFTs ICD Code: R79.89 Status: Acute Assessment and Plan 36yF with recurrent mitral valve bioprosthetic endocarditis, Enterococcus bacteremia, C. Difficile Colitis, septic shock. Now off vasopressors. Continue antibiotic per ID. appreciate subspecialty assistance. Also agree with palliative consult. Sepsis with septic shock -due to endocarditis/bacteremia. - MICHELE 12/17 with evidence of recurrent endocarditis, EF 40%, mild RV dysfunction - Echo 10/17: mitral and tricuspid valve no regurgitation - Serial blood cultures have been positive (as per below). Most recent culture NEG x 3 days. - Evaluated by [facility] and she is not operative candidate due to recent IV drug use. - Off vasopressors. S/P hydrocortisone IV Bacteremia: Enterococcus faecalis, Enterobacter Cloacae (2 strains), Group D enterococcus, additional Gram negative rods/ C. 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 rocephin 12/21 and gentamicin 12/23. - ID service is consulted. Repeat blood cultures from 12/19 so far negative 3 days. Due to fevers, repeat blood cultures. - C. Diff + 12/16. Flagyl started 12/18 - HIV negative Culture data: 12/15 blood cx: 09/09: Enterococcus faecalis, Enterobacter Cloacae (2 strains), Group D enterococcus 12/15 c. diff pcr + 12/17 blood cx: Group D enterococcus 2/4, GPCs 1/4. 12/18 blood cx: Enterococcus faecalis 1/4 bottles 12/19 - blood cx x2 sets -NGTD x 3 days. History of IV drug use - Admitted to recent use of IV drugs to ID x ray consultant. On Prescribed Dilaudid for pain, UDS positive for opiates. - Supplement multivitamin, thiamine Acute protein calorie malnutrition- severe. History of hepatitis C - regular diet as tolerated. - IV Protonix Dehydration- resolved. Hyponatremia-resolved Nausea-active - Monitor renal function, I/O's, electrolytes replacement per protocol. -Does have some dependent edema and positive fluid balance. s/p Lasix 20 mg IV and potassium 20 ME with Lasix. (already received potassium 40 mEQ IV per protocol for potassium 3.1) -Will try Phenergan. Will also get CMP. Anemia History of bilateral lower extremity DVT Pancytopenia Thrombocytopenia -Monitor CBC, CMP, INR -hold eliquis until platelets >70 k per hematology recs. Continue prophylactic heparin 5000 subcut q12 per hematology recs. PROPH: -Bilateral lower extremity SCDs, hold therapeutic anticoagulation given thrombocytopenia, continue heparin subcut as per above. Protonix 40 mg IV daily Discharge Planning Patient requires multiple IV antibiotics which will require hospitalization for the duration of her treatment. Problem Qualifiers (1) Sepsis: Qualified Code: O85 - Puerperal sepsis (2) Chest pain: Qualified Code: R07.9 - Chest pain, unspecified type (3) Hypotension: Qualified Code: I95.89 - Other specified hypotension Vic Nieves MD Dec 26, 2016 21:16 Vic Nieves MD Dec 26, 2016 21:16
[2016-12-26] MEDS: cefTRIAXone 2,000 MG/NS 100 ML IV SCH ×2 (23:51)
[2016-12-27] VITALS (14 sets, daily range): BP systolic 90–105; BP diastolic 50–80; PULSE 85–128; RESP 16–20; TEMP 97.7–100; O2SAT 93–100
[2016-12-27] MEDS: GENTAMICIN INJ 60 MG in SODIUM CHLORIDE 0.9% INJ 100 ML IV SCH ×2 (01:49→12:42)
[2016-12-27] MEDS: CHLORHEXIDINE GLUCONATE 2 % 1 PACK (2 CLOTHS) TOP SCH (04:00)
[2016-12-27] MEDS: metroNIDAZOLE 500 MG TAB PO SCH ×2 (04:07→12:42)
[2016-12-27] MEDS: VANCOMYCIN INJ 750 MG in SODIUM CHLOR 0.9% 250 ML INJ 250 ML IV SCH ×3 (04:08→20:45)
[2016-12-27] MEDS: HYDROmorphone HCL 4 MG TAB PO PRN ×3 (05:20→18:08)
[2016-12-27 05:39] LABS: AUTOMATED NEUTROPHIL # 3.1 TH/MM3 (1.8-7.7); BASOPHIL % 0.6 % (0.0-2.0); EOSINOPHIL % 0.5 % (0.0-4.0); LYMPH % 12.5 % (9.0-44.0); LYMPHOCYTE # 0.5 TH/MM3 (1.0-4.8); MEAN CORPUSCULAR HEMOGLOBIN 28.6 PG (27.0-34.0); MEAN CORPUSCULAR HGB CONC 32.9 % (32.0-36.0); MONO % 6.3 % (0.0-8.0); NEUT % 80.1 % (16.0-70.0); PLATELET COUNT 60 TH/MM3 (150-450); RED BLOOD COUNT 2.42 MIL/MM3 (4.00-5.30); RED CELL DISTRIBUTION WIDTH 16.6 % (11.6-17.2); WHITE BLOOD COUNT 3.8 TH/MM3 (4.0-11.0)
[2016-12-27 05:52] LABS: BICARBONATE 28.1 MEQ/L (21.0-32.0); HEMO FLAGS AUTO DIFF; MAGNESIUM 1.9 MG/DL (1.5-2.5); POTASSIUM 3.8 MEQ/L (3.5-5.1)
[2016-12-27] MEDS ORDERED: SODIUM CHLOR 0.9% 250 ML INJ 250 ML IV ONE ×2 (06:30→10:30)
[2016-12-27] MEDS: DOCUSATE SODIUM 50 MG/SENNA 8.6 MG TAB PO SCH ×2 (08:32→20:45)
[2016-12-27] MEDS: PANTOPRAZOLE SODIUM 40 MG VIAL IV SCH (08:36)
[2016-12-27] MEDS: CALCIUM CARBONATE 1.25 GM (CA 500 MG) TAB PO SCH ×2 (08:36→20:45)
[2016-12-27] MEDS: HEPARIN SODIUM - SQ 10,000 UNITS/ML VIAL SQ SCH ×3 (08:39→18:01)
[2016-12-27] MEDS ORDERED: ACETAMINOPHEN 500 MG CPLT PO ONE (10:30)
[2016-12-27] MEDS: ONDANSETRON HCL 4 MG/2 ML VIAL IV PUSH PRN (10:35)
[2016-12-27 10:54] LABS: PLATELET ESTIMATE SMEAR LOW (NORMAL); PLATELET MORPHOLOGY NORMAL (NORMAL); SCAN/DIFF AUTO DIFF CONFIRMED
[2016-12-27 10:55] LABS: TARGET CELLS 1+ (NORMAL)
[2016-12-27] MEDS ORDERED: PHARMACY ORDERED LAB ONE (11:45)
[2016-12-27] MEDS ORDERED: POTASSIUM CHLORIDE 20 MEQ CONTROLLED RELEASE TAB PO ONE (14:30)
[2016-12-27] MEDS ORDERED: FUROSEMIDE 20 MG/2 ML VIAL IV PUSH ONE (14:30)
--- NOTE | 2016-12-27 14:34 | HHI.PR ---
Subjective Remarks Follow-up endocarditis and sinus tachycardia. Feels better today earlier was febrile and diaphoretic. Denies headache, dizziness, chest pain, shortness of breath and palpitations. Discussed with RN, tolerating blood transfusion Objective Vitals Vital Signs Date Time Temp Pulse Resp B/P Pulse Ox O2 Delivery O2 Flow Rate FiO2 12/27/16 12:48 98.4 126 20 93/53 96 12/27/16 12:12 99.4 127 20 92/55 97 12/27/16 12:00 100.0 127 20 105/67 99 12/27/16 11:40 100.0 128 95/55 99 12/27/16 11:25 100.0 127 20 97/50 98 12/27/16 10:25 Nasal Cannula 3.00 12/27/16 08:00 99.1 110 20 95/66 97 12/27/16 04:00 Nasal Cannula 3.00 12/27/16 04:00 98.5 101 20 103/77 100 12/27/16 00:11 99.0 103 20 92/62 93 12/26/16 22:15 100/55 12/26/16 20:00 99.1 114 20 89/53 96 12/26/16 20:00 111 12/26/16 20:00 Nasal Cannula 3.00 12/26/16 16:00 98.4 104 20 97/62 96 I/O 12/26/16 12/26/16 12/26/16 12/27/16 12/27/16 12/27/16 06:59 14:59 22:59 06:59 14:59 22:59 Intake Total 480 ml 1191 ml 60 ml 1080 ml Output Total 575 ml Balance 480 ml 616 ml 60 ml 1080 ml Intake Oral 480 ml 840 ml 60 ml 1080 ml IV Total 351 ml Output Urine Total 575 ml # Voids 2 3 4 2 # Bowel Movements 1 2 2 2 Result Diagram: 12/27/16 0410 12/27/16 0410 Imaging Last Impressions Chest X-Ray 12/17/16 0000 Signed Impressions: Service Date/Time: Saturday, December 17, 2016 04:55 - CONCLUSION: Decreasing bibasilar atelectasis. Rodo Hart MD Lower Extremity Ultrasound 12/16/16 0000 Signed Impressions: Service Date/Time: Friday, December 16, 2016 03:56 - CONCLUSION: No DVT of either lower extremity. Rodo Hart MD CT Angiography 12/16/16 0000 Signed Impressions: Service Date/Time: Friday, December 16, 2016 05:40 - CONCLUSION: 1. No pulmonary embolus. 2. Patchy bilateral air space disease, right more so than left and both sides basilar predominant. Rodo Hart MD Abdomen/Pelvis CT 12/16/16 0000 Signed Impressions: Service Date/Time: Friday, December 16, 2016 05:40 - CONCLUSION: 1. Enlargement and scarring of the spleen. Collateral vessels in the splenic hilum are again noted. 2. Nonspecific hepatomegaly. No focal hepatic lesion. 3. No obstruction or acute inflammatory changes are demonstrated of the gastrointestinal tract. Rodo Hart MD Objective Remarks Well-developed, well-nourished in no distress Poor longterm Tachycardic with systolic murmur left sternal border Equal breath sounds Pitting edema bilateral hips Alert and oriented nonfocal PICC line right upper extremity Procedures MICHELE PICC A/P Problem List: (1) Sepsis ICD Code: A41.9 Status: Acute (2) Chest pain ICD Code: R07.9 Status: Acute (3) Hypotension ICD Code: I95.9 Status: Acute (4) Hyponatremia ICD Code: E87.1 Status: Acute (5) Hypokalemia ICD Code: E87.6 Status: Acute (6) Endocarditis due to methicillin susceptible Staphylococcus aureus (MSSA) ICD Code: I33.0 Status: Acute (7) DVT of lower extremity, bilateral ICD Code: I82.403 Status: Resolved (8) IVDU (intravenous drug user) ICD Code: F19.90 Status: Acute (9) Bacteremia ICD Code: R78.81 Status: Acute (10) Pancytopenia ICD Code: D61.818 Status: Acute (11) Septic pulmonary embolism ICD Code: I26.90 Status: Acute (12) Elevated LFTs ICD Code: R79.89 Status: Acute Assessment and Plan 36yF with recurrent mitral valve bioprosthetic endocarditis, Enterococcus bacteremia, C. Difficile Colitis, septic shock. Now off vasopressors. Continue antibiotic per ID. Sepsis with septic shock - due to endocarditis/bacteremia. - MICHELE 12/17 with evidence of recurrent endocarditis, EF 40%, mild RV dysfunction - Echo 10/17: mitral and tricuspid valve no regurgitation - Serial blood cultures have been positive (as per below). Most recent culture NEG x 3 days. - Evaluated by [facility] and she is not operative candidate due to recent IV drug use. - Off vasopressors. S/P hydrocortisone IV Bacteremia: Enterococcus faecalis, Enterobacter Cloacae (2 strains), Group D enterococcus, additional Gram negative rods/ C. 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 rocephin 12/21 and gentamicin 12/23. - ID service is consulted. Repeat blood cultures from 12/19 so far negative 3 days. Due to fevers, repeat blood cultures 12/26 NGTD. - C. Diff + 12/16. Flagyl started 12/18 - HIV negative Culture data: 12/15 blood cx: 09/09: Enterococcus faecalis, Enterobacter Cloacae (2 strains), Group D enterococcus 12/15 c. diff pcr + 12/17 blood cx: Group D enterococcus 2/4, GPCs 06/11. 12/18 blood cx: Enterococcus faecalis /4 bottles 12/19 - blood cx x2 sets -NGTD x 3 days. History of IV drug use - Admitted to recent use of IV drugs to ID eap consultant. On Prescribed Dilaudid for pain, UDS positive for opiates. - Supplement multivitamin, thiamine Acute protein calorie malnutrition- severe. History of hepatitis C - regular diet as tolerated. - Dc IV Protonix Dehydration- resolved. Hyponatremia-resolved Nausea-active - Monitor renal function, I/O's, electrolytes replacement per protocol. - Still some dependent edema and positive fluid balance. Lasix 20 mg IV between units of packed RBC and potassium 20 ME with Lasix. Repeat BMP in the morning Anemia History of bilateral lower extremity DVT Pancytopenia Thrombocytopenia -Monitor CBC, CMP, INR -hold eliquis until platelets >70 k per hematology recs. Continue prophylactic heparin 5000 subcut q12 per hematology recs. PROPH: -Bilateral lower extremity SCDs, hold therapeutic anticoagulation given thrombocytopenia, continue heparin subcut as per above. Discharge Planning Patient requires multiple IV antibiotics which will require hospitalization for the duration of her treatment. Problem Qualifiers (1) Sepsis: Qualified Code: O85 - Puerperal sepsis (2) Chest pain: Qualified Code: R07.9 - Chest pain, unspecified type (3) Hypotension: Qualified Code: I95.89 - Other specified hypotension Vic Nieves MD Dec 27, 2016 14:34
--- NOTE | 2016-12-27 16:42 | HHI.PR ---
Addendum to Inpatient Note Additional Information Pt has intermittent low grade temps Blood clx drawn, P cont current abx Mavis Ortiz MD Dec 27, 2016 16:42
--- NOTE | 2016-12-27 16:53 | HHI.IDPN ---
Subjective Subjective Remarks doing worse co nausea denies abd pain diarrhea again, 6 BMs/day + fever , malaise BP low Antibiotics CFTX Genta IV flagyl oral vanco iv Lines Line sites with no e/o infections. Past Medical History reviewed Allergies: Coded Allergies: Morphine (Verified Allergy, Severe, hives, 12/15/16) [place] (Verified Allergy, Unknown, 12/15/16) Penicillin (Verified Allergy, Unknown, 12/15/16) Objective . Vital Signs Date Time Temp Pulse Resp B/P Pulse Ox O2 Delivery O2 Flow Rate FiO2 12/27/16 15:29 98.1 106 20 90/80 99 12/27/16 14:56 98.1 106 20 99 90/60 12/27/16 12:48 98.4 126 20 93/53 96 12/27/16 12:12 99.4 127 20 92/55 97 12/27/16 12:00 100.0 127 20 105/67 99 12/27/16 11:40 100.0 128 95/55 99 12/27/16 11:25 100.0 127 20 97/50 98 12/27/16 10:25 Nasal Cannula 3.00 12/27/16 08:04 114 12/27/16 08:00 99.1 110 20 95/66 97 12/27/16 04:00 Nasal Cannula 3.00 12/27/16 04:00 98.5 101 20 103/77 100 12/27/16 00:11 99.0 103 20 92/62 93 12/26/16 22:15 100/55 12/26/16 20:00 99.1 114 20 89/53 96 12/26/16 20:00 111 12/26/16 20:00 Nasal Cannula 3.00 12/26/16 12/26/16 12/27/16 15:00 23:00 07:00 Intake Total 1191 ml 60 ml 1080 ml Output Total 575 ml Balance 616 ml 60 ml 1080 ml Intake Oral 840 ml 60 ml 1080 ml IV Total 351 ml Output Urine Total 575 ml # Voids 3 4 2 # Bowel Movements 2 2 2 . Laboratory Tests Test 12/26/16 12/27/16 05:11 04:10 White Blood Count 5.6 TH/MM3 3.8 TH/MM3 Red Blood Count 2.47 MIL/MM3 2.42 MIL/MM3 Hemoglobin 7.2 GM/DL 6.9 GM/DL Hematocrit 21.4 % 21.0 % Mean Corpuscular Volume 86.7 FL 87.0 FL Mean Corpuscular Hemoglobin 29.0 PG 28.6 PG Mean Corpuscular Hemoglobin 33.4 % 32.9 % Concent Red Cell Distribution Width 16.3 % 16.6 % Platelet Count 55 TH/MM3 60 TH/MM3 Mean Platelet Volume 9.9 FL 9.9 FL Neutrophils (%) (Auto) 83.5 % 80.1 % Lymphocytes (%) (Auto) 10.6 % 12.5 % Monocytes (%) (Auto) 5.3 % 6.3 % Eosinophils (%) (Auto) 0.3 % 0.5 % Basophils (%) (Auto) 0.3 % 0.6 % Neutrophils # (Auto) 4.7 TH/MM3 3.1 TH/MM3 Lymphocytes # (Auto) 0.6 TH/MM3 0.5 TH/MM3 Monocytes # (Auto) 0.3 TH/MM3 0.2 TH/MM3 Eosinophils # (Auto) 0.0 TH/MM3 0.0 TH/MM3 Basophils # (Auto) 0.0 TH/MM3 0.0 TH/MM3 CBC Comment AUTO DIFF AUTO DIFF Differential Total Cells 100 Counted Neutrophils % (Manual) 85 % Band Neutrophils % 5 % Lymphocytes % 7 % Monocytes % 3 % Neutrophils # (Manual) 5.0 TH/MM3 Differential Comment FINAL DIFF AUTO DIFF MANUAL CONFIRMED Toxic Vacuolation PRESENT Platelet Estimate LOW LOW Platelet Morphology Comment NORMAL NORMAL Ovalocytes 1+ Acanthocytes OCC Keratocytes OCC Target Cells 1+ Laboratory Tests Test 12/26/16 12/26/16 12/27/16 04:53 18:45 04:10 Creatinine 0.69 MG/DL 0.59 MG/DL 0.70 MG/DL Estimat Glomerular Filtration 97 ML/MIN 117 ML/MIN 96 ML/MIN Rate Sodium Level 128 MEQ/L 133 MEQ/L Potassium Level 4.0 MEQ/L 3.8 MEQ/L Chloride Level 95 MEQ/L 97 MEQ/L Carbon Dioxide Level 28.1 MEQ/L 28.1 MEQ/L Anion Gap 5 MEQ/L 8 MEQ/L Blood Urea Nitrogen 8 MG/DL 8 MG/DL Random Glucose 93 MG/DL 88 MG/DL Calcium Level 7.6 MG/DL 7.5 MG/DL Total Bilirubin 0.7 MG/DL Aspartate Amino Transf 17 U/L (AST/SGOT) Alanine Aminotransferase LESS THAN 6 U/L (ALT/SGPT) Alkaline Phosphatase 242 U/L Total Protein 6.3 GM/DL Albumin 1.9 GM/DL Magnesium Level 1.9 MG/DL Microbiology Date/Time Procedure Status Source Growth 12/26/16 18:45 Aerobic Blood Culture - Preliminary Resulted Blood Peripheral NO GROWTH IN 1 DAY 12/26/16 18:45 Anaerobic Blood Culture - Preliminary Resulted Blood Peripheral NO GROWTH IN 1 DAY 12/26/16 18:53 Aerobic Blood Culture - Preliminary Resulted Blood Peripheral NO GROWTH IN 1 DAY 12/26/16 18:53 Anaerobic Blood Culture - Preliminary Resulted Blood Peripheral NO GROWTH IN 1 DAY Imaging Last Impressions Chest X-Ray 12/17/16 0000 Signed Impressions: Service Date/Time: Saturday, December 17, 2016 04:55 - CONCLUSION: Decreasing bibasilar atelectasis. Rodo Hart MD Lower Extremity Ultrasound 12/16/16 0000 Signed Impressions: Service Date/Time: Friday, December 16, 2016 03:56 - CONCLUSION: No DVT of either lower extremity. Rodo Hart MD CT Angiography 12/16/16 0000 Signed Impressions: Service Date/Time: Friday, December 16, 2016 05:40 - CONCLUSION: 1. No pulmonary embolus. 2. Patchy bilateral air space disease, right more so than left and both sides basilar predominant. Rodo Hart MD Abdomen/Pelvis CT 12/16/16 0000 Signed Impressions: Service Date/Time: Friday, December 16, 2016 05:40 - CONCLUSION: 1. Enlargement and scarring of the spleen. Collateral vessels in the splenic hilum are again noted. 2. Nonspecific hepatomegaly. No focal hepatic lesion. 3. No obstruction or acute inflammatory changes are demonstrated of the gastrointestinal tract. Rodo Hart MD Physical Exam GENERAL: Thin built, well-developed patient, in no apparent distress. On NC O2 SKIN: No rashes, ecchymoses or lesions. Cool and dry. EYES: Pupils equal round and reactive. Extraocular motions intact. No scleral icterus. No injection or drainage. No horizontal or vertical nystagmus NECK: Trachea midline. Supple, No JVD CARDIOVASCULAR: regular, + 2/6 syustolic murmur no rubs gallops medial sternotopmy scar well healed well perfused perifery RESPIRATORY: Clear to auscultation. Breath sounds equal bilaterally. No wheezes , rales, or rhonchi. GASTROINTESTINAL: Abdomen soft, No tenderness . Moderately distended abdomen MUSCULOSKELETAL: Extremities without clubbing, cyanosis, No joint tenderness, effusion, No edema noted, NEUROLOGICAL: fully awake alert oriented x 3 PSYCH: calm and pleasant IV line sites with no e.o infection. Assessment & Plan Remarks Sepsis with septic shock -shock resolved Persistent Enterococcu fecali s bacteremia: cleared Bioprosthetic valve acute endocarditis (based on verbal report, MICHELE official report pending, BCX positive) : confirmed both mitral and tricuspid valves involved - large 1.5 cm vegetaion - and also GNB high grade bacteremia - h/o TV and MV bovine valve replacement Gram negative bacteremia Serratia and Enterobacter - both quite sensitive H/o endocarditis. Aspiration Pneumonia/septic emboli Cdiff colitis. non hypervirulent strain: - recurrent diarrhea H/o IVDA, opiate + on drug screen, denies active use Hepatitis C Pancytopenia: stable counts Recs Cont Rocephine (for GNB bacteremia) x 6 weeks from 1st neg blood clx thru Jan 29 Continue Vanco IV (target 15-20 for endocarditis/bacteremia) x 6 weeks from 1st neg blood clx thru Jan 29 Continue Gentamicin (Double GNR coverage pending ID of organisms and endocarditis Rx plan) x 6 weeks from 1st neg blood clx thru Jan 29 dc Flagyl start oral vanco for presumed recurrent C.diff P retesting retest stool for c.diff Repeat blood cultures untill final Pt is not a candidate for new valve 2/2 her IVDU status dw Dr Ezequiel Busby back on Thursday Mavis Ortiz MD Dec 27, 2016 16:53
[2016-12-27] MEDS: VANCOMYCIN 500 MG VIAL (FOR ORAL USE ONLY) PO SCH (18:01)
[2016-12-28] VITALS (7 sets, daily range): BP systolic 90–101; BP diastolic 51–69; PULSE 98–113; RESP 17–20; TEMP 98.3–99.2; O2SAT 92–98
[2016-12-28] MEDS: HYDROmorphone HCL 4 MG TAB PO PRN ×5 (00:25→23:10)
[2016-12-28] MEDS: cefTRIAXone 2,000 MG/NS 100 ML IV SCH ×4 (00:25→23:09)
[2016-12-28] MEDS: VANCOMYCIN 500 MG VIAL (FOR ORAL USE ONLY) PO SCH ×5 (00:25→23:09)
[2016-12-28] MEDS: GENTAMICIN INJ 60 MG in SODIUM CHLORIDE 0.9% INJ 100 ML IV SCH ×2 (01:02→13:42)
[2016-12-28] MEDS: CHLORHEXIDINE GLUCONATE 2 % 1 PACK (2 CLOTHS) TOP SCH (04:00)
[2016-12-28] MEDS: VANCOMYCIN INJ 750 MG in SODIUM CHLOR 0.9% 250 ML INJ 250 ML IV SCH ×3 (04:30→21:36)
[2016-12-28 05:15] LABS: AUTOMATED NEUTROPHIL # 2.9 TH/MM3 (1.8-7.7); BASOPHIL % 0.7 % (0.0-2.0); EOSINOPHIL % 0.5 % (0.0-4.0); LYMPH % 14.2 % (9.0-44.0); LYMPHOCYTE # 0.5 TH/MM3 (1.0-4.8); MEAN CELL VOLUME 84.9 FL (80.0-100.0); MEAN CORPUSCULAR HEMOGLOBIN 28.9 PG (27.0-34.0); MONO % 7.6 % (0.0-8.0); PLATELET COUNT 55 TH/MM3 (150-450); RED BLOOD COUNT 3.06 MIL/MM3 (4.00-5.30); WHITE BLOOD COUNT 3.8 TH/MM3 (4.0-11.0)
[2016-12-28 05:19] LABS: HEMO FLAGS DIFF FINAL
[2016-12-28 05:32] LABS: BICARBONATE 28.7 MEQ/L (21.0-32.0); MAGNESIUM 1.8 MG/DL (1.5-2.5)
--- NOTE | 2016-12-28 06:34 | RADRPT ---
EXAM DATE/TIME: 12/28/2016 05:37 [facility] COMPARISON: CHEST SINGLE AP, December 17, 2016, 4:55. INDICATIONS : Fever. Weakness. MEDICAL HISTORY : None. SURGICAL HISTORY : CABG. ENCOUNTER: Subsequent ACUITY: 3 days PAIN SCORE: 6/10 LOCATION: Bilateral chest FINDINGS: Pes planus central line is stable. There is worsening basilar parenchymal opacity and effusion. CONCLUSION: Worsening aeration. Rodo Galindo MD on December 28, 2016 at 6:31 Board Certified Radiologist. This report was verified electronically.
[2016-12-28] MEDS: DOCUSATE SODIUM 50 MG/SENNA 8.6 MG TAB PO SCH (09:00)
[2016-12-28] MEDS: HEPARIN SODIUM - SQ 10,000 UNITS/ML VIAL SQ SCH ×4 (09:11→17:35)
[2016-12-28] MEDS: CALCIUM CARBONATE 1.25 GM (CA 500 MG) TAB PO SCH ×2 (09:11→21:35)
--- NOTE | 2016-12-28 16:18 | HHI.PR ---
Subjective Remarks Follow-up endocarditis. Feels better today denies nausea, vomiting and diarrhea. Discussed with RN and infectious disease Objective Vitals Vital Signs Date Time Temp Pulse Resp B/P Pulse Ox O2 Delivery O2 Flow Rate FiO2 12/28/16 12:00 98.8 98 18 100/65 98 12/28/16 08:00 98.7 113 20 93/58 98 12/28/16 04:00 98.3 103 17 95/62 95 12/28/16 00:00 98.6 102 19 101/69 94 12/27/16 20:17 96 12/27/16 20:00 97.7 98 16 91/62 97 12/27/16 20:00 Nasal Cannula 3.00 12/27/16 16:20 97.8 85 20 101/67 99 I/O 12/27/16 12/27/16 12/27/16 12/28/16 12/28/16 12/28/16 07:00 15:00 23:00 07:00 15:00 23:00 Intake Total 1080 ml 480 ml 710 ml Output Total 300 ml 500 ml Balance 1080 ml 180 ml 210 ml Intake Oral 1080 ml 480 ml 340 ml IV Total 370 ml Output Urine Total 300 ml 500 ml # Voids 2 6 # Bowel Movements 2 3 0 Result Diagram: 12/28/160 12/28/16 0440 Objective Remarks Well-developed, well-nourished in no distress Poor [facility] Regular rate and rhythm with systolic murmur left sternal border Equal breath sounds Improving Pitting edema bilateral hips Alert and oriented nonfocal PICC line right upper extremity Procedures MICHELE PICC A/P Problem List: (1) Sepsis ICD Code: A41.9 Status: Acute (2) Chest pain ICD Code: R07.9 Status: Acute (3) Hypotension ICD Code: I95.9 Status: Acute (4) Hyponatremia ICD Code: E87.1 Status: Acute (5) Hypokalemia ICD Code: E87.6 Status: Acute (6) Endocarditis due to methicillin susceptible Staphylococcus aureus (MSSA) ICD Code: I33.0 Status: Acute (7) DVT of lower extremity, bilateral ICD Code: I82.403 Status: Resolved (8) IVDU (intravenous drug user) ICD Code: F19.90 Status: Acute (9) Bacteremia ICD Code: R78.81 Status: Acute (10) Pancytopenia ICD Code: D61.818 Status: Acute (11) Septic pulmonary embolism ICD Code: I26.90 Status: Acute (12) Elevated LFTs ICD Code: R79.89 Status: Acute Assessment and Plan 36yF with recurrent mitral valve bioprosthetic endocarditis, Enterococcus bacteremia, C. Difficile Colitis, septic shock. Now off vasopressors. Continue antibiotic per ID. Sepsis with septic shock - due to endocarditis/bacteremia. - MICHELE 12/17 with evidence of recurrent endocarditis, EF 40%, mild RV dysfunction - Echo 10/17: mitral and tricuspid valve no regurgitation - Serial blood cultures have been positive (as per below). Most recent culture NEG x 3 days. - Evaluated by [facility] and she is not operative candidate due to recent IV drug use. - Off vasopressors. S/P hydrocortisone IV Bacteremia: Enterococcus faecalis, Enterobacter Cloacae (2 strains), Group D enterococcus, additional Gram negative rods/ C. Difficile Colitis -hx tricuspid and mitral valve replacement/recurrent infective endocarditis/ recurrent bioprosthetic tricuspid and mitral valve endocarditis - Continue abx per ID: On IV Vancomycin, rocephin and gentamicin until January 29 - ID service is consulted. Repeat blood cultures from 12/19 so far negative 3 days. Due to fevers, repeat blood cultures 12/26 NGTD. - C. Diff + 12/16. Recurrent diarrhea discontinued Flagyl switched to vancomycin December 27. Repeat C. difficile ordered form today - HIV negative Culture data: 12/15 blood cx: 09/09: Enterococcus faecalis, Enterobacter Cloacae (2 strains), Group D enterococcus 12/15 c. diff pcr + 12/17 blood cx: Group D enterococcus 2/, GPCs 06/11. 12/18 blood cx: Enterococcus faecalis /4 bottles 12/19 - blood cx x2 sets -NGTD x 3 days. History of IV drug use - Admitted to recent use of IV drugs to ID independent crop consultant. On Prescribed Dilaudid for pain, UDS positive for opiates. - Supplement multivitamin, thiamine Acute protein calorie malnutrition- severe. History of hepatitis C - regular diet as tolerated. - Dc IV Protonix Dehydration- resolved. Hyponatremia-resolved Nausea-active - Monitor renal function, I/O's, electrolytes replacement per protocol. - Still some dependent edema and positive fluid balance. Lasix 20 mg IV between units of packed RBC and potassium 20 ME with Lasix. Repeat BMP in the morning History of bilateral lower extremity DVT Pancytopenia secondary to liver disease, splenomegaly and, sepsis/DIC -Monitor CBC, CMP, INR -hold eliquis until platelets >70 k per hematology recs. Continue prophylactic heparin 5000 subcut q12 per hematology recs. PROPH: -Bilateral lower extremity SCDs, hold therapeutic anticoagulation given thrombocytopenia, continue heparin subcut as per above. Discharge Planning Patient requires multiple IV antibiotics which will require hospitalization for the duration of her treatment. Problem Qualifiers (1) Sepsis: Qualified Code: O85 - Puerperal sepsis (2) Chest pain: Qualified Code: R07.9 - Chest pain, unspecified type (3) Hypotension: Qualified Code: I95.89 - Other specified hypotension Vic Nieves MD Dec 28, 2016 16:18
[2016-12-28 18:15] LABS: C. DIFF EPI 027 PRESUMPTIVE NEGATIVE (NEGATIVE); C. DIFF TOXIN PCR NEGATIVE (NEGATIVE)
[2016-12-29] VITALS (7 sets, daily range): BP systolic 93–104; BP diastolic 57–72; PULSE 107–120; RESP 18–20; TEMP 98–100.7; O2SAT 93–98
[2016-12-29] MEDS ORDERED: PHARMACY ORDERED LAB ONE (00:45)
[2016-12-29] MEDS: GENTAMICIN INJ 60 MG in SODIUM CHLORIDE 0.9% INJ 100 ML IV SCH ×2 (02:13→13:23)
[2016-12-29] MEDS: HYDROmorphone HCL 4 MG TAB PO PRN ×4 (04:32→22:59)
[2016-12-29] MEDS: VANCOMYCIN INJ 750 MG in SODIUM CHLOR 0.9% 250 ML INJ 250 ML IV SCH ×3 (04:32→20:48)
[2016-12-29] MEDS: CHLORHEXIDINE GLUCONATE 2 % 1 PACK (2 CLOTHS) TOP SCH (04:35)
[2016-12-29] MEDS: VANCOMYCIN 500 MG VIAL (FOR ORAL USE ONLY) PO SCH ×4 (06:11→22:58)
[2016-12-29] MEDS: CALCIUM CARBONATE 1.25 GM (CA 500 MG) TAB PO SCH ×2 (08:33→20:48)
[2016-12-29] MEDS: HEPARIN SODIUM - SQ 10,000 UNITS/ML VIAL SQ SCH ×4 (08:33→18:00)
[2016-12-29] MEDS ORDERED: SODIUM CHLOR 0.9% 1000 ML INJ 1,000 ML IV SCH (10:45)
[2016-12-29] MEDS ORDERED: SODIUM CHLOR 0.9% 250 ML INJ 250 ML IV PRN (10:45)
--- NOTE | 2016-12-29 10:45 | HHI.PR ---
Subjective Remarks Follow-up endocarditis and diarrhea. Patient's vital signs with tachycardia and low normal EP with a temperature 100.7. Patient denies any complaints no fever, chills, shortness of breath, palpitations, nausea, UTI symptoms and diarrhea today. Discussed with RN, she had loose stools yesterday C. difficile negative. Objective Vitals Vital Signs Date Time Temp Pulse Resp B/P Pulse Ox O2 Delivery O2 Flow Rate FiO2 12/29/16 08:00 98.3 112 20 93/63 93 12/29/16 04:28 99.0 112 20 104/71 97 12/29/16 01:00 100.7 113 18 96/57 98 12/28/16 20:43 105 12/28/16 20:00 Nasal Cannula 3.00 12/28/16 19:54 98.8 109 18 92/54 92 12/28/16 16:00 99.2 110 18 90/51 97 12/28/16 12:00 98.8 98 18 100/65 98 I/O 12/28/16 12/28/16 12/28/16 12/29/16 12/29/16 12/29/16 06:59 14:59 22:59 06:59 14:59 22:59 Intake Total 710 ml 480 ml 710 ml 240 ml Output Total 500 ml 1000 ml 600 ml 900 ml Balance 210 ml -520 ml 110 ml -660 ml Intake Oral 340 ml 480 ml 360 ml 240 ml IV Total 370 ml 350 ml Output Urine Total 500 ml 1000 ml 600 ml 900 ml # Bowel Movements 0 0 2 Result Diagram: 12/28/1643912/28/16439 Objective Remarks Well-developed, well-nourished in no distress Poor fci Past heart rate and regular rhythm with systolic murmur left sternal border Equal breath sounds Improving Pitting edema bilateral hips Alert and oriented nonfocal PICC line right upper extremity Procedures MICHELE PICC A/P Problem List: (1) Sepsis ICD Code: A41.9 Status: Acute (2) Chest pain ICD Code: R07.9 Status: Acute (3) Hypotension ICD Code: I95.9 Status: Acute (4) Hyponatremia ICD Code: E87.1 Status: Acute (5) Hypokalemia ICD Code: E87.6 Status: Acute (6) Endocarditis due to methicillin susceptible Staphylococcus aureus (MSSA) ICD Code: I33.0 Status: Acute (7) DVT of lower extremity, bilateral ICD Code: I82.403 Status: Resolved (8) IVDU (intravenous drug user) ICD Code: F19.90 Status: Acute (9) Bacteremia ICD Code: R78.81 Status: Acute (10) Pancytopenia ICD Code: D61.818 Status: Acute (11) Septic pulmonary embolism ICD Code: I26.90 Status: Acute (12) Elevated LFTs ICD Code: R79.89 Status: Acute Assessment and Plan 36yF with recurrent mitral valve bioprosthetic endocarditis, Enterococcus bacteremia, C. Difficile Colitis, septic shock. Now off vasopressors. Continue antibiotic per ID. Sepsis with septic shock - due to endocarditis/bacteremia. - MICHELE 12/17 with evidence of recurrent endocarditis, EF 40%, mild RV dysfunction - Echo 10/17: mitral and tricuspid valve no regurgitation - Serial blood cultures have been positive (as per below). Most recent culture NEG x 3 days. - Evaluated by [facility] and she is not operative candidate due to recent IV drug use. - Off vasopressors. S/P hydrocortisone IV with episodic hypotension. IV fluids for 1 L with fluid boluses as needed. Repeat CBC and BMP today Bacteremia: Enterococcus faecalis, Enterobacter Cloacae (2 strains), Group D enterococcus, additional Gram negative rods/ C. Difficile Colitis -hx tricuspid and mitral valve replacement/recurrent infective endocarditis/ recurrent bioprosthetic tricuspid and mitral valve endocarditis - Continue abx per ID: On IV Vancomycin, rocephin and gentamicin until January 29 - ID service is consulted. Repeat blood cultures from 12/19 and 12/26 so far negative but continues to have intermittent fever - C. Diff + 12/16. Recurrent diarrhea discontinued Flagyl switched to vancomycin December 27. Repeat C. difficile negative. Continue Lactinex - HIV negative Culture data: 12/15 blood cx: 09/09: Enterococcus faecalis, Enterobacter Cloacae (2 strains), Group D enterococcus 12/15 c. diff pcr + 12/17 blood cx: Group D enterococcus 2/4, GPCs 06/11. 12/18 blood cx: Enterococcus faecalis 1/4 bottles 12/19 - blood cx x2 sets -NGTD 12/26- blood cultures negative to date History of IV drug use - Admitted to recent use of IV drugs to ID consultant electronics. On Prescribed Dilaudid for pain, UDS positive for opiates. - Supplement multivitamin, thiamine Acute protein calorie malnutrition- severe. History of hepatitis C - regular diet as tolerated. - Dc IV Protonix Dehydration-could be playing a role today because of ongoing diarrhea. As previously mentioned, IV fluids today for 1 L and repeat CBC and BMP Nausea-active - Monitor renal function, I/O's, electrolytes replacement per protocol. History of bilateral lower extremity DVT Pancytopenia secondary to liver disease, splenomegaly and, sepsis/DIC -Monitor CBC, CMP, INR -hold eliquis until platelets >70 k per hematology recs. Continue prophylactic heparin 5000 subcut q12 per hematology recs. PROPH: -Bilateral lower extremity SCDs, hold therapeutic anticoagulation given thrombocytopenia, continue heparin subcut as per above. Discharge Planning Patient requires multiple IV antibiotics which will require hospitalization for the duration of her treatment. Problem Qualifiers (1) Sepsis: Qualified Code: O85 - Puerperal sepsis (2) Chest pain: Qualified Code: R07.9 - Chest pain, unspecified type (3) Hypotension: Qualified Code: I95.89 - Other specified hypotension Vic Nieves MD Dec 29, 2016 10:45
--- NOTE | 2016-12-29 11:23 | PD.ONC.PN ---
Subjective Subjective Remarks Tmax 100.7 overnight. Patient resting in bed. She has pain in the dorsal aspect of her right foot. She feels fatigued. Objective Data Date Time Temp Pulse Resp B/P Pulse Ox O2 Delivery O2 Flow Rate FiO2 12/29/16 09:00 107 12/29/16 08:00 98.3 112 20 93/63 93 12/29/16 04:28 99.0 112 20 104/71 97 12/29/16 01:00 100.7 113 18 96/57 98 12/28/16 20:43 105 12/28/16 20:00 Nasal Cannula 3.00 12/28/16 19:54 98.8 109 18 92/54 92 12/28/16 16:00 99.2 110 18 90/51 97 12/28/16 12:00 98.8 98 18 100/65 98 12/29/16 12/29/16 12/29/16 06:59 14:59 22:59 Intake Total 240 ml Output Total 900 ml Balance -660 ml Result Diagram: 12/28/1643912/28/16439 Laboratory Results Laboratory Tests Test 12/28/16 12/29/16 14:30 01:20 Stool C. difficile Toxin (PCR) NEGATIVE Stl C. difficile Toxin PRESUMPTIVE Epiderm 027 NEGATIVE Gentamicin Level Trough 0.6 MCG/ML Culture Results Microbiology Date/Time Procedure Status Source Growth 12/26/16 18:45 Aerobic Blood Culture - Preliminary Resulted Blood Peripheral NO GROWTH IN 3 DAYS 12/26/16 18:45 Anaerobic Blood Culture - Preliminary Resulted Blood Peripheral NO GROWTH IN 3 DAYS 12/26/16 18:53 Aerobic Blood Culture - Preliminary Resulted Blood Peripheral NO GROWTH IN 3 DAYS 12/26/16 18:53 Anaerobic Blood Culture - Preliminary Resulted Blood Peripheral NO GROWTH IN 3 DAYS Administered Medications Medications (Trade) Dose Ordered Sig/Solo Route PRN Reason Start Time Stop Time Status Last Admin Dose Admin Acetaminophen (Tylenol) 650 mg Q6H PRN PO FEVER >101F 12/16/16 03:00 12/26/16 21:44 Chlorhexidine Gluconate (Chlorhexidine 2% Cloth) Taper DAILY@04 TOP 12/16/16 04:00 12/12/17 03:59 12/21/16 03:59 Hydromorphone HCl (Dilaudid) 4 mg Q6H PRN PO Pain Management 12/16/16 03:00 7/24/17 11:16 Terbutaline Sulfate (Brethine Inj) 1 mg UNSCH PRN SQ FOR EXTRAVASATION PROTOCOL 12/16/16 21:00 12/16/16 21:09 Ondansetron HCl 4 mg 4 mg Q6H PRN IV PUSH NAUSEA/VOMITING 12/18/16 15:30 12/27/16 10:35 Vancomycin HCl 750 mg/Sodium Chloride 257.5 ml @ 257.5 mls/ hr Q8H IV 12/19/16 20:00 12/29/16 11:16 Ceftriaxone Sodium/Sodium Chloride (Rocephin Inj/NS Inj) 100 ml @ 200 mls/hr Q24H IV 12/21/16 00:00 12/28/16 23:09 Heparin Sodium (Porcine) 5000 units 5,000 units TID SQ 12/21/16 18:00 12/29/16 08:33 Gentamicin Sulfate/Sodium Chloride (Gentamicin Inj/ NS Inj) 101.5 ml @ 200 mls/hr Q12H IV 12/23/16 01:00 12/29/16 02:13 Calcium Carbonate (Oscal) 500 mg Q12HR PO 12/24/16 11:30 12/29/16 08:33 Vancomycin HCl (VANCOMYCIN for oral use only) 125 mg Q6H PO 12/27/16 17:00 12/29/16 06:11 Objective Remarks GENERAL: Young woman, lying n bed in nad. SKIN: Warm and dry. HEAD: Normocephalic. EYES: No injection or drainage. NECK: Supple, trachea midline. CARDIOVASCULAR: +S1/S2 RESPIRATORY: anterior lerner clear. GASTROINTESTINAL: Abdomen soft, non-tender, nondistended. EXTREMITIES: No cyanosis NEUROLOGICAL: aox3. normal speech. Assessment/Plan Problem List: (1) Pancytopenia Status: Acute Plan: --due to liver disease and splenomegaly + sepsis/DIC --CT showed enlarged liver and spleen. spleen is about 20 cm cranio-caudally. --transfuse pRBC when symptomatic or less than 7. --will give Neupogen if patient has severe neutropenia (2) Sepsis Status: Acute Plan: --Sepsis/bacteremia. --has a history of endocarditis, status post tricuspid valve and mitral valve replacement. She has had febrile illness. --most recent blood cultures with no growth. --BC +Enterococcus faecalis --on multiple antibiotics per Infectious Disease. (3) DVT of lower extremity, bilateral Status: Resolved Plan: --started on prophylactic dose heparin on 12/19, tolerated well and no bleeding noted. will change to Eliquis when platelets are greater than 70K -- has had multiple DVT. --one point she was found to have splenic infarction. --has been on Eliquis. was not taking the Eliquis on admission as she was not able to keep her food or medication down. --no evidence of recurrent clot at this time. Assessment 36y/o female critically ill in [facility] [place] Hematology consulted for pancytopenia. h/o MSSA endocarditis, January 2016. Bilateral lower extremity DVT multiple times. She was on Coumadin for a while and switched to Eliquis. Hepatitis C. History of IV drug use. Chronic pain. Tricuspid valve and mitral valve replacement. Left femoral vein catheterization Plan 1. continue low dose heparin 2. await CBC today Attending Statement The exam, history, and the medical decision-making described in the above note were completed with the assistance of the mid-level provider. I reviewed and agree with the findings presented. I attest that I had a [id number] encounter with the patient on the same day, and personally performed and documented my assessment and findings in the medical record. Has fever. Hgb trended up with transfusion. Platelet stable. Still too low to restart Eliquis , continue heparin. Problem Qualifiers (1) Sepsis: Qualified Code: O85 - Puerperal sepsis Mel Warren Dec 29, 2016 11:23 Ger Alexander MD Dec 29, 2016 15:16
--- NOTE | 2016-12-29 16:03 | HHI.IDPN ---
Subjective Subjective Remarks Chart reviewed since last seen by me. 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 Clinically asymptomatic. Denies any fever chills Denies any new complaints. Worked with PT/OT No nausea vomiting when off flagyl. Cdiff negative. Diarrhea only 2 BMs overnight more formed. Antibiotics CFTX Genta IV flagyl oral vanco iv Lines Line sites with no e/o infections. Past Medical History reviewed Allergies: Coded Allergies: Morphine (Verified Allergy, Severe, hives, 12/15/16) [place] (Verified Allergy, Unknown, 12/15/16) Penicillin (Verified Allergy, Unknown, 12/15/16) Objective . Vital Signs Date Time Temp Pulse Resp B/P Pulse Ox O2 Delivery O2 Flow Rate FiO2 12/29/16 09:00 107 12/29/16 08:00 98.3 112 20 93/63 93 12/29/16 04:28 99.0 112 20 104/71 97 12/29/16 01:00 100.7 113 18 96/57 98 12/28/16 20:43 105 12/28/16 20:00 Nasal Cannula 3.00 12/28/16 19:54 98.8 109 18 92/54 92 12/28/16 16:00 99.2 110 18 90/51 97 12/28/16 12/28/16 12/29/16 15:00 23:00 07:00 Intake Total 480 ml 710 ml 240 ml Output Total 1000 ml 600 ml 900 ml Balance -520 ml 110 ml -660 ml Intake Oral 480 ml 360 ml 240 ml IV Total 350 ml Output Urine Total 1000 ml 600 ml 900 ml # Bowel Movements 0 2 . Laboratory Tests Test 12/28/16 04:40 White Blood Count 3.8 TH/MM3 Red Blood Count 3.06 MIL/MM3 Hemoglobin 8.8 GM/DL Hematocrit 26.0 % Mean Corpuscular Volume 84.9 FL Mean Corpuscular Hemoglobin 28.9 PG Mean Corpuscular Hemoglobin 34.0 % Concent Red Cell Distribution Width 16.0 % Platelet Count 55 TH/MM3 Mean Platelet Volume 10.9 FL Neutrophils (%) (Auto) 77.0 % Lymphocytes (%) (Auto) 14.2 % Monocytes (%) (Auto) 7.6 % Eosinophils (%) (Auto) 0.5 % Basophils (%) (Auto) 0.7 % Neutrophils # (Auto) 2.9 TH/MM3 Lymphocytes # (Auto) 0.5 TH/MM3 Monocytes # (Auto) 0.3 TH/MM3 Eosinophils # (Auto) 0.0 TH/MM3 Basophils # (Auto) 0.0 TH/MM3 CBC Comment DIFF FINAL Differential Comment Laboratory Tests Test 12/28/16 04:40 Sodium Level 133 MEQ/L Potassium Level 4.0 MEQ/L Chloride Level 97 MEQ/L Carbon Dioxide Level 28.7 MEQ/L Anion Gap 7 MEQ/L Blood Urea Nitrogen 9 MG/DL Creatinine 0.79 MG/DL Estimat Glomerular Filtration 83 ML/MIN Rate Random Glucose 96 MG/DL Calcium Level 7.7 MG/DL Magnesium Level 1.8 MG/DL Microbiology Date/Time Procedure Status Source Growth 12/26/16 18:45 Aerobic Blood Culture - Preliminary Resulted Blood Peripheral NO GROWTH IN 3 DAYS 12/26/16 18:45 Anaerobic Blood Culture - Preliminary Resulted Blood Peripheral NO GROWTH IN 3 DAYS 12/26/16 18:53 Aerobic Blood Culture - Preliminary Resulted Blood Peripheral NO GROWTH IN 3 DAYS 12/26/16 18:53 Anaerobic Blood Culture - Preliminary Resulted Blood Peripheral NO GROWTH IN 3 DAYS Imaging Last Impressions Chest X-Ray 12/17/16 0000 Signed Impressions: Service Date/Time: Saturday, December 17, 2016 04:55 - CONCLUSION: Decreasing bibasilar atelectasis. Rodo Hart MD Lower Extremity Ultrasound 12/16/16 0000 Signed Impressions: Service Date/Time: Friday, December 16, 2016 03:56 - CONCLUSION: No DVT of either lower extremity. Rodo Hart MD CT Angiography 12/16/16 0000 Signed Impressions: Service Date/Time: Friday, December 16, 2016 05:40 - CONCLUSION: 1. No pulmonary embolus. 2. Patchy bilateral air space disease, right more so than left and both sides basilar predominant. Rodo Hart MD Abdomen/Pelvis CT 12/16/16 0000 Signed Impressions: Service Date/Time: Friday, December 16, 2016 05:40 - CONCLUSION: 1. Enlargement and scarring of the spleen. Collateral vessels in the splenic hilum are again noted. 2. Nonspecific hepatomegaly. No focal hepatic lesion. 3. No obstruction or acute inflammatory changes are demonstrated of the gastrointestinal tract. Rodo Hart MD Physical Exam GENERAL: Thin built, well-developed patient, in no apparent distress. On NC O2 SKIN: No rashes, ecchymoses or lesions. Cool and dry. EYES: Pupils equal round and reactive. Extraocular motions intact. No scleral icterus. No injection or drainage. No horizontal or vertical nystagmus NECK: Trachea midline. Supple, No JVD CARDIOVASCULAR: regular, + 2/6 systolic murmur no rubs gallops medial sternotomy scar well healed well perfused periphery RESPIRATORY: Clear to auscultation. Breath sounds equal bilaterally. No wheezes , rales, or rhonchi. GASTROINTESTINAL: Abdomen soft, No tenderness . Moderately distended abdomen MUSCULOSKELETAL: Extremities without clubbing, cyanosis, No joint tenderness, effusion, No edema noted, NEUROLOGICAL: fully awake alert oriented x 3 PSYCH: calm and pleasant IV line sites with no e.o infection. Assessment & Plan Remarks Sepsis with septic shock -shock resolved Persistent Enterococcu fecali s bacteremia: cleared Bioprosthetic valve acute endocarditis (based on verbal report, MICHELE official report pending, BCX positive) : confirmed both mitral and tricuspid valves involved - large 1.5 cm vegetaion - and also GNB high grade bacteremia - h/o TV and MV bovine valve replacement Gram negative bacteremia Serratia and Enterobacter - both quite sensitive H/o endocarditis. Aspiration Pneumonia/septic emboli Cdiff colitis. non hypervirulent strain: - recurrent diarrhea H/o IVDA, opiate + on drug screen, denies active use Hepatitis C Pancytopenia: stable counts Recs Cont Rocephin (for GNB bacteremia) x 6 weeks from 1st neg blood clx thru Jan 29 Continue Vanco IV (target 15-20 for endocarditis/bacteremia) x 6 weeks from 1st neg blood clx thru Jan 29 Continue Gentamicin (Double GNR coverage pending ID of organisms and endocarditis Rx plan) x 6 weeks from 1st neg blood clx thru Jan 29 Continue oral vanco for presumed recurrent C.diff P retesting D/w Case management if can be discharged to SNF or home with reliable family member. Patient tells me another aunt of her is ready Pt is not a candidate for new valve 2/2 her IVDU status. d/w Dr Nieves. Aundrea Busby MD Dec 29, 2016 16:03
[2016-12-29 21:36] LABS: AUTOMATED NEUTROPHIL # 3.4 TH/MM3 (1.8-7.7); BASOPHIL % 0.7 % (0.0-2.0); EOSINOPHIL % 0.3 % (0.0-4.0); HEMATOCRIT 27.8 % (35.0-46.0); LYMPH % 13.4 % (9.0-44.0); LYMPHOCYTE # 0.6 TH/MM3 (1.0-4.8); MEAN CELL VOLUME 84.8 FL (80.0-100.0); MEAN CORPUSCULAR HEMOGLOBIN 28.4 PG (27.0-34.0); MEAN CORPUSCULAR HGB CONC 33.5 % (32.0-36.0); MONO % 9.2 % (0.0-8.0); NEUT % 76.4 % (16.0-70.0); PLATELET COUNT 60 TH/MM3 (150-450); RED BLOOD COUNT 3.28 MIL/MM3 (4.00-5.30); WHITE BLOOD COUNT 4.5 TH/MM3 (4.0-11.0)
[2016-12-29 21:41] LABS: HEMO FLAGS AUTO DIFF
[2016-12-29 21:55] LABS: BICARBONATE 26.5 MEQ/L (21.0-32.0); MAGNESIUM 1.9 MG/DL (1.5-2.5); POTASSIUM 3.6 MEQ/L (3.5-5.1)
[2016-12-29 22:24] LABS: PLATELET ESTIMATE SMEAR LOW (NORMAL); SCAN/DIFF AUTO DIFF CONFIRMED
[2016-12-29 22:25] LABS: PLATELET MORPHOLOGY NORMAL (NORMAL)
[2016-12-29] MEDS: cefTRIAXone 2,000 MG/NS 100 ML IV SCH ×2 (23:00)
[2016-12-30] VITALS: BP 100/62; PULSE 114; RESP 18; TEMP 99; O2SAT 93
[2016-12-30] MEDS: GENTAMICIN INJ 60 MG in SODIUM CHLORIDE 0.9% INJ 100 ML IV SCH (01:11)
[2016-12-30] MEDS ORDERED: PHARMACY ORDERED LAB ONE (03:45)
[2016-12-30] MEDS: CHLORHEXIDINE GLUCONATE 2 % 1 PACK (2 CLOTHS) TOP SCH (04:00)
[2016-12-30] MEDS: VANCOMYCIN INJ 750 MG in SODIUM CHLOR 0.9% 250 ML INJ 250 ML IV SCH (04:32)
[2016-12-30] MEDS: VANCOMYCIN 500 MG VIAL (FOR ORAL USE ONLY) PO SCH ×2 (04:33→10:21)
[2016-12-30] MEDS: HYDROmorphone HCL 4 MG TAB PO PRN ×2 (04:37→10:22)
[2016-12-30 05:00] LABS: AUTOMATED NEUTROPHIL # 3.6 TH/MM3 (1.8-7.7); BASOPHIL % 0.7 % (0.0-2.0); EOSINOPHIL % 0.4 % (0.0-4.0); HEMATOCRIT 27.6 % (35.0-46.0); LYMPH % 18.5 % (9.0-44.0); LYMPHOCYTE # 0.9 TH/MM3 (1.0-4.8); MEAN CELL VOLUME 84.1 FL (80.0-100.0); MEAN CORPUSCULAR HEMOGLOBIN 28.4 PG (27.0-34.0); MEAN CORPUSCULAR HGB CONC 33.8 % (32.0-36.0); MONO % 9.7 % (0.0-8.0); NEUT % 70.7 % (16.0-70.0); PLATELET COUNT 59 TH/MM3 (150-450); RED BLOOD COUNT 3.28 MIL/MM3 (4.00-5.30); RED CELL DISTRIBUTION WIDTH 16.7 % (11.6-17.2); WHITE BLOOD COUNT 5.1 TH/MM3 (4.0-11.0)
[2016-12-30 05:07] LABS: HEMO FLAGS AUTO DIFF
[2016-12-30 06:50] LABS: PLATELET ESTIMATE SMEAR LOW (NORMAL); PLATELET MORPHOLOGY NORMAL (NORMAL); SCAN/DIFF AUTO DIFF CONFIRMED
[2016-12-30 08:08] VITALS: BP 100/65; PULSE 103; RESP 17; TEMP 98.6; O2SAT 92
[2016-12-30] MEDS: CALCIUM CARBONATE 1.25 GM (CA 500 MG) TAB PO SCH (08:11)
[2016-12-30] MEDS: HEPARIN SODIUM - SQ 10,000 UNITS/ML VIAL SQ SCH (09:00)
--- NOTE | 2016-12-30 09:15 | PD.ONC.PN ---
Subjective Subjective Remarks AFebrile overnight. No complaints. Denies pain. No bleeding. slept well overnight. Objective Data Date Time Temp Pulse Resp B/P Pulse Ox O2 Delivery O2 Flow Rate FiO2 12/30/16 00:00 99.0 114 18 100/62 93 12/29/16 20:00 98.0 120 18 94/63 93 12/29/16 20:00 119 12/29/16 20:00 Room Air 12/29/16 16:00 99.2 114 20 99/72 95 12/29/16 12:00 99.3 112 20 102/70 97 Result Diagram: 12/30/16 0400 12/29/16 2030 Laboratory Results Laboratory Tests Test 12/29/16 12/30/16 20:30 04:00 White Blood Count 4.5 TH/MM3 5.1 TH/MM3 Red Blood Count 3.28 MIL/MM3 3.28 MIL/MM3 Hemoglobin 9.3 GM/DL 9.3 GM/DL Hematocrit 27.8 % 27.6 % Mean Corpuscular Volume 84.8 FL 84.1 FL Mean Corpuscular Hemoglobin 28.4 PG 28.4 PG Mean Corpuscular Hemoglobin 33.5 % 33.8 % Concent Red Cell Distribution Width 16.0 % 16.7 % Platelet Count 60 TH/MM3 59 TH/MM3 Mean Platelet Volume 10.5 FL 10.0 FL Neutrophils (%) (Auto) 76.4 % 70.7 % Lymphocytes (%) (Auto) 13.4 % 18.5 % Monocytes (%) (Auto) 9.2 % 9.7 % Eosinophils (%) (Auto) 0.3 % 0.4 % Basophils (%) (Auto) 0.7 % 0.7 % Neutrophils # (Auto) 3.4 TH/MM3 3.6 TH/MM3 Lymphocytes # (Auto) 0.6 TH/MM3 0.9 TH/MM3 Monocytes # (Auto) 0.4 TH/MM3 0.5 TH/MM3 Eosinophils # (Auto) 0.0 TH/MM3 0.0 TH/MM3 Basophils # (Auto) 0.0 TH/MM3 0.0 TH/MM3 CBC Comment AUTO DIFF AUTO DIFF Differential Comment AUTO DIFF AUTO DIFF CONFIRMED CONFIRMED Platelet Estimate LOW LOW Platelet Morphology Comment NORMAL NORMAL Sodium Level 129 MEQ/L Potassium Level 3.6 MEQ/L Chloride Level 95 MEQ/L Carbon Dioxide Level 26.5 MEQ/L Anion Gap 8 MEQ/L Blood Urea Nitrogen 8 MG/DL Creatinine 0.78 MG/DL Estimat Glomerular Filtration 85 ML/MIN Rate Random Glucose 113 MG/DL Calcium Level 7.7 MG/DL Magnesium Level 1.9 MG/DL Vancomycin Level Trough 20.4 MCG/ML Administered Medications Medications (Trade) Dose Ordered Sig/Solo Route PRN Reason Start Time Stop Time Status Last Admin Dose Admin Acetaminophen (Tylenol) 650 mg Q6H PRN PO FEVER >101F 12/16/16 03:00 12/26/16 21:44 Chlorhexidine Gluconate (Chlorhexidine 2% Cloth) Taper DAILY@04 TOP 12/16/16 04:00 12/12/17 03:59 12/21/16 03:59 Hydromorphone HCl (Dilaudid) 4 mg Q6H PRN PO Pain Management 12/16/16 03:00 12/30/16 04:37 Terbutaline Sulfate (Brethine Inj) 1 mg UNSCH PRN SQ FOR EXTRAVASATION PROTOCOL 12/16/16 21:00 12/16/16 21:09 Ondansetron HCl 4 mg 4 mg Q6H PRN IV PUSH NAUSEA/VOMITING 12/18/16 15:30 12/27/16 10:35 Vancomycin HCl 750 mg/Sodium Chloride 257.5 ml @ 257.5 mls/ hr Q8H IV 12/19/16 20:00 12/30/16 04:32 Ceftriaxone Sodium/Sodium Chloride (Rocephin Inj/NS Inj) 100 ml @ 200 mls/hr Q24H IV 12/21/16 00:00 12/29/16 23:00 Heparin Sodium (Porcine) 5000 units 5,000 units TID SQ 12/21/16 18:00 12/29/16 08:33 Gentamicin Sulfate/Sodium Chloride (Gentamicin Inj/ NS Inj) 101.5 ml @ 200 mls/hr Q12H IV 12/23/16 01:00 12/30/16 01:11 Calcium Carbonate (Oscal) 500 mg Q12HR PO 12/24/16 11:30 12/30/16 08:11 Promethazine HCl (Phenergan) 12.5 mg Q4H PRN PO NAUSEA OR VOMITING 12/26/16 11:30 12/29/16 15:30 Vancomycin HCl (VANCOMYCIN for oral use only) 125 mg Q6H PO 12/27/16 17:00 12/29/16 15:30 Objective Remarks GENERAL: Young woman, supine in bed resting. SKIN: Warm and dry. HEAD: Normocephalic. EYES: No injection or drainage. NECK: Supple, trachea midline. CARDIOVASCULAR: +S1/S2 RESPIRATORY: anterior lerner clear. GASTROINTESTINAL: Abdomen soft, non-tender, nondistended. EXTREMITIES: No cyanosis NEUROLOGICAL: awake and alert, normal speech. moving all extremities. Assessment/Plan Problem List: (1) Pancytopenia Status: Acute Plan: --due to liver disease and splenomegaly + sepsis/DIC + peripheral consumption from antibiotics --CT showed enlarged liver and spleen. spleen is about 20 cm cranio-caudally. --transfuse pRBC when symptomatic or less than 7. --will give Neupogen if patient has severe neutropenia (2) Sepsis Status: Acute Plan: --Sepsis/bacteremia. --has a history of endocarditis, status post tricuspid valve and mitral valve replacement. She has had febrile illness. --most recent blood cultures with no growth. --BC +Enterococcus faecalis --on multiple antibiotics per Infectious Disease. (3) DVT of lower extremity, bilateral Status: Resolved Plan: --started on prophylactic dose heparin on 12/19, tolerated well and no bleeding noted. will change to Eliquis when platelets are greater than 70K -- has had multiple DVT. --one point she was found to have splenic infarction. --has been on Eliquis. was not taking the Eliquis on admission as she was not able to keep her food or medication down. --no evidence of recurrent clot at this time. Assessment 36y/o female critically ill in [facility] [place]. Hematology consulted for pancytopenia. h/o MSSA endocarditis, January 2016. Bilateral lower extremity DVT multiple times. She was on Coumadin for a while and switched to Eliquis. Hepatitis C. History of IV drug use. Chronic pain. Tricuspid valve and mitral valve replacement. Left femoral vein catheterization Plan 1. continue heparin 2. monitor CBC Attending Statement The exam, history, and the medical decision-making described in the above note were completed with the assistance of the mid-level provider. I reviewed and agree with the findings presented. I attest that I had a [id number] encounter with the patient on the same day, and personally performed and documented my assessment and findings in the medical record. Denies bleeding. Platelet stable. Continue heparin. Problem Qualifiers (1) Sepsis: Qualified Code: O85 - Puerperal sepsis Mel Warren Dec 30, 2016 09:15 Ger Alexander MD Dec 30, 2016 16:56
--- NOTE | 2016-12-30 11:40 | PD.AMA ---
Against Medical Advice Note Diagnosis: (1) Endocarditis Discharge Disposition: Against Medical Advice AMA Statement Patient Humera Romero has decided to leave the hospital against medical advice. This patient has the capacity to refuse care and understands the risks of leaving, including permanent disability and/or , and has had an opportunity to ask questions about her condition. The patient has been informed that she may return for care at any time, and follow up has been arranged/advised. Vic Nieves MD Dec 30, 2016 11:40
--- NOTE | 2016-12-30 11:42 | HHI.DS ---
Discharge Summary Admission Date Dec 16, 2016 at 02:47 Discharge Date: Dec 30, 2016 Admitting Diagnosis Weakness, n/v/d, cp r/o endocarditis (1) Sepsis ICD Code: A41.9 Diagnosis: Principal (2) Chest pain ICD Code: R07.9 Diagnosis: Principal (3) Hypotension ICD Code: I95.9 Diagnosis: Principal (4) Hyponatremia ICD Code: E87.1 Diagnosis: Principal (5) Hypokalemia ICD Code: E87.6 Diagnosis: Principal (6) Endocarditis due to methicillin susceptible Staphylococcus aureus (MSSA) ICD Code: I33.0 Diagnosis: Secondary (7) DVT of lower extremity, bilateral ICD Code: I82.403 Diagnosis: Secondary (8) IVDU (intravenous drug user) ICD Code: F19.90 (9) Bacteremia ICD Code: R78.81 (10) Pancytopenia ICD Code: D61.818 (11) Septic pulmonary embolism ICD Code: I26.90 (12) Elevated LFTs ICD Code: R79.89 Procedures MICHELE PICC Brief History - From Admission The patient is a 36 year old female with past medical history significant for 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 Patient had a blood pressure 90/51 heart rate in the 130s and temperature 99.2. Patient was recently admitted to [facility] in October 17- for possible recurrent endocarditis, which was ruled out and patient was discharged home. On December 07 she began to have generalized weakness and started to have a fever. Tmax at home of 102. 2 days ago she began to have severe chest pain in the center of her chest. She also had dyspnea on exertion, also had nausea and vomiting intermittently since December 07. Since last 2 days innumerable episodes of vomiting and diarrhea but no blood in stools or hematemesis. A 2d echo done on 10/17/16 was negative for any vegetation I evaluated the patient in the emergency department. She remains tachycardic and borderline hypotensive. Complaints of chest pain to the right side of the rib, since December 07. She claims it is constant and 9 out of 10. Initial cardiac enzymes and EKG negative. I have ordered CT pulmonary angiogram to rule out PE and septic emboli given history of endocarditis and lower extremity DVT. Patient had also not been taking eliquis for the last few days. Patient also complained about nausea vomiting and diarrhea with diffuse abdominal pain for the last few days. I have also ordered CT abdomen pelvis to rule out any kind of colitis. Patient will be continued on vancomycin and cefepime which was started in the ED, I have added Flagyl CBC/BMP: 12/30/16 0400 12/29/16 2030 Significant Findings Laboratory Tests Test 12/27/16 12/28/16 12/29/16 12/30/16 11:45 04:40 20:30 04:00 Vancomycin Level Trough 18.4 MCG/ML 20.4 MCG/ML (5.0-10.0) (5.0-10.0) White Blood Count 3.8 TH/MM3 (4.0-11.0) Red Blood Count 3.06 MIL/MM3 3.28 MIL/MM3 3.28 MIL/MM3 (4.00-5.30) (4.00-5.30) (4.00-5.30) Hemoglobin 8.8 GM/DL 9.3 GM/DL 9.3 GM/DL (11.6-15.3) (11.6-15.3) (11.6-15.3) Hematocrit 26.0 % 27.8 % 27.6 % (35.0-46.0) (35.0-46.0) (35.0-46.0) Platelet Count 55 TH/MM3 60 TH/MM3 59 TH/MM3 (150-450) (150-450) (150-450) Neutrophils (%) (Auto) 77.0 % 76.4 % 70.7 % (16.0-70.0) (16.0-70.0) (16.0-70.0) Lymphocytes # (Auto) 0.5 TH/MM3 0.6 TH/MM3 0.9 TH/MM3 (1.0-4.8) (1.0-4.8) (1.0-4.8) Sodium Level 133 MEQ/L 129 MEQ/L (136-145) (136-145) Chloride Level 97 MEQ/L 95 MEQ/L (98-107) (98-107) Estimat Glomerular Filtration 83 ML/MIN (>89) 85 ML/MIN (>89) Rate Calcium Level 7.7 MG/DL 7.7 MG/DL (8.5-10.1) (8.5-10.1) Monocytes (%) (Auto) 9.2 % (0.0-8.0) 9.7 % (0.0-8.0) Platelet Estimate LOW (NORMAL) LOW (NORMAL) Random Glucose 113 MG/DL (74-106) Imaging Last Impressions Chest X-Ray 12/28/16 0600 Signed Impressions: Service Date/Time: Wednesday, December 28, 2016 05:37 - CONCLUSION: Worsening aeration. Rodo Galindo MD Lower Extremity Ultrasound 12/16/16 0000 Signed Impressions: Service Date/Time: Friday, December 16, 2016 03:56 - CONCLUSION: No DVT of either lower extremity. Rodo Hart MD CT Angiography 12/16/16 0000 Signed Impressions: Service Date/Time: Friday, December 16, 2016 05:40 - CONCLUSION: 1. No pulmonary embolus. 2. Patchy bilateral air space disease, right more so than left and both sides basilar predominant. Rodo Hart MD Abdomen/Pelvis CT 12/16/16 0000 Signed Impressions: Service Date/Time: Friday, December 16, 2016 05:40 - CONCLUSION: 1. Enlargement and scarring of the spleen. Collateral vessels in the splenic hilum are again noted. 2. Nonspecific hepatomegaly. No focal hepatic lesion. 3. No obstruction or acute inflammatory changes are demonstrated of the gastrointestinal tract. Rodo Hart MD PE at Discharge Well-developed, well-nourished in no distress Poor correction Past heart rate and regular rhythm with systolic murmur left sternal border Equal breath sounds Improving Pitting edema bilateral hips Alert and oriented nonfocal PICC line right upper extremity Hospital Course 36yF with recurrent mitral valve bioprosthetic endocarditis, Enterococcus bacteremia, C. Difficile Colitis, septic shock. Now off vasopressors. Continue antibiotic per ID. Sepsis with septic shock - due to endocarditis/bacteremia. - MICHELE 12/17 with evidence of recurrent endocarditis, EF 40%, mild RV dysfunction - Echo 10/17: mitral and tricuspid valve no regurgitation - Serial blood cultures have been positive (as per below). Most recent culture NEG x 3 days. - Evaluated by [facility] and she is not operative candidate due to recent IV drug use. - Off vasopressors. S/P hydrocortisone IV with episodic hypotension. IV fluids for 1 L with fluid boluses as needed. Repeat CBC and BMP stable with slight hyponatremia 129 Bacteremia: Enterococcus faecalis, Enterobacter Cloacae (2 strains), Group D enterococcus, additional Gram negative rods/ C. Difficile Colitis -hx tricuspid and mitral valve replacement/recurrent infective endocarditis/ recurrent bioprosthetic tricuspid and mitral valve endocarditis - Continue abx per ID: On IV Vancomycin, rocephin and gentamicin until January 29 - ID service is consulted. Repeat blood cultures from 12/19 and 12/26 so far negative but continues to have intermittent fever - C. Diff + 12/16. Recurrent diarrhea discontinued Flagyl switched to vancomycin December 27. Repeat C. difficile negative. Continue Lactinex - HIV negative Culture data: 12/15 blood cx: 09/09: Enterococcus faecalis, Enterobacter Cloacae (2 strains), Group D enterococcus 12/15 c. diff pcr + 12/17 blood cx: Group D enterococcus 2/4, GPCs 06/11. 12/18 blood cx: Enterococcus faecalis /4 bottles 12/19 - blood cx x2 sets -NGTD 12/26- blood cultures negative to date History of IV drug use - Admitted to recent use of IV drugs to ID polymer materials consultant. On Prescribed Dilaudid for pain, UDS positive for opiates. - Supplement multivitamin, thiamine Acute protein calorie malnutrition- severe. History of hepatitis C - regular diet as tolerated. - Dc IV Protonix Dehydration- because of ongoing diarrhea. As previously mentioned, IV fluids for 1 L and prn bolus Nausea-active - Monitor renal function, I/O's, electrolytes replacement per protocol. History of bilateral lower extremity DVT Pancytopenia secondary to liver disease, splenomegaly and, sepsis/DIC -Monitor CBC, CMP, INR -hold eliquis until platelets >70 k per hematology recs. Continue prophylactic heparin 5000 subcut q12 per hematology recs. PROPH: -Bilateral lower extremity SCDs, hold therapeutic anticoagulation given thrombocytopenia, continue heparin subcut as per above. Discharge Planning She requires multiple IV antibiotics which will require further hospitalization and not stable for discharge. Upon hearing that her son has been involved in a MVA in [place], she wants to be discharged. Patient Humera Romero has decided to leave the hospital against medical advice. This patient has the capacity to refuse care and understands the risks of leaving, including permanent disability and/or , and has had an opportunity to ask questions about her condition. The patient has been informed that she may return for care at any time, and follow up has been arranged/advised. Pt Condition on Discharge: Guarded Discharge Disposition: Discharge Home (AMA) Discharge Time: > 30 minutes Vic Nieves MD Dec 30, 2016 11:42 Group D enterococcus 12/15 c. diff pcr + 12/17 blood cx: Group D enterococcus 07/12, GPCs 06/11. 12/18 blood cx: Enterococcus faecalis 06/11 bottles 12/19 - blood cx x2 sets -NGTD 12/26- blood cultures negative to date History of IV drug use - Admitted to recent use of IV drugs to ID polymer materials consultant. On Prescribed Dilaudid for pain, UDS positive for opiates. - Supplement multivitamin, thiamine Acute protein calorie malnutrition- severe. History of hepatitis C - regular diet as tolerated. - Dc IV Protonix Dehydration- because of ongoing diarrhea. As previously mentioned, IV fluids for 1 L and prn bolus Nausea-active - Monitor renal function, I/O's, electrolytes replacement per protocol. History of bilateral lower extremity DVT Pancytopenia secondary to liver disease, splenomegaly and, sepsis/DIC -Monitor CBC, CMP, INR -hold eliquis until platelets >70 k per hematology recs. Continue prophylactic heparin 5000 subcut q12 per hematology recs. PROPH: -Bilateral lower extremity SCDs, hold therapeutic anticoagulation given thrombocytopenia, continue heparin subcut as per above. Discharge Planning She requires multiple IV antibiotics which will require further hospitalization and not stable for discharge. Upon hearing that her son has been involved in a MVA in [place], she wants to be discharged. Patient Humera Romero has decided to leave the hospital against medical advice. This patient has the capacity to refuse care and understands the risks of leaving, including permanent disability and/or , and has had an opportunity to ask questions about her condition. The patient has been informed that she may return for care at any time, and follow up has been arranged/advised. Pt Condition on Discharge: Guarded Discharge Disposition: Discharge Home (AMA) Discharge Time: > 30 minutes Vic Nieves MD Dec 30, 2016 11:42
[2016-12-30 12:05] VITALS: BP 109/74; PULSE 111; RESP 18; TEMP 98.1; O2SAT 100
[2016-12-30] MEDS ORDERED: VANCOMYCIN INJ 750 MG in SODIUM CHLOR 0.9% 250 ML INJ 250 ML IV SCH (16:00)
[2017-01-01] MEDS ORDERED: PHARMACY ORDERED LAB ONE (07:45)
== END 2016-12-30 13:19 | disposition left against medical advice (07) | DRG 314 ==
LOC: NEPC 21:24 → NEDA 12-16 02:47 → HIMN 12-16 05:50 → N04B 12-22 18:49
PROVIDERS: ADMIT Internal Medicine; ATTEND Internal Medicine
PROC: 05H333Z Insertion of Infusion Device into Right Innominate Vein, Percutaneous Approach (ICD-10-PCS; 2016-12-16)
PROC: B54MZZA Ultrasonography of Right Upper Extremity Veins, Guidance (ICD-10-PCS; 2016-12-16)
PROC: 30233R1 Transfusion of Nonautologous Platelets into Peripheral Vein, Percutaneous Approach (ICD-10-PCS; 2016-12-16)
PROC: B246ZZ4 Ultrasonography of Right and Left Heart, Transesophageal (ICD-10-PCS; principal; 2016-12-17)
PROC: 0BH17EZ Insertion of Endotracheal Airway into Trachea, Via Natural or Artificial Opening (ICD-10-PCS; 2016-12-17)
PROC: 30233N1 Transfusion of Nonautologous Red Blood Cells into Peripheral Vein, Percutaneous Approach (ICD-10-PCS; 2016-12-20)
DX: T82.6XXA Infection and inflammatory reaction due to cardiac valve prosthesis, initial encounter (principal); I33.0 Acute and subacute infective endocarditis; R65.21 Severe sepsis with septic shock; A41.81 Sepsis due to Enterococcus; A41.4 Sepsis due to anaerobes; D65 Disseminated intravascular coagulation [defibrination syndrome]; A41.9 Sepsis, unspecified organism; J69.0 Pneumonitis due to inhalation of food and vomit; J90 Pleural effusion, not elsewhere classified; E43 Unspecified severe protein-calorie malnutrition; I76 Septic arterial embolism; D61.818 Other pancytopenia; A04.7 Enterocolitis due to Clostridium difficile; E87.1 Hypo-osmolality and hyponatremia; E86.0 Dehydration; K76.9 Liver disease, unspecified; E87.6 Hypokalemia; F41.9 Anxiety disorder, unspecified; F32.9 Major depressive disorder, single episode, unspecified; I45.10 Unspecified right bundle-branch block; I37.1 Nonrheumatic pulmonary valve insufficiency; R16.0 Hepatomegaly, not elsewhere classified; G62.9 Polyneuropathy, unspecified; E87.70 Fluid overload, unspecified; R16.1 Splenomegaly, not elsewhere classified; F11.10 Opioid abuse, uncomplicated; T45.516A Underdosing of anticoagulants, initial encounter; Y83.1 Surgical operation with implant of artificial internal device as the cause of abnormal reaction of the patient, or of later complication, without mention of misadventure at the time of the procedure; Z68.20 Body mass index [BMI] 20.0-20.9, adult; Z79.01 Long term (current) use of anticoagulants; Z86.718 Personal history of other venous thrombosis and embolism; Z86.19 Personal history of other infectious and parasitic diseases; Z86.711 Personal history of pulmonary embolism; Z87.891 Personal history of nicotine dependence; Z88.0 Allergy status to penicillin; Z88.5 Allergy status to narcotic agent; Z91.138 Patient's unintentional underdosing of medication regimen for other reason
CPT/HCPCS: 36430; 36556; 71010; 71275; 74177; 76937; 80048; 80053; 80170; 80202; 80307; 81001; 82533; 82550; 82565; 82607; 82728; 82746; 83010; 83540; 83550; 83605; 83615; 83690; 83735; 83880; 84100; 84132; 84155; 84443; 84484; 85007; 85025; 85027; 85044; 85060; 85384; 85610; 85652; 85730; 86140; 86703; 86850; 86900; 86901; 86920; 87040; 87077; 87086; 87186; 87205; 87328; 87329; 87425; 87493; 87641; 93005; 93306; 93312; 93320; 93325; 93970; 94003; 96374; 96375; C9113; J0692; J0696; J1580; J1644; J1720; J1885; J1940; J2250; J2405; J2997; J3105; J3370; J3480; J7030; J7050; P9016; P9035; Q0169; Q9967